=== PATIENT | male | born 1960 | race African-American/Black ===

== ENCOUNTER 2017-12-12 02:11 | Emergency (ER) | payer MEDICAID ==
[~2017-12-12] VITALS: Ht 190.5 cm; Wt 95.3 kg
--- NOTE | 2017-12-12 02:43 | Emergency Room Report ---
History of Present Illness General Chief Complaint: Generalized Weakness Source: Patient, Family Member Present Illness HPI Is a 57-year-old male with no past medical history. He presents with chief complaint of general is weakness and fever and cough. Onset for last week to week and a half but worse the last 2 days. Also with headache. Coughing is productive of phlegm. No nausea no vomiting. Generalized body pain. Subjective fever. Nothing made it better. Exertion made it worse. Denies any other complaint. No chest pain. Allergies: Coded Allergies: No Known Allergies (Unverified , 12/12/17) Patient History Past Medical History: see triage record, old chart reviewed Past Surgical History: none Pertinent Family History: none Social History: Reports: smoking Immunizations: other Reviewed Nursing Documentation: PMH: Agreed; PSxH: Agreed Nursing Documentation-PMH Past Medical History: No Stated History Review of Systems Constitutional: Reports: fever, malaise, weakness Eye: Denies: eye pain, blurred vision ENT: Denies: ear pain, nose congestion, throat swelling Respiratory: Reports: cough, sputum Cardiovascular: Denies: chest pain, palpitations Gastrointestinal: Denies: abdominal pain, diarrhea, nausea, vomiting Musculoskeletal: Denies: back pain, joint pain Skin: Denies: rash Neurological: Denies: headache, numbness Endocrine: Denies: increased thirst, increased urine Hematologic/Lymphatic: Denies: easy bruising All Other Systems: negative except mentioned in HPI Physical Exam Vital Signs Date Time Temp Pulse Resp B/P (MAP) Pulse Ox O2 Delivery O2 Flow Rate FiO2 12/12/17 02:24 98.6 80 16 154/86 95 Room Air 98.6 vitals with high blood pressure Sp02 EP Interpretation: reviewed, normal General Appearance: well appearing, no apparent distress, alert Head: normocephalic, atraumatic Eyes: bilateral eye PERRL, bilateral eye EOMI ENT: hearing grossly normal, normal pharynx Neck: full range of motion, supple, no meningismus Respiratory: chest non-tender, rhonchi Cardiovascular #1: regular rate, rhythm, no murmur Gastrointestinal: normal bowel sounds, non tender, no mass, no organomegaly, no bruit, non-distended Musculoskeletal: back normal, gait/station normal, normal range of motion Psychiatric: mood/affect normal Skin: warm/dry Medical Decision Making Diagnostic Impression: Primary Impression: CAP (community acquired pneumonia) Qualified Codes: J18.1 - Lobar pneumonia, unspecified organism ER Course Patient presents with cough and fever. He has infiltrate on the chest x-ray. Also evidence of emphysema 2. He smokes about a pack a day. Tucker better after breathing treatment and antibiotics given here. He is increased risk for neoplastic process. We'll discharge home. Advised stop smoking. If not better , may need CT scan of the chest. Lab Results Impression labs unremarkable Chest X-Ray Diagnostic Results Chest X-Ray Diagnostic Results : Chest X-Ray Ordered: Yes # of Views/Limited/Complete: 1 View Indication: Shortness of Breath EP Interpretation: Yes Interpretation: no effusion, no pneumothorax, other - right lower lobe interstitial infiltrate Impression: Other - RLL infiltrates Electronically Signed by: Marco Reynoso MD Last Vital Signs Date Time Temp Pulse Resp B/P (MAP) Pulse Ox O2 Delivery O2 Flow Rate FiO2 12/12/17 02:24 98.6 80 16 154/86 95 Room Air 98.6 Status: improved Disposition: HOME, SELF-CARE Condition: Stable Scripts Azithromycin* (ZITHROMAX*) 250 Mg Tablet 250 MG ORAL DAILY, #6 TAB 0 Refills Take two tables once daily for 1 day, then one tablet once daily for 4 days. Prov: Marco Reynoso MD 12/12/17 Albuterol Sulfate* (ALBUTEROL SULFATE MDI*) 8.5 Gm Hfa.aer.ad 2 PUFF INH Q4H PRN for cough/wheezing, #1 EA 0 Refills Prov: Marco Reynoso MD 12/12/17 Additional Instructions: Stop smoking. Follow-up with your DrYuki in 7 days. Return if symptom worsen. If not better, may need CT scan of chest. Marco Reynoso MD Dec 12, 2017 02:43
[2017-12-12] MEDS ORDERED: Albuterol ud Inhalation HHN ONE (02:45)
[2017-12-12] MEDS ORDERED: Ketorolac 30mg Inj IV ONE (02:45)
[2017-12-12 02:50] VITALS: BP 140/87
[2017-12-12 03:02] LABS: BASOPHILS % (AUTO) 1.1 % (0.0-2.0); EOSINOPHILS % (AUTO) 2.9 % (0.0-3.0); HEMATOCRIT 44.1 % (42.0-52.0); HEMOGLOBIN 14.6 G/DL (14.2-18.0); LYMPHOCYTES % (AUTO) 27.7 % (20.0-45.0); MEAN CORPUSCULAR VOLUME 89 FL (80-99); MONOCYTES % (AUTO) 6.6 % (1.0-10.0); NEUTROPHILS % (AUTO) 61.7 % (45.0-75.0); PLATELET COUNT 271 K/UL (150-450); RED BLOOD COUNT 4.96 M/UL (4.70-6.10); RED CELL DISTRIBUTION WIDTH 12.6 % (11.6-14.8); WHITE BLOOD COUNT 4.7 K/UL (4.8-10.8)
[2017-12-12 03:12] LABS: ANION GAP 6 mmol/L (5-15); BLOOD UREA NITROGEN 15 mg/dL (7-18); CALCIUM 8.6 MG/DL (8.5-10.1); CARBON DIOXIDE 27 MMOL/L (21-32); CHLORIDE 107 MMOL/L (98-107); CREATININE 1.2 MG/DL (0.55-1.30); POTASSIUM 3.7 MMOL/L (3.5-5.1); SODIUM 140 MMOL/L (136-145)
[2017-12-12] MEDS ORDERED: cefTRIAXone 1 GM in NS 55 ML IVPB ONE (03:15)
[2017-12-12] MEDS ORDERED: ZITHROMAX250 MG ORAL (03:33)
[2017-12-12] MEDS ORDERED: ALBUTEROL SULF8.5 GM INH (03:33)
[2017-12-12 03:45] VITALS: BP 138/88
[2017-12-12 04:01] VITALS: BP 138/88
--- NOTE | 2017-12-12 10:38 | Diagnostic Imaging Report ---
Indication: Dyspnea Comparison: None A single view chest radiograph was obtained. Findings: Cardiomediastinal appearance is within normal limits for age. The lungs are clear. Pulmonary vascularity is appropriate. The diaphragmatic contour is smooth and costophrenic angles are sharp. No pleural effusions are identified. The bones are unremarkable. Impression: No acute findings
== END 2017-12-12 03:55 | disposition home or self-care (01) ==
LOC: EMR 02:42
DX: J18.9 Pneumonia, unspecified organism (principal); F17.200 Nicotine dependence, unspecified, uncomplicated
CPT/HCPCS: 36415; 71045; 80048; 84484; 85025; 94640; 94664; 96361; 96365; 96375; 99284; J0696; J1885

== ENCOUNTER 2019-08-09 12:22 | Emergency (ER) | payer MEDICAID ==
[~2019-08-09] VITALS: Ht 190.5 cm; Wt 90.7 kg
[2019-08-09 12:22] VITALS: BP 125/88
[~2019-08-09 12:22] MED LIST: ALBUTEROL SULF8.5 GM INH; ZITHROMAX250 MG ORAL
--- NOTE | 2019-08-09 12:22 | NUR ---
ED Nurse Note: PT walked in to ed for pressure like C/P Chest pain and SOB since yesterday. pt reports having a stent placed in about 7 month ago at [facility].
--- NOTE | 2019-08-09 12:59 | NUR ---
ED Nurse Note: blood sample collected and sent to lab
--- NOTE | 2019-08-09 13:03 | NUR ---
ED Nurse Note: pt unable to provide urine sample at this time.
--- NOTE | 2019-08-09 13:08 | NUR ---
ED Nurse Note: x ray neing taken at bedside. Repory given to Deirdre Mcbride RN. Endorsed plan of care.
[2019-08-09 13:13] LABS: HEMATOCRIT 47.6 % (42.0-52.0); HEMOGLOBIN 15.5 G/DL (14.2-18.0); MEAN CORPUSCULAR VOLUME 88 FL (80-99); PLATELET COUNT 264 K/UL (150-450); RED BLOOD COUNT 5.42 M/UL (4.70-6.10); WHITE BLOOD COUNT 5.3 K/UL (4.8-10.8)
[2019-08-09 13:25] LABS: ANION GAP 7 mmol/L (5-15); BLOOD UREA NITROGEN 22 mg/dL (7-18); CALCIUM 8.8 MG/DL (8.5-10.1); CARBON DIOXIDE 28 MMOL/L (21-32); CHLORIDE 108 MMOL/L (98-107); CREATININE 1.9 MG/DL (0.55-1.30); POTASSIUM 4.8 MMOL/L (3.5-5.1); SODIUM 142 MMOL/L (136-145)
[2019-08-09 13:35] LABS: ALANINE AMINOTRANSFERASE 28 U/L (12-78); ALBUMIN/GLOBULIN RATIO 0.8 (1.0-2.7); ALKALINE PHOSPHATASE 67 U/L (46-116); ASPARTATE AMINO TRANSFERASE 26 U/L (15-37); BILIRUBIN,TOTAL 0.6 MG/DL (0.2-1.0)
--- NOTE | 2019-08-09 14:15 | Diagnostic Imaging Report ---
EXAM: XR Chest, 1 View CLINICAL HISTORY: CP TECHNIQUE: Frontal view of the chest. COMPARISON: No relevant prior studies available. FINDINGS: Interval development of cardiomegaly. Mild vascular congestion. Right basilar atelectasis. Cannot exclude infection or other airspace infiltrate. IMPRESSION: Interval development of cardiomegaly. Mild vascular congestion. Right basilar atelectasis. Cannot exclude infection or other airspace infiltrate.
--- NOTE | 2019-08-09 14:19 | NUR ---
ED Nurse Note: Pt still unable to provide urine. ERMD aware. Pt refuses straight cath.
--- NOTE | 2019-08-09 14:29 | Emergency Room Report ---
History of Present Illness General Chief Complaint: Dyspnea/Respdistress Source: Patient (Scott Guallpa MD) Present Illness HPI 58-year-old male presents the ED complaining of chest pain. Started this morning. Left-sided, dull, 5 out of 10, nonradiating. Notes pain with deep breaths. Denies fevers or chills. Denies cough. States that he did use cocaine this morning. No other aggravating relieving factors. Denies any other associated symptoms (Scott Guallpa MD) Allergies: Coded Allergies: No Known Allergies (Unverified , 12/12/17) COVID-19 Screening Contact w/high risk pt: No Recent Travel to affected area: No Experienced COVID-19 symptoms?: Yes COVID-19 symptoms experienced: Shortness of Breath COVID-19 Testing performed AUDIO VISUAL AIDE: No (Scott Guallpa MD) Patient History Past Medical History: HTN Past Surgical History: none Pertinent Family History: none Social History: Reports: drug use; Denies: smoking, alcohol use Immunizations: UTD Reviewed Nursing Documentation: PMH: Agreed; PSxH: Agreed (Scott Guallpa MD) Nursing Documentation-PMH Past Medical History: No History, Except For Hx Cardiac Problems: Yes Hx Hypertension: Yes Hx COPD: Yes (Scott Guallpa MD) Review of Systems All Other Systems: negative except mentioned in HPI (Scott Guallpa MD) Physical Exam Vital Signs Date Time Temp Pulse Resp B/P (MAP) Pulse Ox O2 Delivery O2 Flow Rate FiO2 08/09/19 12:22 97.5 72 18 125/88 98 Room Air Sp02 EP Interpretation: reviewed, normal General Appearance: no apparent distress, alert, GCS 15, non-toxic Head: normocephalic, atraumatic Eyes: bilateral eye normal inspection, bilateral eye PERRL ENT: hearing grossly normal, normal pharynx, no angioedema, normal voice Neck: full range of motion, supple/symm/no masses Respiratory: chest non-tender, lungs clear, normal breath sounds, speaking full sentences Cardiovascular #1: regular rate, rhythm, no edema Cardiovascular #2: 2+ carotid (R), 2+ carotid (L), 2+ radial (R), 2+ radial (L) , 2+ dorsalis pedis (R), 2+ dorsalis pedis (L) Gastrointestinal: normal bowel sounds, non tender, soft, non-distended, no guarding, no rebound Rectal: deferred Genitourinary: normal inspection, no CVA tenderness Musculoskeletal: back normal, normal range of motion, gait/station normal, non- tender Neurologic: alert, motor strength/tone normal, oriented x3, sensory intact, responsive, speech normal Psychiatric: judgement/insight normal, memory normal, mood/affect normal, no suicidal/homicidal ideation Reflexes: 3+ bicep (R), 3+ bicep (L), 3+ tricep (R), 3+ tricep (L), 3+ knee (R) , 3+ knee (L) Lymphatic: no adenopathy (Scott Guallpa MD) Medical Decision Making Diagnostic Impression: Primary Impression: Chest pain Labs Test 08/09/19 12:55 White Blood Count 5.3 K/UL (4.8-10.8) Red Blood Count 5.42 M/UL (4.70-6.10) Hemoglobin 15.5 G/DL (14.2-18.0) Hematocrit 47.6 % (42.0-52.0) Mean Corpuscular Volume 88 FL (80-99) Mean Corpuscular Hemoglobin 28.6 PG (27.0-31.0) Mean Corpuscular Hemoglobin Concent 32.6 G/DL (32.0-36.0) Red Cell Distribution Width 13.0 % (11.6-14.8) Platelet Count 264 K/UL (150-450) Mean Platelet Volume 5.7 FL (6.5-10.1) Neutrophils (%) (Auto) % (45.0-75.0) Lymphocytes (%) (Auto) % (20.0-45.0) Monocytes (%) (Auto) % (1.0-10.0) Eosinophils (%) (Auto) % (0.0-3.0) Basophils (%) (Auto) % (0.0-2.0) Differential Total Cells Counted 100 Neutrophils % (Manual) 57 % (45-75) Lymphocytes % (Manual) 37 % (20-45) Monocytes % (Manual) 6 % (1-10) Eosinophils % (Manual) 0 % (0-3) Basophils % (Manual) 0 % (0-2) Band Neutrophils 0 % (0-8) Platelet Estimate Adequate Platelet Morphology Normal Red Blood Cell Morphology Normal Sodium Level 142 MMOL/L (136-145) Potassium Level 4.8 MMOL/L (3.5-5.1) Chloride Level 108 MMOL/L (98-107) Carbon Dioxide Level 28 MMOL/L (21-32) Anion Gap 7 mmol/L (5-15) Blood Urea Nitrogen 22 mg/dL (7-18) Creatinine 1.9 MG/DL (0.55-1.30) Estimat Glomerular Filtration Rate 44.0 mL/min (>60) Glucose Level 103 MG/DL (74-106) Calcium Level 8.8 MG/DL (8.5-10.1) Total Bilirubin 0.6 MG/DL (0.2-1.0) Aspartate Amino Transf (AST/SGOT) 26 U/L (15-37) Alanine Aminotransferase (ALT/SGPT) 28 U/L (12-78) Alkaline Phosphatase 67 U/L (46-116) Troponin I 0.025 ng/mL (0.000-0.056) Pro-B-Type Natriuretic Peptide 4796 pg/mL (0-125) Total Protein 7.0 G/DL (6.4-8.2) Albumin 3.0 G/DL (3.4-5.0) Globulin 4.0 g/dL Albumin/Globulin Ratio 0.8 (1.0-2.7) (Scott Guallpa MD) ER Course Patient is a fairly complex patient with multiple differential to consideration including but not limited to cardiac cardiopulmonary and vascular emergencies Please refer to the initial note for the history exam and presentation patient' s EKG does not show any acute process initial troponin is negative Patient's repeat troponin was also negative patient has continued to rest comfortably throughout his stay remains chest pain-free BNP is mildly elevated however patient is not short of breath and saturating well and is stable for close outpatient follow-up (Tami Ledesma DO) EKG Diagnostic Results Rate: normal Rhythm: NSR ST Segments: no acute changes ASA given to the pt in ED: Yes (Scott Guallpa MD) Rate: normal Rhythm: NSR ST Segments: no acute changes (Tami Ledesma DO) Rhythm Strip Diag. Results EP Interpretation: yes Rhythm: NSR, no PVC's, no ectopy (Scott Guallpa MD) EP Interpretation: yes Rate: 66 Rhythm: NSR, no PVC's, no ectopy (Tami Ledesma DO) Chest X-Ray Diagnostic Results Chest X-Ray Diagnostic Results : Chest X-Ray Ordered: Yes # of Views/Limited/Complete: 1 View Indication: Chest Pain EP Interpretation: Yes Interpretation: no consolidation, no effusion, no pneumothorax, other - cardiomegaly Impression: Other - cardiomegaly Electronically Signed by: Electronically signed by Scott Guallpa MD (Scott Guallpa MD) Chest X-Ray Diagnostic Results : Chest X-Ray Ordered: Yes # of Views/Limited/Complete: 1 View Indication: Chest Pain EP Interpretation: Yes Interpretation: other - Mild cardiomegaly, mild congestion, no acute bony abnormality Impression: Other - Evidence of cardiomegaly mild congestion Electronically Signed by: Tami Ledesma DO (Tami Ledesma DO) Last Vital Signs Date Time Temp Pulse Resp B/P (MAP) Pulse Ox O2 Delivery O2 Flow Rate FiO2 08/09/19 12:26 97.9 65 18 127/96 (106) 98 Room Air Status: improved (Scott Guallpa MD) Status: improved (Tami Ledesma DO) Disposition: HOME, SELF-CARE Condition: Improved Scripts Unable to Obtain Active Prescriptions or Reported Meds Referrals: NOT CHOSEN IPA/,REFERRING (PCP) Additional Instructions: Patient is provided with the discharge instructions notified to follow up with primary doctor in the next 2-3 days otherwise return to the er with any worsening symptoms. Please note that this report is being documented using erento technology. This can lead to erroneous entry secondary to incorrect interpretation by the dictating instrument. Scott Guallpa MD Aug 09, 2019 14:29 Tami Ledesma DO Aug 09, 2019 15:54
--- NOTE | 2019-08-09 15:49 | NUR ---
ER DISCHARGE NOTE: Homeless log and mini cog completed. resources provided. Food provided.
[2019-08-09 15:50] VITALS: BP 120/94
--- NOTE | 2019-08-09 15:50 | NUR ---
ER DISCHARGE NOTE: Patient is cleared to be discharged per ERMD, pt is aox4, on room air, with stable vital signs. pt was given dc and prescription instructions, pt was able to verbalize understanding, pt id band and iv site removed without complications. pt is able to ambulate with steady gait. pt took all belongings. Pt educated on chest pain and cocaine abuse.
== END 2019-08-09 15:50 | disposition home or self-care (01) ==
LOC: EMR 13:00
DX: R07.9 Chest pain, unspecified (principal); R06.02 Shortness of breath; I10 Essential (primary) hypertension; J44.9 Chronic obstructive pulmonary disease, unspecified; I51.7 Cardiomegaly
CPT/HCPCS: 36415; 71045; 80053; 80307; 83880; 84484; 85007; 85025; 87081; 93005; Z7502; 99284

== ENCOUNTER 2019-08-11 20:31 | Emergency (ER) | payer MEDICAID ==
[~2019-08-11] VITALS: Ht 190.5 cm; Wt 90.7 kg
--- NOTE | 2019-08-11 20:41 | NUR ---
ED Nurse Note: Patient walked into ED after he stepped his right foot on [place] nail x2 weeks ago. Denies pain/ discharges. Pt uanle to recall last tetanus shot date. Pt able to walk with steady gait. Addendum: 08/11/19 at 2101 by [facility] ED Nurse Note: Pt also c/o SOB x couple of days. Pt has hx of COPD.
--- NOTE | 2019-08-11 20:50 | NUR ---
ED Nurse Note: Pt refused treatment care plan. ERMD notified. Explained risk and benefits, pt verbally understood.
--- NOTE | 2019-08-11 20:55 | Emergency Room Report ---
History of Present Illness General Chief Complaint: Lower Extremity Injury Source: Patient Present Illness HPI Patient is a 58-year-old male who presents to the ER requesting a tetanus update. He states he stepped on a nail 2 weeks ago. He states that his last tetanus shot was a long long time ago. Patient denies any fever or chills. Patient also complains of chronic shortness of breath. He states that he has been worked up here as well as [place] and other facilities and does not want his shortness of breath to be addressed at this time. He is declining EKG, chest x-ray or laboratory work. He states that the only thing he would like at this time is a tetanus shot. He denies any discharge or redness. He denies any pain where he stepped on the nail. Allergies: Coded Allergies: No Known Allergies (Unverified , 12/12/17) COVID-19 Screening Contact w/high risk pt: No Recent Travel to affected area: No Experienced COVID-19 symptoms?: No COVID-19 symptoms experienced: Shortness of Breath COVID-19 Testing performed SUBWAY CAR REPAIRER: No Patient History Reviewed Nursing Documentation: PMH: Agreed; PSxH: Agreed Nursing Documentation-PMH Hx Cardiac Problems: Yes Hx Hypertension: Yes Hx COPD: Yes Review of Systems All Other Systems: negative except mentioned in HPI Physical Exam Vital Signs Date Time Temp Pulse Resp B/P (MAP) Pulse Ox O2 Delivery O2 Flow Rate FiO2 08/11/19 20:34 98.1 81 16 132/97 (109) 98 Room Air Sp02 EP Interpretation: reviewed, normal General Appearance: no apparent distress, alert, GCS 15, non-toxic Head: normocephalic, atraumatic Eyes: bilateral eye normal inspection, bilateral eye PERRL ENT: hearing grossly normal, normal pharynx, no angioedema, normal voice Neck: full range of motion, supple/symm/no masses Respiratory: chest non-tender, no respiratory distress, no retraction, no accessory muscle use, speaking full sentences Cardiovascular #1: regular rate, rhythm, no edema Cardiovascular #2: 2+ carotid (R), 2+ carotid (L), 2+ dorsalis pedis (R), 2+ dorsalis pedis (L) Gastrointestinal: normal bowel sounds, non tender, soft, non-distended, no guarding, no rebound Rectal: deferred Genitourinary: no CVA tenderness Musculoskeletal: no calf tenderness, no lower extremity edema, non-tender, other - Bilaterally very dry feet, no sign of where he stepped on the nail on his heel or plantar surface of his foot 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 He states that he is only here for his tetanus update. I informed him that this could be something cardiac or due to pulmonary disease. Patient states that he still does not want to stay and does not want any lab work, X-ray, or ekg. I told him that I was concerned and he states that he accepts the risk including and up to significant morbidity and mortality. I have told him to come back at any time he wants further work-up for his dyspnea. Last Vital Signs Date Time Temp Pulse Resp B/P (MAP) Pulse Ox O2 Delivery O2 Flow Rate FiO2 08/11/19 20:34 98.1 81 16 132/97 (109) 98 Room Air Disposition: HOME, SELF-CARE Condition: Unknown Scripts Unable to Obtain Active Prescriptions or Reported Meds Referrals: [facility] Patient Instructions: Shortness of Breath, [id number], Puncture Wound, Easy- to-Read Additional Instructions: The patient was provided with discharge instructions, notified to follow-up with a primary care doctor and or specialist in the next 24-48 hours, and to return to the ED if they have worsening of their symptoms. Please note that this report is being documented using [employer] technology. This can lead to erroneous entry secondary to incorrect interpretation by the dictating instrument. Rhonda Santos M.D. Aug 11, 2019 20:55
[2019-08-11 21:00] VITALS: BP 132/97
[2019-08-11] MEDS ORDERED: Tetanus/Diptheria/Pertussis IM ONE (21:00)
--- NOTE | 2019-08-11 21:00 | NUR ---
ED Nurse Note: Pt cleared by ERMD for discharge. DC instructions/prescription was given and explained to pt and verbalized understanding of teachings. All medical deviecs such as ID band removed. Pt is AAO x4, ambulatory and left with all personal belongings.
== END 2019-08-11 21:00 | disposition home or self-care (01) ==
LOC: EMR 20:45
DX: R06.00 Dyspnea, unspecified (principal); I10 Essential (primary) hypertension; J44.9 Chronic obstructive pulmonary disease, unspecified; Z23 Encounter for immunization
CPT/HCPCS: 90471; 90715; Z7502; 99281

== ENCOUNTER 2019-08-16 03:00 | Emergency (ER) | payer MEDICAID ==
[~2019-08-16] VITALS: Ht 188 cm; Wt 81.6 kg
--- NOTE | 2019-08-16 03:04 | NUR ---
not in waiting room
--- NOTE | 2019-08-16 03:20 | NUR ---
not in waiting room.
--- NOTE | 2019-08-16 03:28 | Emergency Room Report ---
History of Present Illness General Chief Complaint: To Be Triaged Source: Patient Present Illness HPI This is a 58-year-old male with a history of substance abuse. He presents with chief complaint of abdominal pain. He checked then but when the nurse call him he did not respond. I did not see this patient. Allergies: Coded Allergies: No Known Allergies (Unverified , 12/12/17) COVID-19 Screening Contact w/high risk pt: No Recent Travel to affected area: No Experienced COVID-19 symptoms?: No COVID-19 symptoms experienced: Shortness of Breath Patient History Past Medical History: see triage record, old chart reviewed Past Surgical History: other Pertinent Family History: none Social History: Reports: drug use Immunizations: other Reviewed Nursing Documentation: PMH: Agreed; PSxH: Agreed Nursing Documentation-PMH Hx Cardiac Problems: Yes Hx Hypertension: Yes Hx COPD: Yes Medical Decision Making Diagnostic Impression: Primary Impression: Abdominal pain Qualified Codes: R10.9 - Unspecified abdominal pain Additional Impression: Substance abuse ER Course This patient presents with abdominal pain. He never checked then to the main ER. I did not see this patient. Status: unchanged Disposition: LEFT W/OUT BEING SEEN Condition: Stable Scripts Unable to Obtain Active Prescriptions or Reported Meds Marco Reynoso MD Aug 16, 2019 03:28
--- NOTE | 2019-08-16 03:42 | Emergency Room Report ---
History of Present Illness General Chief Complaint: Abdominal Pain Source: Patient Present Illness HPI This is a 58-year-old male with a history of CAD. He also has history of substance abuse with alcohol, drug cocaine and PCP. He presents with chief complaint abdominal pain. Is a chronic problem but worse in the last few hours. He said he ate some hot sauce and the pain came on. He is chronically short of breath and he said it made it little worse. No fever chills but no nausea no vomiting but no diarrhea. Pain is sharp in nature. 8 out of 10. Nothing made it better. Nothing made it worse. Denies any other complaint. Allergies: Coded Allergies: No Known Allergies (Unverified , 12/12/17) COVID-19 Screening Contact w/high risk pt: No Recent Travel to affected area: No Experienced COVID-19 symptoms?: No COVID-19 symptoms experienced: Shortness of Breath Patient History Past Medical History: see triage record, old chart reviewed, HTN, CAD Past Surgical History: other Pertinent Family History: none Social History: Reports: alcohol use, drug use Immunizations: other Reviewed Nursing Documentation: PMH: Agreed; PSxH: Agreed Nursing Documentation-PMH Hx Cardiac Problems: Yes - stent on R groin Hx Hypertension: Yes Hx COPD: Yes Review of Systems Eye: Denies: eye pain, blurred vision ENT: Denies: ear pain, nose congestion, throat swelling Respiratory: Denies: cough, shortness of breath Cardiovascular: Denies: chest pain, palpitations Gastrointestinal: Reports: abdominal pain; Denies: diarrhea, nausea, vomiting Musculoskeletal: Denies: back pain, joint pain Skin: Denies: rash Neurological: Denies: headache, numbness Endocrine: Denies: increased thirst, increased urine Hematologic/Lymphatic: Denies: easy bruising All Other Systems: negative except mentioned in HPI Physical Exam Vitals unremarkable Sp02 EP Interpretation: reviewed, normal General Appearance: well appearing, no apparent distress, alert Head: normocephalic, atraumatic Eyes: bilateral eye PERRL, bilateral eye EOMI ENT: hearing grossly normal, normal pharynx Neck: full range of motion, supple, no meningismus Respiratory: chest non-tender, lungs clear, normal breath sounds Cardiovascular #1: regular rate, rhythm, no murmur Gastrointestinal: normal bowel sounds, no mass, no organomegaly, no bruit, non- distended, tenderness - Pain to the right flank Musculoskeletal: back normal, normal range of motion, gait/station normal Psychiatric: mood/affect normal Medical Decision Making Diagnostic Impression: Primary Impression: Abdominal pain Qualified Codes: R10.9 - Unspecified abdominal pain Additional Impressions: Substance abuse Ascites Qualified Codes: R18.8 - Other ascites ER Course Patient presents with abdominal pain. Exam is benign. Is soft. He does appear to be any distress. He showed evidence of cardiomyopathy from his alcohol and drug use. He is also has ascites probably from his alcohol abuse. No evidence of an acute abdomen. No evidence of any obstruction. Will discharge home. CT/MRI/US Diagnostic Results CT/MRI/US Diagnostic Results : Imaging Test Ordered: CT abdomen and pelvis Impression Read by radiologist. Moderate amount of ascites. Otherwise negative. Status: improved Disposition: HOME, SELF-CARE Condition: Stable Scripts Unable to Obtain Active Prescriptions or Reported Meds Patient Instructions: Abdominal Pain, Adult Additional Instructions: Stop using drugs and alcohol. Already showed evidence of heart and liver problem. Go to rehab. Follow-up with your doctor in 7 days. Return if symptoms worsen. Marco Reynoso MD Aug 16, 2019 03:42
[2019-08-16 03:45] VITALS: BP 148/108
--- NOTE | 2019-08-16 03:45 | NUR ---
Nurse Note: Pt walked in c/o abd pain since "a few hours". Pt stated he ate dinner that made him stomach ache. Pt stated his abd is bigger than before. Pt states shortness of breath.
--- NOTE | 2019-08-16 04:22 | Diagnostic Imaging Report ---
EXAM: CT Abdomen and Pelvis Without Intravenous Contrast CLINICAL HISTORY: ABD PAIN TECHNIQUE: Axial computed tomography images of the abdomen and pelvis without intravenous contrast. CTDI is 7.70 mGy and DLP is 56.10 mGy-cm. One or more of the following dose reduction techniques were used: automated exposure control, adjustment of the mA and/or kV according to patient size, use of iterative reconstruction technique. COMPARISON: No relevant prior studies available. FINDINGS: Lung bases: Atelectasis at the right lung base. Mediastinum: Mild hiatal hernia. ABDOMEN: Liver: Unremarkable. Gallbladder and bile ducts: No stones. Pancreas: Unremarkable. No ductal dilation. Spleen: Unremarkable. No splenomegaly. Adrenals: Unremarkable. No mass. Kidneys and ureters: Unremarkable. No obstructing stones. No hydronephrosis. Stomach and bowel: Unremarkable. No obstruction. No mucosal thickening. PELVIS: Appendix: Appendix not visualized. Bladder: Unremarkable. No stones. Reproductive: Unremarkable as visualized. ABDOMEN and PELVIS: Intraperitoneal space: Moderate abdominopelvic ascites. No free air. Bones/joints: Degenerative changes of the spine. Soft tissues: Unremarkable. Vasculature: Atherosclerotic changes of the aorta. Lymph nodes: Unremarkable. No enlarged lymph nodes. IMPRESSION: Evaluation limited due to lack of intravenous contrast, lack of oral contrast, and ascites: 1. Moderate abdominopelvic ascites. No definite hepatic mass. No definite morphologic changes of cirrhosis at this time. 2. No small bowel obstruction or acute diverticulitis. 3. Mild hiatal hernia.
[2019-08-16 04:45] VITALS: BP 140/98
--- NOTE | 2019-08-16 04:45 | NUR ---
ED Nurse Note: Pt cleared by health care Provider for discharge. DC instructions/prescription was given and explained to pt and verbalized understanding of teachings. Instructed pt to follow upw with primary care physcian within one week for follow up care. All medical deviecs such as ID band removed. Pt is AAO x4, ambulatory and left with all personal belongings.
== END 2019-08-16 04:45 | disposition home or self-care (01) ==
LOC: EMR 03:12
DX: R10.9 Unspecified abdominal pain (principal); R18.8 Other ascites; F19.10 Other psychoactive substance abuse, uncomplicated; I11.9 Hypertensive heart disease without heart failure; I25.10 Atherosclerotic heart disease of native coronary artery without angina pectoris; J44.9 Chronic obstructive pulmonary disease, unspecified; K44.9 Diaphragmatic hernia without obstruction or gangrene; I70.0 Atherosclerosis of aorta
CPT/HCPCS: 74176; Z7502; 99284

== ENCOUNTER 2019-08-24 01:34 | Emergency (ER) | payer MEDICAID ==
[~2019-08-24] VITALS: Ht 190.5 cm; Wt 90.7 kg
[2019-08-24 02:00] VITALS: BP 140/97
[2019-08-24] MEDS ORDERED: Aspirin Baby 81mg ORAL ONE (02:00)
--- NOTE | 2019-08-24 02:00 | NUR ---
ED Nurse Note: Pt ambulated to ED from home c/o sob and pain in legs r/t swelling. Pt has chronic issue of pain and swelling. Hx of cirrosis and ascites. Pt is non-compliant with medications. VSS PT is A&Ox4. ERMD at bedside
--- NOTE | 2019-08-24 02:03 | Emergency Room Report ---
History of Present Illness General Chief Complaint: Dyspnea/Respdistress Source: Patient Present Illness HPI This is a 58-year-old male with a history of high blood pressure. Also history of substance abuse. He presents with complaint of chest pain, shortness of breath and leg swelling. Onset for last 2 3 days. Not taking his medication. He was here recently for the same thing. Chest x-ray did show cardiomegaly and basilar congestion. CT scan show ascites and liver disease. Patient said this symptom is chronic but seem to be worse in last few days. Worse with exertion. Better with rest. Denies any recent drug use. No nausea no vomiting. No fever or chills. When patient presents, he appeared to be intoxicated. Allergies: Coded Allergies: No Known Allergies (Unverified , 12/12/17) COVID-19 Screening Contact w/high risk pt: No Recent Travel to affected area: No Experienced COVID-19 symptoms?: No COVID-19 symptoms experienced: Shortness of Breath COVID-19 Testing performed METAL TURNER: No Patient History Past Medical History: see triage record, old chart reviewed, HTN Past Surgical History: other Pertinent Family History: none Social History: Reports: smoking, alcohol use, drug use Immunizations: other Reviewed Nursing Documentation: PMH: Agreed; PSxH: Agreed Nursing Documentation-PMH Hx Cardiac Problems: Yes - stent on R groin Hx Hypertension: Yes Hx COPD: Yes Review of Systems Eye: Denies: eye pain, blurred vision ENT: Denies: ear pain, nose congestion, throat swelling Respiratory: Reports: shortness of breath, ABREU; Denies: cough Cardiovascular: Reports: chest pain; Denies: palpitations Gastrointestinal: Reports: abdominal pain; Denies: diarrhea, nausea, vomiting Musculoskeletal: Denies: back pain, joint pain Skin: Denies: rash Neurological: Denies: headache, numbness Endocrine: Denies: increased thirst, increased urine Hematologic/Lymphatic: Denies: easy bruising All Other Systems: negative except mentioned in HPI Physical Exam Vital Signs Date Time Temp Pulse Resp B/P (MAP) Pulse Ox O2 Delivery O2 Flow Rate FiO2 08/24/19 01:44 97.5 99 20 140/97 (111) 96 Vitals normal Sp02 EP Interpretation: reviewed, normal General Appearance: well appearing, no apparent distress, alert, other - Intoxicated Head: normocephalic, atraumatic Eyes: bilateral eye PERRL, bilateral eye EOMI ENT: hearing grossly normal, normal pharynx Neck: full range of motion, supple, no meningismus Respiratory: chest non-tender, rales - Rales at the bases Cardiovascular #1: regular rate, rhythm, no murmur Gastrointestinal: normal bowel sounds, non tender, no mass, no organomegaly, no bruit, non-distended Musculoskeletal: back normal, normal range of motion, gait/station normal, swelling - 2+ pitting edema Psychiatric: mood/affect normal Medical Decision Making Diagnostic Impression: Primary Impression: Acute exacerbation of CHF (congestive heart failure) Qualified Codes: I50.9 - Heart failure, unspecified Additional Impressions: Substance abuse Alcohol abuse ER Course Patient presents with shortness of breath and lower extremity swelling. Is secondary to exacerbation of his CHF. He is noncompliant with his Lasix. He diuresed over a liter. He is eating drinking without any problem. [place] better now. Does not want to stay. Will discharge home. EKG Diagnostic Results Rate: normal Rhythm: NSR ST Segments: no acute changes ASA given to the pt in ED: Yes Rhythm Strip Diag. Results EP Interpretation: yes Rate: 95 Rhythm: NSR, no PVC's, no ectopy Chest X-Ray Diagnostic Results Chest X-Ray Diagnostic Results : Chest X-Ray Ordered: Yes # of Views/Limited/Complete: 1 View Indication: Shortness of Breath EP Interpretation: Yes Interpretation: no consolidation, no effusion, no pneumothorax, other - Cardiomegaly with CHF Impression: Other - CHF Electronically Signed by: Marco Reynoso MD Last Vital Signs Date Time Temp Pulse Resp B/P (MAP) Pulse Ox O2 Delivery O2 Flow Rate FiO2 08/24/19 01:44 97.5 99 20 140/97 (111) 96 Status: improved Disposition: HOME, SELF-CARE Condition: Stable Scripts Furosemide* (LASIX*) 40 Mg Tablet 40 MG ORAL DAILY, #30 TAB Prov: Marco Reynoso MD 08/24/19 Referrals: NOT CHOSEN [facility]/,REFERRING (PCP) Additional Instructions: Stop using drugs and alcohol. Follow-up with your doctor in 7 days. Return if symptoms worsen. Marco Reynoso MD Aug 24, 2019 02:03
[2019-08-24 02:27] LABS: BASOPHILS % (AUTO) 1.4 % (0.0-2.0); EOSINOPHILS % (AUTO) 2.4 % (0.0-3.0); HEMATOCRIT 48.4 % (42.0-52.0); HEMOGLOBIN 14.7 G/DL (14.2-18.0); LYMPHOCYTES % (AUTO) 25.3 % (20.0-45.0); MEAN CORPUSCULAR VOLUME 94 FL (80-99); MONOCYTES % (AUTO) 7.8 % (1.0-10.0); NEUTROPHILS % (AUTO) 63.1 % (45.0-75.0); PLATELET COUNT 189 K/UL (150-450); RED BLOOD COUNT 5.13 M/UL (4.70-6.10); RED CELL DISTRIBUTION WIDTH 13.8 % (11.6-14.8)
[2019-08-24 02:30] LABS: ANION GAP 7 mmol/L (5-15); BLOOD UREA NITROGEN 20 mg/dL (7-18); CALCIUM 8.8 MG/DL (8.5-10.1); CARBON DIOXIDE 28 MMOL/L (21-32); CHLORIDE 108 MMOL/L (98-107); CREATININE 1.8 MG/DL (0.55-1.30); POTASSIUM 4.2 MMOL/L (3.5-5.1); SODIUM 143 MMOL/L (136-145)
--- NOTE | 2019-08-24 02:43 | NUR ---
ED Nurse Note: urine specimen collected and sent to lab
[2019-08-24 02:46] LABS: APPEARANCE,URINE CLEAR; BILIRUBIN, URINE NEGATIVE (NEGATIVE); COLOR,URINE PALE YELLOW; GLUCOSE, URINE (UA) NEGATIVE (NEGATIVE); KETONES,URINE NEGATIVE (NEGATIVE); LEUKOCYTE ESTERASE ,URINE NEGATIVE (NEGATIVE); NITRITE,URINE NEGATIVE (NEGATIVE); PH,URINE 7 (4.5-8.0); PROTEIN,URINE 1+ (NEGATIVE); UROBILINOGEN,URINE NORMAL MG/DL (0.0-1.0)
[2019-08-24] MEDS ORDERED: FUROSEMIDE40 MG ORAL (02:47)
--- NOTE | 2019-08-24 03:00 | NUR ---
ER DISCHARGE NOTE: Patient is cleared to be discharged per ERMD, pt is aox4, on room air, with stable vital signs. pt was given dc and prescription instructions, pt was able to verbalize understanding, pt id band and iv site removed without complications. pt is able to ambulate with steady gait. pt took all belongings.
[2019-08-24 03:01] VITALS: BP 132/76
--- NOTE | 2019-08-24 03:05 | Diagnostic Imaging Report ---
EXAM: XR Chest, 1 View CLINICAL HISTORY: SOB TECHNIQUE: Frontal view of the chest. COMPARISON: 08/09/2019 IMPRESSION: Hazy right lower lobe opacity. Prominent interstitial markings. Correlate with edema versus infectious process. Cardiomegaly. No pleural effusion.
== END 2019-08-24 03:00 | disposition home or self-care (01) ==
LOC: EMR 01:55
DX: I50.9 Heart failure, unspecified (principal); F10.10 Alcohol abuse, uncomplicated; F19.10 Other psychoactive substance abuse, uncomplicated; I10 Essential (primary) hypertension; Z95.828 Presence of other vascular implants and grafts; F17.200 Nicotine dependence, unspecified, uncomplicated; J44.9 Chronic obstructive pulmonary disease, unspecified; Z91.14 Patient's other noncompliance with medication regimen; I51.7 Cardiomegaly
CPT/HCPCS: 36415; 71045; 80048; 80307; 81003; 83880; 84484; 85025; 93005; 96374; G0480; J1940; Z7502; 99284

== ENCOUNTER 2019-08-24 11:59 | Inpatient (IN) | payer MEDICAID ==
[~2019-08-24] VITALS: Ht 190.5 cm; Wt 87.1 kg
[~2019-08-24 11:59] MED LIST changes: +FUROSEMIDE40 MG ORAL
[2019-08-24 12:22] VITALS: BP 156/110
--- NOTE | 2019-08-24 12:22 | NUR ---
ED Nurse Note: pt walked in to ED for C/O chest pain since 8pm ast night. pt reports the pain is sharp and radiates to his left arm. pt states he had a stent placed about 9 months ago. pt was also seen in ER last night for same complaint.
[2019-08-24] MEDS ORDERED: ceFAZolin sod 1 GM in NS 55 ML IVPB ONE (13:00)
--- NOTE | 2019-08-24 13:13 | NUR ---
ED Nurse Note: Radiology Anastacio at the bed side for CXR.
[2019-08-24 13:20] LABS: BASOPHILS % (AUTO) 3.9 % (0.0-2.0); EOSINOPHILS % (AUTO) 4.6 % (0.0-3.0); HEMATOCRIT 49.7 % (42.0-52.0); HEMOGLOBIN 14.9 G/DL (14.2-18.0); LYMPHOCYTES % (AUTO) 18.1 % (20.0-45.0); MEAN CORPUSCULAR VOLUME 96 FL (80-99); NEUTROPHILS % (AUTO) 59.5 % (45.0-75.0); PLATELET COUNT 204 K/UL (150-450); RED CELL DISTRIBUTION WIDTH 13.7 % (11.6-14.8); WHITE BLOOD COUNT 4.3 K/UL (4.8-10.8)
[2019-08-24 13:46] LABS: ANION GAP 10 mmol/L (5-15); BLOOD UREA NITROGEN 19 mg/dL (7-18); CALCIUM 8.4 MG/DL (8.5-10.1); CARBON DIOXIDE 27 MMOL/L (21-32); CHLORIDE 108 MMOL/L (98-107); CREATININE 1.7 MG/DL (0.55-1.30); POTASSIUM 3.9 MMOL/L (3.5-5.1); SODIUM 145 MMOL/L (136-145)
[2019-08-24 13:57] LABS: ALANINE AMINOTRANSFERASE 24 U/L (12-78); ALBUMIN/GLOBULIN RATIO 0.7 (1.0-2.7); ALKALINE PHOSPHATASE 73 U/L (46-116); ASPARTATE AMINO TRANSFERASE 30 U/L (15-37); BILIRUBIN,TOTAL 0.7 MG/DL (0.2-1.0)
--- NOTE | 2019-08-24 14:04 | Diagnostic Imaging Report ---
Procedure: XRAY Chest 1v Reason for study: Reason For Exam: SOB Comparison films: 08/24/2019. FINDINGS: A single one view chest is obtained. Vascularity is normal. There are improving basilar infiltrates. Cardiac and mediastinal silhouette are within normal limits. CP angles are sharp. The bony thorax appear unremarkable. IMPRESSION: Improving basilar infiltrates.
[2019-08-24 14:15] VITALS: BP 147/100
--- NOTE | 2019-08-24 15:17 | NUR ---
ED Nurse Note: Dr Richard sanabria for pt to eat low sodium diet.
--- NOTE | 2019-08-24 15:36 | Emergency Room Report ---
History of Present Illness General Chief Complaint: Chest Pain Source: Medical Record Present Illness HPI Patient is a 58-year-old male who presents after increased chest discomfort. Reports having onset of symptoms over the past few days. Associated bilateral lower extremity swelling. Prior history of coronary artery disease and stent placement. Reports having some redness to his left leg. States he had previously been hospitalized for similar symptoms in the past. Denies any fever. 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 COVID-19 Screening: Negative COVID-19 COVID-19 Testing Source: nnps Patient History Past Medical History: see triage record Reviewed Nursing Documentation: PMH: Agreed; PSxH: Agreed Nursing Documentation-PMH Past Medical History: No History, Except For Hx Cardiac Problems: Yes - stent on R groin Hx Hypertension: Yes Hx COPD: Yes Review of Systems All Other Systems: negative except mentioned in HPI Physical Exam Vital Signs Date Time Temp Pulse Resp B/P (MAP) Pulse Ox O2 Delivery O2 Flow Rate FiO2 08/24/19 12:04 97.5 82 20 155/123 (134) 97 Room Air Sp02 EP Interpretation: reviewed, normal General Appearance: normal inspection, alert, GCS 15, Chronically Ill Head: atraumatic ENT: normal ENT inspection, hearing grossly normal, normal voice Neck: normal inspection, full range of motion, supple, no bony tend Respiratory: normal inspection, lungs clear, normal breath sounds, no respiratory distress, no retraction, no wheezing Cardiovascular #1: regular rate, rhythm, no edema Gastrointestinal: normal inspection, normal bowel sounds, non tender, soft, no guarding, no hernia Genitourinary: no CVA tenderness Musculoskeletal: normal inspection, back normal, normal range of motion Neurologic: alert, motor strength/tone normal, 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 Medical Decision Making Diagnostic Impression: Primary Impression: Chest pain Additional Impressions: Puncture wound Left leg cellulitis CHF (congestive heart failure) ER Course Patient presented for chest pain. Differential diagnosis include was not limited to pneumonia, CHF, acute coronary syndrome, DVT among others. Because of complexity of patient's case laboratory tests and imaging studies were ordered. EKG interpreted by me showed sinus rhythm without acute ST or T wave changes. Chest x-ray read by radiology showed improving basilar infiltrates with normal cardiac size. Patient was given IV antibiotics as well as Lasix. He was noted to have some slight drainage from the left lower extremity which looks like somewhat infected. Dr. Romo was contacted for for inpatient management Labs Test 08/24/19 12:21 White Blood Count 4.3 K/UL (4.8-10.8) Red Blood Count 5.20 M/UL (4.70-6.10) Hemoglobin 14.9 G/DL (14.2-18.0) Hematocrit 49.7 % (42.0-52.0) Mean Corpuscular Volume 96 FL (80-99) Mean Corpuscular Hemoglobin 28.7 PG (27.0-31.0) Mean Corpuscular Hemoglobin Concent 30.0 G/DL (32.0-36.0) Red Cell Distribution Width 13.7 % (11.6-14.8) Platelet Count 204 K/UL (150-450) Mean Platelet Volume 7.7 FL (6.5-10.1) Neutrophils (%) (Auto) 59.5 % (45.0-75.0) Lymphocytes (%) (Auto) 18.1 % (20.0-45.0) Monocytes (%) (Auto) 14.0 % (1.0-10.0) Eosinophils (%) (Auto) 4.6 % (0.0-3.0) Basophils (%) (Auto) 3.9 % (0.0-2.0) D-Dimer 1.08 mg/L FEU (0.00-0.49) Sodium Level 145 MMOL/L (136-145) Potassium Level 3.9 MMOL/L (3.5-5.1) Chloride Level 108 MMOL/L (98-107) Carbon Dioxide Level 27 MMOL/L (21-32) Anion Gap 10 mmol/L (5-15) Blood Urea Nitrogen 19 mg/dL (7-18) Creatinine 1.7 MG/DL (0.55-1.30) Estimat Glomerular Filtration Rate 50.1 mL/min (>60) Glucose Level 109 MG/DL (74-106) Calcium Level 8.4 MG/DL (8.5-10.1) Total Bilirubin 0.7 MG/DL (0.2-1.0) Aspartate Amino Transf (AST/SGOT) 30 U/L (15-37) Alanine Aminotransferase (ALT/SGPT) 24 U/L (12-78) Alkaline Phosphatase 73 U/L (46-116) Troponin I 0.012 ng/mL (0.000-0.056) Pro-B-Type Natriuretic Peptide 5914 pg/mL (0-125) Total Protein 7.1 G/DL (6.4-8.2) Albumin 3.0 G/DL (3.4-5.0) Globulin 4.1 g/dL Albumin/Globulin Ratio 0.7 (1.0-2.7) Serum Alcohol < 3 mg/dL EKG Diagnostic Results Rate: normal Rhythm: NSR Last Vital Signs Date Time Temp Pulse Resp B/P (MAP) Pulse Ox O2 Delivery O2 Flow Rate FiO2 08/24/19 14:15 97.5 78 16 147/100 98 Room Air Status: unchanged Disposition: ADMITTED INPATIENT Condition: Serious Referrals: NOT CHOSEN IPA/,REFERRING (PCP) Balbir Ramos MD Aug 24, 2019 15:36
[2019-08-24 16:10] VITALS: BP 136/90
--- NOTE | 2019-08-24 18:07 | NUR ---
ED Nurse Note: Report given to Thea LEBRON of telemetry unit.
[2019-08-24 18:08] VITALS: BP 145/88
--- NOTE | 2019-08-24 18:12 | NUR ---
ED Nurse Note: Pt transferred to telemetry unit with no distress. all belongings sent with pt.
--- NOTE | 2019-08-24 18:30 | NUR ---
NURSE NOTES: Patient placed on hall monitor. Patient stable, AOx4 with no complaints other than that he is hungry. RR even and unlabored on RA. All belongings with patient. Side rails upx2, call light within reach, bed low and locked.Will continue to monitor.
[2019-08-24] MEDS ORDERED: Miralax 17gm pkt ORAL PRN (19:15)
--- NOTE | 2019-08-24 19:20 | NUR ---
NURSE NOTES: Report given by BERNARDINO Borja. Patient is awake alert and oriented x 4. Able to make needs known. No SOB or acute distress. quality assurance monitor final in place. [place] and juice given to patient per diet. Denies pain or discomfort. patient has +2 edema of ankles and feet. Feet are dy and flaky. No wounds noted at this time. Right upper arm 20 gauge IV site intact with no bleeding or infiltration. Bed at lowest position and locked. Side rails up. Call light and bed side table within reach. Received new orders from Dr. Gavin. Noted and carried out. Will continue plan of care.
--- NOTE | 2019-08-24 19:24 | History and Physical ---
History of Present Illness General Date patient seen: Aug 24, 2019 Time patient seen: 14:31 Reason for Hospitalization: Chest Pain, BLE swelling Present Illness HPI 58y/o male with pmh of CHF, CAD who presents with chest pain and BLE swelling. Pt notes symptoms have been ongoing for the past few days. Chest described as substernal discomfort, moderate intensity. Reports he is taking his lasix. Some shortness of breath, b/l leg swellnig. Left leg with increased redness and noted purulent drainage. Denies f/c, n/v, d/c, abd pain, dysuria. In ED, BNP elevated, trop neg. Pt given lasix 40mg IV and ancef. PMH: as above SH: lives in car w/ , denies T/E/D FMH: denies Allergies: Coded Allergies: No Known Allergies (Unverified , 12/12/17) COVID-19 Screening Contact w/high risk pt: No Recent Travel to affected area: No Experienced COVID-19 symptoms?: No COVID-19 symptoms experienced: Shortness of Breath Medication History Scheduled Furosemide* (Lasix*), 40 MG ORAL DAILY Patient History Healthcare decision maker N Resuscitation status Advanced Directive on File Review of Systems ROS Narrative CONSTITUTIONAL: No weight loss, fever, chills, weakness or fatigue. HEENT: Eyes: No visual loss, blurred vision, double vision or yellow sclerae. Ears, Nose, Throat: No hearing loss, sneezing, congestion, runny nose or sore throat. SKIN: No rash or itching. CARDIOVASCULAR: +chest pain, chest pressure or chest discomfort. No palpitations , +edema. RESPIRATORY: +shortness of breath, no cough or sputum. GASTROINTESTINAL: No anorexia, nausea, vomiting or diarrhea. No abdominal pain or blood. NEUROLOGICAL: No headache, dizziness, syncope, paralysis, ataxia, numbness or tingling in the extremities. No change in bowel or bladder control. MUSCULOSKELETAL: No muscle, back pain, joint pain or stiffness. HEMATOLOGIC: No anemia, bleeding or bruising. LYMPHATICS: No enlarged nodes. No history of splenectomy. PSYCHIATRIC: No history of depression or anxiety. ENDOCRINOLOGIC: No reports of sweating, cold or heat intolerance. No polyuria or polydipsia. ALLERGIES: No history of asthma, hives, eczema or rhinitis. Physical Exam Physical Exam Narrative General: alert, cooperative, no distress, appears stated age Head: normocephalic, without obvious abnormality, atraumatic Eyes: conjunctivae/corneas clear. PERRL, EOM's intact Throat: lips, mucosa, and tongue normal. MMM Neck: supple, symmetrical, trachea midline Lungs:+bibasilar cracles Heart: regular rate and rhythm, S1, S2 normal, no murmur, click, rub or gallop Abdomen: soft, non-tender, non-distended, bowel sounds normal; no masses or organomegaly Extremities: extremities normal, atraumatic, no cyanosis, +BLE edema, LLE w/ some erythema, warmth Pulses: 2+ and symmetric Skin: skin color, texture, turgor normal; no rashes or lesions Neurologic: grossly normal, no focal deficits Last 24 Hour Vital Signs Date Time Temp Pulse Resp B/P (MAP) Pulse Ox O2 Delivery O2 Flow Rate FiO2 08/24/19 18:12 98.3 79 16 147/86 100 Room Air 08/24/19 18:08 97.9 85 20 145/88 99 Room Air 08/24/19 16:10 98.2 87 15 136/90 100 Room Air 08/24/19 14:15 97.5 78 16 147/100 98 Room Air 08/24/19 12:22 78 19 Room Air 08/24/19 12:22 97.5 78 19 156/110 95 Room Air 08/24/19 12:04 97.5 82 20 155/123 (134) 97 Room Air Laboratory Tests Test 08/24/19 12:21 White Blood Count 4.3 K/UL (4.8-10.8) L Red Blood Count 5.20 M/UL (4.70-6.10) Hemoglobin 14.9 G/DL (14.2-18.0) Hematocrit 49.7 % (42.0-52.0) Mean Corpuscular Volume 96 FL (80-99) Mean Corpuscular Hemoglobin 28.7 PG (27.0-31.0) Mean Corpuscular Hemoglobin Concent 30.0 G/DL (32.0-36.0) L Red Cell Distribution Width 13.7 % (11.6-14.8) Platelet Count 204 K/UL (150-450) Mean Platelet Volume 7.7 FL (6.5-10.1) Neutrophils (%) (Auto) 59.5 % (45.0-75.0) Lymphocytes (%) (Auto) 18.1 % (20.0-45.0) L Monocytes (%) (Auto) 14.0 % (1.0-10.0) H Eosinophils (%) (Auto) 4.6 % (0.0-3.0) H Basophils (%) (Auto) 3.9 % (0.0-2.0) H D-Dimer 1.08 mg/L FEU (0.00-0.49) H Sodium Level 145 MMOL/L (136-145) Potassium Level 3.9 MMOL/L (3.5-5.1) Chloride Level 108 MMOL/L (98-107) H Carbon Dioxide Level 27 MMOL/L (21-32) Anion Gap 10 mmol/L (5-15) Blood Urea Nitrogen 19 mg/dL (7-18) H Creatinine 1.7 MG/DL (0.55-1.30) H Estimat Glomerular Filtration Rate 50.1 mL/min (>60) Glucose Level 109 MG/DL (74-106) H Calcium Level 8.4 MG/DL (8.5-10.1) L Total Bilirubin 0.7 MG/DL (0.2-1.0) Aspartate Amino Transf (AST/SGOT) 30 U/L (15-37) Alanine Aminotransferase (ALT/SGPT) 24 U/L (12-78) Alkaline Phosphatase 73 U/L (46-116) Troponin I 0.012 ng/mL (0.000-0.056) Pro-B-Type Natriuretic Peptide 5914 pg/mL (0-125) H Total Protein 7.1 G/DL (6.4-8.2) Albumin 3.0 G/DL (3.4-5.0) L Globulin 4.1 g/dL Albumin/Globulin Ratio 0.7 (1.0-2.7) L Serum Alcohol < 3 mg/dL Height (Feet): 6 Height (Inches): 3.00 Weight (Pounds): 200 Medications Current Medications Medications (Trade) Dose Ordered Sig/Tasia Route PRN Reason Start Time Stop Time Status Last Admin Dose Admin Acetaminophen (Tylenol) 650 mg Q4H PRN ORAL Mild Pain (Pain Scale 1-3) 08/24/19 19:15 09/23/19 19:14 Acetaminophen (Tylenol) 650 mg Q4H PRN ORAL Temp >100.5 08/24/19 19:15 09/23/19 19:14 Bisacodyl (Dulcolax) 10 mg DAILYPRN PRN RECTAL Constipation 08/24/19 19:15 11/22/19 19:14 Dextrose (Dextrose 50%) 25 ml Q30M PRN IV Hypoglycemia 08/24/19 19:15 11/22/19 19:14 Dextrose (Dextrose 50%) 50 ml Q30M PRN IV Hypoglycemia 08/24/19 19:15 11/22/19 19:14 Docusate Sodium (Colace) 100 mg EVERY 12 HOURS ORAL 08/24/19 21:00 09/23/19 20:59 Heparin Sodium (Porcine) (Heparin 5000 units/ml) 5,000 units EVERY 12 HOURS SUBQ 08/24/19 21:00 10/08/19 20:59 Ondansetron HCl (Zofran) 4 mg Q6H PRN IVP Nausea & Vomiting 08/24/19 19:15 09/23/19 19:14 Polyethylene Glycol (Miralax) 17 gm DAILYPRN PRN ORAL Constipation 08/24/19 19:15 09/23/19 19:14 Vancomycin HCl ([facility] pharmacy to dose) 1 ea DAILY PRN MISC Per rx protocol 08/24/19 19:15 09/23/19 19:14 Vancomycin/Sodium Chloride 275 ml @ 137.5 mls/ hr ONCE ONCE IVPB 08/24/19 21:00 08/24/19 22:59 Assessment/Plan Status: stable Assessment/Plan: 58y/o male with pmh of CHF, CAD who presents with chest pain and BLE swelling, admitted for CHF exacerbation and LLE cellulitis. # CHF exacerbation/ADHF - possibly 2/2 noncompliance with diet and/or meds. Unknown EF - Cardiology consulted - Tele - Lasix 20mg IV BID - Strict I/O's - Daily weights - Check TTE # Atypical chest pain # H/o CAD - Cardiology consulted - Trend trop/EKG - Check TTE - ASA 81mg daily - Check lipid panel, TSH, A1C # Elevated D-dimer - Check venous duplex - Consider VQ scan vs CT angio chest (if Cr improves) # LLE purulent cellulitis # BLE edema - 2/2 CHF - Check venous duplex - ID consulted - Empiric vanco - - Surgery consulted # MEGHAN vs MEGHAN on CKD - unclear baseline Cr. Cr 1.7 on admit. Likely cardiorenal syndrome - Renal consulted - Diuresis as above - Strict I/O - Avoid nephrotoxic agents DVT Prophylaxis: HSQ Code Status: Full Hospital Classification Declaration: Based on this initial evaluation, and depending on the patient's clinical course, I anticipate that this patient will require hospitalization for [] days for [] and close respiratory/hemodynamic monitoring. Disposition: Once the patient is stable to leave the hospital, I anticipate the patient will likely be discharged to the following environment: home with HH vs SNF I spent 70 minutes on this patient's case, and 36 minutes were dedicated to counseling and/or care coordination. Discussed with patient/family, nursing staff, cardiology, nephrology, ID, surgery regarding clinical status, treatment course, and disposition planning. Time of note may not reflect time of encounter. Rohit Burgess M.D. Aug 24, 2019 19:24
--- NOTE | 2019-08-24 19:25 | NUR ---
HAND-OFF: Report given to Adina Hinojosa RN. Patient stable. Plan of care endorsed. Endorsed that patient just arrived and needs to be admitted.
[2019-08-24 20:00] VITALS: BP 146/108
[2019-08-24] MEDS ORDERED: Vancomycin 1.5gm/NS Premix IVPB ONE (21:00)
[2019-08-24] MEDS: Docusate 100mg cap ORAL SCH (21:54)
[2019-08-24] MEDS: Heparin 5000 units/ml inj SUBQ SCH (21:54)
--- NOTE | 2019-08-24 22:14 | Consultation ---
History of Present Illness General Date patient seen: Aug 24, 2019 Reason for Hospitalization: Chest Pain Present Illness HPI This is a 58-year-old male who presents after increased chest discomfort. Reports having onset of symptoms over the past few days. Associated bilateral lower extremity swelling. Prior history of coronary artery disease and stent placement. Reports having some redness to his left leg. Surgery called to evaluate and assist with care. Patient seen, patient evaluated, chart reviewed. Patient states he noted some pus draining from the left leg few days ago. States it is improved since. Allergies: Coded Allergies: No Known Allergies (Unverified , 12/12/17) COVID-19 Screening Contact w/high risk pt: No Recent Travel to affected area: No Experienced COVID-19 symptoms?: No COVID-19 symptoms experienced: Shortness of Breath Medication History Scheduled Furosemide* (Lasix*), 40 MG ORAL DAILY Patient History History Provided By: Patient, Medical Record, PMD Healthcare decision maker N Resuscitation status Advanced Directive on File Past Medical/Surgical History Past Medical/Surgical History: (1) Dyspnea (2) CHF (congestive heart failure) (3) Chest pain (4) Puncture wound (5) CHF exacerbation (6) Left leg cellulitis Review of Systems Review of Symptoms General ROS: no weight loss or fever Psychological ROS: no depression or mood changes, no memory loss Ophthalmic ROS: no visual changes or eye irritation ENT ROS: no nasal congestion, hearing loss, dizziness Allergy and Immunology ROS: no allergic symptoms or urticaria Hematological and Lymphatic ROS: no swollen glands, unusual bleeding or bruising Endocrine ROS: no polyuria, polydipsia, weight changes, temperature intolerance Respiratory ROS: +shortness of breath, or wheezing Cardiovascular ROS: no chest pain or dyspnea on exertion Gastrointestinal ROS: denies abdominal pain, bright red blood in stool. Musculoskeletal ROS: no myalgias or arthralgias Neurological ROS: no TIA or stroke symptoms Dermatological ROS: no new or changing skin lesions, rashes or pruritis Physical Exam Physical Exam General appearance: alert, cooperative, no distress, appears stated age Head: Normocephalic, without obvious abnormality, atraumatic Eyes: conjunctivae/corneas clear. PERRL, EOM's intact. Fundi benign Throat: Lips, mucosa, and tongue normal. Teeth and gums normal Neck: supple, symmetrical, trachea midline, no adenopathy, thyroid: not enlarged, symmetric, no tenderness/mass/nodules, no carotid bruit and no JVD Lungs: clear to auscultation bilaterally Heart: regular rate and rhythm, S1, S2 normal, no murmur, click, rub or gallop Abdomen: soft, RUQ-tender. Bowel sounds normal. No masses, no organomegaly Extremities: extremities normal, atraumatic, no cyanosis +++ b/l edema Pulses: 2+ and symmetric Skin: Skin color, texture, turgor normal. No rashes or lesions Neurologic: Grossly normal Last 24 Hour Vital Signs Date Time Temp Pulse Resp B/P (MAP) Pulse Ox O2 Delivery O2 Flow Rate FiO2 08/24/19 18:12 98.3 79 16 147/86 100 Room Air 08/24/19 18:08 97.9 85 20 145/88 99 Room Air 08/24/19 16:10 98.2 87 15 136/90 100 Room Air 08/24/19 14:15 97.5 78 16 147/100 98 Room Air 08/24/19 12:22 78 19 Room Air 08/24/19 12:22 97.5 78 19 156/110 95 Room Air 08/24/19 12:04 97.5 82 20 155/123 (134) 97 Room Air Laboratory Tests Test 08/24/19 12:21 White Blood Count 4.3 K/UL (4.8-10.8) L Red Blood Count 5.20 M/UL (4.70-6.10) Hemoglobin 14.9 G/DL (14.2-18.0) Hematocrit 49.7 % (42.0-52.0) Mean Corpuscular Volume 96 FL (80-99) Mean Corpuscular Hemoglobin 28.7 PG (27.0-31.0) Mean Corpuscular Hemoglobin Concent 30.0 G/DL (32.0-36.0) L Red Cell Distribution Width 13.7 % (11.6-14.8) Platelet Count 204 K/UL (150-450) Mean Platelet Volume 7.7 FL (6.5-10.1) Neutrophils (%) (Auto) 59.5 % (45.0-75.0) Lymphocytes (%) (Auto) 18.1 % (20.0-45.0) L Monocytes (%) (Auto) 14.0 % (1.0-10.0) H Eosinophils (%) (Auto) 4.6 % (0.0-3.0) H Basophils (%) (Auto) 3.9 % (0.0-2.0) H D-Dimer 1.08 mg/L FEU (0.00-0.49) H Sodium Level 145 MMOL/L (136-145) Potassium Level 3.9 MMOL/L (3.5-5.1) Chloride Level 108 MMOL/L (98-107) H Carbon Dioxide Level 27 MMOL/L (21-32) Anion Gap 10 mmol/L (5-15) Blood Urea Nitrogen 19 mg/dL (7-18) H Creatinine 1.7 MG/DL (0.55-1.30) H Estimat Glomerular Filtration Rate 50.1 mL/min (>60) Glucose Level 109 MG/DL (74-106) H Calcium Level 8.4 MG/DL (8.5-10.1) L Total Bilirubin 0.7 MG/DL (0.2-1.0) Aspartate Amino Transf (AST/SGOT) 30 U/L (15-37) Alanine Aminotransferase (ALT/SGPT) 24 U/L (12-78) Alkaline Phosphatase 73 U/L (46-116) Troponin I 0.012 ng/mL (0.000-0.056) Pro-B-Type Natriuretic Peptide 5914 pg/mL (0-125) H Total Protein 7.1 G/DL (6.4-8.2) Albumin 3.0 G/DL (3.4-5.0) L Globulin 4.1 g/dL Albumin/Globulin Ratio 0.7 (1.0-2.7) L Serum Alcohol < 3 mg/dL Height (Feet): 6 Height (Inches): 3.00 Weight (Pounds): 200 Medications Current Medications Medications (Trade) Dose Ordered Sig/Tasia Route PRN Reason Start Time Stop Time Status Last Admin Dose Admin Acetaminophen (Tylenol) 650 mg Q4H PRN ORAL Mild Pain (Pain Scale 1-3) 08/24/19 19:15 09/23/19 19:14 Acetaminophen (Tylenol) 650 mg Q4H PRN ORAL Temp >100.5 08/24/19 19:15 09/23/19 19:14 Bisacodyl (Dulcolax) 10 mg DAILYPRN PRN RECTAL Constipation 08/24/19 19:15 11/22/19 19:14 Dextrose (Dextrose 50%) 25 ml Q30M PRN IV Hypoglycemia 08/24/19 19:15 11/22/19 19:14 Dextrose (Dextrose 50%) 50 ml Q30M PRN IV Hypoglycemia 08/24/19 19:15 11/22/19 19:14 Docusate Sodium (Colace) 100 mg EVERY 12 HOURS ORAL 08/24/19 21:00 09/23/19 20:59 08/24/19 21:54 Heparin Sodium (Porcine) (Heparin 5000 units/ml) 5,000 units EVERY 12 HOURS SUBQ 08/24/19 21:00 10/08/19 20:59 08/24/19 21:54 Ondansetron HCl (Zofran) 4 mg Q6H PRN IVP Nausea & Vomiting 08/24/19 19:15 09/23/19 19:14 Polyethylene Glycol (Miralax) 17 gm DAILYPRN PRN ORAL Constipation 08/24/19 19:15 09/23/19 19:14 Vancomycin HCl (Vanco pharmacy to dose) 1 ea DAILY PRN MISC Per rx protocol 08/24/19 19:15 09/23/19 19:14 Vancomycin/Sodium Chloride 275 ml @ 137.5 mls/ hr ONCE ONCE IVPB 08/24/19 21:00 08/24/19 22:59 08/24/19 21:55 Assessment/Plan Problem List: (1) Left leg cellulitis Assessment & Plan: 61-year-old male with bilateral lower extremity edema and left leg cellulitis. Cellulitis improving. Stated there was pus draining few days ago but now stopped. On examination 08/24/2019 and there was no purulent drainage noted mild cellulitis No acute surgical intervention at this time no abscess identified Old prior ulcerations well-healed no open wounds Keep lower extremities elevated diet as tolerated we will follow with recommendations IV antibiotics per infectious disease ICD Codes: L03.116 - Cellulitis of left lower limb SNOMED: [id number] Uriel Styles Aug 24, 2019 22:14
[2019-08-25] VITALS: BP 133/92
[2019-08-25 04:00] VITALS: BP 123/91
[2019-08-25 07:10] LABS: INR 1.2 (0.9-1.1)
--- NOTE | 2019-08-25 07:15 | NUR ---
NURSE NOTES: pt in bed resting and does not wan to be awaken. keeps calling to talk to him but he is too tire to talk so he will call her later. Pt on property assessment monitor no signs of cardiac or respiratory distress at this moment. Bed locked and lowest position . Call light within reach, side rail up for safety. Will continue to monitor pt.
[2019-08-25 07:28] LABS: BASOPHILS % (AUTO) 5.1 % (0.0-2.0); EOSINOPHILS % (AUTO) 3.1 % (0.0-3.0); HEMATOCRIT 46.6 % (42.0-52.0); HEMOGLOBIN 13.9 G/DL (14.2-18.0); LYMPHOCYTES % (AUTO) 16.2 % (20.0-45.0); MEAN CORPUSCULAR VOLUME 94 FL (80-99); MONOCYTES % (AUTO) 15.7 % (1.0-10.0); NEUTROPHILS % (AUTO) 59.8 % (45.0-75.0); PLATELET COUNT 190 K/UL (150-450); RED BLOOD COUNT 4.96 M/UL (4.70-6.10); RED CELL DISTRIBUTION WIDTH 13.6 % (11.6-14.8); WHITE BLOOD COUNT 4.5 K/UL (4.8-10.8)
[2019-08-25 07:57] LABS: ANION GAP 8 mmol/L (5-15); BLOOD UREA NITROGEN 18 mg/dL (7-18); CALCIUM 8.7 MG/DL (8.5-10.1); CARBON DIOXIDE 29 MMOL/L (21-32); CHLORIDE 109 MMOL/L (98-107); CREATININE 1.6 MG/DL (0.55-1.30); POTASSIUM 3.4 MMOL/L (3.5-5.1); SODIUM 146 MMOL/L (136-145)
[2019-08-25 08:00] VITALS: BP 150/114
[2019-08-25 08:00] LABS: CHOLESTEROL 131 MG/DL (< 200); HDL CHOLESTEROL 38 MG/DL (40-60); TRIGLYCERIDES 49 MG/DL (30-150)
[2019-08-25] MEDS: Heparin 5000 units/ml inj SUBQ SCH ×2 (10:30→21:02)
[2019-08-25] MEDS: Docusate 100mg cap ORAL SCH ×2 (10:30→21:01)
[2019-08-25] MEDS: Aspirin Baby 81mg ORAL SCH (10:30)
--- NOTE | 2019-08-25 10:53 | Diagnostic Imaging Report ---
EXAM: ULTRASOUND Venous Duplex Scan Bennett Leg CLINICAL HISTORY: Leg pain and edema. COMPARISON: None TECHNIQUE: Doppler examination include grayscale images obtained with and without compression, and color and spectral doppler analysis. FINDINGS: Doppler examination shows normal spontaneity, phasicity, compressibility in the bilateral lower extremities. There is no thrombus identified by grayscale. Normal color and spectral flow is identified. There is no evidence of valvular incompetency or insufficiency. Soft tissue edema noted in both calves IMPRESSION: NO EVIDENCE OF DVT. SUBCUTANEOUS SOFT TISSUE EDEMA IN BOTH CALVES.
--- NOTE | 2019-08-25 10:57 | General Progress Note ---
Assessment/Plan Status: stable Assessment/Plan: 58y/o male with pmh of CHF, CAD who presents with chest pain and BLE swelling, admitted for CHF exacerbation and LLE cellulitis. # CHF exacerbation/ADHF - possibly 2/2 noncompliance with diet and/or meds. Unknown EF - Cardiology consulted - Tele - Lasix 20mg IV BID - Strict I/O's - Daily weights - Check TTE # Atypical chest pain # H/o CAD - Cardiology consulted - Trend trop/EKG - Check TTE - ASA 81mg daily - Check lipid panel, TSH (wnl), A1C (6.9) # Elevated D-dimer - Check venous duplex: negative - Consider VQ scan vs CT angio chest (if Cr improves) # LLE purulent cellulitis # BLE edema - 2/2 CHF - Check venous duplex: neg - ID consulted - Empiric vanco - - Surgery consulted # MEGHAN vs MEGHAN on CKD - unclear baseline Cr. Cr 1.7 on admit. Likely cardiorenal syndrome - Renal consulted - Diuresis as above - Strict I/O - Avoid nephrotoxic agents DVT Prophylaxis: HSQ Code Status: Full Hospital Classification Declaration: Based on this initial evaluation, and depending on the patient's clinical course, I anticipate that this patient will require hospitalization for [] days for [] and close respiratory/hemodynamic monitoring. Disposition: Once the patient is stable to leave the hospital, I anticipate the patient will likely be discharged to the following environment: home with HH vs SNF I spent 39 minutes on this patient's case, and 16 minutes were dedicated to counseling and/or care coordination. Time of note may not reflect time of encounter. Subjective Allergies: Coded Allergies: No Known Allergies (Unverified , 12/12/17) Objective Last 24 Hour Vital Signs Date Time Temp Pulse Resp B/P (MAP) Pulse Ox O2 Delivery O2 Flow Rate FiO2 08/25/19 04:00 97.5 78 19 123/91 (102) 98 08/25/19 04:00 79 08/25/19 00:00 77 08/25/19 00:00 97.7 83 17 133/92 (106) 95 08/24/19 20:00 84 08/24/19 20:00 97.4 87 17 146/108 (121) 97 08/24/19 19:31 Room Air 08/24/19 18:12 98.3 79 16 147/86 100 Room Air 08/24/19 18:08 97.9 85 20 145/88 99 Room Air 08/24/19 16:10 98.2 87 15 136/90 100 Room Air 08/24/19 14:15 97.5 78 16 147/100 98 Room Air 08/24/19 12:22 78 19 Room Air 08/24/19 12:22 97.5 78 19 156/110 95 Room Air 08/24/19 12:04 97.5 82 20 155/123 (134) 97 Room Air Intake and Output 08/24/19 08/25/19 19:00 07:00 Intake Total 55 ml Output Total 1200 ml Balance -1145 ml IV Total 55 ml Output Urine Total 1200 ml # Voids 2 Laboratory Tests 08/24/19 12:21: White Blood Count 4.3L, Red Blood Count 5.20, Hemoglobin 14.9, Hematocrit 49.7, Mean Corpuscular Volume 96, Mean Corpuscular Hemoglobin 28.7, Mean Corpuscular Hemoglobin Concent 30.0L, Red Cell Distribution Width 13.7, Platelet Count 204, Mean Platelet Volume 7.7, Neutrophils (%) (Auto) 59.5, Lymphocytes (%) (Auto) 18.1L, Monocytes (%) (Auto) 14.0H, Eosinophils (%) (Auto) 4.6H, Basophils (%) ( Auto) 3.9H, D-Dimer 1.08H, Sodium Level 145, Potassium Level 3.9, Chloride Level 108H, Carbon Dioxide Level 27, Anion Gap 10, Blood Urea Nitrogen 19H, Creatinine 1.7H, Estimat Glomerular Filtration Rate 50.1, Glucose Level 109H, Calcium Level 8.4L, Total Bilirubin 0.7, Aspartate Amino Transf (AST/SGOT) 30, Alanine Aminotransferase (ALT/SGPT) 24, Alkaline Phosphatase 73, Troponin I 0.012, Pro-B-Type Natriuretic Peptide 5914H, Total Protein 7.1, Albumin 3.0L, Globulin 4.1, Albumin/Globulin Ratio 0.7L, Serum Alcohol < 3 08/25/19 06:27: White Blood Count 4.5L, Red Blood Count 4.96, Hemoglobin 13.9L, Hematocrit 46.6 , Mean Corpuscular Volume 94, Mean Corpuscular Hemoglobin 28.0, Mean Corpuscular Hemoglobin Concent 29.8L, Red Cell Distribution Width 13.6, Platelet Count 190, Mean Platelet Volume 8.8, Neutrophils (%) (Auto) 59.8, Lymphocytes (%) (Auto) 16.2L, Monocytes (%) (Auto) 15.7H, Eosinophils (%) (Auto ) 3.1H, Basophils (%) (Auto) 5.1H, Sodium Level 146H, Potassium Level 3.4L, Chloride Level 109H, Carbon Dioxide Level 29, Anion Gap 8, Blood Urea Nitrogen 18, Creatinine 1.6H, Estimat Glomerular Filtration Rate 53.7, Glucose Level 99, Calcium Level 8.7, Troponin I 0.033, Pro-B-Type Natriuretic Peptide 6848H, Erythrocyte Sedimentation Rate 4, Prothrombin Time 13.2H, Prothromb Time International Ratio 1.2H, Activated Partial Thromboplast Time 28, Hemoglobin A1c 6.9H, Magnesium Level 2.0, C-Reactive Protein, Quantitative 1.3H, Triglycerides Level 49, Cholesterol Level 131, LDL Cholesterol 78, HDL Cholesterol 38L, Cholesterol/HDL Ratio 3.4, Amylase Level 58, Lipase 118, Thyroid Stimulating Hormone (TSH) 1.401, Random Vancomycin Level 13.1 Height (Feet): 6 Height (Inches): 3.00 Weight (Pounds): 195 Neida Harris DO Aug 25, 2019 10:57
[2019-08-25] MEDS: Vancomycin 1.5gm/NS Premix IVPB SCH (11:30)
[2019-08-25 12:00] VITALS: BP_SYST 128; BP_SYST 150; BP_DIAS 103; BP_DIAS 71
--- NOTE | 2019-08-25 14:58 | NUR ---
CASE MANAGEMENT:REVIEW 58 YR OLD MALE WALKED INTO ER CC: SOB AND CHEST PAIN PMH: STENTS PLACED 9 MONTHS AGO SI: CHF. LLE CELLULITIS. CHEST PAIN PUNCTURE WOUND 97.6 82 20 155/123 97% ON RA BUN+19 CR+1.7 BNP+5914 IS: IV ANCEF IV LASIX X1 IV VANCOMYCIN X1 CHEST XRAY BLOOD CX : TO TELEMETRY DCP: FROM HOME
--- NOTE | 2019-08-25 15:28 | NUR ---
[facility] DISPLAY BUILDER NOTE Pt is identified as homeless. BENJI attempted to meet w/ pt at 3pm. Pt was sleeping. SW will attempt again. Addendum: 08/25/19 at 1637 by BLAZE LEBLANC SW met w/ pt and assessed pt's needs. Pt's mailing address is [address] [place] [id number]. Pt has been living in his car for a year. Pt Emergency contacts; Katelynn Callie (mother) [phone] and Lizzeth Ramos () [phone] Addendum: 08/25/19 at 1644 by BLAZE LEBLANC Pt receives no income. Pt is , and has no children. PT reports hx of Depression. Pt does not receive outpatient MHS. BENJI provided community resource packet and behavioral health resource. Pt denies substance/ETOH abuse. PT denies SI/HI. Pt plans to return his car upon DC. His car is currently w/ his , Lizzeth Ramos. Pt will call his to p/u pt on DC day. Pt did not share any concern/needs. SW to F/U as needed.
[2019-08-25 16:00] VITALS: BP_SYST 117; BP_SYST 156; BP_DIAS 101; BP_DIAS 59
--- NOTE | 2019-08-25 16:05 | Consultation ---
History of Present Illness General Date patient seen: Aug 25, 2019 Time patient seen: 16:02 Chief Complaint: Chest Pain Present Illness HPI 58y/o male with pmh of CHF, CAD who presents with chest pain and BLE swelling. Pt notes symptoms have been ongoing for the past few days. Chest described as substernal discomfort, moderate intensity. Reports he is taking his lasix. Some shortness of breath, b/l leg swellnig. Left leg with increased redness and noted purulent drainage. Denies f/c, n/v, d/c, abd pain, dysuria. Allergies: Coded Allergies: No Known Allergies (Unverified , 12/12/17) Medication History Scheduled Furosemide* (Lasix*), 40 MG ORAL DAILY Patient History Healthcare decision maker N Resuscitation status Advanced Directive on File Review of Systems Constitutional: Reports: no symptoms Eye: Reports: no symptoms ENT: Reports: no symptoms Respiratory: Reports: no symptoms Cardiovascular: Reports: no symptoms Gastrointestinal: Reports: no symptoms Genitourinary: Reports: no symptoms Musculoskeletal: Reports: no symptoms Skin: Reports: no symptoms Psychiatric: Reports: no symptoms Neurological: Reports: no symptoms Endocrine: Reports: no symptoms Hematologic/Lymphatic: Reports: no symptoms Physical Exam General Appearance: no apparent distress, alert Lines, tubes and drains: peripheral HEENT: normocephalic, atraumatic, anicteric Neck: non-tender, supple, normal inspection Respiratory/Chest: chest wall non-tender, lungs clear, normal breath sounds Cardiovascular/Chest: normal peripheral pulses, normal rate, no gallop/murmur Abdomen: non tender, no organomegaly Extremities: normal range of motion, normal inspection, no calf tenderness Neurologic: tennis net maker II-XII grossly normal, no motor/sensory deficits Last 24 Hour Vital Signs Date Time Temp Pulse Resp B/P (MAP) Pulse Ox O2 Delivery O2 Flow Rate FiO2 08/25/19 04:00 97.5 78 19 123/91 (102) 98 08/25/19 04:00 79 08/25/19 00:00 77 08/25/19 00:00 97.7 83 17 133/92 (106) 95 08/24/19 20:00 84 08/24/19 20:00 97.4 87 17 146/108 (121) 97 08/24/19 19:31 Room Air 08/24/19 18:12 98.3 79 16 147/86 100 Room Air 08/24/19 18:08 97.9 85 20 145/88 99 Room Air 08/24/19 16:10 98.2 87 15 136/90 100 Room Air Intake and Output 08/24/19 08/25/19 19:00 07:00 Intake Total 55 ml Output Total 1200 ml Balance -1145 ml IV Total 55 ml Output Urine Total 1200 ml # Voids 2 Laboratory Tests Test 08/25/19 06:27 White Blood Count 4.5 K/UL (4.8-10.8) L Red Blood Count 4.96 M/UL (4.70-6.10) Hemoglobin 13.9 G/DL (14.2-18.0) L Hematocrit 46.6 % (42.0-52.0) Mean Corpuscular Volume 94 FL (80-99) Mean Corpuscular Hemoglobin 28.0 PG (27.0-31.0) Mean Corpuscular Hemoglobin Concent 29.8 G/DL (32.0-36.0) L Red Cell Distribution Width 13.6 % (11.6-14.8) Platelet Count 190 K/UL (150-450) Mean Platelet Volume 8.8 FL (6.5-10.1) Neutrophils (%) (Auto) 59.8 % (45.0-75.0) Lymphocytes (%) (Auto) 16.2 % (20.0-45.0) L Monocytes (%) (Auto) 15.7 % (1.0-10.0) H Eosinophils (%) (Auto) 3.1 % (0.0-3.0) H Basophils (%) (Auto) 5.1 % (0.0-2.0) H Erythrocyte Sedimentation Rate 4 MM/HR (0-20) Prothrombin Time 13.2 SEC (9.30-11.50) H Prothromb Time International Ratio 1.2 (0.9-1.1) H Activated Partial Thromboplast Time 28 SEC (23-33) Sodium Level 146 MMOL/L (136-145) H Potassium Level 3.4 MMOL/L (3.5-5.1) L Chloride Level 109 MMOL/L (98-107) H Carbon Dioxide Level 29 MMOL/L (21-32) Anion Gap 8 mmol/L (5-15) Blood Urea Nitrogen 18 mg/dL (7-18) Creatinine 1.6 MG/DL (0.55-1.30) H Estimat Glomerular Filtration Rate 53.7 mL/min (>60) Glucose Level 99 MG/DL (74-106) Hemoglobin A1c 6.9 % (4.3-6.0) H Calcium Level 8.7 MG/DL (8.5-10.1) Magnesium Level 2.0 MG/DL (1.8-2.4) Troponin I 0.033 ng/mL (0.000-0.056) C-Reactive Protein, Quantitative 1.3 mg/dL (0.00-0.90) H Pro-B-Type Natriuretic Peptide 6848 pg/mL (0-125) H Triglycerides Level 49 MG/DL (30-150) Cholesterol Level 131 MG/DL (< 200) LDL Cholesterol 78 mg/dL (<100) HDL Cholesterol 38 MG/DL (40-60) L Cholesterol/HDL Ratio 3.4 (3.3-4.4) Amylase Level 58 U/L (25-115) Lipase 118 U/L (73-393) Thyroid Stimulating Hormone (TSH) 1.401 uiU/mL (0.358-3.740) Random Vancomycin Level 13.1 ug/mL Height (Feet): 6 Height (Inches): 3.00 Weight (Pounds): 195 Medications Current Medications Medications (Trade) Dose Ordered Sig/Tasia Route PRN Reason Start Time Stop Time Status Last Admin Dose Admin Acetaminophen (Tylenol) 650 mg Q4H PRN ORAL Mild Pain (Pain Scale 1-3) 08/24/19 19:15 09/23/19 19:14 Acetaminophen (Tylenol) 650 mg Q4H PRN ORAL Temp >100.5 08/24/19 19:15 09/23/19 19:14 Aspirin (ASA) 81 mg DAILY ORAL 08/25/19 09:00 10/09/19 08:59 08/25/19 10:30 Bisacodyl (Dulcolax) 10 mg DAILYPRN PRN RECTAL Constipation 08/24/19 19:15 11/22/19 19:14 Dextrose (Dextrose 50%) 25 ml Q30M PRN IV Hypoglycemia 08/24/19 19:15 11/22/19 19:14 Dextrose (Dextrose 50%) 50 ml Q30M PRN IV Hypoglycemia 08/24/19 19:15 11/22/19 19:14 Docusate Sodium (Colace) 100 mg EVERY 12 HOURS ORAL 08/24/19 21:00 09/23/19 20:59 08/25/19 10:30 Furosemide (Lasix) 20 mg BID IV 08/25/19 09:00 09/24/19 08:59 08/25/19 10:30 Heparin Sodium (Porcine) (Heparin 5000 units/ml) 5,000 units EVERY 12 HOURS SUBQ 08/24/19 21:00 10/08/19 20:59 08/25/19 10:30 Ondansetron HCl (Zofran) 4 mg Q6H PRN IVP Nausea & Vomiting 08/24/19 19:15 09/23/19 19:14 Polyethylene Glycol (Miralax) 17 gm DAILYPRN PRN ORAL Constipation 08/24/19 19:15 09/23/19 19:14 Potassium Chloride (K-Dur) 20 meq ONCE ORAL 08/25/19 14:15 08/25/19 16:30 Vancomycin HCl (Vanco pharmacy to dose) 1 ea DAILY PRN MISC Per rx protocol 08/24/19 19:15 09/23/19 19:14 Vancomycin/Sodium Chloride 275 ml @ 137.5 mls/ hr Q24H IVPB 08/25/19 11:00 08/30/19 10:59 08/25/19 11:30 Assessment/Plan Status: stable Assessment/Plan: Assessment/Plan Status: stable Assessment/Plan: 58y/o male with pmh of CHF, CAD who presents with chest pain and BLE swelling, admitted for CHF exacerbation and LLE cellulitis. -Patient declines ischemia evaluation and is aware or R/B/A -Serial EKG/troponin -Reiterated medication compliance -DASH diet, fluid and salt restriction -Echocardiogram pending -Nitro prn chest pain -Aspirin/statin -Further recommendations to follow Regan Lion MD Aug 25, 2019 16:05
--- NOTE | 2019-08-25 17:59 | Surgery Progress Note ---
Surgery Progress Note Subjective Symptoms: improved, tolerating diet, voiding well, passing flatus Objective Last 24 Hour Vital Signs Date Time Temp Pulse Resp B/P (MAP) Pulse Ox O2 Delivery O2 Flow Rate FiO2 08/25/19 04:00 97.5 78 19 123/91 (102) 98 08/25/19 04:00 79 08/25/19 00:00 77 08/25/19 00:00 97.7 83 17 133/92 (106) 95 08/24/19 20:00 84 08/24/19 20:00 97.4 87 17 146/108 (121) 97 08/24/19 19:31 Room Air 08/24/19 18:12 98.3 79 16 147/86 100 Room Air 08/24/19 18:08 97.9 85 20 145/88 99 Room Air I&O Intake and Output 08/24/19 08/25/19 19:00 07:00 Intake Total 55 ml Output Total 1200 ml Balance -1145 ml IV Total 55 ml Output Urine Total 1200 ml # Voids 2 Dressing: dry Wound: clean Cardiovascular: RSR Respiratory: clear Abdomen: soft, non-tender, present bowel sounds, non-distended Extremities: edema, no tenderness, no cyanosis, pulses, other Laboratory Tests Test 08/25/19 06:27 White Blood Count 4.5 K/UL (4.8-10.8) L Red Blood Count 4.96 M/UL (4.70-6.10) Hemoglobin 13.9 G/DL (14.2-18.0) L Hematocrit 46.6 % (42.0-52.0) Mean Corpuscular Volume 94 FL (80-99) Mean Corpuscular Hemoglobin 28.0 PG (27.0-31.0) Mean Corpuscular Hemoglobin Concent 29.8 G/DL (32.0-36.0) L Red Cell Distribution Width 13.6 % (11.6-14.8) Platelet Count 190 K/UL (150-450) Mean Platelet Volume 8.8 FL (6.5-10.1) Neutrophils (%) (Auto) 59.8 % (45.0-75.0) Lymphocytes (%) (Auto) 16.2 % (20.0-45.0) L Monocytes (%) (Auto) 15.7 % (1.0-10.0) H Eosinophils (%) (Auto) 3.1 % (0.0-3.0) H Basophils (%) (Auto) 5.1 % (0.0-2.0) H Erythrocyte Sedimentation Rate 4 MM/HR (0-20) Prothrombin Time 13.2 SEC (9.30-11.50) H Prothromb Time International Ratio 1.2 (0.9-1.1) H Activated Partial Thromboplast Time 28 SEC (23-33) Sodium Level 146 MMOL/L (136-145) H Potassium Level 3.4 MMOL/L (3.5-5.1) L Chloride Level 109 MMOL/L (98-107) H Carbon Dioxide Level 29 MMOL/L (21-32) Anion Gap 8 mmol/L (5-15) Blood Urea Nitrogen 18 mg/dL (7-18) Creatinine 1.6 MG/DL (0.55-1.30) H Estimat Glomerular Filtration Rate 53.7 mL/min (>60) Glucose Level 99 MG/DL (74-106) Hemoglobin A1c 6.9 % (4.3-6.0) H Calcium Level 8.7 MG/DL (8.5-10.1) Magnesium Level 2.0 MG/DL (1.8-2.4) Troponin I 0.033 ng/mL (0.000-0.056) C-Reactive Protein, Quantitative 1.3 mg/dL (0.00-0.90) H Pro-B-Type Natriuretic Peptide 6848 pg/mL (0-125) H Triglycerides Level 49 MG/DL (30-150) Cholesterol Level 131 MG/DL (< 200) LDL Cholesterol 78 mg/dL (<100) HDL Cholesterol 38 MG/DL (40-60) L Cholesterol/HDL Ratio 3.4 (3.3-4.4) Amylase Level 58 U/L (25-115) Lipase 118 U/L (73-393) Thyroid Stimulating Hormone (TSH) 1.401 uiU/mL (0.358-3.740) Random Vancomycin Level 13.1 ug/mL Plan Problems: (1) Left leg cellulitis Assessment & Plan: 61-year-old male with bilateral lower extremity edema and left leg cellulitis. Cellulitis improving. Stated there was pus draining few days ago but now stopped. On examination 08/24/2019 and there was no purulent drainage noted mild cellulitis No acute surgical intervention at this time no abscess identified Old prior ulcerations well-healed no open wounds Keep lower extremities elevated diet as tolerated we will follow with recommendations IV antibiotics per infectious disease Doppler examination shows normal spontaneity, phasicity, compressibility in the bilateral lower extremities. There is no thrombus identified by grayscale. Normal color and spectral flow is identified. There is no evidence of valvular incompetency or insufficiency. Soft tissue edema noted in both calves IMPRESSION: NO EVIDENCE OF DVT. SUBCUTANEOUS SOFT TISSUE EDEMA IN BOTH CALVES. Uriel Styles Aug 25, 2019 17:59
--- NOTE | 2019-08-25 18:19 | Consultation ---
History of Present Illness General Chief Complaint: Chest Pain Reason for Consultation: MEGHAN Present Illness HPI This is a 58 year old male with the past medical history of CHF, CAD who presents with chest pain and BLE swelling. Pt notes symptoms have been ongoing for the past few days. Chest described as substernal discomfort, moderate intensity. Reports he is taking his lasix. Some shortness of breath, b/l leg swellnig. Left leg with increased redness and noted purulent drainage. Denies f/ c, n/v, d/c, abd pain, dysuria. In ED, BNP elevated, trop neg. Pt given lasix 40mg IV and ancef. Cr noted to be elevated at 1.6 Allergies: Coded Allergies: No Known Allergies (Unverified , 12/12/17) Medication History Scheduled Furosemide* (Lasix*), 40 MG ORAL DAILY Patient History Healthcare decision maker N Resuscitation status Advanced Directive on File Review of Systems Constitutional: Reports: malaise, weakness Eye: Denies: no symptoms, see HPI, eye pain, blurred vision, tearing, double vision, nose pain, nose congestion, acuity changes, discharge, other ENT: Denies: no symptoms, see HPI, ear pain, ear discharge, nose pain, nose congestion, throat pain, throat swelling, mouth pain, hearing loss, nasal discharge, other Respiratory: Reports: orthopnea, shortness of breath Cardiovascular: Denies: no symptoms, see HPI, chest pain, edema, palpitations, syncope, PND, other Gastrointestinal: Denies: no symptoms, see HPI, abdominal pain, constipation, diarrhea, nausea, vomiting, melena, hematemesis, other Genitourinary: Denies: no symptoms, see HPI, discharge, dysuria, frequency, hematuria, pain, retention, incontinence, urgency, vag bleed/dc, other Musculoskeletal: Denies: no symptoms, see HPI, back pain, gout, joint pain, joint swelling, muscle pain, muscle stiffness, other Skin: Denies: no symptoms, see HPI, rash, change in color, change in hair/nails , dryness, lesions, other Psychiatric: Denies: no symptoms, see HPI, prior hx, anxiety, depressed feelings, emotional problems, SI, HI, hallucinations, other Neurological: Denies: no symptoms, see HPI, headache, numbness, paresthesia, seizure, tingling, tremors, focal weakness, syncope, dizziness, other Endocrine: Denies: no symptoms, see HPI, excessive sweating, flushing, intolerance to temperature, increased thirst, increased urine, unexplained weight loss, other Physical Exam General Appearance: no apparent distress, alert Lines, tubes and drains: peripheral HEENT: normocephalic, atraumatic Neck: non-tender, normal alignment Respiratory/Chest: chest wall non-tender, lungs clear Cardiovascular/Chest: normal rate, regular rhythm Extremities: non-tender Neurologic: alert, oriented x 3 Last 24 Hour Vital Signs Date Time Temp Pulse Resp B/P (MAP) Pulse Ox O2 Delivery O2 Flow Rate FiO2 08/25/19 04:00 97.5 78 19 123/91 (102) 98 08/25/19 04:00 79 08/25/19 00:00 77 08/25/19 00:00 97.7 83 17 133/92 (106) 95 08/24/19 20:00 84 08/24/19 20:00 97.4 87 17 146/108 (121) 97 08/24/19 19:31 Room Air 08/24/19 18:12 98.3 79 16 147/86 100 Room Air Intake and Output 08/24/19 08/25/19 19:00 07:00 Intake Total 55 ml Output Total 1200 ml Balance -1145 ml IV Total 55 ml Output Urine Total 1200 ml # Voids 2 Laboratory Tests Test 08/25/19 06:27 White Blood Count 4.5 K/UL (4.8-10.8) L Red Blood Count 4.96 M/UL (4.70-6.10) Hemoglobin 13.9 G/DL (14.2-18.0) L Hematocrit 46.6 % (42.0-52.0) Mean Corpuscular Volume 94 FL (80-99) Mean Corpuscular Hemoglobin 28.0 PG (27.0-31.0) Mean Corpuscular Hemoglobin Concent 29.8 G/DL (32.0-36.0) L Red Cell Distribution Width 13.6 % (11.6-14.8) Platelet Count 190 K/UL (150-450) Mean Platelet Volume 8.8 FL (6.5-10.1) Neutrophils (%) (Auto) 59.8 % (45.0-75.0) Lymphocytes (%) (Auto) 16.2 % (20.0-45.0) L Monocytes (%) (Auto) 15.7 % (1.0-10.0) H Eosinophils (%) (Auto) 3.1 % (0.0-3.0) H Basophils (%) (Auto) 5.1 % (0.0-2.0) H Erythrocyte Sedimentation Rate 4 MM/HR (0-20) Prothrombin Time 13.2 SEC (9.30-11.50) H Prothromb Time International Ratio 1.2 (0.9-1.1) H Activated Partial Thromboplast Time 28 SEC (23-33) Sodium Level 146 MMOL/L (136-145) H Potassium Level 3.4 MMOL/L (3.5-5.1) L Chloride Level 109 MMOL/L (98-107) H Carbon Dioxide Level 29 MMOL/L (21-32) Anion Gap 8 mmol/L (5-15) Blood Urea Nitrogen 18 mg/dL (7-18) Creatinine 1.6 MG/DL (0.55-1.30) H Estimat Glomerular Filtration Rate 53.7 mL/min (>60) Glucose Level 99 MG/DL (74-106) Hemoglobin A1c 6.9 % (4.3-6.0) H Calcium Level 8.7 MG/DL (8.5-10.1) Magnesium Level 2.0 MG/DL (1.8-2.4) Troponin I 0.033 ng/mL (0.000-0.056) C-Reactive Protein, Quantitative 1.3 mg/dL (0.00-0.90) H Pro-B-Type Natriuretic Peptide 6848 pg/mL (0-125) H Triglycerides Level 49 MG/DL (30-150) Cholesterol Level 131 MG/DL (< 200) LDL Cholesterol 78 mg/dL (<100) HDL Cholesterol 38 MG/DL (40-60) L Cholesterol/HDL Ratio 3.4 (3.3-4.4) Amylase Level 58 U/L (25-115) Lipase 118 U/L (73-393) Thyroid Stimulating Hormone (TSH) 1.401 uiU/mL (0.358-3.740) Random Vancomycin Level 13.1 ug/mL Height (Feet): 6 Height (Inches): 3.00 Weight (Pounds): 195 Medications Current Medications Medications (Trade) Dose Ordered Sig/Tasia Route PRN Reason Start Time Stop Time Status Last Admin Dose Admin Acetaminophen (Tylenol) 650 mg Q4H PRN ORAL Mild Pain (Pain Scale 1-3) 08/24/19 19:15 09/23/19 19:14 Acetaminophen (Tylenol) 650 mg Q4H PRN ORAL Temp >100.5 08/24/19 19:15 09/23/19 19:14 Aspirin (ASA) 81 mg DAILY ORAL 08/25/19 09:00 10/09/19 08:59 08/25/19 10:30 Bisacodyl (Dulcolax) 10 mg DAILYPRN PRN RECTAL Constipation 08/24/19 19:15 11/22/19 19:14 Dextrose (Dextrose 50%) 25 ml Q30M PRN IV Hypoglycemia 08/24/19 19:15 11/22/19 19:14 Dextrose (Dextrose 50%) 50 ml Q30M PRN IV Hypoglycemia 08/24/19 19:15 11/22/19 19:14 Docusate Sodium (Colace) 100 mg EVERY 12 HOURS ORAL 08/24/19 21:00 09/23/19 20:59 08/25/19 10:30 Furosemide (Lasix) 20 mg BID IV 08/25/19 09:00 09/24/19 08:59 08/25/19 10:30 Heparin Sodium (Porcine) (Heparin 5000 units/ml) 5,000 units EVERY 12 HOURS SUBQ 08/24/19 21:00 10/08/19 20:59 08/25/19 10:30 Ondansetron HCl (Zofran) 4 mg Q6H PRN IVP Nausea & Vomiting 08/24/19 19:15 09/23/19 19:14 Polyethylene Glycol (Miralax) 17 gm DAILYPRN PRN ORAL Constipation 08/24/19 19:15 09/23/19 19:14 Vancomycin HCl (Vanco pharmacy to dose) 1 ea DAILY PRN MISC Per rx protocol 08/24/19 19:15 09/23/19 19:14 Vancomycin/Sodium Chloride 275 ml @ 137.5 mls/ hr Q24H IVPB 08/25/19 11:00 08/30/19 10:59 08/25/19 11:30 Assessment/Plan Diagnosis Antlers I: #MEGHAN on CRS 1 #acute on chronic CHF exacerbation #HTN #LE cellullitis #DM - lasix 20mg IV BID - 2d echo - check renal US - on vanoc - monitor vanoc level - monitor UOP - daily weights - avoid nephrotoxins - monitor bmp, mag and phos daily Odell Zuniga M.D. Aug 25, 2019 18:19
--- NOTE | 2019-08-25 19:15 | NUR ---
NURSE NOTES: Report received from Mila LEBRON. Patient is awake and alert x 4. Patient is noted to be on 2 liters of oxygen. Endorsed that patient becomes short of breath with activity. Patient denies chest pain and shortness of breath at this time. Patient noted to have edema and cellulitis in lower extremities. Patient noted to have 20 mario IV in right upper arm. Endorsed that patient received potassium today to correct low potassium laboratory value. Endorsed that MD is aware of high sodium level. Patient has no complaints at this time. Urinals at bedside for patient to use, due to frequent voids due to patient being on Lasix. Bed locked, in lowest position, call light in reach. will continue to follow plan of care.
[2019-08-25 20:00] VITALS: BP 143/105
--- NOTE | 2019-08-25 20:27 | Infectious Diseases Prog Note ---
Assessment/Plan Assessment/Plan Full consult dictated: A) 1) left leg cellulitis 2) ? CAP, favor atx or chf 3) pmh noted 4) allergies - nkda P) 1) vancomycin - day # 2 2) monitor clinically 3) transition to oral keflex plus doxycycline x 1 week if continue to improve 4) thank you Subjective Allergies: Coded Allergies: No Known Allergies (Unverified , 12/12/17) Objective Vital Signs Last 24 Hour Vital Signs Date Time Temp Pulse Resp B/P (MAP) Pulse Ox O2 Delivery O2 Flow Rate FiO2 08/25/19 04:00 97.5 78 19 123/91 (102) 98 08/25/19 04:00 79 08/25/19 00:00 77 08/25/19 00:00 97.7 83 17 133/92 (106) 95 Height (Feet): 6 Height (Inches): 3.00 Weight (Pounds): 195 Laboratory Tests Test 08/25/19 06:27 White Blood Count 4.5 K/UL (4.8-10.8) L Red Blood Count 4.96 M/UL (4.70-6.10) Hemoglobin 13.9 G/DL (14.2-18.0) L Hematocrit 46.6 % (42.0-52.0) Mean Corpuscular Volume 94 FL (80-99) Mean Corpuscular Hemoglobin 28.0 PG (27.0-31.0) Mean Corpuscular Hemoglobin Concent 29.8 G/DL (32.0-36.0) L Red Cell Distribution Width 13.6 % (11.6-14.8) Platelet Count 190 K/UL (150-450) Mean Platelet Volume 8.8 FL (6.5-10.1) Neutrophils (%) (Auto) 59.8 % (45.0-75.0) Lymphocytes (%) (Auto) 16.2 % (20.0-45.0) L Monocytes (%) (Auto) 15.7 % (1.0-10.0) H Eosinophils (%) (Auto) 3.1 % (0.0-3.0) H Basophils (%) (Auto) 5.1 % (0.0-2.0) H Erythrocyte Sedimentation Rate 4 MM/HR (0-20) Prothrombin Time 13.2 SEC (9.30-11.50) H Prothromb Time International Ratio 1.2 (0.9-1.1) H Activated Partial Thromboplast Time 28 SEC (23-33) Sodium Level 146 MMOL/L (136-145) H Potassium Level 3.4 MMOL/L (3.5-5.1) L Chloride Level 109 MMOL/L (98-107) H Carbon Dioxide Level 29 MMOL/L (21-32) Anion Gap 8 mmol/L (5-15) Blood Urea Nitrogen 18 mg/dL (7-18) Creatinine 1.6 MG/DL (0.55-1.30) H Estimat Glomerular Filtration Rate 53.7 mL/min (>60) Glucose Level 99 MG/DL (74-106) Hemoglobin A1c 6.9 % (4.3-6.0) H Calcium Level 8.7 MG/DL (8.5-10.1) Magnesium Level 2.0 MG/DL (1.8-2.4) Troponin I 0.033 ng/mL (0.000-0.056) C-Reactive Protein, Quantitative 1.3 mg/dL (0.00-0.90) H Pro-B-Type Natriuretic Peptide 6848 pg/mL (0-125) H Triglycerides Level 49 MG/DL (30-150) Cholesterol Level 131 MG/DL (< 200) LDL Cholesterol 78 mg/dL (<100) HDL Cholesterol 38 MG/DL (40-60) L Cholesterol/HDL Ratio 3.4 (3.3-4.4) Amylase Level 58 U/L (25-115) Lipase 118 U/L (73-393) Thyroid Stimulating Hormone (TSH) 1.401 uiU/mL (0.358-3.740) Random Vancomycin Level 13.1 ug/mL Current Medications Medications (Trade) Dose Ordered Sig/Tasia Route PRN Reason Start Time Stop Time Status Last Admin Dose Admin Acetaminophen (Tylenol) 650 mg Q4H PRN ORAL Mild Pain (Pain Scale 1-3) 08/24/19 19:15 09/23/19 19:14 Acetaminophen (Tylenol) 650 mg Q4H PRN ORAL Temp >100.5 08/24/19 19:15 09/23/19 19:14 Aspirin (ASA) 81 mg DAILY ORAL 08/25/19 09:00 10/09/19 08:59 08/25/19 10:30 Bisacodyl (Dulcolax) 10 mg DAILYPRN PRN RECTAL Constipation 08/24/19 19:15 11/22/19 19:14 Dextrose (Dextrose 50%) 25 ml Q30M PRN IV Hypoglycemia 08/24/19 19:15 11/22/19 19:14 Dextrose (Dextrose 50%) 50 ml Q30M PRN IV Hypoglycemia 08/24/19 19:15 11/22/19 19:14 Docusate Sodium (Colace) 100 mg EVERY 12 HOURS ORAL 08/24/19 21:00 09/23/19 20:59 08/25/19 10:30 Furosemide (Lasix) 20 mg BID IV 08/25/19 09:00 09/24/19 08:59 08/25/19 18:36 Heparin Sodium (Porcine) (Heparin 5000 units/ml) 5,000 units EVERY 12 HOURS SUBQ 08/24/19 21:00 8 20:59 08/25/19 10:30 Ondansetron HCl (Zofran) 4 mg Q6H PRN IVP Nausea & Vomiting 08/24/19 19:15 09/23/19 19:14 Polyethylene Glycol (Miralax) 17 gm DAILYPRN PRN ORAL Constipation 08/24/19 19:15 09/23/19 19:14 Vancomycin HCl (Vanco pharmacy to dose) 1 ea DAILY PRN MISC Per rx protocol 08/24/19 19:15 09/23/19 19:14 Vancomycin/Sodium Chloride 275 ml @ 137.5 mls/ hr Q24H IVPB 08/25/19 11:00 08/30/19 10:59 08/25/19 11:30 Can Felix MD Aug 25, 2019 20:27
--- NOTE | 2019-08-25 20:46 | NUR ---
HAND-OFF: Report given to Gilberto/BERNARDINO, pt in stable condition.
--- NOTE | 2019-08-25 21:30 | Consultation ---
DATE OF CONSULTATION: NOTE: DICTATION CANCELLED Can Felix M.D. DR: DONNIE JOB#: [id number] CC:
--- NOTE | 2019-08-25 22:15 | Consultation ---
DATE OF CONSULTATION: 08/25/2019 INFECTIOUS DISEASE CONSULTATION CONSULTING PHYSICIAN: Can Felix MD. ATTENDING PHYSICIAN: Andra Hollins MD. REFERRING PHYSICIAN: Rohit Burgess MD and Andra Hollins MD. REASON FOR CONSULTATION: Left leg cellulitis. CHIEF COMPLAINT: Patient's chief complaint coming in to the hospital is heart failure, left leg cellulitis. HISTORY OF PRESENT ILLNESS: This is a 58-year-old male who comes in to [facility] with left leg swelling. Patient has left leg cellulitis and also CHF. Infectious Disease consultation is requested. Patient was started on vancomycin. Cellulitis is improved since yesterday. REVIEW OF SYSTEMS: CONSTITUTIONAL: Patient's main issue is left leg pain and shortness of breath. He has no fever or chills. CARDIAC: No particular chest pain. GASTROINTESTINAL: No nausea, vomiting, or diarrhea. GENITOURINARY: No Michelle. No dysuria or frequency. PULMONARY: No shortness of breath, maybe mild. SKIN: No rash. PAST MEDICAL HISTORY: Patient has a past medical history of leg swelling, CAD, CHF. Patient has a history of atypical chest pain, elevated D-dimer, history of chronic kidney disease. No history of cancer. He also has history of diabetes and hypertension. ALLERGIES: No known drug allergies. No antibiotic allergies. SOCIAL HISTORY: Negative for smoking, alcohol, or drug abuse. FAMILY HISTORY: Noncontributory. MEDICATIONS: Upon reviewing the MAR, he is on following medications. Antibiotic silverio, he is on vancomycin, furosemide, aspirin, heparin, docusate, acetaminophen, bisacodyl, Zofran. Vancomycin per pharmacy. Outside medications noted and reconciliated. PHYSICAL EXAMINATION: VITAL SIGNS: Temperature 97.5, pulse rate 79, respiratory rate 19, blood pressure 122/91, saturation 98% on room air. GENERAL: Alert, responsive. No distress. HEAD AND NECK: Oral exam, no thrush. Eye exam, no icterus. Normocephalic. Neck is supple. No JVD. HEART: Regular. No murmur. Possible gallop. ABDOMEN: Soft. Positive bowel sounds. Nontender. LUNGS: Few bilateral rhonchi and crackles. SKIN: No rash. MUSCULOSKELETAL: No effusions. Legs, he has left leg cellulitis . No septic arthritis. PERIPHERAL VASCULAR: No gangrene. GENITOURINARY: No Michelle. LINE SITES: Without phlebitis. NEUROLOGIC: Intact. Nonfocal. LABORATORY DATA: Creatinine 1.6. White count 4.5, hemoglobin 13.9. Sedimentation rate 4. Chest x-ray showed improving infiltrates versus CHF. ASSESSMENT AND PLAN: 1. Patient has left leg cellulitis. Improving on vancomycin. This is day #2 of vancomycin. If the patient continues to improve, transition to oral antibiotics such as Keflex plus doxycycline. I would avoid Bactrim because of elevated creatinine. Continue vancomycin, day #2 for left leg cellulitis. Monitor patient clinically. Again, can transition to oral Keflex and doxy times another week upon discharge. 2. Questionable community-acquired pneumonia. More likely atelectasis or CHF. Chest x-ray improved. 3. CHF. 4. CAD. 5. Elevated creatinine. 6. Chronic kidney disease. 7. Diabetes. 8. Hypertension. 9. Blood sugar and blood pressure treatment per primary care team and consultants. 10. Atypical chest pain. 11. No known drug allergies. 12. Social history is negative. 13. Family history is noncontributory. 14. MAR was noted. 15. Case discussed with RN. Can Felix M.D. DR: DONNIE JOB#: [id number] CC:
[2019-08-26] VITALS: BP 137/90
[2019-08-26 04:00] VITALS: BP 140/88
--- NOTE | 2019-08-26 07:39 | NUR ---
HAND-OFF: Report given to Mila LEBRON. Endorsed that patient does not wish to be woken for phone calls of . Endorsed to update MD on results of ultra sound from last night. Patient currently in stable condition.
[2019-08-26 08:00] VITALS: BP 152/119
--- NOTE | 2019-08-26 08:04 | NUR ---
NURSE NOTES: pt on repeater operator no signs of cardiac distress at this time. Pt on 2L O2. Pt AOx4 and has no complains of pain. Urinals at bedside. Bed in lowest position and locked, side rails up. call light within reach. Will continue to monitor pt.
[2019-08-26 08:11] LABS: BLOOD UREA NITROGEN 18 mg/dL (7-18); CALCIUM 8.5 MG/DL (8.5-10.1); CARBON DIOXIDE 27 MMOL/L (21-32); CHLORIDE 106 MMOL/L (98-107); CREATININE 1.5 MG/DL (0.55-1.30); POTASSIUM 3.4 MMOL/L (3.5-5.1)
[2019-08-26 08:45] LABS: SODIUM 144 MMOL/L (136-145)
--- NOTE | 2019-08-26 09:10 | General Progress Note ---
Assessment/Plan Status: stable Assessment/Plan: 58y/o male with pmh of CHF, CAD who presents with chest pain and BLE swelling, admitted for CHF exacerbation and LLE cellulitis. # CHF exacerbation/ADHF - possibly 2/2 noncompliance with diet and/or meds. Unknown EF # Atypical chest pain # H/o CAD - Cardiology consulted - Trend trop/EKG - ASA 81mg daily - Check lipid panel, TSH (wnl), A1C (6.9) - Tele - Lasix 20mg IV BID - Strict I/O's - Daily weights - Check TTE: EF of 20 to 25%, refuses ischemic work-up at this time per cardiology; will need ischemic work-up as outpatient # Elevated D-dimer - Check venous duplex: negative - Consider VQ scan vs CT angio chest (if Cr improves) # LLE purulent cellulitis # BLE edema - 2/2 CHF - Check venous duplex: neg - ID consulted - Empiric vanco - - Surgery consulted # MEGHAN vs MEGHAN on CKD - unclear baseline Cr. Cr 1.7 on admit. Likely cardiorenal syndrome - Renal consulted - Diuresis as above - Strict I/O - Avoid nephrotoxic agents DVT Prophylaxis: HSQ Code Status: Full Hospital Classification Declaration: Based on this initial evaluation, and depending on the patient's clinical course, I anticipate that this patient will require hospitalization for [] days for [] and close respiratory/hemodynamic monitoring. Disposition: Once the patient is stable to leave the hospital, I anticipate the patient will likely be discharged to the following environment: home with HH vs SNF I spent 39 minutes on this patient's case, and 16 minutes were dedicated to counseling and/or care coordination. I spent a total of more than 36 minutes in discussing case with patient, family members, staff including block and case maker, nursing, and other specialists involved in the case as above.. Time of note may not reflect time of encounter. Subjective Date patient seen: Aug 26, 2019 Time patient seen: 11:07 Allergies: Coded Allergies: No Known Allergies (Unverified , 12/12/17) Subjective Patient continues to complain of shortness of breath however states improved vitals stable, no chest pain nausea or vomiting at bedside discussed with her plan of care EF 20 to 25%, hypertension, Coreg 6.125 twice daily started Hypokalemia Kidney function improving creatinine 1.7-1.5 On vancomycin, plan to transition to p.o. Bilateral lower extremity duplex negative for DVT, bilateral soft tissue swelling On IV Lasix Objective Last 24 Hour Vital Signs Date Time Temp Pulse Resp B/P (MAP) Pulse Ox O2 Delivery O2 Flow Rate FiO2 08/26/19 08:33 Room Air 08/26/19 08:00 97.5 55 18 152/119 (130) 97 08/26/19 04:00 97.4 78 17 140/88 (105) 96 08/26/19 04:00 82 08/26/19 00:00 81 08/26/19 00:00 97.8 80 16 137/90 (106) 96 08/25/19 21:00 Room Air 08/25/19 20:00 84 08/25/19 20:00 97.5 85 18 143/105 (118) 97 08/25/19 16:00 81 08/25/19 16:00 98.9 113 20 156/101 (119) 96 08/25/19 12:00 97.7 112 20 150/103 (119) 96 Intake and Output 08/25/19 08/26/19 19:00 07:00 Intake Total 980 ml 700 ml Output Total 1900 ml 1000 ml Balance -920 ml -300 ml Intake Oral 980 ml 700 ml Output Urine Total 1900 ml 1000 ml # Voids 1 5 Laboratory Tests 08/26/19 06:14: Sodium Level 144, Potassium Level 3.4L, Chloride Level 106, Carbon Dioxide Level 27, Blood Urea Nitrogen 18, Creatinine 1.5H, Estimat Glomerular Filtration Rate 57.8, Glucose Level 117H, Calcium Level 8.5, Magnesium Level 1.9 Height (Feet): 6 Height (Inches): 3.00 Weight (Pounds): 192 Objective GENERAL: No acute distress, appears comfortable, alert HEENT: NCAT, non-icteric eyes, pupils PERRLA Neck: No cervical lymphadenopathy, trachea midline CV: Regular rate and rhythm, no murmurs rubs or gallops RESP: Clear to auscultation bilaterally, no wheezes/rhonchi/crackles ABD: soft, non-distended, no TTP EXT: Normal muscle tone, +5/5 muscle strength NEURO: No obvious deficits, alert and oriented x3 Neida Harris DO Aug 26, 2019 09:10
[2019-08-26] MEDS ORDERED: HydrALAZINE 10mg Tab ORAL PRN (09:15)
[2019-08-26] MEDS: Aspirin Baby 81mg ORAL SCH (09:43)
[2019-08-26] MEDS: Docusate 100mg cap ORAL SCH ×2 (09:43→21:58)
[2019-08-26] MEDS: Heparin 5000 units/ml inj SUBQ SCH ×2 (09:45→22:00)
[2019-08-26] MEDS: Carvedilol 6.25mg Tab ORAL SCH ×2 (09:47→21:59)
--- NOTE | 2019-08-26 10:22 | Diagnostic Imaging Report ---
Procedure: XRAY Chest 1v Reason for study: Reason For Exam: SOB Comparison films: 08/24/2019. FINDINGS: A single one view chest is obtained. Vascularity is normal. Interstitial densities resembling Aubrey B lines noted in the left lung possibly early interstitial edema. Cardiac and mediastinal silhouette are within normal limits. CP angles are sharp. The bony thorax appear unremarkable. IMPRESSION: Linear interstitial densities resembling Aubrey B-lines left lung possibly representing early interstitial edema.
[2019-08-26] MEDS: Vancomycin 1.5gm/NS Premix IVPB SCH (11:00)
--- NOTE | 2019-08-26 11:07 | Diagnostic Imaging Report ---
EXAM: ULTRASOUND US Renal Comp CLINICAL HISTORY: Abdominal pain. COMPARISON: None TECHNIQUE: Ultrasound examination of the kidneys includes grayscale images, and color and spectral doppler analysis. FINDINGS: The right kidney measures 10.8 x 4.5 x 6.3 cm and the left kidney measures 11 x 6.2 x 7.4 cm. Kidneys are echogenic reflecting medical renal disease. No space-occupying process noted There is no hydronephrosis or stone seen bilaterally. Incidentally noted is diffuse wall thickening of the gallbladder and small amount of ascites. Question whether this is related to underlying liver disease. Liver is echogenic. Urinary bladder appears unremarkable. IMPRESSION: ECHOGENIC KIDNEYS REFLECTING MEDICAL RENAL DISEASE. NO HYDRONEPHROSIS. ECHOGENIC LIVER WITH DIFFUSE WALL THICKENING OF THE GALLBLADDER AND SMALL AMOUNT OF ASCITES. FINDINGS LIKELY RELATED TO UNDERLYING LIVER PARENCHYMAL DISEASE.
[2019-08-26 12:00] VITALS: BP 141/103
--- NOTE | 2019-08-26 13:20 | Cardiology Progress Note ---
Assessment/Plan Status: stable Assessment/Plan Assessment/Plan Status: stable Assessment/Plan: 58y/o male with pmh of CHF, CAD who presents with chest pain and BLE swelling, admitted for CHF exacerbation and LLE cellulitis. -Echo with severe LV function -Life vest ordered -Outpatient viability study -DASH diet, fluid and salt restriction -Nitro prn chest pain -Aspirin/statin -Beta blockers for heart failure -Will need mitral clip evaluation as outpatient -Continue lasix -Start aldactone 12.5 mg daily -Further recommendations to follow Subjective Cardiovascular: Reports: no symptoms Respiratory: Reports: no symptoms Gastrointestinal/Abdominal: Reports: no symptoms Genitourinary: Reports: no symptoms Subjective No acute events TTE with severe LV dysfunction MR/TR/PAH PA pressure 101 mmHg No fevers, tolerating Abx, currently asleep on room air Objective Last 24 Hour Vital Signs Date Time Temp Pulse Resp B/P (MAP) Pulse Ox O2 Delivery O2 Flow Rate FiO2 08/26/19 09:47 55 152/119 08/26/19 08:33 Room Air 08/26/19 08:00 97.5 55 18 152/119 (130) 97 08/26/19 07:29 99 08/26/19 04:00 97.4 78 17 140/88 (105) 96 08/26/19 04:00 82 08/26/19 00:00 81 08/26/19 00:00 97.8 80 16 137/90 (106) 96 08/25/19 21:00 Room Air 08/25/19 20:00 84 08/25/19 20:00 97.5 85 18 143/105 (118) 97 08/25/19 16:00 81 08/25/19 16:00 98.9 113 20 156/101 (119) 96 General Appearance: no apparent distress EENT: PERRL/EOMI, normal ENT inspection Neck: non-tender, normal alignment, supple, no JVD Rhythm: NSR Cardiovascular: normal peripheral pulses, normal rate Respiratory/Chest: chest wall non-tender, lungs clear Abdomen: normal bowel sounds, non tender, soft, no organomegaly, no mass Extremities: normal range of motion, non-tender, normal inspection, no calf tenderness Neurologic: research methods instructor II-XII grossly normal, no motor/sensory deficits Intake and Output 08/25/19 08/26/19 19:00 07:00 Intake Total 980 ml 700 ml Output Total 1900 ml 1000 ml Balance -920 ml -300 ml Intake Oral 980 ml 700 ml Output Urine Total 1900 ml 1000 ml # Voids 1 5 Laboratory Tests Test 08/26/19 06:14 Sodium Level 144 MMOL/L (136-145) Potassium Level 3.4 MMOL/L (3.5-5.1) L Chloride Level 106 MMOL/L (98-107) Carbon Dioxide Level 27 MMOL/L (21-32) Blood Urea Nitrogen 18 mg/dL (7-18) Creatinine 1.5 MG/DL (0.55-1.30) H Estimat Glomerular Filtration Rate 57.8 mL/min (>60) Glucose Level 117 MG/DL (74-106) H Calcium Level 8.5 MG/DL (8.5-10.1) Magnesium Level 1.9 MG/DL (1.8-2.4) Microbiology Date/Time Source Procedure Growth Status 08/24/19 13:05 Blood Blood Culture - Preliminary NO GROWTH AFTER 24 HOURS Resulted 08/24/19 12:50 Blood Blood Culture - Preliminary NO GROWTH AFTER 24 HOURS Resulted Regan Lion MD Aug 26, 2019 13:20
--- NOTE | 2019-08-26 13:36 | NUR ---
CASE MANAGEMENT:REVIEW 08/26/19 SI: AC/CHR CHF. CHEST PAIN. CAD LLE PURULENT CELLULITIS ECHO(+) SEVERE GLOBAL LV HYPOKINESIS 97.5 55 18 152/119 97% ON RA K-3.4 CR+1.5 IS: IV VANCOMYCIN Q24 IV LASIX Q12 ASA PO QD ALDACTONE PO QD COREG PO Q12 HEPARIN SQ Q12 : TELEMETRY STATUS DCP: PLAN: DR CALIXTO ORDERED LIFE VEST
--- NOTE | 2019-08-26 13:57 | NUR ---
DISCHARGE PLANNING DR DURGA CRUZ LIFE [facility]ST SPOKE WITH CLARKE GARCIAS AND INFORMED HIM THAT PATIENT HAS PRESUMPTIVE MCAL AND LIVES IN HIS CAR
--- NOTE | 2019-08-26 14:45 | Surgery Progress Note ---
Surgery Progress Note Subjective Symptoms: improved, tolerating diet, voiding well, passing flatus, BM Objective Last 24 Hour Vital Signs Date Time Temp Pulse Resp B/P (MAP) Pulse Ox O2 Delivery O2 Flow Rate FiO2 08/26/19 09:47 55 152/119 08/26/19 08:33 Room Air 08/26/19 08:00 97.5 55 18 152/119 (130) 97 08/26/19 07:29 99 08/26/19 04:00 97.4 78 17 140/88 (105) 96 08/26/19 04:00 82 08/26/19 00:00 81 08/26/19 00:00 97.8 80 16 137/90 (106) 96 08/25/19 21:00 Room Air 08/25/19 20:00 84 08/25/19 20:00 97.5 85 18 143/105 (118) 97 08/25/19 16:00 81 08/25/19 16:00 98.9 113 20 156/101 (119) 96 I&O Intake and Output 08/25/19 08/26/19 19:00 07:00 Intake Total 980 ml 700 ml Output Total 1900 ml 1000 ml Balance -920 ml -300 ml Intake Oral 980 ml 700 ml Output Urine Total 1900 ml 1000 ml # Voids 1 5 Dressing: dry Cardiovascular: RSR Respiratory: clear Abdomen: soft, non-tender, present bowel sounds, non-distended Extremities: edema, no tenderness, no cyanosis Laboratory Tests Test 08/26/19 06:14 Sodium Level 144 MMOL/L (136-145) Potassium Level 3.4 MMOL/L (3.5-5.1) L Chloride Level 106 MMOL/L (98-107) Carbon Dioxide Level 27 MMOL/L (21-32) Blood Urea Nitrogen 18 mg/dL (7-18) Creatinine 1.5 MG/DL (0.55-1.30) H Estimat Glomerular Filtration Rate 57.8 mL/min (>60) Glucose Level 117 MG/DL (74-106) H Calcium Level 8.5 MG/DL (8.5-10.1) Magnesium Level 1.9 MG/DL (1.8-2.4) Plan Problems: (1) Left leg cellulitis Assessment & Plan: 61-year-old male with bilateral lower extremity edema and left leg cellulitis. Cellulitis improving. Stated there was pus draining few days ago but now stopped. On examination 08/24/2019 and there was no purulent drainage noted mild cellulitis No acute surgical intervention at this time no abscess identified Old prior ulcerations well-healed no open wounds Keep lower extremities elevated diet as tolerated we will follow with recommendations IV antibiotics per infectious disease Doppler examination shows normal spontaneity, phasicity, compressibility in the bilateral lower extremities. There is no thrombus identified by grayscale. Normal color and spectral flow is identified. There is no evidence of valvular incompetency or insufficiency. Soft tissue edema noted in both calves IMPRESSION: NO EVIDENCE OF DVT. SUBCUTANEOUS SOFT TISSUE EDEMA IN BOTH CALVES. d/c planning Uriel Styles Aug 26, 2019 14:44
[2019-08-26 16:00] VITALS: BP 141/106
--- NOTE | 2019-08-26 16:00 | NUR ---
NURSE NOTES: Primary nurse made aware that rhythm interpretations show changes (SR with PVCs and SR with 1st degree HB).
--- NOTE | 2019-08-26 18:57 | NUR ---
NURSE NOTES: pt does not like the way Lasix makes him feel.
--- NOTE | 2019-08-26 19:25 | NUR ---
NURSE NOTES: Received report from Mila Saravia RN. Pt in bed, denies pain, in stable condition. Will continue monitoring and plan of care.
[2019-08-26 20:00] VITALS: BP 124/85
--- NOTE | 2019-08-26 20:09 | NUR ---
HAND-OFF: Report given to Mauri/rn, pt in stable condition, endorsed plan of care.
--- NOTE | 2019-08-26 20:12 | Nephrology Progress Note ---
Assessment/Plan Plan #MEGHAN on CRS 1 #hypokalemia-> repleted #acute on chronic CHF exacerbation #HTN #LE cellullitis #DM - lasix 20mg IV BID - replete K - aldactone 25mg daily - coreg 6.25mg BID - 2d echo low EF - check renal US--> echogenic kidneys - on vanco - monitor vanoc level - monitor UOP - daily weights - avoid nephrotoxins - monitor bmp, mag and phos daily Subjective ROS Limited/Unobtainable: No Constitutional: Reports: malaise, weakness HEENT: Denies: no symptoms, eye pain, blurred vision, tearing, double vision, ear pain, ear discharge, nose pain, nose congestion, throat pain, throat swelling, mouth pain, mouth swelling, other Genitourinary: Denies: no symptoms, burning, discharge, frequency, flank pain, hematuria, incontinence, pain, urgency, other Neurologic/Psychiatric: Denies: no symptoms, anxiety, depressed, emotional problems, headache, numbness, paresthesia, pre-existing deficit, seizure, tingling, tremors, weakness, other Subjective Echo shows severe LV function Objective Objective Last 24 Hour Vital Signs Date Time Temp Pulse Resp B/P (MAP) Pulse Ox O2 Delivery O2 Flow Rate FiO2 08/26/19 16:00 96.7 68 20 141/106 (118) 97 08/26/19 16:00 86 08/26/19 15:13 86 08/26/19 12:00 96.6 66 18 141/103 (116) 97 08/26/19 11:33 85 08/26/19 09:47 55 152/119 08/26/19 08:33 Room Air 08/26/19 08:00 97.5 55 18 152/119 (130) 97 08/26/19 07:29 99 08/26/19 04:00 97.4 78 17 140/88 (105) 96 08/26/19 04:00 82 08/26/19 00:00 81 08/26/19 00:00 97.8 80 16 137/90 (106) 96 08/25/19 21:00 Room Air Intake and Output 08/25/19 08/26/19 19:00 07:00 Intake Total 980 ml 700 ml Output Total 1900 ml 1000 ml Balance -920 ml -300 ml Intake Oral 980 ml 700 ml Output Urine Total 1900 ml 1000 ml # Voids 1 5 Laboratory Tests 08/26/19 06:14: Sodium Level 144, Potassium Level 3.4L, Chloride Level 106, Carbon Dioxide Level 27, Blood Urea Nitrogen 18, Creatinine 1.5H, Estimat Glomerular Filtration Rate 57.8, Glucose Level 117H, Calcium Level 8.5, Magnesium Level 1.9 Height (Feet): 6 Height (Inches): 3.00 Weight (Pounds): 192 General Appearance: no apparent distress, alert EENT: PERRL/EOMI Neck: non-tender, normal alignment Cardiovascular: normal peripheral pulses Respiratory/Chest: chest wall non-tender, rhonchi - bilaterally Abdomen: normal bowel sounds, non tender, soft Neurologic: alert, oriented x 3 Odell Zuniga M.D. Aug 26, 2019 20:12
--- NOTE | 2019-08-26 22:30 | NUR ---
NURSE NOTES: Pt O2 sat at 85% on 4LPM via NC. RT placed venturi mask at 10LPM and 45%. Pt now satting at 97%. Will continue to monitor closely.
[2019-08-27] VITALS: BP 117/92
[2019-08-27 04:00] VITALS: BP 123/96
--- NOTE | 2019-08-27 07:15 | NUR ---
HAND-OFF: Report given to Hu Tejeda RN. Pt is in stable condition, plan of care endorsed.
--- NOTE | 2019-08-27 07:16 | NUR ---
NURSE NOTES: Report received from Leisa LEBRON. Patient is awake and alert x 4. Patient is currently on venturi mask of 10 liters. Patient denies shortness of breath at this time. Patient does not appear to be in respiratory distress at this time. Patient is noted to have left leg cellulitis. Patient noted to have right forearm 24 mario saline lock IV access. Endorsed that patient is steady on feet and ambulatory. Patient has no complaints at this time. Bed locked, in lowest position, call light in reach. Will continue to follow plan of care.
[2019-08-27 08:00] VITALS: BP 133/97
--- NOTE | 2019-08-27 09:28 | Nephrology Progress Note ---
Assessment/Plan Plan #MEGHAN on CRS 1 #hypokalemia-> repleted #acute on chronic CHF exacerbation #HTN #LE cellullitis #DM - lasix 20mg IV BID - replete K - aldactone 25mg daily--> monitor renal function - coreg 6.25mg BID - 2d echo low EF - check renal US--> echogenic kidneys - on vanco - monitor vanoc level - monitor UOP - daily weights - avoid nephrotoxins - monitor bmp, mag and phos daily Time spent 45 minutes - greater than 50% on care coordination Subjective ROS Limited/Unobtainable: No Constitutional: Denies: no symptoms, chills, diaphoresis, fever, malaise, weakness, other HEENT: Denies: no symptoms, eye pain, blurred vision, tearing, double vision, ear pain, ear discharge, nose pain, nose congestion, throat pain, throat swelling, mouth pain, mouth swelling, other Genitourinary: Denies: no symptoms, burning, discharge, frequency, flank pain, hematuria, incontinence, pain, urgency, other Neurologic/Psychiatric: Denies: no symptoms, anxiety, depressed, emotional problems, headache, numbness, paresthesia, pre-existing deficit, seizure, tingling, tremors, weakness, other Subjective Echo shows severe LV dysfunction Cr up to 1.7 Objective Objective Last 24 Hour Vital Signs Date Time Temp Pulse Resp B/P (MAP) Pulse Ox O2 Delivery O2 Flow Rate FiO2 08/27/19 08:00 98.3 86 21 133/97 (109) 99 08/27/19 04:00 96.9 81 17 123/96 (105) 98 08/27/19 04:00 81 08/27/19 00:00 89 08/27/19 00:00 96.7 80 17 117/92 (100) 98 08/26/19 21:59 79 124/85 08/26/19 21:00 Venturi Mask 10.0 08/26/19 20:00 82 08/26/19 20:00 97.6 79 18 124/85 (98) 97 08/26/19 16:00 96.7 68 20 141/106 (118) 97 08/26/19 16:00 86 08/26/19 15:13 86 08/26/19 12:00 96.6 66 18 141/103 (116) 97 08/26/19 11:33 85 08/26/19 09:47 55 152/119 Intake and Output 08/26/19 08/27/19 19:00 07:00 Intake Total 140 ml 400 ml Output Total 1200 ml Balance -1060 ml 400 ml Intake Oral 140 ml 400 ml Output Urine Total 1200 ml # Voids 3 3 Height (Feet): 6 Height (Inches): 3.00 Weight (Pounds): 192 General Appearance: no apparent distress, lethargic EENT: PERRL/EOMI, normal ENT inspection Neck: non-tender, normal alignment Cardiovascular: normal peripheral pulses, normal rate, regular rhythm Respiratory/Chest: chest wall non-tender, lungs clear Abdomen: normal bowel sounds, non tender, soft Extremities: normal range of motion, non-tender Neurologic: oriented x 3, responsive Odell Zuniga M.D. Aug 27, 2019 09:28
[2019-08-27] MEDS: Heparin 5000 units/ml inj SUBQ SCH ×2 (10:16→20:05)
[2019-08-27 10:21] LABS: BASOPHILS % (AUTO) 0.8 % (0.0-2.0); EOSINOPHILS % (AUTO) 0.5 % (0.0-3.0); HEMATOCRIT 48.1 % (42.0-52.0); HEMOGLOBIN 14.8 G/DL (14.2-18.0); LYMPHOCYTES % (AUTO) 12.4 % (20.0-45.0); MEAN CORPUSCULAR VOLUME 93 FL (80-99); MONOCYTES % (AUTO) 6.7 % (1.0-10.0); NEUTROPHILS % (AUTO) 79.6 % (45.0-75.0); PLATELET COUNT 199 K/UL (150-450); RED BLOOD COUNT 5.17 M/UL (4.70-6.10); RED CELL DISTRIBUTION WIDTH 13.9 % (11.6-14.8); WHITE BLOOD COUNT 6.3 K/UL (4.8-10.8)
[2019-08-27] MEDS: Aspirin Baby 81mg ORAL SCH (10:22)
[2019-08-27] MEDS: Carvedilol 6.25mg Tab ORAL SCH ×2 (10:22→20:04)
[2019-08-27] MEDS: Docusate 100mg cap ORAL SCH ×2 (10:22→20:04)
[2019-08-27] MEDS: Spironolactone 25mg tab ORAL SCH (10:22)
[2019-08-27 10:23] LABS: ANION GAP 8 mmol/L (5-15); BLOOD UREA NITROGEN 22 mg/dL (7-18); CALCIUM 8.4 MG/DL (8.5-10.1); CARBON DIOXIDE 31 MMOL/L (21-32); CHLORIDE 104 MMOL/L (98-107); CREATININE 1.7 MG/DL (0.55-1.30); POTASSIUM 3.7 MMOL/L (3.5-5.1); SODIUM 142 MMOL/L (136-145)
[2019-08-27] MEDS: Vancomycin 1.5gm/NS Premix IVPB SCH (10:23)
[2019-08-27 10:26] LABS: PHOSPHORUS 4.3 MG/DL (2.5-4.9)
--- NOTE | 2019-08-27 11:15 | Cardiology Progress Note ---
Assessment/Plan Status: stable Assessment/Plan Assessment/Plan Status: stable Assessment/Plan: 58y/o male with pmh of CHF, CAD who presents with chest pain and BLE swelling, admitted for CHF exacerbation and LLE cellulitis. -Echo with severe LV function -Life vest ordered to be fitted in hospital -Outpatient viability study -DASH diet, fluid and salt restriction -Nitro prn chest pain -Aspirin/statin -Continue Beta blockers for heart failure -Will need mitral clip evaluation as outpatient -Continue lasix -Continue aldactone 12.5 mg daily -Hold ACEI/Entresto until renal function improved -Further recommendations to follow Subjective Cardiovascular: Reports: no symptoms Respiratory: Reports: no symptoms Gastrointestinal/Abdominal: Reports: no symptoms Genitourinary: Reports: no symptoms Subjective No acute events TTE with severe LV dysfunction MR/TR/PAH PA pressure 101 mmHg No fevers, tolerating Abx, currently asleep on room air Objective Last 24 Hour Vital Signs Date Time Temp Pulse Resp B/P (MAP) Pulse Ox O2 Delivery O2 Flow Rate FiO2 08/27/19 10:22 86 133/97 08/27/19 08:00 98.3 86 21 133/97 (109) 99 08/27/19 08:00 86 08/27/19 04:00 96.9 81 17 123/96 (105) 98 08/27/19 04:00 81 08/27/19 00:00 89 08/27/19 00:00 96.7 80 17 117/92 (100) 98 08/26/19 21:59 79 124/85 08/26/19 21:00 Venturi Mask 10.0 08/26/19 20:00 82 08/26/19 20:00 97.6 79 18 124/85 (98) 97 08/26/19 16:00 96.7 68 20 141/106 (118) 97 08/26/19 16:00 86 08/26/19 15:13 86 08/26/19 12:00 96.6 66 18 141/103 (116) 97 08/26/19 11:33 85 General Appearance: no apparent distress, alert EENT: PERRL/EOMI, normal ENT inspection, TMs normal, pharynx normal Neck: non-tender, normal alignment, supple, normal inspection Rhythm: SB Cardiovascular: normal peripheral pulses, normal rate Respiratory/Chest: chest wall non-tender, lungs clear, normal breath sounds, no respiratory distress Abdomen: normal bowel sounds, non tender, soft Extremities: normal range of motion, non-tender, normal inspection 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, no motor/sensory deficits Intake and Output 08/26/19 08/27/19 19:00 07:00 Intake Total 140 ml 400 ml Output Total 1200 ml Balance -1060 ml 400 ml Intake Oral 140 ml 400 ml Output Urine Total 1200 ml # Voids 3 3 Laboratory Tests Test 08/27/19 10:00 White Blood Count 6.3 K/UL (4.8-10.8) Red Blood Count 5.17 M/UL (4.70-6.10) Hemoglobin 14.8 G/DL (14.2-18.0) Hematocrit 48.1 % (42.0-52.0) Mean Corpuscular Volume 93 FL (80-99) Mean Corpuscular Hemoglobin 28.7 PG (27.0-31.0) Mean Corpuscular Hemoglobin Concent 30.7 G/DL (32.0-36.0) L Red Cell Distribution Width 13.9 % (11.6-14.8) Platelet Count 199 K/UL (150-450) Mean Platelet Volume 8.5 FL (6.5-10.1) Neutrophils (%) (Auto) 79.6 % (45.0-75.0) H Lymphocytes (%) (Auto) 12.4 % (20.0-45.0) L Monocytes (%) (Auto) 6.7 % (1.0-10.0) Eosinophils (%) (Auto) 0.5 % (0.0-3.0) Basophils (%) (Auto) 0.8 % (0.0-2.0) Sodium Level 142 MMOL/L (136-145) Potassium Level 3.7 MMOL/L (3.5-5.1) Chloride Level 104 MMOL/L (98-107) Carbon Dioxide Level 31 MMOL/L (21-32) Anion Gap 8 mmol/L (5-15) Blood Urea Nitrogen 22 mg/dL (7-18) H Creatinine 1.7 MG/DL (0.55-1.30) H Estimat Glomerular Filtration Rate 50.1 mL/min (>60) Glucose Level 143 MG/DL (74-106) H Calcium Level 8.4 MG/DL (8.5-10.1) L Phosphorus Level 4.3 MG/DL (2.5-4.9) Magnesium Level 1.9 MG/DL (1.8-2.4) Vancomycin Level Trough 10.7 ug/mL (5.0-12.0) Microbiology Date/Time Source Procedure Growth Status 08/24/19 13:05 Blood Blood Culture - Preliminary NO GROWTH AFTER 48 HOURS Resulted 08/24/19 12:50 Blood Blood Culture - Preliminary NO GROWTH AFTER 48 HOURS Resulted Regan Lion MD Aug 27, 2019 11:14
--- NOTE | 2019-08-27 11:58 | NUR ---
CASE MANAGEMENT:REVIEW 08/26/19 @ 2230 DESATURATED TO 85% ....PLACED ON 4L/NC THEN VENTURI MASK 08/27/19 SI: AC/CHR CHF EF 20-25% CHEST PAIN. CAD LLE PURULENT CELLULITIS ECHO(+) SEVERE GLOBAL LV HYPOKINESIS 98.3 86 21 133/97 99% ON VENTURI MASK 10L BUN+22 CR+1.7 IS: IV VANCOMYCIN Q24 IV LASIX Q12 ASA PO QD ALDACTONE PO QD COREG PO Q12 HEPARIN SQ Q12 : TELEMETRY STATUS DCP: PATIENT LIVES IN HIS CAR PLAN: DR CALIXTO ORDERED LIFE VEST
[2019-08-27 12:00] VITALS: BP 135/90
--- NOTE | 2019-08-27 12:08 | NUR ---
LIFE [facility] LIFE [facility] APPROVAL STILL PENDING [facility] IS REQUESTING DISCHARGE DESTINATION
--- NOTE | 2019-08-27 14:00 | NUR ---
NURSE NOTES: Assessed patients respiratory status with Doctor Harris in the room. Per Doctor Harris's orders, patient was removed from venturi mask. Patient did not feel short of breath. Patient had oxygen saturation of 96 % on room. Will leave patient on room air. Use nasal canula PRN if patient becomes short of breath per Doctor Harris.
--- NOTE | 2019-08-27 14:30 | Surgery Progress Note ---
Surgery Progress Note Subjective Symptoms: improved, tolerating diet, passing flatus, pain decreased Objective Last 24 Hour Vital Signs Date Time Temp Pulse Resp B/P (MAP) Pulse Ox O2 Delivery O2 Flow Rate FiO2 08/27/19 13:59 Room Air 08/27/19 12:00 98.1 78 20 135/90 (105) 99 08/27/19 10:22 86 133/97 08/27/19 09:00 Venturi Mask 10.0 08/27/19 08:00 98.3 86 21 133/97 (109) 99 08/27/19 08:00 86 08/27/19 04:00 96.9 81 17 123/96 (105) 98 08/27/19 04:00 81 08/27/19 00:00 89 08/27/19 00:00 96.7 80 17 117/92 (100) 98 08/26/19 21:59 79 124/85 08/26/19 21:00 Venturi Mask 10.0 08/26/19 20:00 82 08/26/19 20:00 97.6 79 18 124/85 (98) 97 08/26/19 16:00 96.7 68 20 141/106 (118) 97 08/26/19 16:00 86 08/26/19 15:13 86 I&O Intake and Output 08/26/19 08/27/19 19:00 07:00 Intake Total 140 ml 400 ml Output Total 1200 ml Balance -1060 ml 400 ml Intake Oral 140 ml 400 ml Output Urine Total 1200 ml # Voids 3 3 Cardiovascular: RSR Respiratory: clear Abdomen: soft, non-tender, present bowel sounds, non-distended Extremities: no edema, no tenderness, no cyanosis Laboratory Tests Test 08/27/19 10:00 White Blood Count 6.3 K/UL (4.8-10.8) Red Blood Count 5.17 M/UL (4.70-6.10) Hemoglobin 14.8 G/DL (14.2-18.0) Hematocrit 48.1 % (42.0-52.0) Mean Corpuscular Volume 93 FL (80-99) Mean Corpuscular Hemoglobin 28.7 PG (27.0-31.0) Mean Corpuscular Hemoglobin Concent 30.7 G/DL (32.0-36.0) L Red Cell Distribution Width 13.9 % (11.6-14.8) Platelet Count 199 K/UL (150-450) Mean Platelet Volume 8.5 FL (6.5-10.1) Neutrophils (%) (Auto) 79.6 % (45.0-75.0) H Lymphocytes (%) (Auto) 12.4 % (20.0-45.0) L Monocytes (%) (Auto) 6.7 % (1.0-10.0) Eosinophils (%) (Auto) 0.5 % (0.0-3.0) Basophils (%) (Auto) 0.8 % (0.0-2.0) Sodium Level 142 MMOL/L (136-145) Potassium Level 3.7 MMOL/L (3.5-5.1) Chloride Level 104 MMOL/L (98-107) Carbon Dioxide Level 31 MMOL/L (21-32) Anion Gap 8 mmol/L (5-15) Blood Urea Nitrogen 22 mg/dL (7-18) H Creatinine 1.7 MG/DL (0.55-1.30) H Estimat Glomerular Filtration Rate 50.1 mL/min (>60) Glucose Level 143 MG/DL (74-106) H Calcium Level 8.4 MG/DL (8.5-10.1) L Phosphorus Level 4.3 MG/DL (2.5-4.9) Magnesium Level 1.9 MG/DL (1.8-2.4) Vancomycin Level Trough 10.7 ug/mL (5.0-12.0) Plan Problems: (1) Left leg cellulitis Assessment & Plan: 61-year-old male with bilateral lower extremity edema and left leg cellulitis. Cellulitis improving. Stated there was pus draining few days ago but now stopped. On examination 08/24/2019 and there was no purulent drainage noted mild cellulitis No acute surgical intervention at this time no abscess identified Old prior ulcerations well-healed no open wounds Keep lower extremities elevated diet as tolerated we will follow with recommendations IV antibiotics per infectious disease Doppler examination shows normal spontaneity, phasicity, compressibility in the bilateral lower extremities. There is no thrombus identified by grayscale. Normal color and spectral flow is identified. There is no evidence of valvular incompetency or insufficiency. Soft tissue edema noted in both calves IMPRESSION: NO EVIDENCE OF DVT. SUBCUTANEOUS SOFT TISSUE EDEMA IN BOTH CALVES. d/c planning Uriel Styles Aug 27, 2019 14:30
--- NOTE | 2019-08-27 14:55 | General Progress Note ---
Assessment/Plan Status: stable Assessment/Plan: 58y/o male with pmh of CHF, CAD who presents with chest pain and BLE swelling, admitted for CHF exacerbation and LLE cellulitis. # CHF exacerbation/ADHF - possibly 2/2 noncompliance with diet and/or meds. Unknown EF # Atypical chest pain # H/o CAD - Cardiology consulted: Awaiting LifeVest fitting in hospital, likely discharge tomorrow - Trend trop/EKG - ASA 81mg daily - Check lipid panel, TSH (wnl), A1C (6.9) - Tele - Lasix 20mg IV BID, transition to p.o. we will defer to cardiology recs - Strict I/O's - Daily weights - Check TTE: EF of 20 to 25%, refuses ischemic work-up at this time per cardiology; will need ischemic work-up as outpatient # Elevated D-dimer - Check venous duplex: negative - Consider VQ scan vs CT angio chest (if Cr improves) # LLE purulent cellulitis # BLE edema - 2/2 CHF - Check venous duplex: neg - ID consulted - Empiric vanco - - Surgery consulted # MEGHAN vs MEGHAN on CKD - unclear baseline Cr. Cr 1.7 on admit. Likely cardiorenal syndrome. Looks more like chronic kidney disease - Renal consulted - Diuresis as above - Strict I/O - Avoid nephrotoxic agents Continue medications recommended by nephrology DVT Prophylaxis: HSQ Code Status: Full Hospital Classification Declaration: Based on this initial evaluation, and depending on the patient's clinical course, I anticipate that this patient will require hospitalization for [] days for [] and close respiratory/hemodynamic monitoring. Disposition: Once the patient is stable to leave the hospital, I anticipate the patient will likely be discharged to the following environment: home with HH vs SNF I spent 39 minutes on this patient's case, and 16 minutes were dedicated to counseling and/or care coordination. Time of note may not reflect time of encounter. Subjective Date patient seen: Aug 27, 2019 Time patient seen: 14:05 Allergies: Coded Allergies: No Known Allergies (Unverified , 12/12/17) Subjective Patient doing well, shortness of breath is improved Patient was on Venturi mask however appears to be able to breathe on room air, discussed with RN. No documentation the patient has been hypoxic Objective Last 24 Hour Vital Signs Date Time Temp Pulse Resp B/P (MAP) Pulse Ox O2 Delivery O2 Flow Rate FiO2 08/27/19 13:59 Room Air 08/27/19 12:00 76 08/27/19 12:00 98.1 78 20 135/90 (105) 99 08/27/19 10:22 86 133/97 08/27/19 09:00 Venturi Mask 10.0 08/27/19 08:00 98.3 86 21 133/97 (109) 99 08/27/19 08:00 86 08/27/19 04:00 96.9 81 17 123/96 (105) 98 08/27/19 04:00 81 08/27/19 00:00 89 08/27/19 00:00 96.7 80 17 117/92 (100) 98 08/26/19 21:59 79 124/85 08/26/19 21:00 Venturi Mask 10.0 08/26/19 20:00 82 08/26/19 20:00 97.6 79 18 124/85 (98) 97 08/26/19 16:00 96.7 68 20 141/106 (118) 97 08/26/19 16:00 86 08/26/19 15:13 86 Intake and Output 08/26/19 08/27/19 19:00 07:00 Intake Total 140 ml 400 ml Output Total 1200 ml Balance -1060 ml 400 ml Intake Oral 140 ml 400 ml Output Urine Total 1200 ml # Voids 3 3 Laboratory Tests 08/27/19 10:00: White Blood Count 6.3, Red Blood Count 5.17, Hemoglobin 14.8, Hematocrit 48.1, Mean Corpuscular Volume 93, Mean Corpuscular Hemoglobin 28.7, Mean Corpuscular Hemoglobin Concent 30.7L, Red Cell Distribution Width 13.9, Platelet Count 199, Mean Platelet Volume 8.5, Neutrophils (%) (Auto) 79.6H, Lymphocytes (%) (Auto) 12.4L, Monocytes (%) (Auto) 6.7, Eosinophils (%) (Auto) 0.5, Basophils (%) (Auto ) 0.8, Sodium Level 142, Potassium Level 3.7, Chloride Level 104, Carbon Dioxide Level 31, Anion Gap 8, Blood Urea Nitrogen 22H, Creatinine 1.7H, Estimat Glomerular Filtration Rate 50.1, Glucose Level 143H, Calcium Level 8.4L , Phosphorus Level 4.3, Magnesium Level 1.9, Vancomycin Level Trough 10.7 Height (Feet): 6 Height (Inches): 3.00 Weight (Pounds): 192 Objective GENERAL: No acute distress, appears comfortable, alert HEENT: NCAT, non-icteric eyes, pupils PERRLA Neck: No cervical lymphadenopathy, trachea midline CV: Regular rate and rhythm, no murmurs rubs or gallops RESP: Clear to auscultation bilaterally, no wheezes/rhonchi/crackles ABD: soft, non-distended, no TTP EXT: Normal muscle tone, +5/5 muscle strength NEURO: No obvious deficits, alert and oriented x3 Neida Harris DO Aug 27, 2019 14:55
[2019-08-27 16:00] VITALS: BP 117/78
--- NOTE | 2019-08-27 19:28 | NUR ---
HAND-OFF: Report given to Audrey LEBRON, patient is currently in stable condition.
--- NOTE | 2019-08-27 19:33 | NUR ---
NURSE NOTES: Received patient in bed, awake, alert, oriented x4, able to make his needs known, IV site is clean dry and intact, bilateral legs swollen, call light is within reach, bed is lowered, locked, alarm is on, will continue to monitor for safety and comfort.
[2019-08-27 20:00] VITALS: BP 128/94
[2019-08-27] MEDS: Albuterol/Ipratropium 3ml neb HHN PRN (21:02)
[2019-08-27] MEDS ORDERED: Zolpidem 5mg tab ORAL SCH (21:30)
--- NOTE | 2019-08-27 22:36 | Infectious Diseases Prog Note ---
Assessment/Plan Assessment/Plan ASSESSMENT AND PLAN: 1. left leg cellulitis - vancomycin - clinically improved - can discharge on doxycycline plus keflex x 5 days - monitor labs 2. Questionable community-acquired pneumonia. More likely atelectasis or CHF. Chest x-ray improved. 3. CHF. 4. CAD. 5. Elevated creatinine. 6. Chronic kidney disease. 7. Diabetes. 8. Hypertension. 9. Blood sugar and blood pressure treatment per primary care team and consultants. 10. Atypical chest pain. 11. No known drug allergies. 12. Social history is negative. 13. Family history is noncontributory. 14. MAR was noted. 15. Case discussed with RN. Subjective Constitutional: Denies: fever HEENT: Denies: congestion Respiratory: Denies: shortness of breath Cardiovascular: Denies: chest pain Gastrointestinal/Abdominal: Denies: nausea, vomiting, diarrhea Genitourinary: Denies: dysuria Neurologic: Denies: headache Psychiatric: Denies: depression Skin: Denies: rash Hematologic: Denies: bleeding Musculoskeletal: Denies: pain Allergies: Coded Allergies: No Known Allergies (Unverified , 12/12/17) Objective Vital Signs Last 24 Hour Vital Signs Date Time Temp Pulse Resp B/P (MAP) Pulse Ox O2 Delivery O2 Flow Rate FiO2 08/27/19 21:04 Venturi Mask 10.0 08/27/19 21:03 79 18 99 Room Air 21 77 18 97 08/27/19 20:04 78 128/74 08/27/19 20:00 97.5 80 20 128/94 (105) 98 08/27/19 16:00 98.6 70 19 117/78 (91) 97 08/27/19 13:59 Room Air 08/27/19 12:00 76 08/27/19 12:00 98.1 78 20 135/90 (105) 99 08/27/19 10:22 86 133/97 08/27/19 09:00 Venturi Mask 10.0 08/27/19 08:00 98.3 86 21 133/97 (109) 99 08/27/19 08:00 86 08/27/19 04:00 96.9 81 17 123/96 (105) 98 08/27/19 04:00 81 08/27/19 00:00 89 08/27/19 00:00 96.7 80 17 117/92 (100) 98 Height (Feet): 6 Height (Inches): 3.00 Weight (Pounds): 192 General Appearance: no acute distress HEENT: normocephalic, atraumatic, anicteric, mucous membranes moist Respiratory/Chest: lungs clear, normal breath sounds, no respiratory distress, no accessory muscle use Cardiovascular: normal rate, regular rhythm, no gallop/murmur, no JVD Abdomen: normal bowel sounds, soft, non tender, no organomegaly, non distended Genitourinary: other - no vizcaino Extremities: no cyanosis, other - left leg with decreased cellulitis Skin: no rash Neurologic/Psychiatric: network designer 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 grossly normal, alert, oriented x 3, responsive Lymphatic: no neck adenopathy Musculoskeletal: no effusion Laboratory Tests Test 08/27/19 10:00 White Blood Count 6.3 K/UL (4.8-10.8) Red Blood Count 5.17 M/UL (4.70-6.10) Hemoglobin 14.8 G/DL (14.2-18.0) Hematocrit 48.1 % (42.0-52.0) Mean Corpuscular Volume 93 FL (80-99) Mean Corpuscular Hemoglobin 28.7 PG (27.0-31.0) Mean Corpuscular Hemoglobin Concent 30.7 G/DL (32.0-36.0) L Red Cell Distribution Width 13.9 % (11.6-14.8) Platelet Count 199 K/UL (150-450) Mean Platelet Volume 8.5 FL (6.5-10.1) Neutrophils (%) (Auto) 79.6 % (45.0-75.0) H Lymphocytes (%) (Auto) 12.4 % (20.0-45.0) L Monocytes (%) (Auto) 6.7 % (1.0-10.0) Eosinophils (%) (Auto) 0.5 % (0.0-3.0) Basophils (%) (Auto) 0.8 % (0.0-2.0) Sodium Level 142 MMOL/L (136-145) Potassium Level 3.7 MMOL/L (3.5-5.1) Chloride Level 104 MMOL/L (98-107) Carbon Dioxide Level 31 MMOL/L (21-32) Anion Gap 8 mmol/L (5-15) Blood Urea Nitrogen 22 mg/dL (7-18) H Creatinine 1.7 MG/DL (0.55-1.30) H Estimat Glomerular Filtration Rate 50.1 mL/min (>60) Glucose Level 143 MG/DL (74-106) H Calcium Level 8.4 MG/DL (8.5-10.1) L Phosphorus Level 4.3 MG/DL (2.5-4.9) Magnesium Level 1.9 MG/DL (1.8-2.4) Vancomycin Level Trough 10.7 ug/mL (5.0-12.0) Current Medications Medications (Trade) Dose Ordered Sig/Tasia Route PRN Reason Start Time Stop Time Status Last Admin Dose Admin Acetaminophen (Tylenol) 650 mg Q4H PRN ORAL Mild Pain (Pain Scale 1-3) 08/24/19 19:15 09/23/19 19:14 Acetaminophen (Tylenol) 650 mg Q4H PRN ORAL Temp >100.5 08/24/19 19:15 09/23/19 19:14 Albuterol/ Ipratropium (Albuterol/ Ipratropium) 3 ml Q6H PRN HHN Shortness of Breath 08/27/19 20:45 09/01/19 20:44 08/27/19 21:02 Aspirin (ASA) 81 mg DAILY ORAL 08/25/19 09:00 10/09/19 08:59 08/27/19 10:22 Bisacodyl (Dulcolax) 10 mg DAILYPRN PRN RECTAL Constipation 08/24/19 19:15 11/22/19 19:14 Carvedilol (Coreg) 6.25 mg EVERY 12 HOURS ORAL 08/26/19 09:15 09/25/19 09:14 08/27/19 20:04 Dextrose (Dextrose 50%) 25 ml Q30M PRN IV Hypoglycemia 08/24/19 19:15 11/22/19 19:14 Dextrose (Dextrose 50%) 50 ml Q30M PRN IV Hypoglycemia 08/24/19 19:15 11/22/19 19:14 Docusate Sodium (Colace) 100 mg EVERY 12 HOURS ORAL 08/24/19 21:00 09/23/19 20:59 08/27/19 20:04 Furosemide (Lasix) 20 mg BID IV 08/25/19 09:00 09/24/19 08:59 08/27/19 18:16 Heparin Sodium (Porcine) (Heparin 5000 units/ml) 5,000 units EVERY 12 HOURS SUBQ 08/24/19 21:00 8 20:59 08/27/19 20:05 Hydralazine HCl (Apresoline) 10 mg Q6H PRN ORAL sbp > 160, dbp > 95 08/26/19 09:15 11/24/19 09:14 Ondansetron HCl (Zofran) 4 mg Q6H PRN IVP Nausea & Vomiting 08/24/19 19:15 09/23/19 19:14 Polyethylene Glycol (Miralax) 17 gm DAILYPRN PRN ORAL Constipation 08/24/19 19:15 09/23/19 19:14 Spironolactone (Aldactone) 25 mg DAILY ORAL 08/27/19 09:00 09/26/19 08:59 08/27/19 10:22 Vancomycin HCl (Vanco pharmacy to dose) 1 ea DAILY PRN MISC Per rx protocol 08/24/19 19:15 09/23/19 19:14 Vancomycin/Sodium Chloride 275 ml @ 137.5 mls/ hr Q24H IVPB 08/25/19 11:00 08/30/19 10:59 08/27/19 10:23 Can Felix MD Aug 27, 2019 22:36
[2019-08-28] VITALS: BP 120/79
[2019-08-28 04:00] VITALS: BP 128/89
[2019-08-28 06:58] LABS: ANION GAP 8 mmol/L (5-15); BLOOD UREA NITROGEN 25 mg/dL (7-18); CALCIUM 8.1 MG/DL (8.5-10.1); CARBON DIOXIDE 29 MMOL/L (21-32); CHLORIDE 105 MMOL/L (98-107); CREATININE 1.7 MG/DL (0.55-1.30); POTASSIUM 3.3 MMOL/L (3.5-5.1); SODIUM 142 MMOL/L (136-145)
[2019-08-28 08:00] VITALS: BP 136/82
--- NOTE | 2019-08-28 08:00 | NUR ---
NURSE NOTES: Pt awake/alert in bed, breathing easily on room air, denies SOB and denies pain at this time. Vital signs stable with SR @ 92 on monitor. IV access RAC flushed with 10 ml NS and locked. Bed left in low position, side rails up x 2 and call light left near pt's hand.
[2019-08-28] MEDS ORDERED: ASPIRIN81 MG ORAL (08:49)
[2019-08-28] MEDS ORDERED: FUROSEMIDE40 MG ORAL (08:49)
[2019-08-28] MEDS ORDERED: COREG6.25 MG ORAL (08:49)
[2019-08-28] MEDS ORDERED: DOXYCYCLINE MO100 MG ORAL (08:49)
[2019-08-28] MEDS ORDERED: LIPITOR40 MG ORAL (08:49)
[2019-08-28] MEDS ORDERED: SPIRONOLACTONE25 MG ORAL (08:49)
[2019-08-28] MEDS ORDERED: CEPHALEXIN250 M1 ORAL (08:49)
--- NOTE | 2019-08-28 08:50 | Discharge Instructions ---
Discharge Instructions Discharge Instructions Follow up with: your primary care doctor within 1-2 weeks Call MD/Return to Hospital if: shortness of breath or chest pain Diet: 2 GM sodium (low sodium) Resume Normal Activity?: Yes Activity: resume normal activities For Surgical Patients May shower: Yes For Congestive Heart Failure Reminder Report to your physician any weight gain of 5 pounds or more in one week. Neida Harris DO Aug 28, 2019 08:50
[2019-08-28] MEDS: Spironolactone 25mg tab ORAL SCH (09:04)
[2019-08-28] MEDS: Aspirin Baby 81mg ORAL SCH (09:11)
[2019-08-28] MEDS: Carvedilol 6.25mg Tab ORAL SCH (09:11)
[2019-08-28] MEDS: Docusate 100mg cap ORAL SCH (09:11)
[2019-08-28] MEDS: Heparin 5000 units/ml inj SUBQ SCH (09:12)
--- NOTE | 2019-08-28 09:23 | Nephrology Progress Note ---
Assessment/Plan Plan #MEGHAN on CRS 1 #hypokalemia-> repleted #acute on chronic CHF exacerbation #HTN #LE cellullitis #DM - oral lasix - replete K - aldactone 25mg daily--> monitor renal function - coreg 6.25mg BID - 2d echo low EF - check renal US--> echogenic kidneys - on vanco - monitor vanoc level - monitor UOP - daily weights - avoid nephrotoxins - monitor bmp, mag and phos daily Time spent 45 minutes - greater than 50% on care coordination Subjective ROS Limited/Unobtainable: No Constitutional: Reports: malaise, weakness HEENT: Denies: no symptoms, eye pain, blurred vision, tearing, double vision, ear pain, ear discharge, nose pain, nose congestion, throat pain, throat swelling, mouth pain, mouth swelling, other Genitourinary: Denies: no symptoms, burning, discharge, frequency, flank pain, hematuria, incontinence, pain, urgency, other Neurologic/Psychiatric: Denies: no symptoms, anxiety, depressed, emotional problems, headache, numbness, paresthesia, pre-existing deficit, seizure, tingling, tremors, weakness, other Subjective Echo shows severe LV dysfunction Cr up to 1.7- stable switched to oral lasix Objective Objective Last 24 Hour Vital Signs Date Time Temp Pulse Resp B/P (MAP) Pulse Ox O2 Delivery O2 Flow Rate FiO2 08/28/19 09:11 69 128/89 08/28/19 04:00 97.5 77 19 128/89 (102) 99 08/28/19 04:00 69 08/28/19 00:00 97.7 80 18 120/79 (93) 98 08/28/19 00:00 73 08/27/19 21:04 Venturi Mask 10.0 08/27/19 21:03 79 18 99 Room Air 21 77 18 97 08/27/19 20:04 78 128/74 08/27/19 20:00 97.5 80 20 128/94 (105) 98 08/27/19 20:00 76 08/27/19 16:00 98.6 70 19 117/78 (91) 97 08/27/19 13:59 Room Air 08/27/19 12:00 76 08/27/19 12:00 98.1 78 20 135/90 (105) 99 08/27/19 10:22 86 133/97 Intake and Output 08/27/19 08/28/19 19:00 07:00 Intake Total 1475.0 ml Output Total 100 ml Balance 1475.0 ml -100 ml Intake Oral 1200 ml IV Total 275.0 ml Output Urine Total 100 ml Laboratory Tests 08/27/19 10:00: White Blood Count 6.3, Red Blood Count 5.17, Hemoglobin 14.8, Hematocrit 48.1, Mean Corpuscular Volume 93, Mean Corpuscular Hemoglobin 28.7, Mean Corpuscular Hemoglobin Concent 30.7L, Red Cell Distribution Width 13.9, Platelet Count 199, Mean Platelet Volume 8.5, Neutrophils (%) (Auto) 79.6H, Lymphocytes (%) (Auto) 12.4L, Monocytes (%) (Auto) 6.7, Eosinophils (%) (Auto) 0.5, Basophils (%) (Auto ) 0.8, Sodium Level 142, Potassium Level 3.7, Chloride Level 104, Carbon Dioxide Level 31, Anion Gap 8, Blood Urea Nitrogen 22H, Creatinine 1.7H, Estimat Glomerular Filtration Rate 50.1, Glucose Level 143H, Calcium Level 8.4L , Phosphorus Level 4.3, Magnesium Level 1.9, Vancomycin Level Trough 10.7 08/28/19 05:10: Sodium Level 142, Potassium Level 3.3L, Chloride Level 105, Carbon Dioxide Level 29, Anion Gap 8, Blood Urea Nitrogen 25H, Creatinine 1.7H, Estimat Glomerular Filtration Rate 50.1, Glucose Level 94, Calcium Level 8.1L, Phosphorus Level 4.0, Magnesium Level 1.9 Height (Feet): 6 Height (Inches): 3.00 Weight (Pounds): 192 Odell Zuniga M.D. Aug 28, 2019 09:23
--- NOTE | 2019-08-28 10:13 | NUR ---
CASE MANAGEMENT:REVIEW 08/28/19 SI: AC/CHR CHF EF 20-25% CHEST PAIN. CAD LLE PURULENT CELLULITIS ECHO(+) SEVERE GLOBAL LV HYPOKINESIS 97.5 77 19 128/89 K-3.3 BUN+25 CR+1.7 IS: IV VANCOMYCIN Q24 LASIX PO QD ASA PO QD ALDACTONE PO QD COREG PO Q12 HEPARIN SQ Q12 : TELEMETRY STATUS DCP: PATIENT LIVES IN HIS CAR PLAN: DISCHARGE AFTER LIFE VEST HAS BEEN DELIVERED
--- NOTE | 2019-08-28 10:19 | NUR ---
DISCHARGE PLAN FOR DISCHARGE DISPOSITION PLEASE CONTACT UTILIZATION MANAGEMENT NURSE SPOKE WITH CLAU REMY T: [phone] LIFE VEST WILL BE DELIVERED TODAY AFTER 4PM...REQUESTED EARLIER DELIVERY...WAITING FOR RESPONSE
--- NOTE | 2019-08-28 10:32 | NUR ---
RD ASSESSMENT & RECOMMENDATIONS SEE CARE ACTIVITY FOR COMPLETE ASSESSMENT DAILY ESTIMATED NEEDS: Needs based on CHF, 91kg 25-30 kcals/kg [id number] total kcals 1-1.3 g protein/kg 91-118 g total protein CHF, fluids per MD NUTRITION DIAGNOSIS: Altered nutrition related lab values R/T CHF, pre-diabetes? as evidenced by elev BNP (6848), on diuretics, A1C of 6.9. CURRENT DIET:LOW NA PO DIET RECOMMENDATIONS: LOW NA + CCHO HIGH ADDITIONAL RECOMMENDATIONS: * Daily standing wt monitoring: CHF, on diuretics * Monitor lytes closely w/ diuretics, replete as needed (low k) * Monitor BGs, need for hypoglycemics: A1C 6.9 -> will benefit from carb controlled diet
--- NOTE | 2019-08-28 10:34 | Discharge Summary ---
Discharge Summary Hospital Course Date of Admission Aug 24, 2019 at 14:25 Date of Discharge 08/28/2019 Admitting Diagnosis chf exacerbation, left leg cellulitis Reason for Hospitalization: CHF exacerbation, cellulitis HPI Vlad Lacey is a 58 year old male who was admitted on Aug 24, 2019 at 14:25 for Congestive Heart Failure,Left Leg Cellulitis Consultations Cardiology, infectious disease, nephrology, surgery Hospital Course 58y/o male with pmh of CHF, CAD who presents with chest pain and BLE swelling, admitted for CHF exacerbation and LLE cellulitis. Received IV Lasix with improvement in shortness of breath and lower extremity edema. Bilateral duplex ultrasound was negative for DVT. Patient had reported purulent drainage from lower extremity cellulitis, which was not present on admission. However patient was placed on broad-spectrum antibiotics. Blood cultures negative. Patient remained afebrile with normal white count throughout hospital course. And on discharge patient was given Keflex and doxycycline for 5 days per infectious disease recommendations. Troponins negative, EKG within normal limits. TTE showed EF of 20 to 25%. Ischemic work-up deferred as outpatient, and patient will be fitted with a LifeVest prior to discharge. Patient was instructed at length regarding heart failure and taking his new cardiac medication. Patient states he is homeless and will follow-up at [facility] facility to continue taking his medications. Hospital medications were filled at [facility] pharmacy and given to patient prior to discharge. GENERAL: No acute distress, appears comfortable, alert HEENT: NCAT, non-icteric eyes, pupils PERRLA Neck: No cervical lymphadenopathy, trachea midline CV: Regular rate and rhythm, no murmurs rubs or gallops RESP: Clear to auscultation bilaterally, no wheezes/rhonchi/crackles ABD: soft, non-distended, no TTP EXT: Normal muscle tone, +5/5 muscle strength NEURO: No obvious deficits, alert and oriented x3 # CHF exacerbation/ADHF - possibly 2/2 noncompliance with diet and/or meds. Unknown EF # Atypical chest pain # H/o CAD - Cardiology consulted: Awaiting LifeVest fitting in hospital, likely discharge tomorrow - Trend trop/EKG - ASA 81mg daily - Check lipid panel, TSH (wnl), A1C (6.9) - Tele - Lasix 20mg IV BID, transition to p.o. we will defer to cardiology recs - Strict I/O's - Daily weights - Check TTE: EF of 20 to 25%, refuses ischemic work-up at this time per cardiology; will need ischemic work-up as outpatient # Elevated D-dimer - Check venous duplex: negative - Consider VQ scan vs CT angio chest (if Cr improves) # LLE purulent cellulitis # BLE edema - 2/2 CHF - Check venous duplex: neg - ID consulted - Empiric vanco - - Surgery consulted # MEGHAN vs MEGHAN on CKD - unclear baseline Cr. Cr 1.7 on admit. Likely cardiorenal syndrome. Looks more like chronic kidney disease - Renal consulted - Diuresis as above - Strict I/O - Avoid nephrotoxic agents Continue medications recommended by nephrology DVT Prophylaxis: HSQ Code Status: Full Hospital Classification Declaration: Based on this initial evaluation, and depending on the patient's clinical course, I anticipate that this patient will require hospitalization for [] days for [] and close respiratory/hemodynamic monitoring. Disposition: Once the patient is stable to leave the hospital, I anticipate the patient will likely be discharged to the following environment: home with HH vs SNF I spent 39 minutes on this patient's case, and 16 minutes were dedicated to counseling and/or care coordination. Time of note may not reflect time of encounter. Discharge Medications New Medications: Atorvastatin Calcium* (Lipitor*) 40 Mg Tablet 40 MG ORAL BEDTIME, #30 TAB 0 Refills Cephalexin* (Keflex*) 250 Mg Capsule 250 MG ORAL FOUR TIMES A DAY for 5 Days, #20 CAP 0 Refills Doxycycline Monohydrate* (Doxycycline Monohydrate*) 100 Mg Capsule 100 MG ORAL Q12H for 5 Days, #10 CAP 0 Refills Aspirin* (Aspirin*) 81 Mg Tab.chew 81 MG ORAL DAILY, #30 TAB 0 Refills Carvedilol (Coreg) 6.25 Mg Tablet 6.25 MG ORAL EVERY 12 HOURS, #60 TAB Spironolactone* (Aldactone*) 25 Mg Tablet 25 MG ORAL DAILY, #30 TAB Continued Medications: Furosemide* (Lasix*) 40 Mg Tablet 40 MG ORAL DAILY, #30 TAB (This prescription has been renewed) Discharge Condition Upon Discharge: stable Discharge Vital Signs Last Vital Signs Date Time Temp Pulse Resp B/P (MAP) Pulse Ox O2 Delivery O2 Flow Rate FiO2 08/28/19 09:11 69 128/89 08/28/19 08:00 96.7 19 98 08/27/19 21:04 Venturi Mask 10.0 08/27/19 21:03 21 Discharge Disposition Patient was discharged to Discharge Diagnoses: (1) CHF (congestive heart failure) (2) Chest pain (3) Puncture wound (4) Dyspnea (5) CHF exacerbation (6) Left leg cellulitis Discharge Instructions Discharge Instructions Follow up with: your primary care doctor within 1-2 weeks Call MD/Return to Hospital if: shortness of breath or chest pain Activity: resume normal activities For Surgical Patients May shower: Yes Neida Harris DO Aug 28, 2019 10:34
[2019-08-28] MEDS: Vancomycin 1.5gm/NS Premix IVPB SCH (11:00)
[2019-08-28 11:47] VITALS: BP 130/81
--- NOTE | 2019-08-28 12:44 | Cardiology Progress Note ---
Assessment/Plan Status: stable Assessment/Plan Assessment/Plan Status: stable Assessment/Plan: 58y/o male with pmh of CHF, CAD who presents with chest pain and BLE swelling, admitted for CHF exacerbation and LLE cellulitis. -Echo with severe LV function -Life vest ordered to be fitted in hospital -Outpatient viability study -DASH diet, fluid and salt restriction -Nitro prn chest pain -Aspirin/statin -Continue Beta blockers for heart failure -Will need mitral clip evaluation as outpatient -Continue lasix -Continue aldactone 12.5 mg daily -Hold ACEI/Entresto until renal function improved -ok to d/c after lifevest fitted Subjective Cardiovascular: Reports: no symptoms Respiratory: Reports: no symptoms Gastrointestinal/Abdominal: Reports: no symptoms Genitourinary: Reports: no symptoms Subjective No acute events TTE with severe LV dysfunction MR/TR/PAH PA pressure 101 mmHg No fevers, tolerating Abx, currently asleep on room air Objective Last 24 Hour Vital Signs Date Time Temp Pulse Resp B/P (MAP) Pulse Ox O2 Delivery O2 Flow Rate FiO2 08/28/19 11:47 98.8 82 20 130/81 (97) 96 08/28/19 09:11 69 128/89 08/28/19 09:00 Room Air 08/28/19 08:00 70 08/28/19 08:00 96.7 76 19 136/82 (100) 98 08/28/19 04:00 97.5 77 19 128/89 (102) 99 08/28/19 04:00 69 08/28/19 00:00 97.7 80 18 120/79 (93) 98 08/28/19 00:00 73 08/27/19 21:04 Venturi Mask 10.0 08/27/19 21:03 79 18 99 Room Air 21 77 18 97 08/27/19 20:04 78 128/74 08/27/19 20:00 97.5 80 20 128/94 (105) 98 08/27/19 20:00 76 08/27/19 16:00 98.6 70 19 117/78 (91) 97 08/27/19 13:59 Room Air General Appearance: no apparent distress, alert EENT: PERRL/EOMI, normal ENT inspection, TMs normal, pharynx normal Neck: non-tender, normal alignment, supple Rhythm: NSR Cardiovascular: normal peripheral pulses, normal rate, regular rhythm Respiratory/Chest: chest wall non-tender, lungs clear, normal breath sounds Abdomen: normal bowel sounds, non tender, soft, no organomegaly Extremities: normal range of motion, non-tender, normal inspection, no calf tenderness, no swelling Neurologic: escrow clerk II-XII grossly normal, no motor/sensory deficits Intake and Output 08/27/19 08/28/19 19:00 07:00 Intake Total 1475.0 ml Output Total 100 ml Balance 1475.0 ml -100 ml Intake Oral 1200 ml IV Total 275.0 ml Output Urine Total 100 ml Laboratory Tests Test 08/28/19 05:10 Sodium Level 142 MMOL/L (136-145) Potassium Level 3.3 MMOL/L (3.5-5.1) L Chloride Level 105 MMOL/L (98-107) Carbon Dioxide Level 29 MMOL/L (21-32) Anion Gap 8 mmol/L (5-15) Blood Urea Nitrogen 25 mg/dL (7-18) H Creatinine 1.7 MG/DL (0.55-1.30) H Estimat Glomerular Filtration Rate 50.1 mL/min (>60) Glucose Level 94 MG/DL (74-106) Calcium Level 8.1 MG/DL (8.5-10.1) L Phosphorus Level 4.0 MG/DL (2.5-4.9) Magnesium Level 1.9 MG/DL (1.8-2.4) Regan Lion MD Aug 28, 2019 12:44
--- NOTE | 2019-08-28 12:56 | NUR ---
LABORER PIE BAKERY NOTE SW spoke w/ pt that he wants to apply SSI. SW explained that the hospital does not have SSI application and directed pt to go to SS office, get the application and submit requested documents from SS office. PT verbalized understanding.
[2019-08-28] MEDS: Albuterol/Ipratropium 3ml neb HHN PRN (14:07)
--- NOTE | 2019-08-28 17:00 | NUR ---
NURSE NOTES: Discharge instructions reviewed with patient, especially medication schedule. Curriculet tech fitted and taught use of the vest. IV access and monitor removed. Pt signed that he has all belongings and signed discharge packet. Pt sts all questions answered. Pt given card with 2E phone number to call if questions later. Pt left breathing easily on room air, met with at the hospital entrance.
--- NOTE | 2019-08-28 19:55 | Surgery Progress Note ---
Surgery Progress Note Subjective Symptoms: improved, pain absent, tolerating diet, voiding well, passing flatus , BM Objective Last 24 Hour Vital Signs Date Time Temp Pulse Resp B/P (MAP) Pulse Ox O2 Delivery O2 Flow Rate FiO2 08/28/19 14:07 72 18 99 Room Air 21 70 18 96 08/28/19 12:00 71 08/28/19 11:47 98.8 82 20 130/81 (97) 96 08/28/19 09:11 69 128/89 08/28/19 09:00 Room Air 08/28/19 08:00 70 08/28/19 08:00 96.7 76 19 136/82 (100) 98 08/28/19 04:00 97.5 77 19 128/89 (102) 99 08/28/19 04:00 69 08/28/19 00:00 97.7 80 18 120/79 (93) 98 08/28/19 00:00 73 08/27/19 21:04 Venturi Mask 10.0 08/27/19 21:03 79 18 99 Room Air 21 77 18 97 08/27/19 20:04 78 128/74 08/27/19 20:00 97.5 80 20 128/94 (105) 98 08/27/19 20:00 76 I&O Intake and Output 08/27/19 08/28/19 19:00 07:00 Intake Total 1475.0 ml Output Total 100 ml Balance 1475.0 ml -100 ml Intake Oral 1200 ml IV Total 275.0 ml Output Urine Total 100 ml Dressing: dry Wound: clean Cardiovascular: RSR Respiratory: clear Abdomen: soft, non-tender, present bowel sounds Extremities: no edema, no tenderness, no cyanosis Laboratory Tests Test 08/28/19 05:10 Sodium Level 142 MMOL/L (136-145) Potassium Level 3.3 MMOL/L (3.5-5.1) L Chloride Level 105 MMOL/L (98-107) Carbon Dioxide Level 29 MMOL/L (21-32) Anion Gap 8 mmol/L (5-15) Blood Urea Nitrogen 25 mg/dL (7-18) H Creatinine 1.7 MG/DL (0.55-1.30) H Estimat Glomerular Filtration Rate 50.1 mL/min (>60) Glucose Level 94 MG/DL (74-106) Calcium Level 8.1 MG/DL (8.5-10.1) L Phosphorus Level 4.0 MG/DL (2.5-4.9) Magnesium Level 1.9 MG/DL (1.8-2.4) Plan Problems: (1) Left leg cellulitis Assessment & Plan: 61-year-old male with bilateral lower extremity edema and left leg cellulitis. Cellulitis improving. Stated there was pus draining few days ago but now stopped. On examination 08/24/2019 and there was no purulent drainage noted mild cellulitis No acute surgical intervention at this time no abscess identified Old prior ulcerations well-healed no open wounds Keep lower extremities elevated diet as tolerated we will follow with recommendations IV antibiotics per infectious disease Doppler examination shows normal spontaneity, phasicity, compressibility in the bilateral lower extremities. There is no thrombus identified by grayscale. Normal color and spectral flow is identified. There is no evidence of valvular incompetency or insufficiency. Soft tissue edema noted in both calves IMPRESSION: NO EVIDENCE OF DVT. SUBCUTANEOUS SOFT TISSUE EDEMA IN BOTH CALVES. d/c planning improved okay to d.c today time of note does not reflect when patient was seen Uriel Styles Aug 28, 2019 19:55
[2019-08-28] MEDS ORDERED: Atorvastatin 20mg tab ORAL SCH (21:00)
--- NOTE | 2019-08-29 12:07 | CDS Physician Query ---
Clarification is required for compliance, coding accuracy, and to reflect severity of illness for this patient. Dear Dr. Felix Date: 08/29/19 A posssible diagnois of Community Acquired Pneumonia was made in the medical record on 08/27/19. Upon review, it is difficult to determine whether this diagnosis has been ruled in, ruled out,or is still being worked up. Please indicate below the status of the aforementioned diagnosis. [] Treated and resolve [] Presumed and treated [] Currently under treatment [] Still being worked-up [] Ruled out Present on Admission: [] Yes [] No [] Clinically Undetermined Physician signature Date Please also document in your Progress Notes and/or Discharge Summary and indicate if the condition was present on admission. MTDD
--- NOTE | 2019-09-01 15:36 | Coder Physician Query ---
Clarification is required for compliance, coding accuracy, and to reflect severity of illness for this patient Dear Dr. ARGUETA Date: 09/01/19 Document Management Specialist/CDS Name: DOMINICK Moore Admitting Diagnosis chf exacerbation, left leg cellulitis Reason for Hospitalization: CHF exacerbation, cellulitis Troponins negative, EKG within normal limits. TTE showed EF of 20 to 25% Received IV Lasix with improvement in shortness of breath and lower extremity edema. # CHF exacerbation/ADHF - possibly 2/2 noncompliance with diet and/or meds. # Elevated D-dimer BNP: 08/23- 14, 08/24 - 6847 Please Clarify the CHF : Acuity: [] Acute [] Chronic [] Acute on Chronic Type: [] Systolic [] Diastolic [] Systolic & Diastolic (Combined) [] Other: [ ] Unable to determine Physician signature Date Please also document in your Progress Notes and/or Discharge Summary and indicate if the condition was present on admission. JOO
== END 2019-08-28 17:15 | disposition home health service (06) | DRG 194 ==
LOC: EMR 13:15 → 2E 14:25 → EDBEDREQ 17:30 → 2E 08-26 14:24
DX: I13.0 Hypertensive heart and chronic kidney disease with heart failure and stage 1 through stage 4 chronic kidney disease, or unspecified chronic kidney disease (principal); I50.21 Acute systolic (congestive) heart failure; N17.9 Acute kidney failure, unspecified; N18.9 Chronic kidney disease, unspecified; L03.116 Cellulitis of left lower limb; J98.11 Atelectasis; I25.10 Atherosclerotic heart disease of native coronary artery without angina pectoris; Z91.19 Patient's noncompliance with other medical treatment and regimen; R07.89 Other chest pain; E11.9 Type 2 diabetes mellitus without complications; E87.6 Hypokalemia; Z59.0 Homelessness
CPT/HCPCS: 36415; 71045; 76770; 80048; 80053; 80061; 80202; 82150; 82962; 83036; 83690; 83735; 83880; 84100; 84443; 84484; 85025; 85379; 85610; 85651; 85730; 86140; 87040; 93005; 93306; 93970; 94640; 96365; 96375; 99285; G0480; J7620; J8499

== ENCOUNTER 2019-09-29 21:50 | Inpatient (IN) | payer MEDICAID ==
[~2019-09-29] VITALS: Ht 188 cm; Wt 86.2 kg
[~2019-09-29 21:50] MED LIST changes: +ASPIRIN81 MG ORAL; +CEPHALEXIN250 M1 ORAL; +COREG6.25 MG ORAL; +DOXYCYCLINE MO100 MG ORAL; +LIPITOR40 MG ORAL; +SPIRONOLACTONE25 MG ORAL
--- NOTE | 2019-09-29 22:13 | NUR ---
ED Nurse Note: pt presents to ED c/o CP onset 45 min ago that he describes felt like a "shock" that radiates to the L arm. pt reports that he was watching tv when he felt the px, he took 1 nitro at home, has not helped the px. pt also states that he has had a cough that started when the CP started and has been feeling SOB, he has a h/o CHF that he started taking meds for 3 weeks ago. pt is satting at 98% on RA and able to speak in full sentences.
[2019-09-29] MEDS ORDERED: Morphine Sulfate 4mg/ml Inj (IV USE ONLY) IVP ONE (22:15)
[2019-09-29] MEDS ORDERED: Aspirin Baby 81mg ORAL ONE (22:15)
[2019-09-29] MEDS ORDERED: Nitroglycerin Subl 0.4mg tab SL PRN (22:15)
[2019-09-29 22:16] VITALS: BP 139/86
--- NOTE | 2019-09-29 22:19 | Emergency Room Report ---
History of Present Illness General Chief Complaint: Chest Pain Present Illness HPI Disclaimer: Please note that this report is being documented using Spl[employer] technology. This can lead to erroneous entry secondary to incorrect interpretation by the dictating instrument. HPI: 59-year-old male history of hypertension, CHF with an EF of 20% presents from his car with shortness of breath and chest pain. He states his shortness of breath has worsened over the past few days and today developed chest pain for the past 45 minutes left-sided 10 out of 10 nonradiating. He took a nitroglycerin prior to arrival. Patient was admitted last month for the same. At that time he was in CHF exacerbation. Followed by cardiology, was provided a LifeVest which she has been wearing. He states he has not been shocked by his LifeVest. Patient currently lives in his vehicle. PMH: Hypertension, CHF PSH: Reviewed Social Hx: Currently lives in his car, denies illicit drug use. 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 COVID-19 Screening: Negative COVID-19 COVID-19 Testing Source: 3 WKS AGO AT [facility] Patient History Reviewed Nursing Documentation: PMH: Agreed; PSxH: Agreed Nursing Documentation-PMH Hx Cardiac Problems: Yes - stent on R groin, CHF Hx Hypertension: Yes Hx COPD: Yes Review of Systems All Other Systems: negative except mentioned in HPI Physical Exam Vital Signs Date Time Temp Pulse Resp B/P (MAP) Pulse Ox O2 Delivery O2 Flow Rate FiO2 09/29/19 22:07 98.2 95 20 139/86 (103) 98 Room Air Sp02 EP Interpretation: reviewed, normal General Appearance: well appearing, no apparent distress Head: normocephalic, atraumatic Eyes: bilateral eye PERRL, bilateral eye EOMI ENT: hearing grossly normal, moist mucus membranes Neck: full range of motion, supple Respiratory: lungs clear, normal breath sounds, no rhonchi, no respiratory distress, no retraction, no wheezing Cardiovascular #1: normal peripheral pulses, regular rate, rhythm, no murmur Gastrointestinal: non tender, soft, non-distended, no guarding Musculoskeletal: other - Bilateral lower extremity edema noted, pitting 2+, up to the knees, chronic skin changes noted Neurologic: alert, oriented x3, no focal defects Skin: normal color, warm/dry Medical Decision Making ER Course MDM: Differential includes but not limited to angina, CHF, Acacian noncompliance , pneumonia to name a few Clinical course-IV, cardiac monitoring pulse oximetry, chest x-ray EKG ordered. Aspirin, morphine given. Nitroglycerin ordered PRN. Patient's vital signs were stable in the ER. He has an extensive cardiac history including an ejection fraction of 20%, as he presented with chest pain and shortness of breath will place on the telemetry floor for further observation. As patient has poor follow-up currently living in his vehicle I feel like he would benefit from least observation.troponin was negative x1. EKG did not have any ischemic changes. Chest x-ray showed no acute infiltrate. Low suspicion for COVID-19 at this time. Labs - Laboratory Tests Test 09/29/19 22:05 09/29/19 23:05 White Blood Count 3.8 K/UL (4.8-10.8) L Red Blood Count 5.14 M/UL (4.70-6.10) Hemoglobin 14.6 G/DL (14.2-18.0) Hematocrit 46.7 % (42.0-52.0) Mean Corpuscular Volume 91 FL (80-99) Mean Corpuscular Hemoglobin 28.3 PG (27.0-31.0) Mean Corpuscular Hemoglobin Concent 31.1 G/DL (32.0-36.0) L Red Cell Distribution Width 14.6 % (11.6-14.8) Platelet Count 227 K/UL (150-450) Mean Platelet Volume 7.2 FL (6.5-10.1) Neutrophils (%) (Auto) 59.0 % (45.0-75.0) Lymphocytes (%) (Auto) 26.1 % (20.0-45.0) Monocytes (%) (Auto) 9.7 % (1.0-10.0) Eosinophils (%) (Auto) 3.5 % (0.0-3.0) H Basophils (%) (Auto) 1.7 % (0.0-2.0) Prothrombin Time 14.2 SEC (9.30-11.50) H Prothrombin Time INR 1.3 (0.9-1.1) H Activated Partial Thromboplast Time 30 SEC (23-33) Sodium Level 139 MMOL/L (136-145) Potassium Level 4.0 MMOL/L (3.5-5.1) Chloride Level 105 MMOL/L (98-107) Carbon Dioxide Level 28 MMOL/L (21-32) Anion Gap 6 mmol/L (5-15) Blood Urea Nitrogen 20 mg/dL (7-18) H Creatinine 1.8 MG/DL (0.55-1.30) H Estimated Glomerular Filtration Rate 46.8 mL/min (>60) Glucose Level 112 MG/DL (74-106) H Calcium Level 9.0 MG/DL (8.5-10.1) Total Bilirubin 1.0 MG/DL (0.2-1.0) Aspartate Amino Transferase (AST) 21 U/L (15-37) Alanine Aminotransferase (ALT) 21 U/L (12-78) Alkaline Phosphatase 83 U/L (46-116) Troponin I 0.008 ng/mL (0.000-0.056) Pro-B-Type Natriuretic Peptide 4703 pg/mL (0-125) H Total Protein 7.6 G/DL (6.4-8.2) Albumin 3.3 G/DL (3.4-5.0) L Globulin 4.3 g/dL Albumin/Globulin Ratio 0.8 (1.0-2.7) L Urine Opiates Screen Negative (NEGATIVE) Urine Barbiturates Screen Negative (NEGATIVE) Phencyclidine (PCP) Screen Positive (NEGATIVE) H Urine Amphetamines Screen Negative (NEGATIVE) Urine Benzodiazepines Screen Negative (NEGATIVE) Urine Cocaine Screen Positive (NEGATIVE) H Urine Marijuana (THC) Screen Negative (NEGATIVE) Plan for admission to the telemetry floor EKG Diagnostic Results Rate: normal Rhythm: NSR Other Impression Left axis deviation, Q waves anteriorly, abnormal l EKG Rhythm Strip Diag. Results EP Interpretation: yes Rate: 86 Rhythm: NSR, no PVC's, no ectopy Chest X-Ray Diagnostic Results Chest X-Ray Diagnostic Results : Chest X-Ray Ordered: Yes # of Views/Limited/Complete: 1 View Indication: Chest Pain EP Interpretation: Yes Interpretation: other - Cardiomegaly, pulmonary vascular congestion, no obvious infiltrate Electronically Signed by: Hermes Hall MD Last Vital Signs Date Time Temp Pulse Resp B/P (MAP) Pulse Ox O2 Delivery O2 Flow Rate FiO2 09/29/19 22:07 98.2 95 20 139/86 (103) 98 Room Air Status: improved Disposition: ADMITTED INPATIENT Condition: Serious Referrals: NOT CHOSEN IPA/,REFERRING (PCP) Hermes Hall M.D. Sep 29, 2019 22:19
[2019-09-29 22:32] LABS: BASOPHILS % (AUTO) 1.7 % (0.0-2.0); EOSINOPHILS % (AUTO) 3.5 % (0.0-3.0); HEMATOCRIT 46.7 % (42.0-52.0); HEMOGLOBIN 14.6 G/DL (14.2-18.0); LYMPHOCYTES % (AUTO) 26.1 % (20.0-45.0); MEAN CORPUSCULAR VOLUME 91 FL (80-99); MONOCYTES % (AUTO) 9.7 % (1.0-10.0); PLATELET COUNT 227 K/UL (150-450); RED BLOOD COUNT 5.14 M/UL (4.70-6.10); RED CELL DISTRIBUTION WIDTH 14.6 % (11.6-14.8); WHITE BLOOD COUNT 3.8 K/UL (4.8-10.8)
--- NOTE | 2019-09-29 22:32 | NUR ---
ED Nurse Note: pt's Lizzeth [phone]
--- NOTE | 2019-09-29 22:37 | NUR ---
ED Nurse Note: xray at pt bedside
[2019-09-29 22:46] LABS: ANION GAP 6 mmol/L (5-15); BLOOD UREA NITROGEN 20 mg/dL (7-18); CARBON DIOXIDE 28 MMOL/L (21-32); CHLORIDE 105 MMOL/L (98-107); CREATININE 1.8 MG/DL (0.55-1.30); SODIUM 139 MMOL/L (136-145)
[2019-09-29 22:47] LABS: INR 1.3 (0.9-1.1)
--- NOTE | 2019-09-29 22:51 | NUR ---
ED Nurse Note: pt asked for food, ERMD approved for cardiac diet. pt provided with sandwich and juice, tolerated well. vital signs remain stable on clipper automatic. no acute distress is noted at this time. will continue to monitor pt and prepare for admission
[2019-09-29 22:59] LABS: ALANINE AMINOTRANSFERASE 21 U/L (12-78); ALBUMIN 3.3 G/DL (3.4-5.0); ALBUMIN/GLOBULIN RATIO 0.8 (1.0-2.7); ALKALINE PHOSPHATASE 83 U/L (46-116); ASPARTATE AMINO TRANSFERASE 21 U/L (15-37)
[2019-09-29] MEDS ORDERED: NITRO0.4 SL (23:08)
--- NOTE | 2019-09-29 23:32 | NUR ---
ED Nurse Note: report given to BERNARDINO Garza
--- NOTE | 2019-09-29 23:35 | NUR ---
TRANSFER TO FLOOR: Patient transferred to as ordered, per ERMD. Report given to BERNARDINO Victor . Belongings sent with pt. pt's was notified
--- NOTE | 2019-09-29 23:50 | NUR ---
NURSE NOTES: Received report from NANCIE Rabago RN. Patient was transferred to Telemetry unit from ER via rflatonia without incident. No signs of acute distress noted; denies pain at this time. AOx4; able to make needs known. Ambulates independently with steady gait. Checked IV site; patent and flushed. No erythema, bleeding, or infiltration noted. Patient put on Tele box; sinus rhythm on the monitor (80s). Belongings list checked with transferring RN and patient. Skin assessment performed; skin is intact. No open wounds noted except for dryness and flaking on patient's bilateral lower legs. Urinal easily accessible. Bed at lowest position, brakes on, siderails up x2. Call light within reach. Will continue to monitor.
--- NOTE | 2019-09-29 23:50 | NUR ---
NURSE NOTES: Received admission orders from Dr. Elias including continuing patient's home medications. Noted and carried out.
[2019-09-30] VITALS: BP 128/108
[2019-09-30] MEDS ORDERED: Nitroglycerin Subl 0.4mg tab SL PRN (01:00)
[2019-09-30] MEDS ORDERED: COMBIVENT RESPIM4 GM IH (01:21)
[2019-09-30] MEDS ORDERED: Albuterol/Ipratropium 3ml neb HHN PRN (01:45)
--- NOTE | 2019-09-30 03:26 | NUR ---
NURSE NOTES: Patient is asleep lying right lateral recumbent; resting comfortably. No signs of acute distress or pain noted at this time.
[2019-09-30 04:00] VITALS: BP 135/101
--- NOTE | 2019-09-30 07:34 | NUR ---
HAND-OFF: Report given to BERNARDINO Gonzalez. Patient is awake lying semi-garnett's; resting comfortably. In stable condition.
--- NOTE | 2019-09-30 07:41 | NUR ---
NURSE NOTES: Received patient awake. No SOB or acute distress. IV line intact. HOB elevated. Bed locked in lowest position. Call light within reach. Will continue plan of care.
[2019-09-30 08:00] VITALS: BP 135/103
[2019-09-30] MEDS: Aspirin Baby 81mg ORAL SCH (08:24)
[2019-09-30] MEDS: Furosemide 40mg tab ORAL SCH ×2 (08:24→08:29)
[2019-09-30 08:58] LABS: BASOPHILS % (AUTO) 1.7 % (0.0-2.0); EOSINOPHILS % (AUTO) 6.3 % (0.0-3.0); HEMATOCRIT 45.9 % (42.0-52.0); HEMOGLOBIN 14.2 G/DL (14.2-18.0); LYMPHOCYTES % (AUTO) 32.5 % (20.0-45.0); MEAN CORPUSCULAR VOLUME 91 FL (80-99); MONOCYTES % (AUTO) 9.3 % (1.0-10.0); NEUTROPHILS % (AUTO) 50.3 % (45.0-75.0); PLATELET COUNT 212 K/UL (150-450); RED BLOOD COUNT 5.06 M/UL (4.70-6.10); RED CELL DISTRIBUTION WIDTH 13.5 % (11.6-14.8); WHITE BLOOD COUNT 3.6 K/UL (4.8-10.8)
[2019-09-30 09:29] LABS: ALANINE AMINOTRANSFERASE 21 U/L (12-78); ALBUMIN 2.9 G/DL (3.4-5.0); ALBUMIN/GLOBULIN RATIO 0.8 (1.0-2.7); ALKALINE PHOSPHATASE 69 U/L (46-116); ANION GAP 7 mmol/L (5-15); ASPARTATE AMINO TRANSFERASE 19 U/L (15-37); BLOOD UREA NITROGEN 17 mg/dL (7-18); CALCIUM 8.4 MG/DL (8.5-10.1); CARBON DIOXIDE 29 MMOL/L (21-32); CHLORIDE 105 MMOL/L (98-107); CREATININE 1.6 MG/DL (0.55-1.30); POTASSIUM 3.6 MMOL/L (3.5-5.1); SODIUM 141 MMOL/L (136-145)
[2019-09-30 12:00] VITALS: BP 116/83
--- NOTE | 2019-09-30 13:35 | NUR ---
HUMAN RESOURCES RECORDS CLERK NOTE SW attempted to meet w/ pt. Pt was sleeping. SW will attempt later.
--- NOTE | 2019-09-30 13:47 | NUR ---
NURSE NOTES: Patient requesting for breathing treatment, Dr Félix Rasmussen notified, with orders for rapid covid swab.
[2019-09-30 15:38] VITALS: BP 131/98
--- NOTE | 2019-09-30 15:45 | Consultation ---
DATE OF CONSULTATION: 09/30/2019 PULMONARY CONSULTATION CONSULTING PHYSICIAN: Espinoza Chapin MD. HISTORY OF PRESENT ILLNESS: This is a 59-year-old male with history of hypertension and a cardiomyopathy. He came to the hospital with chest pain. Patient has had previous admissions to this hospital in September as well as 6 separate ER evaluations in the month of August 2019. He has been seen in the past by Infectious Disease specialist for cellulitis as well as by Nephrology for MEGHAN and Dr. Lion for Cardiology. Patient previous had declined ischemia evaluation. Currently, patient states he is comfortable. PAST MEDICAL HISTORY: Notable for probable underlying ischemic cardiomyopathy. HOME MEDICATIONS: Include Lasix and aspirin. ALLERGIES: None reported. CODE STATUS: Full. REVIEW OF SYSTEMS: Denies any headaches, hematemesis, melena, hematochezia, night sweats, or weight loss. PHYSICAL EXAMINATION: GENERAL: Reveals a 59-year-old male. HEENT: Unremarkable. LUNGS: Clear breath sounds bilaterally. ABDOMEN: Soft. EXTREMITIES: There is no edema. NEUROLOGIC: Nonfocal. VITAL SIGNS: Blood pressure 130/90, heart rate is 74, respirations 20, he is afebrile, O2 saturation 98% on room air. LABORATORY DATA: Lab testing shows normal CBC and BMP. Troponin 0.008 and then followed by 0.006. Creatinine is 1.6. Toxicology is positive for cocaine and phencyclidine. IMPRESSION: 1. Substance abuse. 2. Borderline troponin. 3. History of ischemic cardiomyopathy. DISCUSSION: Patient will need to be monitored given his current cocaine usage. Anticipate Cardiology consultation and further discussion regarding ischemia assessment. We will follow as needed. Espinoza Chapin M.D. DR: DHRUV JOB#: [id number] CC:
--- NOTE | 2019-09-30 15:52 | Consultation ---
Consult Note Consult Note I am asked to evaluate the patient at the request of Dr. Bowles for elevated serum creatinine Patient has a previous admission here at [facility]. He [place] [facility] [place] of [place] pain HPI: 59-year-old male history of hypertension, CHF with an EF of 20% presents from his car with shortness of breath and chest pain. He states his shortness of breath has worsened over the past few days and today developed chest pain for the past 45 minutes left-sided 10 out of 10 nonradiating. He took a nitroglycerin prior to arrival. Patient was admitted last month for the same. At that time he was in CHF exacerbation. Followed by cardiology, was provided a LifeVest which she has been wearing. He states he has not been shocked by his LifeVest. Patient currently lives in his vehicle. PMH: Hypertension, CHF PSH: Reviewed Social Hx: Currently lives in his car, denies illicit drug use. 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 COVID-19 Screening: Negative COVID-19 COVID-19 Testing Source: 3 WKS AGO AT [facility] Hx Cardiac Problems: Yes - stent on R groin, CHF Hx Hypertension: Yes Hx COPD: Yes Vital Signs Date Time Temp Pulse Resp B/P (MAP) Pulse Ox O2 Delivery O2 Flow Rate FiO2 09/29/19 22:07 98.2 95 20 139/86 (103) 98 Room Air Sp02 EP Interpretation: reviewed, normal General Appearance: well appearing, no apparent distress Head: normocephalic, atraumatic Eyes: bilateral eye PERRL, not icteric ENT: hearing grossly normal, moist mucus membranes Neck: full range of motion, supple Respiratory: No wheeze, decreased breath sounds over the bases Cardiovascular #1: normal peripheral pulses, regular rate, rhythm, no murmur Gastrointestinal: non tender, soft, non-distended, no guarding Musculoskeletal: other - Bilateral lower extremity edema noted, pitting 2+, up to the knees, chronic skin changes noted Neurologic: alert, oriented x3, no focal defects Skin: normal color, warm/dry Assessment/Plan Acute renal failure Underlying chronic renal failure Acute on chronic CHF, low ejection fraction cardiomyopathy Hypertension Diabetes mellitus Polysubstance abuse Lives in his car Plan: Optimize cardiac status Keep the blood pressure blood sugar in check Monitor renal parameters Avoid nephrotoxic's Per orders Recent kidney ultrasound iMPRESSION: ECHOGENIC KIDNEYS REFLECTING MEDICAL RENAL DISEASE. NO HYDRONEPHROSIS. ECHOGENIC LIVER WITH DIFFUSE WALL THICKENING OF THE GALLBLADDER AND SMALL AMOUNT OF ASCITES. FINDINGS LIKELY RELATED TO UNDERLYING LIVER PARENCHYMAL DISEASE. I spent an additional 36 minutes on review of medical records including prior hospital records,consult notes, progress notes, procedures ,imaging labs, hemodynamics, and other clinical documentation. Over 35 min Luis Enrique Guzman MD Sep 30, 2019 15:52
--- NOTE | 2019-09-30 16:14 | NUR ---
NAIL MACHINE OPERATOR NOTE SW attempted to meet w/ pt again. Pt was sleeping. SW was unable to wake him up. SW will attempt tomorrow.
--- NOTE | 2019-09-30 16:17 | Diagnostic Imaging Report ---
Indication: Reason For Exam: SOB Technique: One view of the chest Comparison: none Findings: Streaky interstitial opacities in the periphery of the left lung are somewhat similar to the prior exam but less striking. The remainder the lungs pleural spaces are clear. The heart size is upper limits normal Impression: Streaky peripheral left lung interstitial opacities, could represent early infiltrates or edema. Correlate with clinical findings
--- NOTE | 2019-09-30 16:30 | NUR ---
CASE MANAGEMENT:REVIEW 59 YR OLD MALE WALKED IN TO ER CC; CHEST PAIN RADIATING TO LT ARM SI: CHEST PAIN 98.2 95 20 139/86 98% ON RA BUN+20 CR+1.8 BNP+4703 TROPONIN(-) URINE(+) PCP AND COCAINE IS: ASA PO IV MORPHINE CHEST XRAY COVID SWAB : TO TELEMETRY
--- NOTE | 2019-09-30 17:12 | NUR ---
HAND-OFF: Report given to Cassy LEBRON.
[2019-09-30] MEDS: HydrALAZINE 10mg Tab ORAL SCH (17:46)
[2019-09-30] MEDS: Docusate 100mg cap ORAL SCH (17:46)
--- NOTE | 2019-09-30 18:36 | Cardiac Electrophysiology PN ---
Subjective Subjective [id number] Objective Last 24 Hour Vital Signs Date Time Temp Pulse Resp B/P (MAP) Pulse Ox O2 Delivery O2 Flow Rate FiO2 09/30/19 17:46 131/98 09/30/19 15:38 97.7 78 18 131/98 (109) 97 09/30/19 15:16 86 09/30/19 12:00 97.5 77 22 116/83 (94) 97 09/30/19 12:00 74 09/30/19 09:00 Room Air 09/30/19 08:00 97.7 79 20 135/103 (114) 98 09/30/19 08:00 77 09/30/19 04:00 72 09/30/19 04:00 96.7 70 17 135/101 (112) 95 09/30/19 00:53 Room Air 09/30/19 00:00 96.6 88 18 128/108 (115) 97 09/29/19 23:48 81 09/29/19 23:35 85 19 135/87 99 Room Air 09/29/19 22:56 98.2 09/29/19 22:21 139/86 09/29/19 22:16 95 20 Room Air 09/29/19 22:16 98.2 90 20 139/86 98 Room Air 09/29/19 22:07 98.2 95 20 139/86 (103) 98 Room Air Intake and Output 09/29/19 09/30/19 19:00 07:00 Intake Total 420 ml Balance 420 ml Intake Oral 420 ml # Voids 2 Laboratory Tests Test 09/29/19 22:05 09/29/19 23:05 09/30/19 08:50 White Blood Count 3.8 K/UL (4.8-10.8) L 3.6 K/UL (4.8-10.8) L Red Blood Count 5.14 M/UL (4.70-6.10) 5.06 M/UL (4.70-6.10) Hemoglobin 14.6 G/DL (14.2-18.0) 14.2 G/DL (14.2-18.0) Hematocrit 46.7 % (42.0-52.0) 45.9 % (42.0-52.0) Mean Corpuscular Volume 91 FL (80-99) 91 FL (80-99) Mean Corpuscular Hemoglobin 28.3 PG (27.0-31.0) 28.0 PG (27.0-31.0) Mean Corpuscular Hemoglobin Concent 31.1 G/DL (32.0-36.0) L 30.9 G/DL (32.0-36.0) L Red Cell Distribution Width 14.6 % (11.6-14.8) 13.5 % (11.6-14.8) Platelet Count 227 K/UL (150-450) 212 K/UL (150-450) Mean Platelet Volume 7.2 FL (6.5-10.1) 7.1 FL (6.5-10.1) Neutrophils (%) (Auto) 59.0 % (45.0-75.0) 50.3 % (45.0-75.0) Lymphocytes (%) (Auto) 26.1 % (20.0-45.0) 32.5 % (20.0-45.0) Monocytes (%) (Auto) 9.7 % (1.0-10.0) 9.3 % (1.0-10.0) Eosinophils (%) (Auto) 3.5 % (0.0-3.0) H 6.3 % (0.0-3.0) H Basophils (%) (Auto) 1.7 % (0.0-2.0) 1.7 % (0.0-2.0) Prothrombin Time 14.2 SEC (9.30-11.50) H Prothromb Time International Ratio 1.3 (0.9-1.1) H Activated Partial Thromboplast Time 30 SEC (23-33) Sodium Level 139 MMOL/L (136-145) 141 MMOL/L (136-145) Potassium Level 4.0 MMOL/L (3.5-5.1) 3.6 MMOL/L (3.5-5.1) Chloride Level 105 MMOL/L (98-107) 105 MMOL/L (98-107) Carbon Dioxide Level 28 MMOL/L (21-32) 29 MMOL/L (21-32) Anion Gap 6 mmol/L (5-15) 7 mmol/L (5-15) Blood Urea Nitrogen 20 mg/dL (7-18) H 17 mg/dL (7-18) Creatinine 1.8 MG/DL (0.55-1.30) H 1.6 MG/DL (0.55-1.30) H Estimat Glomerular Filtration Rate 46.8 mL/min (>60) 53.6 mL/min (>60) Glucose Level 112 MG/DL (74-106) H 165 MG/DL (74-106) H Calcium Level 9.0 MG/DL (8.5-10.1) 8.4 MG/DL (8.5-10.1) L Total Bilirubin 1.0 MG/DL (0.2-1.0) 1.0 MG/DL (0.2-1.0) Aspartate Amino Transf (AST/SGOT) 21 U/L (15-37) 19 U/L (15-37) Alanine Aminotransferase (ALT/SGPT) 21 U/L (12-78) 21 U/L (12-78) Alkaline Phosphatase 83 U/L (46-116) 69 U/L (46-116) Troponin I 0.008 ng/mL (0.000-0.056) 0.006 ng/mL (0.000-0.056) Pro-B-Type Natriuretic Peptide 4703 pg/mL (0-125) H Total Protein 7.6 G/DL (6.4-8.2) 6.4 G/DL (6.4-8.2) Albumin 3.3 G/DL (3.4-5.0) L 2.9 G/DL (3.4-5.0) L Globulin 4.3 g/dL 3.5 g/dL Albumin/Globulin Ratio 0.8 (1.0-2.7) L 0.8 (1.0-2.7) L Urine Opiates Screen Negative (NEGATIVE) Urine Barbiturates Screen Negative (NEGATIVE) Phencyclidine (PCP) Screen Positive (NEGATIVE) H Urine Amphetamines Screen Negative (NEGATIVE) Urine Benzodiazepines Screen Negative (NEGATIVE) Urine Cocaine Screen Positive (NEGATIVE) H Urine Marijuana (THC) Screen Negative (NEGATIVE) Microbiology Date/Time Source Procedure Growth Status 09/30/19 13:55 Nasopharynx SARS-CoV-2 RdRp Gene Assay - Final Complete Puma Jane MD Sep 30, 2019 18:36
--- NOTE | 2019-09-30 18:56 | NUR ---
NURSE NOTES: WBC trending downward from 3.8 yesterday to 3.6 today, notified Dr. Tono Rasmussen and is aware.
--- NOTE | 2019-09-30 19:16 | NUR ---
HAND-OFF: Report given to Kayla LEBRON. Pt alert and oriented x4, complains of shortness of breath and requested to have breathing treatments, no other pain 0/10 stated, vital signs stable. Dr. Jane requesting past medical history regarding stent placement from [facility] [place] to be faxed. Endorsed plan of care to PM RN. Bed locked and in lowest position, call light within reach.
--- NOTE | 2019-09-30 19:24 | NUR ---
NURSE NOTES: Report received from to Cassy RN and Savannah RN. Pt alert and oriented x4 resting comfortably in bed, complains of shortness of breath, no other pain stated 0/10. Patient is stable. Patient IV patent, no erythema or bleeding noted. Patient ambulates independently. Bed locked and in lowest position, call light and belongings within reach, patient educated to call nurse before trying to get up. Will continue to monitor.
[2019-09-30 20:00] VITALS: BP 142/108
[2019-09-30] MEDS: Tamsulosin 0.4mg cap ORAL SCH (21:09)
--- NOTE | 2019-09-30 21:17 | NUR ---
NURSE NOTES: Patient strongly refused Lasix IV medication at this time. Risks and benefits explained but still refusing.
--- NOTE | 2019-09-30 22:00 | Consultation ---
DATE OF CONSULTATION: 09/30/2019 CARDIOLOGY CONSULTATION CONSULTING PHYSICIAN: Puma Jane M.D. REFERRING PHYSICIAN: Tami Elias M.D. REASON FOR CONSULTATION: Exacerbation of congestive heart failure in a patient who has a LifeVest. HISTORY OF PRESENT ILLNESS: The patient is a 59-year-old gentleman, who was recently admitted to the hospital a month ago and underwent a LifeVest placement by another monument installer. The patient has history of EF of 20% and has noted increasing shortness of breath. The patient then took a nitroglycerin and came to the emergency room. The patient currently lives in his vehicle. Cardiology consultation was obtained for management. The patient states that his last cocaine use was about a month ago. REVIEW OF SYSTEMS: Review of systems was negative other than what is mentioned in the history of present illness. PAST MEDICAL HISTORY: As mentioned above. FAMILY HISTORY: Noncontributory. SOCIAL HISTORY: Has recent cocaine use and is homeless. PHYSICAL EXAMINATION: VITAL SIGNS: Show blood pressure 131/98, pulse 70, respirations 18, temperature 97.7. HEAD AND NECK: Showed no JVD. LUNGS: Clear. CARDIOVASCULAR: Shows regular S1 and S2 with no gallop or murmur. ABDOMEN: Soft. EXTREMITIES: No pitting edema. LABORATORY AND DIAGNOSTIC DATA: Labs show white count of 3.3, hemoglobin of 14, hematocrit of 46, and platelet count is 212,000. Sodium 141, potassium 3.6, BUN of 17, creatinine 1.6, and glucose of 164. Troponin negative x2. His urine toxicology screen is positive for PCP as well as cocaine, was the same on August 24, 2019. ASSESSMENT AND PLAN: 1. Exacerbation of congestive heart failure in this patient with polysubstance abuse with cocaine and PCP. The patient is already ruled out for myocardial infarction. The patient's echocardiogram showed EF of only 20%. The patient is on hydralazine 10 mg q.6 hours and Lasix 40 mg daily. Avoid beta-wilfredo and cocaine use. I will add nitroglycerin to his medical regimen. 2. Status post LifeVest. Unfortunately, he is not a candidate for defibrillator implantation as he has active cocaine and polysubstance abuse. 3. Polysubstance abuse with cocaine and PCP. 4. Renal failure with creatinine of 1.6. Further evaluation by Dr. Guzman. Thank you very much for allowing me to participate in the care of this patient. Please do not hesitate to contact me if you have any questions regarding my evaluation. Puma Jane M.D. DR: KERRIE JOB#: [id number] CC:
[2019-09-30 22:46] LABS: APPEARANCE,URINE CLEAR; BILIRUBIN, URINE NEGATIVE (NEGATIVE); GLUCOSE, URINE (UA) NEGATIVE (NEGATIVE); KETONES,URINE NEGATIVE (NEGATIVE); LEUKOCYTE ESTERASE ,URINE NEGATIVE (NEGATIVE); NITRITE,URINE NEGATIVE (NEGATIVE); PH,URINE 5 (4.5-8.0); PROTEIN,URINE 2+ (NEGATIVE); UROBILINOGEN,URINE 8 MG/DL (0.0-1.0)
[2019-09-30 22:47] LABS: COLOR,URINE YELLOW
--- NOTE | 2019-09-30 23:30 | History and Physical Report ---
DATE OF ADMISSION: 09/29/2019 HISTORY OF PRESENT ILLNESS: The patient comes in because of abdominal pain and chest pain. Chest pain is going on for 1 day, radiating to the right arm. EF is about 20%. The patient also has abdominal pain x1 day. The patient is admitted for chest pain, rule out acute coronary artery syndrome. Also, has history of CHF and CAD and also admitted for acute renal failure. The patient denies nausea, vomiting, or diarrhea. Denies shortness of breath. Denies cough. Denies fever or chills. PAST MEDICAL HISTORY: Significant for CHF, hyperlipidemia, hypertension, and CAD. PAST SURGICAL HISTORY: A stent in the right leg. SOCIAL HISTORY: He has history of smoking. He is homeless. Denies alcohol abuse. No history of drug abuse. ALLERGIES: No known allergies. The patient does not take anything routinely. FAMILY HISTORY: Noncontributory. REVIEW OF SYSTEMS: HEENT: Denies headaches with a nurse. RESPIRATORY: Does have shortness of breath x1 day. Denies chills. Denies cough. CARDIOVASCULAR: Reports chest pain x1 day and radiates to the right arm. Denies orthopnea. GASTROINTESTINAL: Denies nausea, vomiting, or diarrhea. EXTREMITIES: Denies pain in lower extremities. CENTRAL NERVOUS SYSTEM: Denies change in speech pattern. Feels weak. PHYSICAL EXAMINATION: VITAL SIGNS: Temperature is 97.7, pulse is 78, blood pressure 131/98. HEENT: PERRLA. NECK: Supple. No lymphadenopathy. CHEST: Clear to auscultation. CARDIOVASCULAR: Regular rate and rhythm. ABDOMEN: Soft, positive bowel sounds. GASTROINTESTINAL: Soft, nontender. No organomegaly. EXTREMITIES: No edema. Moves all four extremities. Sensory is intact. Reflexes in both sides. LABORATORY DATA: WBC of 3.8, hemoglobin 14.6, platelets of 227. Sodium 139, potassium of 4, BUN of 20, creatinine 1.8. Troponin is 0.008. EKG, no significant findings. ASSESSMENT AND PLAN: Abdominal pain, chest pain, rule out acute coronary syndrome, CHD, CAD, shortness of breath, acute renal failure. I have consulted for Vlad Lacey, Dr. Rajesh Rasmussen, Dr. Guzman, Dr. Jane, and Dr. Espinoza Chapin to help with the management of CHF and CAD as well as rule out pneumonia as well and rule out any abdominal infectious etiology and antibiotics per Dr. Rajesh Rasmussen. Tami Elias M.D. DR: Saritha JOB#: [id number] CC:
[2019-10-01] VITALS: BP 148/119
[2019-10-01] MEDS: HydrALAZINE 10mg Tab ORAL SCH ×2 (00:18→05:46)
--- NOTE | 2019-10-01 03:54 | NUR ---
NURSE NOTES: Patient sleeping comfortably in bed. No signs of acute distress or pain noted at this time.
[2019-10-01 04:00] VITALS: BP 146/102
--- NOTE | 2019-10-01 06:32 | NUR ---
NURSE NOTES: Received order from Dr. Posadas to put him down as consult. Noted and carried out.
--- NOTE | 2019-10-01 07:21 | NUR ---
HAND-OFF: Report given to Sonia LEBRON. Patient was in bed sleeping comfortably in stable condition.
[2019-10-01 07:33] LABS: ALANINE AMINOTRANSFERASE 18 U/L (12-78); ALBUMIN/GLOBULIN RATIO 0.8 (1.0-2.7); ALKALINE PHOSPHATASE 81 U/L (46-116); ANION GAP 4 mmol/L (5-15); ASPARTATE AMINO TRANSFERASE 23 U/L (15-37); BILIRUBIN,TOTAL 1.1 MG/DL (0.2-1.0); BLOOD UREA NITROGEN 19 mg/dL (7-18); CALCIUM 8.5 MG/DL (8.5-10.1); CARBON DIOXIDE 31 MMOL/L (21-32); CHLORIDE 104 MMOL/L (98-107); CHOLESTEROL 107 MG/DL (< 200); CREATINE KINASE 71 U/L (26-308); CREATININE 1.4 MG/DL (0.55-1.30); GAMMA GLUTAMYL TRANSPEPTIDASE 155 U/L (5-85); HDL CHOLESTEROL 30 MG/DL (40-60); PHOSPHORUS 3.5 MG/DL (2.5-4.9); POTASSIUM 3.9 MMOL/L (3.5-5.1); SODIUM 139 MMOL/L (136-145); TRIGLYCERIDES 32 MG/DL (30-150)
[2019-10-01 07:35] LABS: BILIRUBIN,DIRECT 0.4 MG/DL (0.0-0.3)
[2019-10-01 08:00] VITALS: BP 144/95
--- NOTE | 2019-10-01 08:00 | NUR ---
NURSE NOTES: Received report from BERNARDINO Holden. Pt A/O x4. No s/s of acute respiratory and cardiac distress. On room air. SL on left AC, patent and intact. Bed in low position, side rails up x2 and call light within reach. Will continue to monitor.
[2019-10-01] MEDS: Aspirin Baby 81mg ORAL SCH (08:59)
[2019-10-01] MEDS: Carvedilol 6.25mg Tab ORAL SCH ×2 (08:59→21:23)
[2019-10-01] MEDS: Docusate 100mg cap ORAL SCH ×3 (08:59→18:08)
--- NOTE | 2019-10-01 09:44 | NUR ---
NURSE NOTES: Called [facility] medical records and spoke with Cheryl [phone]. She states that all request for medical records is via e-mail. Sent signed medical release of information paper to medical records and gave the paper to Bridger. He states he will process.
--- NOTE | 2019-10-01 10:03 | Pulmonology Progress Note ---
Subjective Interval Events: None new Constitutional: Reports: no symptoms HEENT: Repors: no symptoms Respiratory: Reports: no symptoms Cardiovascular: Reports: no symptoms Allergies: Coded Allergies: No Known Allergies (Unverified , 12/12/17) Objective Last 24 Hour Vital Signs Date Time Temp Pulse Resp B/P (MAP) Pulse Ox O2 Delivery O2 Flow Rate FiO2 10/01/19 08:59 89 144/95 10/01/19 08:59 144/95 10/01/19 08:00 91 10/01/19 08:00 97.5 89 20 144/95 (111) 98 10/01/19 05:46 146/102 10/01/19 04:00 85 10/01/19 04:00 97.2 85 19 146/102 (117) 99 10/01/19 00:18 148/119 10/01/19 00:00 96.4 87 22 148/119 (129) 97 10/01/19 00:00 87 09/30/19 20:27 Nasal Cannula 2.0 09/30/19 20:00 97.5 83 19 142/108 (119) 98 09/30/19 20:00 79 09/30/19 19:12 85 18 96 Room Air 21 82 18 95 09/30/19 19:11 82 18 95 Room Air 21 09/30/19 17:46 131/98 09/30/19 15:38 97.7 78 18 131/98 (109) 97 09/30/19 15:16 86 09/30/19 12:00 97.5 77 22 116/83 (94) 97 09/30/19 12:00 74 Intake and Output 09/30/19 10/01/19 19:00 07:00 Intake Total 600 ml 240 ml Balance 600 ml 240 ml Intake Oral 600 ml 240 ml # Voids 3 2 # Bowel Movements 1 General Appearance: no acute distress HEENT: normocephalic Respiratory: chest wall non-tender, lungs clear Cardiovascular: normal peripheral pulses, normal rate Abdomen: normal bowel sounds Microbiology Date/Time Source Procedure Growth Status 09/30/19 13:55 Nasopharynx SARS-CoV-2 RdRp Gene Assay - Final Complete Laboratory Tests 09/30/19 22:37: Urine Color Yellow, Urine Appearance Clear, Urine pH 5, Urine Specific [place] 1.025, Urine Protein 2+H, Urine Glucose (UA) Negative, Urine Ketones Negative, Urine Blood Negative, Urine Nitrite Negative, Urine Bilirubin Negative, Urine Urobilinogen 8H, Urine Leukocyte Esterase Negative, Urine RBC 0-2H, Urine WBC 0- 2, Urine Squamous Epithelial Cells None, Urine Bacteria Few 10/01/19 05:50: Sodium Level 139, Potassium Level 3.9, Chloride Level 104, Carbon Dioxide Level 31, Anion Gap 4L, Blood Urea Nitrogen 19H, Creatinine 1.4H, Estimat Glomerular Filtration Rate > 60, Glucose Level 101, Hemoglobin A1c 6.5H, Uric Acid 5.9, Calcium Level 8.5, Phosphorus Level 3.5, Magnesium Level 1.8, Total Bilirubin 1.1H, Direct Bilirubin 0.4H, Gamma Glutamyl Transpeptidase 155H, Aspartate Amino Transf (AST/SGOT) 23, Alanine Aminotransferase (ALT/SGPT) 18, Alkaline Phosphatase 81, Total Creatine Kinase 71, C-Reactive Protein, Quantitative 0.9, Pro-B-Type Natriuretic Peptide 2709H, Total Protein 6.9, Albumin 3.0L, Globulin 3.9, Albumin/Globulin Ratio 0.8L, Triglycerides Level 32, Cholesterol Level 107 , LDL Cholesterol 68, HDL Cholesterol 30L, Cholesterol/HDL Ratio 3.6, Thyroid Stimulating Hormone (TSH) 1.531 Current Medications Medications (Trade) Dose Ordered Sig/Tasia Route PRN Reason Start Time Stop Time Status Last Admin Dose Admin Acetaminophen (Tylenol) 650 mg Q6H PRN ORAL Mild Pain (1-3)/Fever > 100.5 09/30/19 01:00 10/30/19 00:59 09/30/19 08:24 Albuterol/ Ipratropium (Albuterol/ Ipratropium) 3 ml Q6H PRN HHN Shortness of Breath 09/30/19 01:45 10/05/19 01:44 09/30/19 19:09 Aspirin (ASA) 81 mg DAILY ORAL 09/30/19 09:00 11/14/19 08:59 10/01/19 08:59 Carvedilol (Coreg) 6.25 mg EVERY 12 HOURS ORAL 10/01/19 09:00 10/31/19 08:59 10/01/19 08:59 Clonidine HCl (Catapres Tab) 0.1 mg Q4H PRN ORAL BP over 160 systolic 09/30/19 16:15 12/29/19 16:14 Docusate Sodium (Colace) 100 mg THREE TIMES A DAY ORAL 09/30/19 18:00 10/30/19 17:59 10/01/19 08:59 Furosemide (Lasix) 40 mg EVERY 12 HOURS IV 09/30/19 21:00 10/30/19 20:59 Hydralazine HCl (Apresoline) 10 mg Q6HR ORAL 09/30/19 18:00 12/29/19 17:59 10/01/19 05:46 Isosorbide Dinitrate (Isordil) 10 mg BID ORAL 10/01/19 09:00 10/31/19 08:59 10/01/19 08:59 Nitroglycerin (Ntg) 0.4 mg Q5MIN X 3 DOSES PRN SL CHEST PAIN 09/30/19 01:00 10/30/19 00:59 Pantoprazole (Protonix) 40 mg EVERY 12 HOURS ORAL 09/30/19 21:00 10/30/19 20:59 10/01/19 08:58 Tamsulosin HCl (Flomax) 0.4 mg BEDTIME ORAL 09/30/19 21:00 10/30/19 20:59 09/30/19 21:09 Assessment/Plan Assessment/Plan IMPRESSION: 1. Substance abuse. 2. Borderline troponin. 3. History of ischemic cardiomyopathy. DISCUSSION: Patient will need to be monitored given his current cocaine usage. I will follow as needed. Currently respiratory status is stable Apolonia Thomas Omar Syed MD Oct 01, 2019 10:03
--- NOTE | 2019-10-01 10:28 | Cardiac Electrophysiology PN ---
Assessment/Plan Assessment/Plan 1. Exacerbation of congestive heart failure in this patient with polysubstance abuse with cocaine and PCP. The patient is already ruled out for myocardial infarction. The patient's echocardiogram showed EF of only 20%. The patient is on hydralazine 10 mg q.6 hours and Lasix 40 mg iv bid. Avoid beta-wilfredo and cocaine use. I will add nitroglycerin to his medical regimen. 2. Status post LifeVest. Not wearing it. Says is in his car. Unfortunately, he is not a candidate for defibrillator implantation as he has active cocaine and polysubstance abuse. 3. Polysubstance abuse with cocaine and PCP. 4. Renal failure with creatinine of 1.6. Imprioved to 1.4. FU by Dr. Megan Guzman Subjective Subjective Awaiting [facility] records. Felling better Objective Last 24 Hour Vital Signs Date Time Temp Pulse Resp B/P (MAP) Pulse Ox O2 Delivery O2 Flow Rate FiO2 10/01/19 08:59 89 144/95 10/01/19 08:59 144/95 10/01/19 08:00 91 10/01/19 08:00 97.5 89 20 144/95 (111) 98 10/01/19 05:46 146/102 10/01/19 04:00 85 10/01/19 04:00 97.2 85 19 146/102 (117) 99 10/01/19 00:18 148/119 10/01/19 00:00 96.4 87 22 148/119 (129) 97 10/01/19 00:00 87 09/30/19 20:27 Nasal Cannula 2.0 09/30/19 20:00 97.5 83 19 142/108 (119) 98 09/30/19 20:00 79 09/30/19 19:12 85 18 96 Room Air 21 82 18 95 09/30/19 19:11 82 18 95 Room Air 21 09/30/19 17:46 131/98 09/30/19 15:38 97.7 78 18 131/98 (109) 97 09/30/19 15:16 86 09/30/19 12:00 97.5 77 22 116/83 (94) 97 09/30/19 12:00 74 Intake and Output 09/30/19 10/01/19 19:00 07:00 Intake Total 600 ml 240 ml Balance 600 ml 240 ml Intake Oral 600 ml 240 ml # Voids 3 2 # Bowel Movements 1 Laboratory Tests Test 09/30/19 22:37 10/01/19 05:50 Urine Color Yellow Urine Appearance Clear Urine pH 5 (4.5-8.0) Urine Specific [place] 1.025 (1.005-1.035) Urine Protein 2+ (NEGATIVE) H Urine Glucose (UA) Negative (NEGATIVE) Urine Ketones Negative (NEGATIVE) Urine Blood Negative (NEGATIVE) Urine Nitrite Negative (NEGATIVE) Urine Bilirubin Negative (NEGATIVE) Urine Urobilinogen 8 MG/DL (0.0-1.0) H Urine Leukocyte Esterase Negative (NEGATIVE) Urine RBC 0-2 /HPF (0 - 0) H Urine WBC 0-2 /HPF (0 - 0) Urine Squamous Epithelial Cells None /LPF (NONE/OCC) Urine Bacteria Few /HPF (NONE) Sodium Level 139 MMOL/L (136-145) Potassium Level 3.9 MMOL/L (3.5-5.1) Chloride Level 104 MMOL/L (98-107) Carbon Dioxide Level 31 MMOL/L (21-32) Anion Gap 4 mmol/L (5-15) L Blood Urea Nitrogen 19 mg/dL (7-18) H Creatinine 1.4 MG/DL (0.55-1.30) H Estimat Glomerular Filtration Rate > 60 mL/min (>60) Glucose Level 101 MG/DL (74-106) Hemoglobin A1c 6.5 % (4.3-6.0) H Uric Acid 5.9 MG/DL (2.6-7.2) Calcium Level 8.5 MG/DL (8.5-10.1) Phosphorus Level 3.5 MG/DL (2.5-4.9) Magnesium Level 1.8 MG/DL (1.8-2.4) Total Bilirubin 1.1 MG/DL (0.2-1.0) H Direct Bilirubin 0.4 MG/DL (0.0-0.3) H Gamma Glutamyl Transpeptidase 155 U/L (5-85) H Aspartate Amino Transf (AST/SGOT) 23 U/L (15-37) Alanine Aminotransferase (ALT/SGPT) 18 U/L (12-78) Alkaline Phosphatase 81 U/L (46-116) Total Creatine Kinase 71 U/L (26-308) C-Reactive Protein, Quantitative 0.9 mg/dL (0.00-0.90) Pro-B-Type Natriuretic Peptide 2709 pg/mL (0-125) H Total Protein 6.9 G/DL (6.4-8.2) Albumin 3.0 G/DL (3.4-5.0) L Globulin 3.9 g/dL Albumin/Globulin Ratio 0.8 (1.0-2.7) L Triglycerides Level 32 MG/DL (30-150) Cholesterol Level 107 MG/DL (< 200) LDL Cholesterol 68 mg/dL (<100) HDL Cholesterol 30 MG/DL (40-60) L Cholesterol/HDL Ratio 3.6 (3.3-4.4) Thyroid Stimulating Hormone (TSH) 1.531 uiU/mL (0.358-3.740) Microbiology Date/Time Source Procedure Growth Status 09/30/19 13:55 Nasopharynx SARS-CoV-2 RdRp Gene Assay - Final Complete Objective HEAD AND NECK: Mild JVD. LUNGS: Clear. CARDIOVASCULAR: Regular S1 and S2 with no gallop or murmur. ABDOMEN: Soft. EXTREMITIES: No pitting edema. Puma Jane MD Oct 01, 2019 10:28
--- NOTE | 2019-10-01 10:38 | Nephrology Progress Note ---
Assessment/Plan Problem List: (1) MEGHAN (acute kidney injury) (2) Cardiomyopathy (3) Renal failure (ARF), acute on chronic (4) CHF exacerbation (5) DMII (diabetes mellitus, type 2) (6) Substance abuse or dependence Assessment Acute renal failure Underlying chronic renal failure Acute on chronic CHF, low ejection fraction cardiomyopathy Hypertension Diabetes mellitus Polysubstance abuse Lives in his car Plan Plan: Renal parameters are improved, will start BALTA inhibitors. Continue to diurese. Optimize cardiac status Keep the blood pressure blood sugar in check Monitor renal parameters Avoid nephrotoxic's Per orders Subjective ROS Limited/Unobtainable: No Constitutional: Reports: malaise, weakness Objective Objective Last 24 Hour Vital Signs Date Time Temp Pulse Resp B/P (MAP) Pulse Ox O2 Delivery O2 Flow Rate FiO2 10/01/19 08:59 89 144/95 10/01/19 08:59 144/95 10/01/19 08:00 91 10/01/19 08:00 97.5 89 20 144/95 (111) 98 10/01/19 05:46 146/102 10/01/19 04:00 85 10/01/19 04:00 97.2 85 19 146/102 (117) 99 10/01/19 00:18 148/119 10/01/19 00:00 96.4 87 22 148/119 (129) 97 10/01/19 00:00 87 09/30/19 20:27 Nasal Cannula 2.0 09/30/19 20:00 97.5 83 19 142/108 (119) 98 09/30/19 20:00 79 09/30/19 19:12 85 18 96 Room Air 21 82 18 95 09/30/19 19:11 82 18 95 Room Air 21 09/30/19 17:46 131/98 09/30/19 15:38 97.7 78 18 131/98 (109) 97 09/30/19 15:16 86 09/30/19 12:00 97.5 77 22 116/83 (94) 97 09/30/19 12:00 74 Intake and Output 09/30/19 10/01/19 19:00 07:00 Intake Total 600 ml 240 ml Balance 600 ml 240 ml Intake Oral 600 ml 240 ml # Voids 3 2 # Bowel Movements 1 Current Medications Medications (Trade) Dose Ordered Sig/Tasia Route PRN Reason Start Time Stop Time Status Last Admin Dose Admin Acetaminophen (Tylenol) 650 mg Q6H PRN ORAL Mild Pain (1-3)/Fever > 100.5 09/30/19 01:00 10/30/19 00:59 09/30/19 08:24 Albuterol/ Ipratropium (Albuterol/ Ipratropium) 3 ml Q6H PRN HHN Shortness of Breath 09/30/19 01:45 10/05/19 01:44 09/30/19 19:09 Aspirin (ASA) 81 mg DAILY ORAL 09/30/19 09:00 11/14/19 08:59 10/01/19 08:59 Carvedilol (Coreg) 6.25 mg EVERY 12 HOURS ORAL 10/01/19 09:00 10/31/19 08:59 10/01/19 08:59 Clonidine HCl (Catapres Tab) 0.1 mg Q4H PRN ORAL BP over 160 systolic 09/30/19 16:15 12/29/19 16:14 Docusate Sodium (Colace) 100 mg THREE TIMES A DAY ORAL 09/30/19 18:00 10/30/19 17:59 10/01/19 08:59 Furosemide (Lasix) 40 mg EVERY 12 HOURS IV 09/30/19 21:00 10/30/19 20:59 Isosorbide Dinitrate (Isordil) 10 mg BID ORAL 10/01/19 09:00 10/31/19 08:59 10/01/19 08:59 Lisinopril (ZestriL) 2.5 mg BID ORAL 10/01/19 10:45 10/31/19 10:44 UNV Nitroglycerin (Ntg) 0.4 mg Q5MIN X 3 DOSES PRN SL CHEST PAIN 09/30/19 01:00 10/30/19 00:59 Pantoprazole (Protonix) 40 mg EVERY 12 HOURS ORAL 09/30/19 21:00 10/30/19 20:59 10/01/19 08:58 Tamsulosin HCl (Flomax) 0.4 mg BEDTIME ORAL 09/30/19 21:00 10/30/19 20:59 09/30/19 21:09 Laboratory Tests 09/30/19 22:37: Urine Color Yellow, Urine Appearance Clear, Urine pH 5, Urine Specific [place] 1.025, Urine Protein 2+H, Urine Glucose (UA) Negative, Urine Ketones Negative, Urine Blood Negative, Urine Nitrite Negative, Urine Bilirubin Negative, Urine Urobilinogen 8H, Urine Leukocyte Esterase Negative, Urine RBC 0-2H, Urine WBC 0- 2, Urine Squamous Epithelial Cells None, Urine Bacteria Few 10/01/19 05:50: Sodium Level 139, Potassium Level 3.9, Chloride Level 104, Carbon Dioxide Level 31, Anion Gap 4L, Blood Urea Nitrogen 19H, Creatinine 1.4H, Estimat Glomerular Filtration Rate > 60, Glucose Level 101, Hemoglobin A1c 6.5H, Uric Acid 5.9, Calcium Level 8.5, Phosphorus Level 3.5, Magnesium Level 1.8, Total Bilirubin 1.1H, Direct Bilirubin 0.4H, Gamma Glutamyl Transpeptidase 155H, Aspartate Amino Transf (AST/SGOT) 23, Alanine Aminotransferase (ALT/SGPT) 18, Alkaline Phosphatase 81, Total Creatine Kinase 71, C-Reactive Protein, Quantitative 0.9, Pro-B-Type Natriuretic Peptide 2709H, Total Protein 6.9, Albumin 3.0L, Globulin 3.9, Albumin/Globulin Ratio 0.8L, Triglycerides Level 32, Cholesterol Level 107 , LDL Cholesterol 68, HDL Cholesterol 30L, Cholesterol/HDL Ratio 3.6, Thyroid Stimulating Hormone (TSH) 1.531 Height (Feet): 6 Height (Inches): 2.00 Weight (Pounds): 190 General Appearance: no apparent distress, lethargic Cardiovascular: tachycardia Respiratory/Chest: decreased breath sounds Abdomen: distended Luis Enrique Guzman MD Oct 01, 2019 10:38
--- NOTE | 2019-10-01 11:03 | NUR ---
SENIOR CAREGIVER NOTE SW attempted to meet w/ pt at 10:20am. Pt was sleeping. Unable to wake him up. SW will attempt again.
[2019-10-01] MEDS: Lisinopril 2.5mg tab ORAL SCH ×2 (11:24→18:08)
[2019-10-01 11:53] VITALS: BP 124/84
--- NOTE | 2019-10-01 11:56 | NUR ---
CASE MANAGEMENT: NOTE CASE REVIEWED WITH COAL YARD SUPERVISOR MESSAGE LEFT FOR DR PARKS REGARDING POC AND POSSIBLE DC. AWAITING RESPONSE CALL PLACED TO NURSING TO CONFIRM PTs POC- DIURESIS AND KLEYNBERG CONSULT SSW ONBOARD W/ POSSIBLE PLAN TO DC TO PREVIOUS LOCATION CM WILL CONTINUE TO MONITOR FOR DC PLANNING NEEDS Addendum: 10/01/19 at 1355 by Maya Holder RESPONSE RECEIVED. CONSULT ENTERED IN ERROR. NO ORDER FOR DC RECEIVED.
--- NOTE | 2019-10-01 12:00 | NUR ---
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 Pt is identified as homeless. Pt presents as A&O4x. Pt is ambulatory w/o DEMs and independent w/ ADLs. Pt was last admitted to [facility] [facility] on 08/24/19-08/28/19. Pt has been living in his car. His car is currently w/ his . Pt is and has no children. PT has hx of Depression. PT currently does not receive outpatient mental health service. PT receives GR and food stamp. PT shares he recently applied SSI. RUDS positive for Cocaine and PCP. Pt currently denies such substance abuse. SW explained that his urine tested came as positive for such drugs. Pt declined to discuss further. SW offered placement assistance including independent living facilities and project room[facility]. SW explained project room[facility] rules if accepted: no visitors/no substance abuse, etc. Pt reports he plans to return his car. SW provided the community resource packet and the emergency [place] [facility] list. SW also directed pt to call 211 for possible hotel/motel voucher. Pt verbalized understanding. Pt to be discharged to his preferred location upon DC. Emergency contacts: Lizzeth () [phone] and Katelynn Ledesma (mother) [phone].
--- NOTE | 2019-10-01 12:04 | Diagnostic Imaging Report ---
Indication:Leg pain and swelling Technique: Grayscale and duplex Doppler imaging of the veins in both lower extremities performed in real time utilizing compression and augmentation. Comparison: Lower extremity venous Doppler study dated 08/24/2019 Findings: Duplex Doppler interrogation of the veins in both lower extremity is performed from the common femoral vein to the popliteal vein. Normal venous compressibility demonstrated throughout. No thrombus identified. Waveform analysis shows good respiratory phasicity and augmentation. Interval improvement in previously described subcutaneous edema. IMPRESSION: No evidence of deep venous thrombosis involving the lower extremities.
--- NOTE | 2019-10-01 12:21 | Consultation ---
History of Present Illness General Chief Complaint: Chest Pain Present Illness Allergies: Coded Allergies: No Known Allergies (Unverified , 12/12/17) Medication History Scheduled Aspirin* (Aspirin*), 81 MG ORAL DAILY Atorvastatin Calcium* (Lipitor*), 40 MG ORAL BEDTIME Carvedilol (Coreg), 6.25 MG ORAL EVERY 12 HOURS Cephalexin* (Keflex*), 250 MG ORAL FOUR TIMES A DAY Doxycycline Monohydrate* (Doxycycline Monohydrate*), 100 MG ORAL Q12H Furosemide* (Lasix*), 40 MG ORAL DAILY Spironolactone* (Aldactone*), 25 MG ORAL DAILY Scheduled PRN Ipratropium/Albuterol Sulfate (Combivent Respimat Inhal [place]), 4 GM IH PRN PRN for Shortness of Breath, (Reported) Nitroglycerin 0.4MG table* (Nitroglycerin*), 0.4 MG SL .Q5MIN X 3 DOSES PRN for CHEST PAIN, (Reported) Patient History Healthcare decision maker Resuscitation status Advanced Directive on File Physical Exam Last 24 Hour Vital Signs Date Time Temp Pulse Resp B/P (MAP) Pulse Ox O2 Delivery O2 Flow Rate FiO2 10/01/19 11:53 97.9 87 20 124/84 (97) 100 10/01/19 11:24 124/84 10/01/19 09:00 Nasal Cannula 2.0 10/01/19 08:59 89 144/95 10/01/19 08:59 144/95 10/01/19 08:00 91 10/01/19 08:00 97.5 89 20 144/95 (111) 98 10/01/19 05:46 146/102 10/01/19 04:00 85 10/01/19 04:00 97.2 85 19 146/102 (117) 99 10/01/19 00:18 148/119 10/01/19 00:00 96.4 87 22 148/119 (129) 97 10/01/19 00:00 87 09/30/19 20:27 Nasal Cannula 2.0 09/30/19 20:00 97.5 83 19 142/108 (119) 98 09/30/19 20:00 79 09/30/19 19:12 85 18 96 Room Air 21 82 18 95 09/30/19 19:11 82 18 95 Room Air 21 09/30/19 17:46 131/98 09/30/19 15:38 97.7 78 18 131/98 (109) 97 09/30/19 15:16 86 Intake and Output 09/30/19 10/01/19 19:00 07:00 Intake Total 600 ml 240 ml Balance 600 ml 240 ml Intake Oral 600 ml 240 ml # Voids 3 2 # Bowel Movements 1 Laboratory Tests Test 09/30/19 22:37 10/01/19 05:50 Urine Color Yellow Urine Appearance Clear Urine pH 5 (4.5-8.0) Urine Specific [place] 1.025 (1.005-1.035) Urine Protein 2+ (NEGATIVE) H Urine Glucose (UA) Negative (NEGATIVE) Urine Ketones Negative (NEGATIVE) Urine Blood Negative (NEGATIVE) Urine Nitrite Negative (NEGATIVE) Urine Bilirubin Negative (NEGATIVE) Urine Urobilinogen 8 MG/DL (0.0-1.0) H Urine Leukocyte Esterase Negative (NEGATIVE) Urine RBC 0-2 /HPF (0 - 0) H Urine WBC 0-2 /HPF (0 - 0) Urine Squamous Epithelial Cells None /LPF (NONE/OCC) Urine Bacteria Few /HPF (NONE) Sodium Level 139 MMOL/L (136-145) Potassium Level 3.9 MMOL/L (3.5-5.1) Chloride Level 104 MMOL/L (98-107) Carbon Dioxide Level 31 MMOL/L (21-32) Anion Gap 4 mmol/L (5-15) L Blood Urea Nitrogen 19 mg/dL (7-18) H Creatinine 1.4 MG/DL (0.55-1.30) H Estimat Glomerular Filtration Rate > 60 mL/min (>60) Glucose Level 101 MG/DL (74-106) Hemoglobin A1c 6.5 % (4.3-6.0) H Uric Acid 5.9 MG/DL (2.6-7.2) Calcium Level 8.5 MG/DL (8.5-10.1) Phosphorus Level 3.5 MG/DL (2.5-4.9) Magnesium Level 1.8 MG/DL (1.8-2.4) Total Bilirubin 1.1 MG/DL (0.2-1.0) H Direct Bilirubin 0.4 MG/DL (0.0-0.3) H Gamma Glutamyl Transpeptidase 155 U/L (5-85) H Aspartate Amino Transf (AST/SGOT) 23 U/L (15-37) Alanine Aminotransferase (ALT/SGPT) 18 U/L (12-78) Alkaline Phosphatase 81 U/L (46-116) Total Creatine Kinase 71 U/L (26-308) C-Reactive Protein, Quantitative 0.9 mg/dL (0.00-0.90) Pro-B-Type Natriuretic Peptide 2709 pg/mL (0-125) H Total Protein 6.9 G/DL (6.4-8.2) Albumin 3.0 G/DL (3.4-5.0) L Globulin 3.9 g/dL Albumin/Globulin Ratio 0.8 (1.0-2.7) L Triglycerides Level 32 MG/DL (30-150) Cholesterol Level 107 MG/DL (< 200) LDL Cholesterol 68 mg/dL (<100) HDL Cholesterol 30 MG/DL (40-60) L Cholesterol/HDL Ratio 3.6 (3.3-4.4) Thyroid Stimulating Hormone (TSH) 1.531 uiU/mL (0.358-3.740) Microbiology Date/Time Source Procedure Growth Status 09/30/19 13:55 Nasopharynx SARS-CoV-2 RdRp Gene Assay - Final Complete Height (Feet): 6 Height (Inches): 2.00 Weight (Pounds): 190 Medications Current Medications Medications (Trade) Dose Ordered Sig/Tasia Route PRN Reason Start Time Stop Time Status Last Admin Dose Admin Acetaminophen (Tylenol) 650 mg Q6H PRN ORAL Mild Pain (1-3)/Fever > 100.5 09/30/19 01:00 10/30/19 00:59 09/30/19 08:24 Albuterol/ Ipratropium (Albuterol/ Ipratropium) 3 ml Q6H PRN HHN Shortness of Breath 09/30/19 01:45 10/05/19 01:44 09/30/19 19:09 Aspirin (ASA) 81 mg DAILY ORAL 09/30/19 09:00 11/14/19 08:59 10/01/19 08:59 Carvedilol (Coreg) 6.25 mg EVERY 12 HOURS ORAL 10/01/19 09:00 10/31/19 08:59 10/01/19 08:59 Clonidine HCl (Catapres Tab) 0.1 mg Q4H PRN ORAL BP over 160 systolic 09/30/19 16:15 12/29/19 16:14 Docusate Sodium (Colace) 100 mg THREE TIMES A DAY ORAL 09/30/19 18:00 10/30/19 17:59 10/01/19 08:59 Furosemide (Lasix) 40 mg EVERY 12 HOURS IV 09/30/19 21:00 10/30/19 20:59 Isosorbide Dinitrate (Isordil) 10 mg BID ORAL 10/01/19 09:00 10/31/19 08:59 10/01/19 08:59 Lisinopril (ZestriL) 2.5 mg BID ORAL 10/01/19 10:45 10/31/19 10:44 10/01/19 11:24 Nitroglycerin (Ntg) 0.4 mg Q5MIN X 3 DOSES PRN SL CHEST PAIN 09/30/19 01:00 10/30/19 00:59 Pantoprazole (Protonix) 40 mg EVERY 12 HOURS ORAL 09/30/19 21:00 10/30/19 20:59 10/01/19 08:58 Tamsulosin HCl (Flomax) 0.4 mg BEDTIME ORAL 09/30/19 21:00 10/30/19 20:59 09/30/19 21:09 Assessment/Plan Assessment/Plan: Hematology Consultation REMartha MD: Tami Bowles RFC: Leukopenia worsening DOS 10/01/19 HPI: 59-year-old male history of hypertension, CHF with an EF of 20% presents from his car with shortness of breath and chest pain. He states his shortness of breath has worsened over the past few days and today developed chest pain for the past 45 minutes left-sided 10 out of 10 nonradiating. He took a nitroglycerin prior to arrival. Patient was admitted last month for the same. At that time he was in CHF exacerbation. Followed by cardiology, was provided a LifeVest which she has been wearing. He states he has not been shocked by his LifeVest. Patient currently lives in his vehicle. Labs are noted, no bleeding, currently with low wbc. PMH: Hypertension, CHF PSH: Reviewed Social Hx: Currently lives in his car, denies illicit drug use. 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 COVID-19 Screening: Negative COVID-19 COVID-19 Testing Source: 3 WKS AGO AT [facility] Patient History Reviewed Nursing Documentation: PMH: Agreed; PSxH: Agreed Nursing Documentation-PMH Hx Cardiac Problems: Yes - stent on R groin, CHF Hx Hypertension: Yes Hx COPD: Yes ROS Constitutional: No fever, no chills, no night sweats, no fatigue Skin: No rashes, lumps, itchiness, dryness HEENT: No STEEN, ear ache, visual changes, double vision, nosebleeds Breasts: No lumps, pain, discharge Pulmonary: ++ shortness of breath Cardiovascular: No chest pain, tightness, palpitations, syncope, PND GI: No nausea, vomiting, diarrhea, melena, hematochezia, change in appetite, : No dysuria, frequency, urgency, urinary incontinence, foamy urine Musculoskeletal: No joint swelling or muscle pain, trauma, back pain Neurologic: No dizziness, fainting, seizures, changes in smell or taste Psychiatric: No nervousness, stress, or depression, anxiety, hallucinations Endocrine: No weight change, heat or cold intolerance, tremor, insomnia Physical Exam: Vitals: reviewed General: NAD HEENT: nc, at Neck: supple Chest: clear breath sounds bilaterally Cardiovascular: RRR, no s3, s4 Abdomen: soft, nontender, nd Extremities: no cce, normal range of motion, 1-2++ edema lower ext, chronic skin changes Neuro: alert and oriented Labs: noted Imaging: reviewed Assessment and Recs # Leukopenia -- multiple etiologies could be related to underlying liver disease , medication-induced, infection versus viral syndrome, hx of prior drug use --> peripheral smear has been ordered and does not show significant abnormalities --> Medications have been reviewed --> Continue to monitor for improvement, trend cbc --> Hep panel and HIV have been ordered --> US abd ordered to r/o cirrhosis and hepatosplenomegaly --> reverse isolation if ANC is <2000 --> Give neupogen if ANC <1000 # Acute renal failure with chronic renal failure --> trend cr per renal recs --> diuresis as needed # Acute on chronic CHF, low ejection fraction cardiomyopathy --> per cards # Hypertension --> hdralazine and lasix prn # Diabetes mellitus # Polysubstance abuse # Lives in his car The timing of this note does not necessarily reflect the time of the patient was seen. Greatly appreciate consultation. Van Posadas MD Oct 01, 2019 12:21
--- NOTE | 2019-10-01 13:58 | NUR ---
CASE MANAGEMENT: REVIEW 10/01/2019 SI:SUBSTANCE ABUSE. VS: T 97.5 HR 89 RR 20 B/P 144/95 SATS 94% ON RA LABS: BUN 19 CR 1.4 TBILI 1.1 DBILI 0.4 GGT 155 BNP 2709 IS:LASIX IV Q12H COREG PO Q12H FLOMAX PO QHS ISORDIL PO BID LISINOPRIL PO BID TELE DCP: "HOME" PLAN OF CARE: CONTINUE DIURESIS
--- NOTE | 2019-10-01 14:15 | Consultation ---
DATE OF CONSULTATION: 10/01/2019 INFECTIOUS DISEASE CONSULTATION CONSULTING PHYSICIAN: Rajesh Rasmussen MD. PRIMARY ATTENDING PHYSICIAN: Tami Elias MD. REASON FOR CONSULT: Shortness of breath. HISTORY OF PRESENT ILLNESS: This is a 59-year-old male admitted on 28 of September because of shortness of breath and chest pain. He has history of CHF with ejection fraction of 20% and is on LifeVest. He has a history of recent admission to [facility] between and 27 of August. In that admission, he was diagnosed with cellulitis and also had chest pain. PAST MEDICAL HISTORY: Positive for congestive heart failure, hypertension, substance abuse, chronic kidney disease. ALLERGIES: No known drug allergies. MEDICATIONS: Getting carvedilol, Isordil, Protonix, Flomax Lasix, clonidine, aspirin, albuterol and ipratropium inhaler, and Tylenol. SOCIAL HISTORY: , homeless. Lives in car. Uses cocaine and PCP. PHYSICAL EXAMINATION: VITAL SIGNS: Temperature 97.5, pulse 89, blood pressure 144/95. GENERAL APPEARANCE: No acute distress. HEAD AND NECK: [place] conjunctivae. HEART: Normal rate. LUNGS: Clear. ABDOMEN: Soft. EXTREMITIES: Mild edema of legs, has chronic skin changes in bilateral legs. NEUROLOGIC: He is currently sleeping. LABORATORY AND DIAGNOSTIC DATA: COVID-19 test was negative. WBC 3.6, hemoglobin 14.2, hematocrit 45.9, and platelets 212,000. Sodium 139, potassium 3.9, chloride 104, bicarb 31, BUN 19, creatinine 1.4. Creatinine at the time of admission was 1.8. BNP is elevated 2709. AST and ALT are normal. Chest x-ray showed left lung interstitial opacities could represent an infiltrate or edema. IMPRESSION: Dyspnea and shortness of breath. COVID-19 was ruled out. The patient has systolic CHF with ejection fraction of 20% on LifeVest. He has acute on chronic renal failure, cocaine abuse, and phencyclidine abuse. He has hypertension. He is homeless. RECOMMENDATION: Observe off antibiotic. At the end of my exam, I thank Dr. Elias for involving me in the care of this patient. Rajesh Rasmussen M.D. DR: COURT JOB#: [id number] CC:
[2019-10-01 16:00] VITALS: BP 134/86
--- NOTE | 2019-10-01 19:13 | NUR ---
HAND-OFF: Report given to BERNARDINO Haddad and BERNARDINO Contreras.
--- NOTE | 2019-10-01 19:23 | NUR ---
NURSE NOTES: Report received from BERNARDINO Scott. Patient A/Ox4 and able to make needs known. No complaints of pain 0/10. Left A/C IV noted and intact. Patient observed completing 100% of meals. Bed in lowest and locked position. Bed alarm on and call light within reach. Will continue to monitor.
[2019-10-01 20:00] VITALS: BP 138/102
[2019-10-01] MEDS: Tamsulosin 0.4mg cap ORAL SCH (21:00)
--- NOTE | 2019-10-01 21:09 | NUR ---
NURSE NOTES: Left message for MD in regards to patient request for sleeping pill. Awaiting further orders.
--- NOTE | 2019-10-01 21:30 | NUR ---
NURSE NOTES: Per MD, sleeping pill contraindicated to dx. Patient refuses other medications and states he does not want to take them despite encouragement. Pt. in stable condition. Will continue monitoring.
--- NOTE | 2019-10-01 21:57 | General Progress Note ---
Assessment/Plan Problem List: (1) Cardiomyopathy ICD Codes: I42.9 - Cardiomyopathy, unspecified SNOMED: 67586970 (2) Leukopenia ICD Codes: D72.819 - Decreased white blood cell count, unspecified SNOMED: 18626484, 770755450 (3) Chest pain ICD Codes: R07.9 - Chest pain, unspecified SNOMED: 15736802 (4) CHF exacerbation ICD Codes: I50.9 - Heart failure, unspecified SNOMED: 762431261, 23083707972235 (5) MEGHAN (acute kidney injury) ICD Codes: N17.9 - Acute kidney failure, unspecified SNOMED: 5824991, 56025381 (6) Renal failure (ARF), acute on chronic ICD Codes: N17.9 - Acute kidney failure, unspecified; N18.9 - Chronic kidney disease, unspecified SNOMED: 180500936 (7) DMII (diabetes mellitus, type 2) ICD Codes: E11.9 - Type 2 diabetes mellitus without complications SNOMED: 90560395 (8) Substance abuse or dependence SNOMED: 88939065 Status: progressing Assessment/Plan: no cp reviewed chart and labs r/o acs reviewed chart and labs afebrile Subjective ROS Limited/Unobtainable: Yes Allergies: Coded Allergies: No Known Allergies (Unverified , 12/12/17) Objective Last 24 Hour Vital Signs Date Time Temp Pulse Resp B/P (MAP) Pulse Ox O2 Delivery O2 Flow Rate FiO2 10/01/19 21:23 96 138/102 10/01/19 18:57 86 20 95 Room Air 2.0 28 10/01/19 18:08 134/86 10/01/19 18:08 134/86 10/01/19 16:00 85 10/01/19 16:00 96.8 74 18 134/86 (102) 98 10/01/19 12:00 79 10/01/19 11:53 97.9 87 20 124/84 (97) 100 10/01/19 11:24 124/84 10/01/19 09:00 Nasal Cannula 2.0 10/01/19 08:59 89 144/95 10/01/19 08:59 144/95 10/01/19 08:47 85 20 94 Room Air 2.0 28 10/01/19 08:00 91 10/01/19 08:00 97.5 89 20 144/95 (111) 98 10/01/19 05:46 146/102 10/01/19 04:00 85 10/01/19 04:00 97.2 85 19 146/102 (117) 99 10/01/19 00:18 148/119 10/01/19 00:00 96.4 87 22 148/119 (129) 97 10/01/19 00:00 87 Intake and Output 09/30/19 10/01/19 19:00 07:00 Intake Total 600 ml 240 ml Balance 600 ml 240 ml Intake Oral 600 ml 240 ml # Voids 3 2 # Bowel Movements 1 Laboratory Tests 09/30/19 22:37: Urine Color Yellow, Urine Appearance Clear, Urine pH 5, Urine Specific [place] 1.025, Urine Protein 2+H, Urine Glucose (UA) Negative, Urine Ketones Negative, Urine Blood Negative, Urine Nitrite Negative, Urine Bilirubin Negative, Urine Urobilinogen 8H, Urine Leukocyte Esterase Negative, Urine RBC 0-2H, Urine WBC 0- 2, Urine Squamous Epithelial Cells None, Urine Bacteria Few 10/01/19 05:50: Sodium Level 139, Potassium Level 3.9, Chloride Level 104, Carbon Dioxide Level 31, Anion Gap 4L, Blood Urea Nitrogen 19H, Creatinine 1.4H, Estimat Glomerular Filtration Rate > 60, Glucose Level 101, Hemoglobin A1c 6.5H, Uric Acid 5.9, Calcium Level 8.5, Phosphorus Level 3.5, Magnesium Level 1.8, Total Bilirubin 1.1H, Direct Bilirubin 0.4H, Gamma Glutamyl Transpeptidase 155H, Aspartate Amino Transf (AST/SGOT) 23, Alanine Aminotransferase (ALT/SGPT) 18, Alkaline Phosphatase 81, Total Creatine Kinase 71, C-Reactive Protein, Quantitative 0.9, Pro-B-Type Natriuretic Peptide 2709H, Total Protein 6.9, Albumin 3.0L, Globulin 3.9, Albumin/Globulin Ratio 0.8L, Triglycerides Level 32, Cholesterol Level 107 , LDL Cholesterol 68, HDL Cholesterol 30L, Cholesterol/HDL Ratio 3.6, Thyroid Stimulating Hormone (TSH) 1.531 Height (Feet): 6 Height (Inches): 2.00 Weight (Pounds): 190 Respiratory/Chest: lungs clear Abdomen: non tender Tami Elias MD Oct 01, 2019 21:57
--- NOTE | 2019-10-02 00:30 | NUR ---
NURSE NOTES: Patient refusing midnight vitals. In stable condition with no signs of respiratory or cardiac distress. Will continue to monitor.
[2019-10-02 06:35] LABS: BASOPHILS % (AUTO) 3.9 % (0.0-2.0); EOSINOPHILS % (AUTO) 4.9 % (0.0-3.0); HEMATOCRIT 43.9 % (42.0-52.0); HEMOGLOBIN 13.6 G/DL (14.2-18.0); LYMPHOCYTES % (AUTO) 18.5 % (20.0-45.0); MEAN CORPUSCULAR VOLUME 90 FL (80-99); MONOCYTES % (AUTO) 14.2 % (1.0-10.0); NEUTROPHILS % (AUTO) 58.6 % (45.0-75.0); PLATELET COUNT 232 K/UL (150-450); RED BLOOD COUNT 4.89 M/UL (4.70-6.10); RED CELL DISTRIBUTION WIDTH 13.7 % (11.6-14.8); WHITE BLOOD COUNT 4.8 K/UL (4.8-10.8)
[2019-10-02 07:28] LABS: ANION GAP 7 mmol/L (5-15); BLOOD UREA NITROGEN 18 mg/dL (7-18); CALCIUM 8.4 MG/DL (8.5-10.1); CARBON DIOXIDE 26 MMOL/L (21-32); CHLORIDE 108 MMOL/L (98-107); CREATININE 1.5 MG/DL (0.55-1.30); SODIUM 141 MMOL/L (136-145)
--- NOTE | 2019-10-02 07:28 | NUR ---
HAND-OFF: Report given to BERNARDINO Rao. Pt stable.
--- NOTE | 2019-10-02 07:30 | NUR ---
NURSE NOTES: Received pt from BERNARDINO Haddad/Tianna. pt is awake and orient, pt has NC 2LMP, pt has intact iv access LAC 22G SL. Pt is on continues heart monitoring. Pt is eating breakfast by observation. no complain of pain at this moment. all needs attended, bed is locked and is in the lowest position, call light within easy reach. will continue to monitor.
[2019-10-02 07:33] LABS: ALANINE AMINOTRANSFERASE 24 U/L (12-78); ALBUMIN 2.8 G/DL (3.4-5.0); ALBUMIN/GLOBULIN RATIO 0.8 (1.0-2.7); ALKALINE PHOSPHATASE 71 U/L (46-116); ASPARTATE AMINO TRANSFERASE 26 U/L (15-37); PHOSPHORUS 3.2 MG/DL (2.5-4.9)
[2019-10-02 07:53] VITALS: BP 139/81
--- NOTE | 2019-10-02 08:16 | Pulmonology Progress Note ---
Subjective ROS Limited/Unobtainable: Yes Interval Events: None new Constitutional: Reports: no symptoms HEENT: Repors: no symptoms Respiratory: Reports: no symptoms Cardiovascular: Reports: no symptoms Allergies: Coded Allergies: No Known Allergies (Unverified , 12/12/17) Objective Last 24 Hour Vital Signs Date Time Temp Pulse Resp B/P (MAP) Pulse Ox O2 Delivery O2 Flow Rate FiO2 10/02/19 07:53 96.8 88 22 139/81 (100) 97 10/02/19 06:48 96 18 97 Room Air 21 10/02/19 04:00 85 10/02/19 04:00 83 10/01/19 23:33 82 10/01/19 21:23 96 138/102 10/01/19 21:00 Nasal Cannula 2.0 10/01/19 20:00 86 10/01/19 20:00 97.9 93 23 138/102 (114) 96 10/01/19 18:57 86 20 95 Room Air 2.0 28 10/01/19 18:08 134/86 10/01/19 18:08 134/86 10/01/19 16:00 85 10/01/19 16:00 96.8 74 18 134/86 (102) 98 10/01/19 12:00 79 10/01/19 11:53 97.9 87 20 124/84 (97) 100 10/01/19 11:24 124/84 10/01/19 09:00 Nasal Cannula 2.0 10/01/19 08:59 89 144/95 10/01/19 08:59 144/95 10/01/19 08:47 85 20 94 Room Air 2.0 28 Intake and Output 10/01/19 10/02/19 19:00 07:00 Intake Total 500 ml 100 ml Balance 500 ml 100 ml Intake Oral 500 ml 100 ml # Voids 1 General Appearance: no acute distress HEENT: normocephalic Respiratory: chest wall non-tender, lungs clear Cardiovascular: normal peripheral pulses, normal rate Abdomen: normal bowel sounds Microbiology Date/Time Source Procedure Growth Status 09/30/19 13:55 Nasopharynx SARS-CoV-2 RdRp Gene Assay - Final Complete Laboratory Tests 10/02/19 05:40: White Blood Count 4.8, Red Blood Count 4.89, Hemoglobin 13.6L, Hematocrit 43.9, Mean Corpuscular Volume 90, Mean Corpuscular Hemoglobin 27.9, Mean Corpuscular Hemoglobin Concent 31.1L, Red Cell Distribution Width 13.7, Platelet Count 232, Mean Platelet Volume 6.9, Neutrophils (%) (Auto) 58.6, Lymphocytes (%) (Auto) 18.5L, Monocytes (%) (Auto) 14.2H, Eosinophils (%) (Auto) 4.9H, Basophils (%) ( Auto) 3.9H, Sodium Level 141, Potassium Level 4.0, Chloride Level 108H, Carbon Dioxide Level 26, Anion Gap 7, Blood Urea Nitrogen 18, Creatinine 1.5H, Estimat Glomerular Filtration Rate 57.7, Glucose Level 100, Uric Acid 5.4, Calcium Level 8.4L, Phosphorus Level 3.2, Magnesium Level 1.9, Total Bilirubin 1.0, Aspartate Amino Transf (AST/SGOT) 26, Alanine Aminotransferase (ALT/SGPT) 24, Alkaline Phosphatase 71, C-Reactive Protein, Quantitative < 0.4, Pro-B-Type Natriuretic Peptide 2373H, Total Protein 6.3L, Albumin 2.8L, Globulin 3.5, Albumin/Globulin Ratio 0.8L Current Medications Medications (Trade) Dose Ordered Sig/Tasia Route PRN Reason Start Time Stop Time Status Last Admin Dose Admin Acetaminophen (Tylenol) 650 mg Q6H PRN ORAL Mild Pain (1-3)/Fever > 100.5 09/30/19 01:00 10/30/19 00:59 09/30/19 08:24 Albuterol/ Ipratropium (Albuterol/ Ipratropium) 3 ml Q6H PRN HHN Shortness of Breath 09/30/19 01:45 10/05/19 01:44 09/30/19 19:09 Aspirin (ASA) 81 mg DAILY ORAL 09/30/19 09:00 11/14/19 08:59 10/01/19 08:59 Carvedilol (Coreg) 6.25 mg EVERY 12 HOURS ORAL 10/01/19 09:00 10/31/19 08:59 10/01/19 21:23 Clonidine HCl (Catapres Tab) 0.1 mg Q4H PRN ORAL BP over 160 systolic 09/30/19 16:15 12/29/19 16:14 Docusate Sodium (Colace) 100 mg THREE TIMES A DAY ORAL 09/30/19 18:00 10/30/19 17:59 10/01/19 18:08 Furosemide (Lasix) 40 mg EVERY 12 HOURS IV 09/30/19 21:00 10/30/19 20:59 Isosorbide Dinitrate (Isordil) 10 mg BID ORAL 10/01/19 09:00 10/31/19 08:59 10/01/19 18:08 Lisinopril (ZestriL) 5 mg BID ORAL 10/02/19 09:00 10/31/19 10:44 Nitroglycerin (Ntg) 0.4 mg Q5MIN X 3 DOSES PRN SL CHEST PAIN 09/30/19 01:00 10/30/19 00:59 Pantoprazole (Protonix) 40 mg EVERY 12 HOURS ORAL 09/30/19 21:00 10/30/19 20:59 10/01/19 08:58 Tamsulosin HCl (Flomax) 0.4 mg BEDTIME ORAL 09/30/19 21:00 10/30/19 20:59 09/30/19 21:09 Assessment/Plan Assessment/Plan IMPRESSION: 1. Substance abuse. 2. Borderline troponin. 3. History of ischemic cardiomyopathy. DISCUSSION: Patient will need to be monitored given his current cocaine usage. I will follow as needed. Currently respiratory status is stable Apolonia Thomas Omar Syed MD Oct 02, 2019 08:16
[2019-10-02] MEDS: Docusate 100mg cap ORAL SCH ×3 (09:07→17:22)
[2019-10-02] MEDS: Carvedilol 6.25mg Tab ORAL SCH (09:07)
[2019-10-02] MEDS: Aspirin Baby 81mg ORAL SCH (09:07)
[2019-10-02] MEDS: Lisinopril 2.5mg tab ORAL SCH ×2 (09:08→17:21)
--- NOTE | 2019-10-02 09:12 | Cardiac Electrophysiology PN ---
Assessment/Plan Assessment/Plan 1. Exacerbation of congestive heart failure in this patient with polysubstance abuse with cocaine and PCP. Ruled out for myocardial infarction. Echocardiogram showed EF of only 20% . On Lisinopril 5 mg bid and Lasix 40 mg iv bid. Avoid beta-wilfredo for cocaine use. DC Isordil. DC Coreg 2. Status post LifeVest. Not wearing it. Says is in his car. Unfortunately, he is not a candidate for defibrillator implantation as he has active cocaine and polysubstance abuse. 3. Polysubstance abuse with cocaine and PCP. 4. Renal failure with creatinine of 1.6. Imprioved to 1.4. FU by Dr. Guzman DW Dr Guzman Subjective Subjective Diuresing better. No CP. Had NSVT Objective Last 24 Hour Vital Signs Date Time Temp Pulse Resp B/P (MAP) Pulse Ox O2 Delivery O2 Flow Rate FiO2 10/02/19 07:53 96.8 88 22 139/81 (100) 97 10/02/19 06:48 96 18 97 Room Air 21 10/02/19 04:00 85 10/02/19 04:00 83 10/01/19 23:33 82 10/01/19 21:23 96 138/102 10/01/19 21:00 Nasal Cannula 2.0 10/01/19 20:00 86 10/01/19 20:00 97.9 93 23 138/102 (114) 96 10/01/19 18:57 86 20 95 Room Air 2.0 28 10/01/19 18:08 134/86 10/01/19 18:08 134/86 10/01/19 16:00 85 10/01/19 16:00 96.8 74 18 134/86 (102) 98 10/01/19 12:00 79 10/01/19 11:53 97.9 87 20 124/84 (97) 100 10/01/19 11:24 124/84 Intake and Output 10/01/19 10/02/19 19:00 07:00 Intake Total 500 ml 100 ml Balance 500 ml 100 ml Intake Oral 500 ml 100 ml # Voids 1 Laboratory Tests Test 10/02/19 05:40 White Blood Count 4.8 K/UL (4.8-10.8) Red Blood Count 4.89 M/UL (4.70-6.10) Hemoglobin 13.6 G/DL (14.2-18.0) L Hematocrit 43.9 % (42.0-52.0) Mean Corpuscular Volume 90 FL (80-99) Mean Corpuscular Hemoglobin 27.9 PG (27.0-31.0) Mean Corpuscular Hemoglobin Concent 31.1 G/DL (32.0-36.0) L Red Cell Distribution Width 13.7 % (11.6-14.8) Platelet Count 232 K/UL (150-450) Mean Platelet Volume 6.9 FL (6.5-10.1) Neutrophils (%) (Auto) 58.6 % (45.0-75.0) Lymphocytes (%) (Auto) 18.5 % (20.0-45.0) L Monocytes (%) (Auto) 14.2 % (1.0-10.0) H Eosinophils (%) (Auto) 4.9 % (0.0-3.0) H Basophils (%) (Auto) 3.9 % (0.0-2.0) H Sodium Level 141 MMOL/L (136-145) Potassium Level 4.0 MMOL/L (3.5-5.1) Chloride Level 108 MMOL/L (98-107) H Carbon Dioxide Level 26 MMOL/L (21-32) Anion Gap 7 mmol/L (5-15) Blood Urea Nitrogen 18 mg/dL (7-18) Creatinine 1.5 MG/DL (0.55-1.30) H Estimat Glomerular Filtration Rate 57.7 mL/min (>60) Glucose Level 100 MG/DL (74-106) Uric Acid 5.4 MG/DL (2.6-7.2) Calcium Level 8.4 MG/DL (8.5-10.1) L Phosphorus Level 3.2 MG/DL (2.5-4.9) Magnesium Level 1.9 MG/DL (1.8-2.4) Total Bilirubin 1.0 MG/DL (0.2-1.0) Aspartate Amino Transf (AST/SGOT) 26 U/L (15-37) Alanine Aminotransferase (ALT/SGPT) 24 U/L (12-78) Alkaline Phosphatase 71 U/L (46-116) C-Reactive Protein, Quantitative < 0.4 mg/dL (0.00-0.90) Pro-B-Type Natriuretic Peptide 2373 pg/mL (0-125) H Total Protein 6.3 G/DL (6.4-8.2) L Albumin 2.8 G/DL (3.4-5.0) L Globulin 3.5 g/dL Albumin/Globulin Ratio 0.8 (1.0-2.7) L Microbiology Date/Time Source Procedure Growth Status 09/30/19 13:55 Nasopharynx SARS-CoV-2 RdRp Gene Assay - Final Complete Objective HEAD AND NECK: Mild JVD. LUNGS: Clear. CARDIOVASCULAR: Regular S1 and S2 with no gallop or murmur. ABDOMEN: Soft. EXTREMITIES: No pitting edema. Puma Jane MD Oct 02, 2019 09:12
--- NOTE | 2019-10-02 09:15 | Hematology/Onc Progress Note ---
Assessment/Plan Assessment/Plan # Leukopenia -- multiple etiologies could be related to underlying liver disease , medication-induced, infection versus viral syndrome, hx of prior drug use --> peripheral smear has been ordered and does not show significant abnormalities --> Medications have been reviewed --> Continue to monitor for improvement, trend cbc --> Hep panel and HIV order prn --> US abd ordered to r/o cirrhosis and hepatosplenomegaly --> reverse isolation if ANC is <2000 --> Give neupogen if ANC <1000 # Acute renal failure with chronic renal failure --> trend cr per renal recs --> diuresis as needed # Acute on chronic CHF, low ejection fraction cardiomyopathy --> per cards # Hypertension --> hdralazine and lasix prn # Diabetes mellitus # Polysubstance abuse # Lives in his car The timing of this note does not necessarily reflect the time of the patient was seen. Greatly appreciate consultation. Subjective Constitutional: Denies: no symptoms, chills, fever, malaise, weakness, other HEENT: Denies: no symptoms, eye pain, blurred vision, tearing, double vision, ear pain, ear discharge, nose pain, nose congestion, throat pain, throat swelling, mouth pain, mouth swelling, other Cardiovascular: Denies: no symptoms, chest pain, edema, irregular heart rate, lightheadedness, palpitations, syncope, other Respiratory: Denies: no symptoms, cough, shortness of breath, SOB with excertion, SOB at rest, sputum, wheezing, other Genitourinary: Denies: no symptoms, burning, discharge, frequency, flank pain, hematuria, incontinence, pain, urgency, other Neurologic/Psychiatric: Denies: no symptoms, anxiety, depressed, emotional problems, headache, numbness, paresthesia, pre-existing deficit, seizure, tingling, tremors, weakness, other Endocrine: Denies: no symptoms, excessive sweating, flushing, intolerance to cold, intolerance to heat, increased hunger, increased thirst, increased urine, unexplained weight gain, unexplained weight loss, other Allergies: Coded Allergies: No Known Allergies (Unverified , 12/12/17) Subjective 10/01 without cp, feeling better, no night sweats, wbc 4.8 Objective Objective Current Medications Medications (Trade) Dose Ordered Sig/Tasia Route PRN Reason Start Time Stop Time Status Last Admin Dose Admin Acetaminophen (Tylenol) 650 mg Q6H PRN ORAL Mild Pain (1-3)/Fever > 100.5 09/30/19 01:00 10/30/19 00:59 09/30/19 08:24 Albuterol/ Ipratropium (Albuterol/ Ipratropium) 3 ml Q6H PRN HHN Shortness of Breath 09/30/19 01:45 10/05/19 01:44 09/30/19 19:09 Aspirin (ASA) 81 mg DAILY ORAL 09/30/19 09:00 11/14/19 08:59 10/02/19 09:07 Carvedilol (Coreg) 6.25 mg EVERY 12 HOURS ORAL 10/01/19 09:00 10/31/19 08:59 10/02/19 09:07 Clonidine HCl (Catapres Tab) 0.1 mg Q4H PRN ORAL BP over 160 systolic 09/30/19 16:15 12/29/19 16:14 Docusate Sodium (Colace) 100 mg THREE TIMES A DAY ORAL 09/30/19 18:00 10/30/19 17:59 10/02/19 09:07 Furosemide (Lasix) 40 mg EVERY 12 HOURS IV 09/30/19 21:00 10/30/19 20:59 10/02/19 09:07 Isosorbide Dinitrate (Isordil) 10 mg BID ORAL 10/01/19 09:00 10/31/19 08:59 10/02/19 09:07 Lisinopril (ZestriL) 5 mg BID ORAL 10/02/19 09:00 10/31/19 10:44 10/02/19 09:08 Nitroglycerin (Ntg) 0.4 mg Q5MIN X 3 DOSES PRN SL CHEST PAIN 09/30/19 01:00 10/30/19 00:59 Pantoprazole (Protonix) 40 mg EVERY 12 HOURS ORAL 09/30/19 21:00 10/30/19 20:59 10/02/19 09:07 Tamsulosin HCl (Flomax) 0.4 mg BEDTIME ORAL 09/30/19 21:00 10/30/19 20:59 09/30/19 21:09 Last 24 Hour Vital Signs Date Time Temp Pulse Resp B/P (MAP) Pulse Ox O2 Delivery O2 Flow Rate FiO2 10/02/19 09:08 139/81 10/02/19 09:07 88 139/81 10/02/19 09:07 139/81 10/02/19 07:53 96.8 88 22 139/81 (100) 97 10/02/19 06:48 96 18 97 Room Air 21 10/02/19 04:00 85 10/02/19 04:00 83 10/01/19 23:33 82 10/01/19 21:23 96 138/102 10/01/19 21:00 Nasal Cannula 2.0 10/01/19 20:00 86 10/01/19 20:00 97.9 93 23 138/102 (114) 96 10/01/19 18:57 86 20 95 Room Air 2.0 10/01/19 18:08 134/86 10/01/19 18:08 134/86 10/01/19 16:00 85 10/01/19 16:00 96.8 74 18 134/86 (102) 98 10/01/19 12:00 79 10/01/19 11:53 97.9 87 20 124/84 (97) 100 10/01/19 11:24 124/84 10/01/19 09:00 Nasal Cannula 2.0 10/01/19 08:59 89 144/95 10/01/19 08:59 144/95 10/01/19 08:47 85 20 94 Room Air 2.0 28 10/01/19 08:00 91 10/01/19 08:00 97.5 89 20 144/95 (111) 98 10/01/19 05:46 146/102 10/01/19 04:00 85 10/01/19 04:00 97.2 85 19 146/102 (117) 99 10/01/19 00:18 148/119 10/01/19 00:00 96.4 87 22 148/119 (129) 97 10/01/19 00:00 87 09/30/19 20:27 Nasal Cannula 2.0 09/30/19 20:00 97.5 83 19 142/108 (119) 98 09/30/19 20:00 79 09/30/19 19:12 85 18 96 Room Air 21 82 18 95 09/30/19 19:11 82 18 95 Room Air 21 09/30/19 17:46 131/98 09/30/19 15:38 97.7 78 18 131/98 (109) 97 09/30/19 15:16 86 09/30/19 12:00 97.5 77 22 116/83 (94) 97 09/30/19 12:00 74 Intake and Output 10/01/19 10/02/19 19:00 07:00 Intake Total 500 ml 100 ml Balance 500 ml 100 ml Intake Oral 500 ml 100 ml # Voids 1 Labs Test 09/29/19 22:05 09/29/19 23:05 09/30/19 08:50 09/30/19 22:37 White Blood Count 3.8 K/UL (4.8-10.8) 3.6 K/UL (4.8-10.8) Red Blood Count 5.14 M/UL (4.70-6.10) 5.06 M/UL (4.70-6.10) Hemoglobin 14.6 G/DL (14.2-18.0) 14.2 G/DL (14.2-18.0) Hematocrit 46.7 % (42.0-52.0) 45.9 % (42.0-52.0) Mean Corpuscular Volume 91 FL (80-99) 91 FL (80-99) Mean Corpuscular Hemoglobin 28.3 PG (27.0-31.0) 28.0 PG (27.0-31.0) Mean Corpuscular Hemoglobin Concent 31.1 G/DL (32.0-36.0) 30.9 G/DL (32.0-36.0) Red Cell Distribution Width 14.6 % (11.6-14.8) 13.5 % (11.6-14.8) Platelet Count 227 K/UL (150-450) 212 K/UL (150-450) Mean Platelet Volume 7.2 FL (6.5-10.1) 7.1 FL (6.5-10.1) Neutrophils (%) (Auto) 59.0 % (45.0-75.0) 50.3 % (45.0-75.0) Lymphocytes (%) (Auto) 26.1 % (20.0-45.0) 32.5 % (20.0-45.0) Monocytes (%) (Auto) 9.7 % (1.0-10.0) 9.3 % (1.0-10.0) Eosinophils (%) (Auto) 3.5 % (0.0-3.0) 6.3 % (0.0-3.0) Basophils (%) (Auto) 1.7 % (0.0-2.0) 1.7 % (0.0-2.0) Prothrombin Time 14.2 SEC (9.30-11.50) Prothromb Time International Ratio 1.3 (0.9-1.1) Activated Partial Thromboplast Time 30 SEC (23-33) Sodium Level 139 MMOL/L (136-145) 141 MMOL/L (136-145) Potassium Level 4.0 MMOL/L (3.5-5.1) 3.6 MMOL/L (3.5-5.1) Chloride Level 105 MMOL/L (98-107) 105 MMOL/L (98-107) Carbon Dioxide Level 28 MMOL/L (21-32) 29 MMOL/L (21-32) Anion Gap 6 mmol/L (5-15) 7 mmol/L (5-15) Blood Urea Nitrogen 20 mg/dL (7-18) 17 mg/dL (7-18) Creatinine 1.8 MG/DL (0.55-1.30) 1.6 MG/DL (0.55-1.30) Estimat Glomerular Filtration Rate 46.8 mL/min (>60) 53.6 mL/min (>60) Glucose Level 112 MG/DL (74-106) 165 MG/DL (74-106) Calcium Level 9.0 MG/DL (8.5-10.1) 8.4 MG/DL (8.5-10.1) Total Bilirubin 1.0 MG/DL (0.2-1.0) 1.0 MG/DL (0.2-1.0) Aspartate Amino Transf (AST/SGOT) 21 U/L (15-37) 19 U/L (15-37) Alanine Aminotransferase (ALT/SGPT) 21 U/L (12-78) 21 U/L (12-78) Alkaline Phosphatase 83 U/L (46-116) 69 U/L (46-116) Troponin I 0.008 ng/mL (0.000-0.056) 0.006 ng/mL (0.000-0.056) Pro-B-Type Natriuretic Peptide 4703 pg/mL (0-125) Total Protein 7.6 G/DL (6.4-8.2) 6.4 G/DL (6.4-8.2) Albumin 3.3 G/DL (3.4-5.0) 2.9 G/DL (3.4-5.0) Globulin 4.3 g/dL 3.5 g/dL Albumin/Globulin Ratio 0.8 (1.0-2.7) 0.8 (1.0-2.7) Urine Opiates Screen Negative (NEGATIVE) Urine Barbiturates Screen Negative (NEGATIVE) Phencyclidine (PCP) Screen Positive (NEGATIVE) Urine Amphetamines Screen Negative (NEGATIVE) Urine Benzodiazepines Screen Negative (NEGATIVE) Urine Cocaine Screen Positive (NEGATIVE) Urine Marijuana (THC) Screen Negative (NEGATIVE) Urine Color Yellow Urine Appearance Clear Urine pH 5 (4.5-8.0) Urine Specific [place] 1.025 (1.005-1.035) Urine Protein 2+ (NEGATIVE) Urine Glucose (UA) Negative (NEGATIVE) Urine Ketones Negative (NEGATIVE) Urine Blood Negative (NEGATIVE) Urine Nitrite Negative (NEGATIVE) Urine Bilirubin Negative (NEGATIVE) Urine Urobilinogen 8 MG/DL (0.0-1.0) Urine Leukocyte Esterase Negative (NEGATIVE) Urine RBC 0-2 /HPF (0 - 0) Urine WBC 0-2 /HPF (0 - 0) Urine Squamous Epithelial Cells None /LPF (NONE/OCC) Urine Bacteria Few /HPF (NONE) Test 10/01/19 05:50 10/02/19 05:40 Sodium Level 139 MMOL/L (136-145) 141 MMOL/L (136-145) Potassium Level 3.9 MMOL/L (3.5-5.1) 4.0 MMOL/L (3.5-5.1) Chloride Level 104 MMOL/L (98-107) 108 MMOL/L (98-107) Carbon Dioxide Level 31 MMOL/L (21-32) 26 MMOL/L (21-32) Anion Gap 4 mmol/L (5-15) 7 mmol/L (5-15) Blood Urea Nitrogen 19 mg/dL (7-18) 18 mg/dL (7-18) Creatinine 1.4 MG/DL (0.55-1.30) 1.5 MG/DL (0.55-1.30) Estimat Glomerular Filtration Rate > 60 mL/min (>60) 57.7 mL/min (>60) Glucose Level 101 MG/DL (74-106) 100 MG/DL (74-106) Hemoglobin A1c 6.5 % (4.3-6.0) Uric Acid 5.9 MG/DL (2.6-7.2) 5.4 MG/DL (2.6-7.2) Calcium Level 8.5 MG/DL (8.5-10.1) 8.4 MG/DL (8.5-10.1) Phosphorus Level 3.5 MG/DL (2.5-4.9) 3.2 MG/DL (2.5-4.9) Magnesium Level 1.8 MG/DL (1.8-2.4) 1.9 MG/DL (1.8-2.4) Total Bilirubin 1.1 MG/DL (0.2-1.0) 1.0 MG/DL (0.2-1.0) Direct Bilirubin 0.4 MG/DL (0.0-0.3) Gamma Glutamyl Transpeptidase 155 U/L (5-85) Aspartate Amino Transf (AST/SGOT) 23 U/L (15-37) 26 U/L (15-37) Alanine Aminotransferase (ALT/SGPT) 18 U/L (12-78) 24 U/L (12-78) Alkaline Phosphatase 81 U/L (46-116) 71 U/L (46-116) Total Creatine Kinase 71 U/L (26-308) C-Reactive Protein, Quantitative 0.9 mg/dL (0.00-0.90) < 0.4 mg/dL (0.00-0.90) Pro-B-Type Natriuretic Peptide 2709 pg/mL (0-125) 2373 pg/mL (0-125) Total Protein 6.9 G/DL (6.4-8.2) 6.3 G/DL (6.4-8.2) Albumin 3.0 G/DL (3.4-5.0) 2.8 G/DL (3.4-5.0) Globulin 3.9 g/dL 3.5 g/dL Albumin/Globulin Ratio 0.8 (1.0-2.7) 0.8 (1.0-2.7) Triglycerides Level 32 MG/DL (30-150) Cholesterol Level 107 MG/DL (< 200) LDL Cholesterol 68 mg/dL (<100) HDL Cholesterol 30 MG/DL (40-60) Cholesterol/HDL Ratio 3.6 (3.3-4.4) Thyroid Stimulating Hormone (TSH) 1.531 uiU/mL (0.358-3.740) White Blood Count 4.8 K/UL (4.8-10.8) Red Blood Count 4.89 M/UL (4.70-6.10) Hemoglobin 13.6 G/DL (14.2-18.0) Hematocrit 43.9 % (42.0-52.0) Mean Corpuscular Volume 90 FL (80-99) Mean Corpuscular Hemoglobin 27.9 PG (27.0-31.0) Mean Corpuscular Hemoglobin Concent 31.1 G/DL (32.0-36.0) Red Cell Distribution Width 13.7 % (11.6-14.8) Platelet Count 232 K/UL (150-450) Mean Platelet Volume 6.9 FL (6.5-10.1) Neutrophils (%) (Auto) 58.6 % (45.0-75.0) Lymphocytes (%) (Auto) 18.5 % (20.0-45.0) Monocytes (%) (Auto) 14.2 % (1.0-10.0) Eosinophils (%) (Auto) 4.9 % (0.0-3.0) Basophils (%) (Auto) 3.9 % (0.0-2.0) Height (Feet): 6 Height (Inches): 2.00 Weight (Pounds): 190 Objective Physical Exam: Vitals: reviewed General: NAD HEENT: nc, at Neck: supple Chest: clear breath sounds bilaterally Cardiovascular: RRR, no s3, s4 Abdomen: soft, nontender, nd Extremities: no cce, normal range of motion, 1-2++ edema lower ext, chronic skin changes Neuro: alert and oriented Van Posadas MD Oct 02, 2019 09:15
--- NOTE | 2019-10-02 09:24 | Nephrology Progress Note ---
Assessment/Plan Problem List: (1) MEGHAN (acute kidney injury) (2) Cardiomyopathy (3) Renal failure (ARF), acute on chronic (4) CHF exacerbation (5) DMII (diabetes mellitus, type 2) (6) Substance abuse or dependence Assessment Acute renal failure Underlying chronic renal failure Acute on chronic CHF, low ejection fraction cardiomyopathy Hypertension Diabetes mellitus Polysubstance abuse Lives in his car Plan October 01: We will discontinue Coreg due to cocaine abuse. Increase BALTA inhibitors , lisinopril to 5 mg twice a day. Increase Lasix to 60 mg IV twice a day. Continue to monitor renal parameters and monitor CHF symptoms Renal parameters are improved, will start BALTA inhibitors. Continue to diurese. Optimize cardiac status Keep the blood pressure blood sugar in check Monitor renal parameters Avoid nephrotoxic's Per orders Subjective ROS Limited/Unobtainable: No Constitutional: Reports: malaise, weakness, other - Continues to complain of shortness of breath Objective Objective Last 24 Hour Vital Signs Date Time Temp Pulse Resp B/P (MAP) Pulse Ox O2 Delivery O2 Flow Rate FiO2 10/02/19 09:08 139/81 10/02/19 09:07 88 139/81 10/02/19 09:07 139/81 10/02/19 07:53 96.8 88 22 139/81 (100) 97 10/02/19 06:48 96 18 97 Room Air 21 10/02/19 04:00 85 10/02/19 04:00 83 10/01/19 23:33 82 10/01/19 21:23 96 138/102 10/01/19 21:00 Nasal Cannula 2.0 10/01/19 20:00 86 10/01/19 20:00 97.9 93 23 138/102 (114) 96 10/01/19 18:57 86 20 95 Room Air 2.0 28 10/01/19 18:08 134/86 10/01/19 18:08 134/86 10/01/19 16:00 85 10/01/19 16:00 96.8 74 18 134/86 (102) 98 10/01/19 12:00 79 10/01/19 11:53 97.9 87 20 124/84 (97) 100 10/01/19 11:24 124/84 Intake and Output 10/01/19 10/02/19 19:00 07:00 Intake Total 500 ml 100 ml Balance 500 ml 100 ml Intake Oral 500 ml 100 ml # Voids 1 Current Medications Medications (Trade) Dose Ordered Sig/Tasia Route PRN Reason Start Time Stop Time Status Last Admin Dose Admin Acetaminophen (Tylenol) 650 mg Q6H PRN ORAL Mild Pain (1-3)/Fever > 100.5 09/30/19 01:00 10/30/19 00:59 09/30/19 08:24 Albuterol/ Ipratropium (Albuterol/ Ipratropium) 3 ml Q6H PRN HHN Shortness of Breath 09/30/19 01:45 10/05/19 01:44 09/30/19 19:09 Aspirin (ASA) 81 mg DAILY ORAL 09/30/19 09:00 11/14/19 08:59 10/02/19 09:07 Carvedilol (Coreg) 6.25 mg EVERY 12 HOURS ORAL 10/01/19 09:00 10/31/19 08:59 10/02/19 09:07 Clonidine HCl (Catapres Tab) 0.1 mg Q4H PRN ORAL BP over 160 systolic 09/30/19 16:15 12/29/19 16:14 Docusate Sodium (Colace) 100 mg THREE TIMES A DAY ORAL 09/30/19 18:00 10/30/19 17:59 10/02/19 09:07 Furosemide (Lasix) 40 mg EVERY 12 HOURS IV 09/30/19 21:00 10/30/19 20:59 10/02/19 09:07 Isosorbide Dinitrate (Isordil) 10 mg BID ORAL 10/01/19 09:00 10/31/19 08:59 10/02/19 09:07 Lisinopril (ZestriL) 5 mg BID ORAL 10/02/19 09:00 10/31/19 10:44 10/02/19 09:08 Nitroglycerin (Ntg) 0.4 mg Q5MIN X 3 DOSES PRN SL CHEST PAIN 09/30/19 01:00 10/30/19 00:59 Pantoprazole (Protonix) 40 mg EVERY 12 HOURS ORAL 09/30/19 21:00 10/30/19 20:59 10/02/19 09:07 Tamsulosin HCl (Flomax) 0.4 mg BEDTIME ORAL 09/30/19 21:00 10/30/19 20:59 09/30/19 21:09 Laboratory Tests 10/02/19 05:40: White Blood Count 4.8, Red Blood Count 4.89, Hemoglobin 13.6L, Hematocrit 43.9, Mean Corpuscular Volume 90, Mean Corpuscular Hemoglobin 27.9, Mean Corpuscular Hemoglobin Concent 31.1L, Red Cell Distribution Width 13.7, Platelet Count 232, Mean Platelet Volume 6.9, Neutrophils (%) (Auto) 58.6, Lymphocytes (%) (Auto) 18.5L, Monocytes (%) (Auto) 14.2H, Eosinophils (%) (Auto) 4.9H, Basophils (%) ( Auto) 3.9H, Sodium Level 141, Potassium Level 4.0, Chloride Level 108H, Carbon Dioxide Level 26, Anion Gap 7, Blood Urea Nitrogen 18, Creatinine 1.5H, Estimat Glomerular Filtration Rate 57.7, Glucose Level 100, Uric Acid 5.4, Calcium Level 8.4L, Phosphorus Level 3.2, Magnesium Level 1.9, Total Bilirubin 1.0, Aspartate Amino Transf (AST/SGOT) 26, Alanine Aminotransferase (ALT/SGPT) 24, Alkaline Phosphatase 71, C-Reactive Protein, Quantitative < 0.4, Pro-B-Type Natriuretic Peptide 2373H, Total Protein 6.3L, Albumin 2.8L, Globulin 3.5, Albumin/Globulin Ratio 0.8L Height (Feet): 6 Height (Inches): 2.00 Weight (Pounds): 190 General Appearance: mild distress Cardiovascular: tachycardia Respiratory/Chest: decreased breath sounds Abdomen: distended Luis Enrique Guzman MD Oct 02, 2019 09:24
--- NOTE | 2019-10-02 10:02 | NUR ---
CASE MANAGEMENT:REVIEW 10/02/19 SI: AC/CHR RENAL FAILURE CHF EXACERBATION. CARDIOMYOPATHY. (+) COCAINE AND PCP 96.8 88 22 139/81 97% ON RA CR+1.5 IS: IV LASIX 60MG Q12HRS LISINOPRIL 5 MG PO BID ISORDIL PO BID PROTONIX PO Q12 FLOMAX PO QHS COLACE PO TID ASA PO QD : TELEMETRY STATUS DCP:
--- NOTE | 2019-10-02 10:50 | Infectious Diseases Prog Note ---
Assessment/Plan Assessment/Plan IMPRESSION: Dyspnea and shortness of breath. COVID-19 was negative Systolic CHF with ejection fraction of 20% on LifeVest. Acute on chronic renal failure, cocaine abuse, phencyclidine abuse. Hypertension. Homeless. RECOMMENDATION: Observe off antibiotic. Subjective ROS Limited/Unobtainable: No Constitutional: Reports: no symptoms Respiratory: Reports: no symptoms Cardiovascular: Reports: no symptoms Gastrointestinal/Abdominal: Reports: no symptoms Genitourinary: Reports: no symptoms Allergies: Coded Allergies: No Known Allergies (Unverified , 12/12/17) Objective Last 24 Hour Vital Signs Date Time Temp Pulse Resp B/P (MAP) Pulse Ox O2 Delivery O2 Flow Rate FiO2 10/02/19 09:08 139/81 10/02/19 09:07 88 139/81 10/02/19 09:07 139/81 10/02/19 09:00 Nasal Cannula 2.0 10/02/19 07:53 96.8 88 22 139/81 (100) 97 10/02/19 07:42 79 10/02/19 06:48 96 18 97 Room Air 21 10/02/19 04:00 85 10/02/19 04:00 83 10/01/19 23:33 82 10/01/19 21:23 96 138/102 10/01/19 21:00 Nasal Cannula 2.0 10/01/19 20:00 86 10/01/19 20:00 97.9 93 23 138/102 (114) 96 10/01/19 18:57 86 20 95 Room Air 2.0 28 10/01/19 18:08 134/86 10/01/19 18:08 134/86 10/01/19 16:00 85 10/01/19 16:00 96.8 74 18 134/86 (102) 98 10/01/19 12:00 79 10/01/19 11:53 97.9 87 20 124/84 (97) 100 10/01/19 11:24 124/84 Height (Feet): 6 Height (Inches): 2.00 Weight (Pounds): 190 General Appearance: no acute distress HEENT: mucous membranes moist Respiratory/Chest: lungs clear Cardiovascular: normal rate Abdomen: soft, non tender Extremities: no edema Neurologic/Psychiatric: alert, oriented x 3, responsive Microbiology Date/Time Source Procedure Growth Status 09/30/19 13:55 Nasopharynx SARS-CoV-2 RdRp Gene Assay - Final Complete Laboratory Tests Test 10/02/19 05:40 White Blood Count 4.8 K/UL (4.8-10.8) Red Blood Count 4.89 M/UL (4.70-6.10) Hemoglobin 13.6 G/DL (14.2-18.0) L Hematocrit 43.9 % (42.0-52.0) Mean Corpuscular Volume 90 FL (80-99) Mean Corpuscular Hemoglobin 27.9 PG (27.0-31.0) Mean Corpuscular Hemoglobin Concent 31.1 G/DL (32.0-36.0) L Red Cell Distribution Width 13.7 % (11.6-14.8) Platelet Count 232 K/UL (150-450) Mean Platelet Volume 6.9 FL (6.5-10.1) Neutrophils (%) (Auto) 58.6 % (45.0-75.0) Lymphocytes (%) (Auto) 18.5 % (20.0-45.0) L Monocytes (%) (Auto) 14.2 % (1.0-10.0) H Eosinophils (%) (Auto) 4.9 % (0.0-3.0) H Basophils (%) (Auto) 3.9 % (0.0-2.0) H Sodium Level 141 MMOL/L (136-145) Potassium Level 4.0 MMOL/L (3.5-5.1) Chloride Level 108 MMOL/L (98-107) H Carbon Dioxide Level 26 MMOL/L (21-32) Anion Gap 7 mmol/L (5-15) Blood Urea Nitrogen 18 mg/dL (7-18) Creatinine 1.5 MG/DL (0.55-1.30) H Estimat Glomerular Filtration Rate 57.7 mL/min (>60) Glucose Level 100 MG/DL (74-106) Uric Acid 5.4 MG/DL (2.6-7.2) Calcium Level 8.4 MG/DL (8.5-10.1) L Phosphorus Level 3.2 MG/DL (2.5-4.9) Magnesium Level 1.9 MG/DL (1.8-2.4) Total Bilirubin 1.0 MG/DL (0.2-1.0) Aspartate Amino Transf (AST/SGOT) 26 U/L (15-37) Alanine Aminotransferase (ALT/SGPT) 24 U/L (12-78) Alkaline Phosphatase 71 U/L (46-116) C-Reactive Protein, Quantitative < 0.4 mg/dL (0.00-0.90) Pro-B-Type Natriuretic Peptide 2373 pg/mL (0-125) H Total Protein 6.3 G/DL (6.4-8.2) L Albumin 2.8 G/DL (3.4-5.0) L Globulin 3.5 g/dL Albumin/Globulin Ratio 0.8 (1.0-2.7) L Current Medications Medications (Trade) Dose Ordered Sig/Tasia Route PRN Reason Start Time Stop Time Status Last Admin Dose Admin Acetaminophen (Tylenol) 650 mg Q6H PRN ORAL Mild Pain (1-3)/Fever > 100.5 09/30/19 01:00 10/30/19 00:59 09/30/19 08:24 Albuterol/ Ipratropium (Albuterol/ Ipratropium) 3 ml Q6H PRN HHN Shortness of Breath 09/30/19 01:45 10/05/19 01:44 09/30/19 19:09 Aspirin (ASA) 81 mg DAILY ORAL 09/30/19 09:00 11/14/19 08:59 10/02/19 09:07 Clonidine HCl (Catapres Tab) 0.1 mg Q4H PRN ORAL BP over 160 systolic 09/30/19 16:15 12/29/19 16:14 Docusate Sodium (Colace) 100 mg THREE TIMES A DAY ORAL 09/30/19 18:00 10/30/19 17:59 10/02/19 09:07 Furosemide (Lasix) 60 mg EVERY 12 HOURS IV 10/02/19 21:00 10/30/19 20:59 Isosorbide Dinitrate (Isordil) 10 mg BID ORAL 10/01/19 09:00 10/31/19 08:59 10/02/19 09:07 Lisinopril (ZestriL) 5 mg BID ORAL 10/02/19 09:00 10/31/19 10:44 10/02/19 09:08 Nitroglycerin (Ntg) 0.4 mg Q5MIN X 3 DOSES PRN SL CHEST PAIN 09/30/19 01:00 10/30/19 00:59 Pantoprazole (Protonix) 40 mg EVERY 12 HOURS ORAL 09/30/19 21:00 10/30/19 20:59 10/02/19 09:07 Tamsulosin HCl (Flomax) 0.4 mg BEDTIME ORAL 09/30/19 21:00 10/30/19 20:59 09/30/19 21:09 Rajesh Rasmussen MD Oct 02, 2019 10:49
[2019-10-02 11:52] VITALS: BP 124/86
[2019-10-02 16:00] VITALS: BP 131/93
--- NOTE | 2019-10-02 19:18 | NUR ---
NURSE NOTES: Patient received from Jalen RN. Patient in stable condition. Sleeping and comfortable in bed at the moment. Patient refusing SCDs but is ambulatory. Alert and oriented x4. On Nasal Cannula @ 2L/min saturating well. IV site patent and intact @ Left AC 22G saline locked. Call light and bedside table within reach. Bed in lowest position and locked. Will continue plan of care.
--- NOTE | 2019-10-02 19:29 | NUR ---
HAND-OFF: Report given to BERNARDINO Ford. Pt is awake and stable, no stress noted. Endorsed plan of care.
[2019-10-02 20:00] VITALS: BP 117/74
[2019-10-02] MEDS: Tamsulosin 0.4mg cap ORAL SCH (20:17)
--- NOTE | 2019-10-02 21:57 | General Progress Note ---
Assessment/Plan Problem List: (1) Cardiomyopathy ICD Codes: I42.9 - Cardiomyopathy, unspecified SNOMED: 47869967 (2) Leukopenia ICD Codes: D72.819 - Decreased white blood cell count, unspecified SNOMED: 04621579, 400435435 (3) Chest pain ICD Codes: R07.9 - Chest pain, unspecified SNOMED: 80730342 (4) CHF exacerbation ICD Codes: I50.9 - Heart failure, unspecified SNOMED: 588846929, [id number] (5) MEGHAN (acute kidney injury) ICD Codes: N17.9 - Acute kidney failure, unspecified SNOMED: 9436063, 82566316 (6) Renal failure (ARF), acute on chronic ICD Codes: N17.9 - Acute kidney failure, unspecified; N18.9 - Chronic kidney disease, unspecified SNOMED: 321633226 (7) DMII (diabetes mellitus, type 2) ICD Codes: E11.9 - Type 2 diabetes mellitus without complications SNOMED: 23398202 (8) Substance abuse or dependence SNOMED: 11949806 Status: progressing Assessment/Plan: no cp weak no sob reviewed chart and labs and meds Subjective ROS Limited/Unobtainable: Yes Allergies: Coded Allergies: No Known Allergies (Unverified , 12/12/17) Objective Last 24 Hour Vital Signs Date Time Temp Pulse Resp B/P (MAP) Pulse Ox O2 Delivery O2 Flow Rate FiO2 10/02/19 19:02 92 18 96 Room Air 21 10/02/19 17:22 131/93 10/02/19 17:21 131/93 10/02/19 16:01 71 10/02/19 16:00 96.8 76 20 131/93 (106) 97 10/02/19 11:52 97.5 70 18 124/86 (99) 96 10/02/19 11:33 71 10/02/19 09:08 139/81 10/02/19 09:07 88 139/81 10/02/19 09:07 139/81 10/02/19 09:00 Nasal Cannula 2.0 10/02/19 07:53 96.8 88 22 139/81 (100) 97 10/02/19 07:42 79 10/02/19 06:48 96 18 97 Room Air 21 10/02/19 04:00 85 10/02/19 04:00 83 10/01/19 23:33 82 Intake and Output 10/01/19 10/02/19 19:00 07:00 Intake Total 500 ml 100 ml Balance 500 ml 100 ml Intake Oral 500 ml 100 ml # Voids 1 Laboratory Tests 10/02/19 05:40: White Blood Count 4.8, Red Blood Count 4.89, Hemoglobin 13.6L, Hematocrit 43.9, Mean Corpuscular Volume 90, Mean Corpuscular Hemoglobin 27.9, Mean Corpuscular Hemoglobin Concent 31.1L, Red Cell Distribution Width 13.7, Platelet Count 232, Mean Platelet Volume 6.9, Neutrophils (%) (Auto) 58.6, Lymphocytes (%) (Auto) 18.5L, Monocytes (%) (Auto) 14.2H, Eosinophils (%) (Auto) 4.9H, Basophils (%) ( Auto) 3.9H, Sodium Level 141, Potassium Level 4.0, Chloride Level 108H, Carbon Dioxide Level 26, Anion Gap 7, Blood Urea Nitrogen 18, Creatinine 1.5H, Estimat Glomerular Filtration Rate 57.7, Glucose Level 100, Uric Acid 5.4, Calcium Level 8.4L, Phosphorus Level 3.2, Magnesium Level 1.9, Total Bilirubin 1.0, Aspartate Amino Transf (AST/SGOT) 26, Alanine Aminotransferase (ALT/SGPT) 24, Alkaline Phosphatase 71, C-Reactive Protein, Quantitative < 0.4, Pro-B-Type Natriuretic Peptide 2373H, Total Protein 6.3L, Albumin 2.8L, Globulin 3.5, Albumin/Globulin Ratio 0.8L Height (Feet): 6 Height (Inches): 2.00 Weight (Pounds): 190 Tami Elias MD Oct 02, 2019 21:57
[2019-10-03] VITALS: BP 122/78
[2019-10-03 04:00] VITALS: BP 120/68
[2019-10-03 07:08] LABS: BASOPHILS % (AUTO) 1.9 % (0.0-2.0); EOSINOPHILS % (AUTO) 4.5 % (0.0-3.0); HEMATOCRIT 45.2 % (42.0-52.0); HEMOGLOBIN 13.9 G/DL (14.2-18.0); LYMPHOCYTES % (AUTO) 25.8 % (20.0-45.0); MEAN CORPUSCULAR VOLUME 89 FL (80-99); MONOCYTES % (AUTO) 9.3 % (1.0-10.0); NEUTROPHILS % (AUTO) 58.5 % (45.0-75.0); PLATELET COUNT 238 K/UL (150-450); RED BLOOD COUNT 5.06 M/UL (4.70-6.10); WHITE BLOOD COUNT 4.9 K/UL (4.8-10.8)
--- NOTE | 2019-10-03 07:36 | NUR ---
HAND-OFF: Report given to Huong LEBRON. Patient in stable condition. Endorsed plan of care
--- NOTE | 2019-10-03 07:40 | NUR ---
77 Addendum: 10/03/19 at 0743 by Gertrude Stanley RN Please Disregard
--- NOTE | 2019-10-03 07:40 | NUR ---
NURSE NOTES: Received pt from BERNARDINO Li. pt is awake in bed resting. pt has NC 2LPM,. Pt is on continues heart monitoring. Pt has finished breakfast tray at bedside and is requesting additional food. no complaints of chest pain at this time. bed is locked and in lowest position, call light within easy reach.
[2019-10-03 07:57] LABS: ANION GAP 8 mmol/L (5-15); BLOOD UREA NITROGEN 27 mg/dL (7-18); CALCIUM 9.2 MG/DL (8.5-10.1); CARBON DIOXIDE 29 MMOL/L (21-32); CHLORIDE 104 MMOL/L (98-107); CREATININE 1.5 MG/DL (0.55-1.30); POTASSIUM 3.8 MMOL/L (3.5-5.1); SODIUM 141 MMOL/L (136-145)
[2019-10-03 08:00] VITALS: BP 126/78
[2019-10-03] MEDS: Lisinopril 2.5mg tab ORAL SCH (08:55)
[2019-10-03] MEDS: Docusate 100mg cap ORAL SCH ×2 (08:56→12:44)
[2019-10-03] MEDS: Aspirin Baby 81mg ORAL SCH (08:56)
--- NOTE | 2019-10-03 10:03 | NUR ---
CASE MANAGEMENT:REVIEW 10/03/2019 SI: AC/CHR RENAL FAILURE CHF EXACERBATION. CARDIOMYOPATHY. (+) COCAINE AND PCP T 97.5 HR 74 RR 20 B/P 126/78 SATS 98% ON 2L/NC LABS: BUN 27 CR 1.5 IS: IV LASIX 60MG Q12HRS LISINOPRIL 5 MG PO BID ISORDIL PO BID PROTONIX PO Q12 FLOMAX PO QHS COLACE PO TID ASA PO QD : TELEMETRY STATUS DCP: "HOME"
--- NOTE | 2019-10-03 11:27 | Pulmonology Progress Note ---
Subjective ROS Limited/Unobtainable: Yes Interval Events: None new Constitutional: Reports: no symptoms HEENT: Repors: no symptoms Respiratory: Reports: no symptoms Cardiovascular: Reports: no symptoms Gastrointestinal/Abdominal: Reports: no symptoms Allergies: Coded Allergies: No Known Allergies (Unverified , 12/12/17) Objective Last 24 Hour Vital Signs Date Time Temp Pulse Resp B/P (MAP) Pulse Ox O2 Delivery O2 Flow Rate FiO2 10/03/19 09:00 Nasal Cannula 2.0 10/03/19 08:56 126/78 10/03/19 08:55 126/78 10/03/19 08:00 78 10/03/19 08:00 97.5 74 20 126/78 (94) 98 10/03/19 04:00 70 10/03/19 04:00 97.7 87 19 120/68 (85) 98 10/03/19 00:00 73 10/03/19 00:00 97.4 78 19 122/78 (93) 99 10/02/19 21:00 Nasal Cannula 2.0 10/02/19 20:00 97.9 88 19 117/74 (88) 100 10/02/19 20:00 75 10/02/19 19:02 92 18 96 Room Air 21 10/02/19 17:22 131/93 10/02/19 17:21 131/93 10/02/19 16:01 71 10/02/19 16:00 96.8 76 20 131/93 (106) 97 10/02/19 11:52 97.5 70 18 124/86 (99) 96 10/02/19 11:33 71 Intake and Output 10/02/19 10/03/19 19:00 07:00 Intake Total 140 ml 140 ml Output Total 1200 ml 1200 ml Balance -1060 ml -1060 ml Intake Oral 140 ml 140 ml Output Urine Total 1200 ml 1200 ml # Voids 3 3 # Bowel Movements 1 General Appearance: no acute distress HEENT: normocephalic Respiratory: chest wall non-tender, lungs clear Cardiovascular: normal peripheral pulses, normal rate Abdomen: normal bowel sounds Microbiology Date/Time Source Procedure Growth Status 09/30/19 13:55 Nasopharynx SARS-CoV-2 RdRp Gene Assay - Final Complete Laboratory Tests 10/03/19 06:35: White Blood Count 4.9, Red Blood Count 5.06, Hemoglobin 13.9L, Hematocrit 45.2, Mean Corpuscular Volume 89, Mean Corpuscular Hemoglobin 27.5, Mean Corpuscular Hemoglobin Concent 30.8L, Red Cell Distribution Width 14.0, Platelet Count 238, Mean Platelet Volume 7.3, Neutrophils (%) (Auto) 58.5, Lymphocytes (%) (Auto) 25.8, Monocytes (%) (Auto) 9.3, Eosinophils (%) (Auto) 4.5H, Basophils (%) (Auto ) 1.9, Sodium Level 141, Potassium Level 3.8, Chloride Level 104, Carbon Dioxide Level 29, Anion Gap 8, Blood Urea Nitrogen 27H, Creatinine 1.5H, Estimat Glomerular Filtration Rate 57.7, Glucose Level 102, Calcium Level 9.2 Current Medications Medications (Trade) Dose Ordered Sig/Tasia Route PRN Reason Start Time Stop Time Status Last Admin Dose Admin Acetaminophen (Tylenol) 650 mg Q6H PRN ORAL Mild Pain (1-3)/Fever > 100.5 09/30/19 01:00 10/30/19 00:59 09/30/19 08:24 Albuterol/ Ipratropium (Albuterol/ Ipratropium) 3 ml Q6H PRN HHN Shortness of Breath 09/30/19 01:45 10/05/19 01:44 09/30/19 19:09 Aspirin (ASA) 81 mg DAILY ORAL 09/30/19 09:00 11/14/19 08:59 10/03/19 08:56 Clonidine HCl (Catapres Tab) 0.1 mg Q4H PRN ORAL BP over 160 systolic 09/30/19 16:15 12/29/19 16:14 Docusate Sodium (Colace) 100 mg THREE TIMES A DAY ORAL 09/30/19 18:00 10/30/19 17:59 10/03/19 08:56 Furosemide (Lasix) 60 mg EVERY 12 HOURS IV 10/02/19 21:00 10/30/19 20:59 10/03/19 08:56 Isosorbide Dinitrate (Isordil) 10 mg BID ORAL 10/01/19 09:00 10/31/19 08:59 10/03/19 08:56 Lisinopril (ZestriL) 5 mg BID ORAL 10/02/19 09:00 10/31/19 10:44 10/03/19 08:55 Nitroglycerin (Ntg) 0.4 mg Q5MIN X 3 DOSES PRN SL CHEST PAIN 09/30/19 01:00 10/30/19 00:59 Pantoprazole (Protonix) 40 mg EVERY 12 HOURS ORAL 09/30/19 21:00 10/30/19 20:59 10/03/19 08:56 Tamsulosin HCl (Flomax) 0.4 mg BEDTIME ORAL 09/30/19 21:00 10/30/19 20:59 10/02/19 20:17 Assessment/Plan Assessment/Plan IMPRESSION: 1. Substance abuse. 2. Borderline troponin. 3. History of ischemic cardiomyopathy. DISCUSSION: DC planning I will follow as needed. Currently respiratory status is stable Apolonia Tohmas Omar Syed MD Oct 03, 2019 11:27
--- NOTE | 2019-10-03 11:30 | NUR ---
NURSE NOTES: Per Dr. Elias (phone call at 10am), DC upon clearance from Dr. Guzman and Dr. Jane. Dr. Jane contacted at 10:15 am (still waiting for response). Dr. Guzman notified at 11:30, says he will get back to me in 30 minutes after reviewing labs.
[2019-10-03 11:41] VITALS: BP 114/76
--- NOTE | 2019-10-03 11:55 | Nephrology Progress Note ---
Assessment/Plan Problem List: (1) MEGHAN (acute kidney injury) (2) Cardiomyopathy (3) Renal failure (ARF), acute on chronic (4) CHF exacerbation (5) DMII (diabetes mellitus, type 2) (6) Substance abuse or dependence Assessment Acute renal failure Underlying chronic renal failure Acute on chronic CHF, low ejection fraction cardiomyopathy Hypertension Diabetes mellitus Polysubstance abuse Lives in his car Plan October 02: We will change IV Lasix to p.o. Lasix. 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 October 01: We will discontinue Coreg due to cocaine abuse. Increase BALTA inhibitors , lisinopril to 5 mg twice a day. Increase Lasix to 60 mg IV twice a day. Continue to monitor renal parameters and monitor CHF symptoms Renal parameters are improved, will start BALTA inhibitors. Continue to diurese. Optimize cardiac status Keep the blood pressure blood sugar in check Monitor renal parameters Avoid nephrotoxic's Per orders Subjective ROS Limited/Unobtainable: No Constitutional: Reports: malaise, other - No more shortness of breath Objective Objective Last 24 Hour Vital Signs Date Time Temp Pulse Resp B/P (MAP) Pulse Ox O2 Delivery O2 Flow Rate FiO2 10/03/19 11:41 97.9 88 20 114/76 (89) 97 10/03/19 09:00 Nasal Cannula 2.0 10/03/19 08:56 126/78 10/03/19 08:55 126/78 10/03/19 08:00 78 10/03/19 08:00 97.5 74 20 126/78 (94) 98 10/03/19 04:00 70 10/03/19 04:00 97.7 87 19 120/68 (85) 98 10/03/19 00:00 73 10/03/19 00:00 97.4 78 19 122/78 (93) 99 10/02/19 21:00 Nasal Cannula 2.0 10/02/19 20:00 97.9 88 19 117/74 (88) 100 10/02/19 20:00 75 10/02/19 19:02 92 18 96 Room Air 21 10/02/19 17:22 131/93 10/02/19 17:21 131/93 10/02/19 16:01 71 10/02/19 16:00 96.8 76 20 131/93 (106) 97 Intake and Output 10/02/19 10/03/19 19:00 07:00 Intake Total 140 ml 140 ml Output Total 1200 ml 1200 ml Balance -1060 ml -1060 ml Intake Oral 140 ml 140 ml Output Urine Total 1200 ml 1200 ml # Voids 3 3 # Bowel Movements 1 Current Medications Medications (Trade) Dose Ordered Sig/Tasia Route PRN Reason Start Time Stop Time Status Last Admin Dose Admin Acetaminophen (Tylenol) 650 mg Q6H PRN ORAL Mild Pain (1-3)/Fever > 100.5 09/30/19 01:00 10/30/19 00:59 09/30/19 08:24 Albuterol/ Ipratropium (Albuterol/ Ipratropium) 3 ml Q6H PRN HHN Shortness of Breath 09/30/19 01:45 10/05/19 01:44 09/30/19 19:09 Aspirin (ASA) 81 mg DAILY ORAL 09/30/19 09:00 11/14/19 08:59 10/03/19 08:56 Clonidine HCl (Catapres Tab) 0.1 mg Q4H PRN ORAL BP over 160 systolic 09/30/19 16:15 12/29/19 16:14 Docusate Sodium (Colace) 100 mg THREE TIMES A DAY ORAL 09/30/19 18:00 10/30/19 17:59 10/03/19 08:56 Furosemide (Lasix) 60 mg EVERY 12 HOURS IV 10/02/19 21:00 10/30/19 20:59 10/03/19 08:56 Isosorbide Dinitrate (Isordil) 10 mg BID ORAL 10/01/19 09:00 10/31/19 08:59 10/03/19 08:56 Lisinopril (ZestriL) 5 mg BID ORAL 10/02/19 09:00 10/31/19 10:44 10/03/19 08:55 Nitroglycerin (Ntg) 0.4 mg Q5MIN X 3 DOSES PRN SL CHEST PAIN 09/30/19 01:00 10/30/19 00:59 Pantoprazole (Protonix) 40 mg EVERY 12 HOURS ORAL 09/30/19 21:00 10/30/19 20:59 10/03/19 08:56 Tamsulosin HCl (Flomax) 0.4 mg BEDTIME ORAL 09/30/19 21:00 10/30/19 20:59 10/02/19 20:17 Laboratory Tests 10/03/19 06:35: White Blood Count 4.9, Red Blood Count 5.06, Hemoglobin 13.9L, Hematocrit 45.2, Mean Corpuscular Volume 89, Mean Corpuscular Hemoglobin 27.5, Mean Corpuscular Hemoglobin Concent 30.8L, Red Cell Distribution Width 14.0, Platelet Count 238, Mean Platelet Volume 7.3, Neutrophils (%) (Auto) 58.5, Lymphocytes (%) (Auto) 25.8, Monocytes (%) (Auto) 9.3, Eosinophils (%) (Auto) 4.5H, Basophils (%) (Auto ) 1.9, Sodium Level 141, Potassium Level 3.8, Chloride Level 104, Carbon Dioxide Level 29, Anion Gap 8, Blood Urea Nitrogen 27H, Creatinine 1.5H, Estimat Glomerular Filtration Rate 57.7, Glucose Level 102, Calcium Level 9.2 Height (Feet): 6 Height (Inches): 2.00 Weight (Pounds): 190 General Appearance: no apparent distress Cardiovascular: other - Variable between 75-85 Respiratory/Chest: decreased breath sounds Abdomen: soft Luis Enrique Guzman MD Oct 03, 2019 11:55
--- NOTE | 2019-10-03 14:12 | Cardiac Electrophysiology PN ---
Assessment/Plan Assessment/Plan 1. Exacerbation of congestive heart failure in this patient with polysubstance abuse with cocaine and PCP. Ruled out for myocardial infarction. Echocardiogram showed EF of only 20% . On Lisinopril 10 mg bid and Lasix 40 mg po bid. Avoid beta-wilfredo for cocaine use. DC Isordil. 2. Status post LifeVest. Not wearing it. Says is in his car. Unfortunately, he is not a candidate for defibrillator implantation as he has active cocaine and polysubstance abuse. 3. Polysubstance abuse with cocaine and PCP. 4. Renal failure with creatinine of 1.6. Imprioved to 1.5. FU by Dr. Megan Guzman OK to DC Subjective Subjective No CP or SOB. DC planning Objective Last 24 Hour Vital Signs Date Time Temp Pulse Resp B/P (MAP) Pulse Ox O2 Delivery O2 Flow Rate FiO2 10/03/19 12:00 84 10/03/19 11:41 97.9 88 20 114/76 (89) 97 10/03/19 09:00 Nasal Cannula 2.0 10/03/19 08:56 126/78 10/03/19 08:55 126/78 10/03/19 08:00 78 10/03/19 08:00 97.5 74 20 126/78 (94) 98 10/03/19 04:00 70 10/03/19 04:00 97.7 87 19 120/68 (85) 98 10/03/19 00:00 73 10/03/19 00:00 97.4 78 19 122/78 (93) 99 10/02/19 21:00 Nasal Cannula 2.0 10/02/19 20:00 97.9 88 19 117/74 (88) 100 10/02/19 20:00 75 10/02/19 19:02 92 18 96 Room Air 21 10/02/19 17:22 131/93 10/02/19 17:21 131/93 10/02/19 16:01 71 10/02/19 16:00 96.8 76 20 131/93 (106) 97 Intake and Output 10/02/19 10/03/19 19:00 07:00 Intake Total 140 ml 140 ml Output Total 1200 ml 1200 ml Balance -1060 ml -1060 ml Intake Oral 140 ml 140 ml Output Urine Total 1200 ml 1200 ml # Voids 3 3 # Bowel Movements 1 Laboratory Tests Test 10/03/19 06:35 White Blood Count 4.9 K/UL (4.8-10.8) Red Blood Count 5.06 M/UL (4.70-6.10) Hemoglobin 13.9 G/DL (14.2-18.0) L Hematocrit 45.2 % (42.0-52.0) Mean Corpuscular Volume 89 FL (80-99) Mean Corpuscular Hemoglobin 27.5 PG (27.0-31.0) Mean Corpuscular Hemoglobin Concent 30.8 G/DL (32.0-36.0) L Red Cell Distribution Width 14.0 % (11.6-14.8) Platelet Count 238 K/UL (150-450) Mean Platelet Volume 7.3 FL (6.5-10.1) Neutrophils (%) (Auto) 58.5 % (45.0-75.0) Lymphocytes (%) (Auto) 25.8 % (20.0-45.0) Monocytes (%) (Auto) 9.3 % (1.0-10.0) Eosinophils (%) (Auto) 4.5 % (0.0-3.0) H Basophils (%) (Auto) 1.9 % (0.0-2.0) Sodium Level 141 MMOL/L (136-145) Potassium Level 3.8 MMOL/L (3.5-5.1) Chloride Level 104 MMOL/L (98-107) Carbon Dioxide Level 29 MMOL/L (21-32) Anion Gap 8 mmol/L (5-15) Blood Urea Nitrogen 27 mg/dL (7-18) H Creatinine 1.5 MG/DL (0.55-1.30) H Estimat Glomerular Filtration Rate 57.7 mL/min (>60) Glucose Level 102 MG/DL (74-106) Calcium Level 9.2 MG/DL (8.5-10.1) Objective HEAD AND NECK: Mild JVD. LUNGS: Clear. CARDIOVASCULAR: Regular S1 and S2 with no gallop or murmur. ABDOMEN: Soft. EXTREMITIES: No pitting edema. Puma Jane MD Oct 03, 2019 14:12
--- NOTE | 2019-10-03 15:10 | NUR ---
NURSE NOTES: Pt discharged with belongings, home medication, and packet. IV removed and tele monitor taken off. Pt received by with personal vehicle. Patient homeless, refused resources. Confirms understanding that he needs to follow up with PCP and director imaging. Educated on symptoms of CHF and when to seek medical attention.
[2019-10-03] MEDS ORDERED: Furosemide 40mg tab ORAL SCH (21:00)
--- NOTE | 2019-10-06 21:17 | Discharge Summary ---
Discharge Summary Discharge Summary _ DATE OF ADMISSION: 09/29/2019 DATE OF DISCHARGE: 10/03/2019 DISCHARGED BY: Dr. Tami Sol CONSULTANTS: Dr. Puma Posadas BRIEF HOSPITAL COURSE: The patient is a 59-year-old male, with history of hypertension, CHF with ejection fraction of 20%, presented to ED for evaluation of shortness of breath and chest pain. Patient stated shortness of breath worsened over the past few days and he then developed chest pain that started 45 minutes prior to arrival to ED. Pain was located on the left side of the chest and 10 out of 10 in pain scale, nonradiating. He took nitroglycerin prior to arrival. He was admitted previously for same reason. He was followed by cotton inspector and was provided a LifeVest which she has been wearing. He stated he has not had any shocks from the LifeVest. Patient is currently living in his vehicle. Upon evaluation at ED, vital signs were stable. Blood work did not show any leukocytosis. Hemoglobin hematocrit were stable. Electrolytes were normal. Creatinine was elevated to 1.8. Troponin was 0.008. proBNP 4703. Urine toxicology screen was positive for cocaine and PCP. He was given aspirin and morphine. EKG did not have any ischemic changes. Chest x-ray with no acute infiltrates. Patient was then admitted for evaluation of chest pain. He was admitted to monitored floor. Patient would benefit from cardiac evaluation due to cocaine use. Patient has EF of only 20%. Patient was continued on hydralazine 10 mg every 6 hours and Lasix 40 mg daily. He was given nitroglycerin. Patient unfortunately is not a candidate for defibrillator implantation as he has active cocaine and polysubstance abuse. Patient was continued on LifeVest. Kidney function was monitored. Renal parameters eventually improved. He was eventually started on BALTA inhibitor. He was given Lasix. He was noted to have leukopenia which could be related to underlying liver disease, medication, infection versus viral syndrome and prior drug use. He was noted to have edema of legs and chronic skin changes. He was observed off antibiotics. Venous duplex did not show any evidence of acute DVT. Cardiac enzymes were negative. Kidney function improved. immigration services officer was consulted. Patient was eventually cleared for discharge. FINAL DIAGNOSES: Acute on chronic CHF with low ejection fraction cardiomyopathy Hypertension Diabetes mellitus Status post LifeVest Polysubstance abuse with cocaine and PCP Acute renal failure with underlying chronic renal failure COVID-19 negative Homelessness Leukopenia DISPOSITION: The treating physician has assessed that the patient is medically stable for discharge to an outstretched disposition. DISCHARGE MEDICATIONS: Refer to Discharge Medication List. DISCHARGE INSTRUCTIONS: Follow-up in a week. I have been assigned to complete a discharge summary on this account, I was not involved with the patient's management.--KILO Sanz Jacqueline Robles NP Oct 06, 2019 21:17
== END 2019-10-03 15:10 | disposition home or self-care (01) | DRG 194 ==
LOC: EMR 22:15 → 2E 22:23 → EDBEDREQ 22:36 → 2E 23:38
DX: I13.0 Hypertensive heart and chronic kidney disease with heart failure and stage 1 through stage 4 chronic kidney disease, or unspecified chronic kidney disease (principal); I50.23 Acute on chronic systolic (congestive) heart failure; N17.9 Acute kidney failure, unspecified; N18.9 Chronic kidney disease, unspecified; F14.10 Cocaine abuse, uncomplicated; F16.10 Hallucinogen abuse, uncomplicated; Z59.0 Homelessness; E11.9 Type 2 diabetes mellitus without complications; I25.10 Atherosclerotic heart disease of native coronary artery without angina pectoris; Z87.891 Personal history of nicotine dependence; I25.5 Ischemic cardiomyopathy; F19.10 Other psychoactive substance abuse, uncomplicated; E11.22 Type 2 diabetes mellitus with diabetic chronic kidney disease
CPT/HCPCS: 36415; 71045; 80048; 80053; 80061; 80307; 81001; 82248; 82550; 82977; 83036; 83735; 83880; 84100; 84443; 84484; 84550; 85025; 85610; 85730; 86140; 93005; 93970; 94640; 94664; 96374; 99285; J7620; U0002

== ENCOUNTER 2019-10-19 22:56 | Emergency (ER) | payer MEDICAID ==
[~2019-10-19] VITALS: Ht 190.5 cm; Wt 90.7 kg
[~2019-10-19 22:56] MED LIST changes: +COMBIVENT RESPIM4 GM IH; +NITRO0.4 SL
--- NOTE | 2019-10-19 23:05 | NUR ---
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 patient reports history of chest pain. requests lasix refill. changed into gown; attached to monitor. ao4. nad. vss. all safety measures met.
[2019-10-20] VITALS: BP 145/106
--- NOTE | 2019-10-20 | NUR ---
ED Nurse Note: iv access established. blood collected; sent down to lab. unable to collect urine; patient states he will provide when able.
[2019-10-20 00:25] LABS: BASOPHILS % (AUTO) 1.9 % (0.0-2.0); EOSINOPHILS % (AUTO) 3.8 % (0.0-3.0); HEMATOCRIT 44.6 % (42.0-52.0); HEMOGLOBIN 14.3 G/DL (14.2-18.0); LYMPHOCYTES % (AUTO) 32.7 % (20.0-45.0); MEAN CORPUSCULAR VOLUME 88 FL (80-99); MONOCYTES % (AUTO) 9.6 % (1.0-10.0); NEUTROPHILS % (AUTO) 52.1 % (45.0-75.0); PLATELET COUNT 244 K/UL (150-450); RED BLOOD COUNT 5.07 M/UL (4.70-6.10); RED CELL DISTRIBUTION WIDTH 14.2 % (11.6-14.8); WHITE BLOOD COUNT 4.2 K/UL (4.8-10.8)
--- NOTE | 2019-10-20 00:31 | Emergency Room Report ---
History of Present Illness General Chief Complaint: Chest Pain Source: Patient Present Illness HPI 59-year-old male presents for evaluation. States that he is having abdominal pain chest pain leg swelling for the last few days. Pain is dull, 5 out of 10, nonradiating. Denies shortness of breath. Denies fevers or chills. Denies cough. History of pretension, COPD. States that he lost his medications. Admits to drug use. No other aggravating relieving factors. Denies any other associated symptoms Allergies: Coded Allergies: No Known Allergies (Unverified , 12/12/17) COVID-19 Screening Contact w/high risk pt: No Recent Travel to affected area: No Experienced COVID-19 symptoms?: No COVID-19 symptoms experienced: Shortness of Breath COVID-19 Testing performed REHAB RN: Yes - 09/28/19 COVID-19 Screening: Negative COVID-19 COVID-19 Testing Source: [facility] [place] Patient History Past Medical History: HTN, COPD Past Surgical History: none Pertinent Family History: none Social History: Reports: drug use; Denies: smoking, alcohol use Immunizations: UTD Reviewed Nursing Documentation: PMH: Agreed; PSxH: Agreed Nursing Documentation-PMH Hx Cardiac Problems: Yes Hx Hypertension: Yes Hx COPD: Yes Hx Cancer: No Hx Gastrointestinal Problems: No Hx Neurological Problems: No Review of Systems All Other Systems: negative except mentioned in HPI Physical Exam Vital Signs Date Time Temp Pulse Resp B/P (MAP) Pulse Ox O2 Delivery O2 Flow Rate FiO2 10/19/19 23:03 98.4 84 19 145/106 (119) 96 Room Air Sp02 EP Interpretation: reviewed, normal General Appearance: no apparent distress, alert, GCS 15, non-toxic Head: normocephalic, atraumatic Eyes: bilateral eye normal inspection, bilateral eye PERRL ENT: hearing grossly normal, normal pharynx, no angioedema, normal voice Neck: full range of motion, supple/symm/no masses Respiratory: chest non-tender, lungs clear, normal breath sounds, speaking full sentences Cardiovascular #1: regular rate, rhythm, no edema Cardiovascular #2: 2+ carotid (R), 2+ carotid (L), 2+ radial (R), 2+ radial (L) , 2+ dorsalis pedis (R), 2+ dorsalis pedis (L) Gastrointestinal: normal bowel sounds, non tender, soft, non-distended, no guarding, no rebound Rectal: deferred Genitourinary: normal inspection, no CVA tenderness Musculoskeletal: back normal, normal range of motion, gait/station normal, non- tender Neurologic: alert, motor strength/tone normal, oriented x3, sensory intact, responsive, speech normal Psychiatric: judgement/insight normal, memory normal, mood/affect normal, no suicidal/homicidal ideation Reflexes: 3+ bicep (R), 3+ bicep (L), 3+ tricep (R), 3+ tricep (L), 3+ knee (R) , 3+ knee (L) Skin: other - 1+ pitting edema b/l LEs Lymphatic: no adenopathy Medical Decision Making Diagnostic Impression: Primary Impression: CHF (congestive heart failure) Qualified Codes: I50.9 - Heart failure, unspecified ER Course Hospital Course 59-year-old M presents ED complaining of chest pain, SOB Differential diagnoses include: Rib fracture, SD/unstable angina, contusion, muscle strain Clinical course Patient placed on stretcher. After initial history and physical I ordered labs , EKG, chest x-ray. labs reviewed- all electrolytes normal, troponins negative, no leukocytosis, hemoglobin/hematocrit stable EKG - NSR, no acute ischemic changes interpreted by me Chest x-ray-no cardiomegaly, no rib fracture, no pneumothorax, no acute process I discussed findings with patient. Given IV Lasix in ED. No overt signs of CHF or fluid overload. Vitals within normal limits. Patient has been seen here multiple times recently and subsequently admitted. I do not believe patient requires admission at this time. agrees who is at bedside. Patient lost his medications and will write refills of his medications. Safe for discharge for close outpatient follow-up. I will provide PMD referrals I. I feel this is a highly complex case requiring extensive working including EKG/Rhythm strip, Xray/CT/US, Blood/urine lab work, repeat exams while in ED, and administration of strong opiates/narcotics for pain control, admission to hospital or close patient follow up. Diagnosis - CHF Stable and discharged to home. Instructed to followup with PMD. Return to ED if symptoms recur or worsen Laboratory Tests Test 10/19/19 23:59 White Blood Count 4.2 K/UL (4.8-10.8) L Red Blood Count 5.07 M/UL (4.70-6.10) Hemoglobin 14.3 G/DL (14.2-18.0) Hematocrit 44.6 % (42.0-52.0) Mean Corpuscular Volume 88 FL (80-99) Mean Corpuscular Hemoglobin 28.3 PG (27.0-31.0) Mean Corpuscular Hemoglobin Concent 32.1 G/DL (32.0-36.0) Red Cell Distribution Width 14.2 % (11.6-14.8) Platelet Count 244 K/UL (150-450) Mean Platelet Volume 7.1 FL (6.5-10.1) Neutrophils (%) (Auto) 52.1 % (45.0-75.0) Lymphocytes (%) (Auto) 32.7 % (20.0-45.0) Monocytes (%) (Auto) 9.6 % (1.0-10.0) Eosinophils (%) (Auto) 3.8 % (0.0-3.0) H Basophils (%) (Auto) 1.9 % (0.0-2.0) Sodium Level 143 MMOL/L (136-145) Potassium Level 3.9 MMOL/L (3.5-5.1) Chloride Level 107 MMOL/L (98-107) Carbon Dioxide Level 25 MMOL/L (21-32) Anion Gap 11 mmol/L (5-15) Blood Urea Nitrogen 18 mg/dL (7-18) Creatinine 1.5 MG/DL (0.55-1.30) H Estimat Glomerular Filtration Rate 57.7 mL/min (>60) Glucose Level 103 MG/DL (74-106) Calcium Level 8.8 MG/DL (8.5-10.1) Total Bilirubin 0.6 MG/DL (0.2-1.0) Aspartate Amino Transf (AST/SGOT) 22 U/L (15-37) Alanine Aminotransferase (ALT/SGPT) 23 U/L (12-78) Alkaline Phosphatase 75 U/L (46-116) Troponin I 0.009 ng/mL (0.000-0.056) Pro-B-Type Natriuretic Peptide 4317 pg/mL (0-125) H Total Protein 7.7 G/DL (6.4-8.2) Albumin 3.3 G/DL (3.4-5.0) L Globulin 4.4 g/dL Albumin/Globulin Ratio 0.8 (1.0-2.7) L EKG Diagnostic Results Rate: normal Rhythm: NSR ST Segments: no acute changes ASA given to the pt in ED: No Rhythm Strip Diag. Results EP Interpretation: yes Rhythm: NSR, no PVC's, no ectopy Chest X-Ray Diagnostic Results Chest X-Ray Diagnostic Results : Chest X-Ray Ordered: Yes # of Views/Limited/Complete: 1 View Indication: Chest Pain EP Interpretation: Yes Interpretation: no consolidation, no effusion, no pneumothorax, no acute cardiopulmonary disease Impression: No acute disease Electronically Signed by: Electronically signed by Scott Guallpa MD Last Vital Signs Date Time Temp Pulse Resp B/P (MAP) Pulse Ox O2 Delivery O2 Flow Rate FiO2 10/20/19 00:00 84 19 Room Air 10/20/19 00:00 98.4 145/106 96 Status: improved Disposition: HOME, SELF-CARE Condition: Stable Scripts Ipratropium/Albuterol Sulfate (Combivent Respimat Inhal [place]) 4 Gm Mist.inhal 4 GM IH PRN PRN for Shortness of Breath, #4 GM Prov: Scott Guallpa MD 10/20/19 Nitroglycerin 0.4MG table* (Nitroglycerin*) 0.4 Mg Tab.subl 0.4 MG SL .Q5MIN X 3 DOSES PRN for CHEST PAIN, #10 TAB Prov: Scott Guallpa MD 10/20/19 Atorvastatin Calcium* (LIPITOR*) 40 Mg Tablet 40 MG ORAL BEDTIME, #30 TAB 0 Refills Prov: Scott Guallpa MD 10/20/19 Carvedilol (Coreg) 6.25 Mg Tablet 6.25 MG ORAL EVERY 12 HOURS, #60 TAB Prov: Scott Guallpa MD 10/20/19 Spironolactone* (ALDACTONE*) 25 Mg Tablet 25 MG ORAL DAILY, #30 TAB Prov: Scott Guallpa MD 10/20/19 Aspirin* (ASPIRIN*) 81 Mg Tab.chew 81 MG ORAL DAILY, #30 TAB 0 Refills Prov: Scott Guallpa MD 10/20/19 Furosemide* (LASIX*) 40 Mg Tablet 40 MG ORAL DAILY, #30 TAB Prov: Scott Guallpa MD 10/20/19 Referrals: NOT CHOSEN IPA/,REFERRING (PCP) Scott Guallpa MD Oct 20, 2019 00:31
[2019-10-20 00:47] LABS: ANION GAP 11 mmol/L (5-15); BLOOD UREA NITROGEN 18 mg/dL (7-18); CALCIUM 8.8 MG/DL (8.5-10.1); CARBON DIOXIDE 25 MMOL/L (21-32); CHLORIDE 107 MMOL/L (98-107); CREATININE 1.5 MG/DL (0.55-1.30); POTASSIUM 3.9 MMOL/L (3.5-5.1); SODIUM 143 MMOL/L (136-145)
[2019-10-20 01:19] LABS: ALANINE AMINOTRANSFERASE 23 U/L (12-78); ALBUMIN 3.3 G/DL (3.4-5.0); ALBUMIN/GLOBULIN RATIO 0.8 (1.0-2.7); ALKALINE PHOSPHATASE 75 U/L (46-116); ASPARTATE AMINO TRANSFERASE 22 U/L (15-37); BILIRUBIN,TOTAL 0.6 MG/DL (0.2-1.0)
[2019-10-20 01:30] VITALS: BP 140/84
[2019-10-20] MEDS ORDERED: SPIRONOLACTONE25 MG ORAL (01:32)
[2019-10-20] MEDS ORDERED: FUROSEMIDE40 MG ORAL (01:32)
[2019-10-20] MEDS ORDERED: LIPITOR40 MG ORAL (01:32)
[2019-10-20] MEDS ORDERED: ASPIRIN81 MG ORAL (01:32)
[2019-10-20] MEDS ORDERED: COREG6.25 MG ORAL (01:32)
[2019-10-20] MEDS ORDERED: NITRO0.4 SL (01:32)
[2019-10-20] MEDS ORDERED: COMBIVENT RESPIM4 GM IH (01:32)
[2019-10-20 02:00] VITALS: BP 140/84
[2019-10-20] MEDS ORDERED: Dicyclomine HCl 10mg/5ml oral soln ORAL ONE (02:00)
[2019-10-20] MEDS ORDERED: Lidocaine 2% Visc 15ml soln ORAL ONE (02:00)
[2019-10-20] MEDS ORDERED: Mylanta II UD 30ml ORAL ONE (02:00)
--- NOTE | 2019-10-20 17:02 | Diagnostic Imaging Report ---
Indication: Chest pain Technique: One view of the chest Comparison: 09/29/2019 Findings: Lungs and pleural spaces are clear. Heart size is normal. No significant change Impression: No acute process
== END 2019-10-20 02:00 | disposition home or self-care (01) ==
LOC: EMR 23:23
DX: I11.0 Hypertensive heart disease with heart failure (principal); I50.9 Heart failure, unspecified; J44.9 Chronic obstructive pulmonary disease, unspecified
CPT/HCPCS: 36415; 71045; 80053; 83880; 84484; 85025; 93005; 96374; J1940; Z7502; 99284

== ENCOUNTER 2020-01-04 20:59 | Inpatient (IN) | payer MEDICAID ==
[~2020-01-04] VITALS: Ht 190.5 cm; Wt 90.7 kg
[2020-01-04 21:05] VITALS: BP 145/110
[2020-01-04] MEDS ORDERED: PLAVIX75 MG ORAL (21:06)
--- NOTE | 2020-01-04 21:12 | Emergency Room Report ---
History of Present Illness General Chief Complaint: Chest Pain Source: Patient Present Illness HPI 59-year-old homeless male with history of CAD with a stent in place, here with 3 days of chest pain. Patient says that he has been having worsening chest pain that is substernal and crushing in nature. Does not radiate. Has not taken any medications for the pain. No fevers, chills, palpitation, back pain, abdominal pain, nausea, vomiting, diarrhea, dysuria. Patient says that the chest pain is 3 of 10 intensity at this moment. Allergies: Coded Allergies: No Known Allergies (Unverified , 12/12/17) COVID-19 Screening Contact w/high risk pt: No Recent Travel to affected area: No Experienced COVID-19 symptoms?: No COVID-19 symptoms experienced: Shortness of Breath COVID-19 Testing performed [employer]: No Nursing Documentation-PMH Hx Cardiac Problems: Yes - stent placement x June 2019 Hx Hypertension: Yes Hx COPD: Yes Hx Cancer: No Hx Gastrointestinal Problems: No Hx Neurological Problems: No Review of Systems All Other Systems: negative except mentioned in HPI Physical Exam Vital Signs Date Time Temp Pulse Resp B/P (MAP) Pulse Ox O2 Delivery O2 Flow Rate FiO2 01/04/20 21:00 98.8 96 20 138/86 (103) 98 Room Air Sp02 EP Interpretation: reviewed, normal General Appearance: no apparent distress, alert, non-toxic Head: normocephalic, atraumatic Eyes: bilateral eye normal inspection, bilateral eye PERRL ENT: hearing grossly normal, normal pharynx, no angioedema, normal voice Neck: full range of motion, supple/symm/no masses Respiratory: chest non-tender, lungs clear, normal breath sounds, speaking full sentences Cardiovascular #1: regular rate, rhythm, no edema Cardiovascular #2: 2+ carotid (R), 2+ carotid (L), 2+ radial (R), 2+ radial (L), 2+ dorsalis pedis (R), 2+ dorsalis pedis (L) Gastrointestinal: normal bowel sounds, non tender, soft, non-distended, no guarding, no rebound Rectal: deferred Genitourinary: normal inspection, no CVA tenderness Musculoskeletal: back normal, normal range of motion, gait/station normal, non- tender Neurologic: alert, motor strength/tone normal, oriented x3, sensory intact, responsive, speech normal Psychiatric: judgement/insight normal, memory normal, mood/affect normal, no suicidal/homicidal ideation Lymphatic: no adenopathy Medical Decision Making Diagnostic Impression: Primary Impression: CHF (congestive heart failure) Additional Impression: Chest pain ER Course Laboratory Tests Test 01/04/20 21:10 White Blood Count 5.1 K/UL (4.8-10.8) Red Blood Count 4.80 M/UL (4.70-6.10) Hemoglobin 14.0 G/DL (14.2-18.0) L Hematocrit 45.2 % (42.0-52.0) Mean Corpuscular Volume 94 FL (80-99) Mean Corpuscular Hemoglobin 29.2 PG (27.0-31.0) Mean Corpuscular Hemoglobin Concent 31.0 G/DL (32.0-36.0) L Red Cell Distribution Width 16.9 % (11.6-14.8) H Platelet Count 223 K/UL (150-450) Mean Platelet Volume 6.9 FL (6.5-10.1) Neutrophils (%) (Auto) 61.7 % (45.0-75.0) Lymphocytes (%) (Auto) 22.8 % (20.0-45.0) Monocytes (%) (Auto) 10.5 % (1.0-10.0) H Eosinophils (%) (Auto) 2.3 % (0.0-3.0) Basophils (%) (Auto) 2.7 % (0.0-2.0) H Sodium Level 142 MMOL/L (136-145) Potassium Level 4.3 MMOL/L (3.5-5.1) Chloride Level 108 MMOL/L (98-107) H Carbon Dioxide Level 28 MMOL/L (21-32) Anion Gap 6 mmol/L (5-15) Blood Urea Nitrogen 19 mg/dL (7-18) H Creatinine 1.6 MG/DL (0.55-1.30) H Estimated Glomerular Filtration Rate 53.6 mL/min (>60) Glucose Level 95 MG/DL (74-106) Calcium Level 8.6 MG/DL (8.5-10.1) Total Bilirubin 1.0 MG/DL (0.2-1.0) Aspartate Amino Transferase (AST) 50 U/L (15-37) H Alanine Aminotransferase (ALT) 49 U/L (12-78) Alkaline Phosphatase 74 U/L (46-116) Troponin I 0.028 ng/mL (0.000-0.056) Pro-B-Type Natriuretic Peptide 5338 pg/mL (0-125) H Total Protein 7.4 G/DL (6.4-8.2) Albumin 3.3 G/DL (3.4-5.0) L Globulin 4.1 g/dL Albumin/Globulin Ratio 0.8 (1.0-2.7) L Serum Alcohol 3 mg/dL Chest x-ray: No infiltrate/effusion. Mediastinum within normal limits. No acute bony abnormalities. No free air under the diaphragm. Pulmonary vascular congestion, cardiomegaly. No effusions 59-year-old male with history of CAD status post stent placement here with chest pain. She received aspirin en route to the emergency department by paramedics. Also received 2 sublingual nitroglycerin with resolution of his pain. Patient said that he had exertional chest pain and shortness of breath that has worsened over the past several days. He was hemodynamically stable and neurovascular intact in the emergency department. CBC, CMP unremarkable. EKG and troponin normal. Chest x-ray showed signs of pulmonary vascular congestion and cardiomegaly. Patient was given 40 mg of Lasix IV in the emergency department. Signed out to Dr Briseno. To be admitted to telemetry. Last Vital Signs Date Time Temp Pulse Resp B/P (MAP) Pulse Ox O2 Delivery O2 Flow Rate FiO2 01/04/20 21:00 98.8 96 20 138/86 (103) 98 Room Air Toi Mims M.D. Jan 04, 2020 21:12
[2020-01-04 21:32] LABS: BASOPHILS % (AUTO) 2.7 % (0.0-2.0); EOSINOPHILS % (AUTO) 2.3 % (0.0-3.0); HEMATOCRIT 45.2 % (42.0-52.0); LYMPHOCYTES % (AUTO) 22.8 % (20.0-45.0); MEAN CORPUSCULAR VOLUME 94 FL (80-99); MONOCYTES % (AUTO) 10.5 % (1.0-10.0); NEUTROPHILS % (AUTO) 61.7 % (45.0-75.0); PLATELET COUNT 223 K/UL (150-450); RED CELL DISTRIBUTION WIDTH 16.9 % (11.6-14.8); WHITE BLOOD COUNT 5.1 K/UL (4.8-10.8)
[2020-01-04 21:43] LABS: CALCIUM 8.6 MG/DL (8.5-10.1); CREATININE 1.6 MG/DL (0.55-1.30); POTASSIUM 4.3 MMOL/L (3.5-5.1)
[2020-01-04 21:47] LABS: ALBUMIN 3.3 G/DL (3.4-5.0); ALBUMIN/GLOBULIN RATIO 0.8 (1.0-2.7)
[2020-01-05 01:30] VITALS: BP 146/105
[2020-01-05 03:30] VITALS: BP 138/97
[2020-01-05] MEDS ORDERED: Morphine Sulfate 2mg/ml Inj(IV/IM USE ONLY) IVP PRN (04:45)
[2020-01-05 05:51] VITALS: BP 134/88
[2020-01-05] MEDS ORDERED: Nitroglycerin Subl 0.4mg tab SL PRN (10:30)
[2020-01-05] MEDS ORDERED: Albuterol/Ipratropium 3ml neb HHN PRN (10:45)
--- NOTE | 2020-01-05 11:03 | Cardiac Electrophysiology PN ---
Subjective Subjective [id number] Objective Last 24 Hour Vital Signs Date Time Temp Pulse Resp B/P (MAP) Pulse Ox O2 Delivery O2 Flow Rate FiO2 01/05/20 10:04 Room Air 01/05/20 09:45 97.8 68 16 143/70 99 Room Air 01/05/20 05:51 98.8 88 18 134/88 100 Room Air 01/05/20 03:30 98.8 85 18 138/97 100 Room Air 01/05/20 01:30 98.8 84 15 146/105 100 Room Air 01/04/20 21:05 98.8 87 20 145/110 98 Room Air 01/04/20 21:05 87 20 Room Air 01/04/20 21:00 98.8 96 20 138/86 (103) 98 Room Air Laboratory Tests Test 01/04/20 21:10 01/04/20 23:10 White Blood Count 5.1 K/UL (4.8-10.8) Red Blood Count 4.80 M/UL (4.70-6.10) Hemoglobin 14.0 G/DL (14.2-18.0) L Hematocrit 45.2 % (42.0-52.0) Mean Corpuscular Volume 94 FL (80-99) Mean Corpuscular Hemoglobin 29.2 PG (27.0-31.0) Mean Corpuscular Hemoglobin Concent 31.0 G/DL (32.0-36.0) L Red Cell Distribution Width 16.9 % (11.6-14.8) H Platelet Count 223 K/UL (150-450) Mean Platelet Volume 6.9 FL (6.5-10.1) Neutrophils (%) (Auto) 61.7 % (45.0-75.0) Lymphocytes (%) (Auto) 22.8 % (20.0-45.0) Monocytes (%) (Auto) 10.5 % (1.0-10.0) H Eosinophils (%) (Auto) 2.3 % (0.0-3.0) Basophils (%) (Auto) 2.7 % (0.0-2.0) H Sodium Level 142 MMOL/L (136-145) Potassium Level 4.3 MMOL/L (3.5-5.1) Chloride Level 108 MMOL/L (98-107) H Carbon Dioxide Level 28 MMOL/L (21-32) Anion Gap 6 mmol/L (5-15) Blood Urea Nitrogen 19 mg/dL (7-18) H Creatinine 1.6 MG/DL (0.55-1.30) H Estimat Glomerular Filtration Rate 53.6 mL/min (>60) Glucose Level 95 MG/DL (74-106) Calcium Level 8.6 MG/DL (8.5-10.1) Total Bilirubin 1.0 MG/DL (0.2-1.0) Aspartate Amino Transf (AST/SGOT) 50 U/L (15-37) H Alanine Aminotransferase (ALT/SGPT) 49 U/L (12-78) Alkaline Phosphatase 74 U/L (46-116) Troponin I 0.028 ng/mL (0.000-0.056) Pro-B-Type Natriuretic Peptide 5338 pg/mL (0-125) H Total Protein 7.4 G/DL (6.4-8.2) Albumin 3.3 G/DL (3.4-5.0) L Globulin 4.1 g/dL Albumin/Globulin Ratio 0.8 (1.0-2.7) L Serum Alcohol 3 mg/dL Urine Opiates Screen Negative (NEGATIVE) Urine Barbiturates Screen Negative (NEGATIVE) Phencyclidine (PCP) Screen Negative (NEGATIVE) Urine Amphetamines Screen Negative (NEGATIVE) Urine Benzodiazepines Screen Negative (NEGATIVE) Urine Cocaine Screen Positive (NEGATIVE) H Urine Marijuana (THC) Screen Negative (NEGATIVE) Puma Jane MD Jan 05, 2020 11:03
[2020-01-05 12:00] VITALS: BP 130/78
--- NOTE | 2020-01-05 12:45 | Consultation ---
DATE OF CONSULTATION: 01/05/2020 PULMONARY CONSULTATION HISTORY OF PRESENT ILLNESS: This is a 59-year-old male admitted to the hospital with chest pain. He admits to being a chronic marijuana user. He is homeless. He reports a history of CAD with cardiac stents. He reports chest pain at this time. He reported the pain is better. Overnight, he has had one negative troponin. Based on previous consultations, I note he was seen here in August and September of this year. He was seen by Dr. Jane on previous admission and noted to have a history of CHF with the LifeVest in place. He was noted to have ejection fraction of 20%. The patient has a history of marijuana use and cocaine use. At this time, he states he is feeling better. PAST MEDICAL HISTORY: , substance abuse. MEDICATIONS: Current medications the patient denies; however, in the past, he has been on aspirin and Lasix. ALLERGIES: None. REVIEW OF SYSTEMS: Denies any headaches, hematemesis, melena, hematochezia. PHYSICAL EXAMINATION: GENERAL: Reveals a 59-year-old male. HEENT: Unremarkable. LUNGS: Clear breath sounds bilaterally. ABDOMEN: Soft. EXTREMITIES: There is no edema. LABORATORY DATA: Laboratory testing shows creatinine 1.6, otherwise normal CBC and BMP. Toxicology is positive for cocaine. IMAGING STUDIES: X-ray chest was obtained in October, which showed evidence of cardiomegaly. IMPRESSION: 1. Substance abuse. 2. Chest pain. 3. Rule out ACS. 4. History of cardiomyopathy. 5. CAD with stent per history. DISCUSSION: Admit to the hospital. 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 We will order oxygen and pulmonary hygiene. He needs diuresis. Cardiology has been consulted. We will follow carefully. Espinoza Chapin M.D. DR: Mariela JOB#: [id number] CC:
--- NOTE | 2020-01-05 13:15 | Consultation ---
DATE OF CONSULTATION: 01/05/2020 CARDIOLOGY CONSULTATION CONSULTING PHYSICIAN: Puma Jane MD. REFERRING PHYSICIAN: Jake Blevins MD. REASON FOR CONSULTATION: Management of chest pain in a patient with cardiomyopathy and cocaine use. HISTORY OF PRESENT ILLNESS: The patient is a 59-year-old homeless gentleman, who I am familiar with from previous admission three months ago. The patient has history of severe cardiomyopathy as well as history of polysubstance abuse including cocaine, who presented to the emergency room with three days of chest pain. The patient's pain did not right radiate, and his troponin was only minimally elevated. The patient also has had stent in his legs. The patient received Lasix and Cardiology consultation was obtained for further evaluation. REVIEW OF SYSTEMS: Negative other than what was mentioned in history of present illness. PAST MEDICAL HISTORY: As mentioned above. FAMILY HISTORY: Noncontributory. SOCIAL HISTORY: He has history of cocaine use in the past and in September 2019 and currently is cocaine positive. PHYSICAL EXAMINATION: VITAL SIGNS: Blood pressure is 143/70, pulse 60, respirations 18. He is afebrile. HEAD AND NECK: Showed no JVD. LUNGS: Clear. CARDIOVASCULAR: Shows regular S1 and S2 with no gallop. ABDOMEN: Soft. EXTREMITIES: No pitting edema. LABORATORY DATA: Show sodium 142, potassium 4.3, BUN of 19, creatinine 1.6, glucose of 95. Troponin is negative. White count of 5.1, hemoglobin of 14, hematocrit of 45. ASSESSMENT AND PLAN: 1. Exacerbation of congestive heart failure in this patient with history of severe cardiomyopathy. His echocardiogram in August of 2019 showed ejection fraction of 20% to 25%. We will repeat the echocardiogram, start the patient on Lasix and avoid beta-wilfredo in view of active cocaine use, and avoid BALTA inhibitor in view of renal failure. Add hydralazine and nitrate to his medical regimen and change Lasix to 40 mg IV b.i.d. 2. Peripheral vascular disease, status post peripheral stent placement in his right leg on aspirin, Plavix, and Lipitor. 3. Polysubstance abuse with cocaine. 4. History of LifeVest placement. Unfortunately, due to active cocaine use not a candidate for defibrillator implantation. Thank you very much for allowing me to participate in the care of this patient. Please do not hesitate to contact me for any questions regarding my evaluation. Puma Jane M.D. DR: RUTH JOB#: [id number] CC:
--- NOTE | 2020-01-05 15:29 | Diagnostic Imaging Report ---
Indication: Chest pain Technique: One view of the chest Comparison: 10/19/2019 Findings: There are peripheral infiltrates in the mid lungs bilaterally. The heart is borderline enlarged. The pleural spaces are clear. Impression: Borderline cardiomegaly Bilateral peripheral opacities. This may represent multifocal pneumonia, versus peripheral edema. Correlate with clinical findings
[2020-01-05 16:00] VITALS: BP 144/102
[2020-01-05] MEDS: HydrALAZINE 10mg Tab ORAL SCH (18:00)
[2020-01-05 20:00] VITALS: BP 126/92
[2020-01-05] MEDS: Atorvastatin 20mg tab ORAL SCH (20:37)
[2020-01-05] MEDS ORDERED: Carvedilol 6.25mg Tab ORAL SCH (21:00)
--- NOTE | 2020-01-05 21:30 | History and Physical Report ---
DATE OF ADMISSION: 01/04/2020 HISTORY OF PRESENT ILLNESS: This is a 59-year-old male, who came with dyspnea, cardiomegaly, CHF exacerbation, and palpitation. The patient also has diabetes type 2, substance abuse, and leukopenia. MEDICATIONS: Albuterol, aspirin, Lipitor, Plavix, Lasix, hydralazine, isosorbide. PHYSICAL EXAMINATION: GENERAL: This is an elderly male, currently sitting in bed. No chest pain. VITAL SIGNS: Blood pressure 143/70, pulse 68, respirations 16, temp is 97.8. HEENT: NAD. CHEST: Bilaterally a few crackles. CARDIOVASCULAR: Regular rhythm. No gallop. No murmur. ABDOMEN: Soft. Positive bowel sounds. Nontender. EXTREMITIES: No CCE. NEUROLOGIC: The patient has no focal deficits. GENITOURINARY: Deferred. LABORATORY AND DIAGNOSTIC DATA: White count 5.1, hemoglobin 14. Chemistry panel, BUN 19, creatinine 1.6. Troponin . BNP 5328. Toxicology report positive for cocaine. The patient has no imaging. ASSESSMENT: 1. CHF, decompensated. 2. ACS, rule out acute [place]. 3. Drug abuse. 4. Diabetes. 5. Hypertension. We will currently continue aspirin, spironolactone, Plavix. Continue Lasix, isosorbide, Lipitor, albuterol, and nitroglycerin. Discussed with Dr. Jane as well as Dr. Chapin. Cj Blevins M.D. DR: KIM JOB#: [id number] CC:
[2020-01-06] VITALS: BP 119/78
[2020-01-06 04:00] VITALS: BP 127/89
--- NOTE | 2020-01-06 04:14 | Cardiology Report ---
APPROVED REPORT EXAM: Two-dimensional and M-mode echocardiogram with Doppler and color Doppler. INDICATION Congestive Heart Failure M-Mode DIMENSIONS IVSd1.3 (0.7-1.1cm)Left Atrium (MM)4.5 (1.6-4.0cm) LVDd5.9 (3.5-5.6cm)Aortic Root3.5 (2.0-3.7cm) PWd1.4 (0.7-1.1cm)Aortic Cusp Exc.2.2 (1.5-2.0cm) IVSs1.1 cmEPSS2.1 (>1.0cm) LVDs4.6 (2.5-4.0cm) PWs1.8 cm <Conclusion> Normal left ventricular chamber size. Moderate to severe global right and left ventricular hypokinesis. Left ventricular ejection fraction estimated to be 25-30 %. Increased E point-interventricular septal separation c/w left ventricular dysfunction. No evidence of left ventricular hypertrophy. No evidence of pericardial effusion. Moderate left atrial and severe right atrial enlargement . Right ventricular chamber enlargement and hypokinesis . Focal aortic valve sclerosis with adequate cusp excursion. Thickened mitral valve leaflets with normal excursion. Mitral annulus and aortic root calcification. Pulmonic valve not well visualized. Normal tricuspid valve structure. IVC dilated at 3.9 cm without physiologic collapse suggestive of RA pressure at least 20 mmHg. A color flow and spectral Doppler study was performed and revealed: Mild aortic regurgitation. Moderate mitral regurgitation. Left ventricular diastolic dysfunction undetermined due to arrhythmia. Severe tricuspid regurgitation. Tricuspid systolic velocities suggests peak right ventricular systolic pressure of 68 mmHg, consistent with severe pulmonary hypertension. Mild pulmonic regurgitation present.
--- NOTE | 2020-01-06 04:16 | Cardiology Report ---
APPROVED REPORT EKG Measurement Heart [id number] <Conclusion> Sinus rhythm with 1st degree AV block Possible Left atrial enlargement Left axis deviation Abnormal ECG
[2020-01-06 08:00] VITALS: BP 132/87
--- NOTE | 2020-01-06 08:03 | Pulmonology Progress Note ---
Subjective Interval Events: None new reported Constitutional: Reports: no symptoms HEENT: Repors: no symptoms Respiratory: Reports: pleuritic pain Cardiovascular: Reports: no symptoms Gastrointestinal/Abdominal: Reports: no symptoms Allergies: Coded Allergies: No Known Allergies (Unverified , 12/12/17) Objective Last 24 Hour Vital Signs Date Time Temp Pulse Resp B/P (MAP) Pulse Ox O2 Delivery O2 Flow Rate FiO2 01/06/20 04:00 97.7 68 19 127/89 (102) 100 01/06/20 04:00 Room Air 01/06/20 03:33 64 01/06/20 00:00 Room Air 01/06/20 00:00 97.7 67 20 119/78 (92) 97 01/06/20 00:00 97.7 67 20 119/78 (92) 97 01/06/20 00:00 79 01/05/20 20:15 83 01/05/20 20:00 98.2 92 19 126/92 (103) 98 01/05/20 20:00 98.2 92 19 126/92 (103) 98 01/05/20 20:00 Room Air 01/05/20 18:00 144/102 01/05/20 18:00 144/102 01/05/20 16:00 Room Air 01/05/20 16:00 97.5 92 18 144/102 (116) 100 01/05/20 15:48 81 01/05/20 12:00 Room Air 01/05/20 12:00 92 01/05/20 12:00 97.7 99 18 130/78 (95) 99 01/05/20 10:04 Room Air 01/05/20 09:45 97.8 68 16 143/70 99 Room Air Intake and Output 01/05/20 01/06/20 19:00 07:00 Intake Total 480 ml 500 ml Balance 480 ml 500 ml Intake Oral 480 ml 500 ml # Voids 2 2 # Bowel Movements 1 General Appearance: no acute distress HEENT: normocephalic Respiratory: chest wall non-tender Cardiovascular: normal peripheral pulses Abdomen: normal bowel sounds Laboratory Tests 01/06/20 04:45: Troponin I 0.025, Pro-B-Type Natriuretic Peptide 3319H Current Medications Medications (Trade) Dose Ordered Sig/Tasia Route PRN Reason Start Time Stop Time Status Last Admin Dose Admin Acetaminophen (Tylenol) 650 mg Q4H PRN ORAL Mild Pain (Pain Scale 1-3) 01/05/20 18:00 02/04/20 17:59 01/05/20 18:43 Acetaminophen (Tylenol) 650 mg Q4H PRN ORAL Temp >100.5 01/05/20 18:00 02/04/20 17:59 Albuterol/ Ipratropium (Albuterol/ Ipratropium) 3 ml Q6H PRN HHN Shortness of Breath 01/05/20 10:45 01/10/20 10:44 Aspirin (ASA) 81 mg DAILY ORAL 01/06/20 09:00 02/20/20 08:59 Atorvastatin Calcium (Lipitor) 40 mg BEDTIME ORAL 01/05/20 21:00 04/04/20 20:59 01/05/20 20:37 Clopidogrel Bisulfate (Plavix) 75 mg DAILY ORAL 01/06/20 09:00 02/05/20 08:59 Furosemide (Lasix) 40 mg Q12H IV 01/06/20 06:00 02/05/20 05:59 01/06/20 05:57 Hydralazine HCl (Apresoline) 10 mg BID ORAL 01/05/20 18:00 04/04/20 17:59 01/05/20 18:00 Ibuprofen (Motrin) 800 mg Q6H PRN ORAL For Pain 01/05/20 20:00 02/04/20 19:59 01/05/20 20:33 Isosorbide Dinitrate (Isordil) 10 mg BID ORAL 01/05/20 18:00 02/04/20 17:59 01/05/20 18:00 Nitroglycerin (Ntg) 0.4 mg Q5MIN X 3 DOSES PRN SL CHEST PAIN 01/05/20 10:30 02/04/20 10:29 Spironolactone (Aldactone) 25 mg DAILY ORAL 01/06/20 09:00 02/05/20 08:59 Assessment/Plan Assessment/Plan IMPRESSION: 1. Substance abuse. 2. Chest pain. 3. Rule out ACS. 4. History of cardiomyopathy. 5. CAD with stent per history. 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 Currently saturating well on RA Trend troponins Seen by cardiology Not a candidate for AICD due to ongoing substance abuse Apolonia Thomas Omar Syed MD Jan 06, 2020 08:03
[2020-01-06] MEDS: Aspirin Baby 81mg ORAL SCH (08:56)
[2020-01-06] MEDS: HydrALAZINE 10mg Tab ORAL SCH ×2 (08:57→17:33)
[2020-01-06] MEDS: Spironolactone 25mg tab ORAL SCH (08:57)
[2020-01-06] MEDS ORDERED: Furosemide 40mg tab ORAL SCH (09:00)
--- NOTE | 2020-01-06 09:04 | General Progress Note ---
Subjective Allergies: Coded Allergies: No Known Allergies (Unverified , 12/12/17) Subjective doing ok Objective Last 24 Hour Vital Signs Date Time Temp Pulse Resp B/P (MAP) Pulse Ox O2 Delivery O2 Flow Rate FiO2 01/06/20 08:57 132/87 01/06/20 08:57 132/87 01/06/20 08:00 Room Air 01/06/20 08:00 97.0 79 16 132/87 (102) 100 01/06/20 04:00 97.7 68 19 127/89 (102) 100 01/06/20 04:00 Room Air 01/06/20 03:33 64 01/06/20 00:00 Room Air 01/06/20 00:00 97.7 67 20 119/78 (92) 97 01/06/20 00:00 97.7 67 20 119/78 (92) 97 01/06/20 00:00 79 01/05/20 20:15 83 01/05/20 20:00 98.2 92 19 126/92 (103) 98 01/05/20 20:00 98.2 92 19 126/92 (103) 98 01/05/20 20:00 Room Air 01/05/20 18:00 144/102 01/05/20 18:00 144/102 01/05/20 16:00 Room Air 01/05/20 16:00 97.5 92 18 144/102 (116) 100 01/05/20 15:48 81 01/05/20 12:00 Room Air 01/05/20 12:00 92 01/05/20 12:00 97.7 99 18 130/78 (95) 99 01/05/20 10:04 Room Air 01/05/20 09:45 97.8 68 16 143/70 99 Room Air Intake and Output 01/05/20 01/06/20 19:00 07:00 Intake Total 480 ml 500 ml Balance 480 ml 500 ml Intake Oral 480 ml 500 ml # Voids 2 2 # Bowel Movements 1 Laboratory Tests 01/06/20 04:45: Troponin I 0.025, Pro-B-Type Natriuretic Peptide 3319H Height (Feet): 6 Height (Inches): 3.00 Weight (Pounds): 200 General Appearance: alert EENT: normal ENT inspection Neck: supple Cardiovascular: regular rhythm Respiratory/Chest: rhonchi - bilaterally Abdomen: soft, no organomegaly Edema: mild edema Skin: warm/dry Assessment/Plan Assessment/Plan: 1 chf 2 cardiomyopathy ef 25 3 cocciane abused cont curret tc recommended quit drugs cardio on the case Jake Blevins MD Jan 06, 2020 09:04
[2020-01-06 12:00] VITALS: BP 133/80
--- NOTE | 2020-01-06 15:43 | Cardiac Electrophysiology PN ---
Assessment/Plan Assessment/Plan 1. Exacerbation of congestive heart failure in this patient with history of severe cardiomyopathy. His echocardiogram in August of 2019 showed ejection fraction of 20% to 25%. We will repeat the echocardiogram, start the patient on Lasix and avoid beta-wilfredo in view of active cocaine use, and avoid BALTA inhibitor in view of renal failure. On hydralazine and nitrate and Lasix 40 mg IV b.i.d. 2. Peripheral vascular disease, status post peripheral stent placement in his right leg on aspirin, Plavix, and Lipitor. 3. Polysubstance abuse with cocaine. 4. History of LifeVest placement. Unfortunately, due to active cocaine use not a candidate for defibrillator implantation. Subjective Subjective Is having popcorn with at bedside. On iv Lasix Objective Last 24 Hour Vital Signs Date Time Temp Pulse Resp B/P (MAP) Pulse Ox O2 Delivery O2 Flow Rate FiO2 01/06/20 12:00 97.2 81 19 133/80 (97) 97 01/06/20 12:00 73 01/06/20 12:00 Room Air 01/06/20 08:57 132/87 01/06/20 08:57 132/87 01/06/20 08:00 Room Air 01/06/20 08:00 97.0 79 16 132/87 (102) 100 01/06/20 08:00 80 01/06/20 04:00 97.7 68 19 127/89 (102) 100 01/06/20 04:00 Room Air 01/06/20 03:33 64 01/06/20 00:00 Room Air 01/06/20 00:00 97.7 67 20 119/78 (92) 97 01/06/20 00:00 97.7 67 20 119/78 (92) 97 01/06/20 00:00 79 01/05/20 20:15 83 01/05/20 20:00 98.2 92 19 126/92 (103) 98 01/05/20 20:00 98.2 92 19 126/92 (103) 98 01/05/20 20:00 Room Air 01/05/20 18:00 144/102 01/05/20 18:00 144/102 01/05/20 16:00 Room Air 01/05/20 16:00 97.5 92 18 144/102 (116) 100 01/05/20 15:48 81 Intake and Output 01/05/20 01/06/20 19:00 07:00 Intake Total 480 ml 500 ml Balance 480 ml 500 ml Intake Oral 480 ml 500 ml # Voids 2 2 # Bowel Movements 1 Laboratory Tests Test 01/06/20 04:45 Troponin I 0.025 ng/mL (0.000-0.056) Pro-B-Type Natriuretic Peptide 3319 pg/mL (0-125) H Objective HEAD AND NECK: no JVD. LUNGS: Clear. CARDIOVASCULAR: regular S1 and S2 with no gallop. ABDOMEN: Soft. EXTREMITIES: No pitting edema. Puma Jane MD Jan 06, 2020 15:43
[2020-01-06 16:00] VITALS: BP 149/80
[2020-01-06 20:00] VITALS: BP 129/80
[2020-01-06] MEDS: Atorvastatin 20mg tab ORAL SCH (20:31)
[2020-01-07] VITALS: BP 147/89
[2020-01-07 04:00] VITALS: BP 150/88
[2020-01-07 08:00] VITALS: BP 132/67
[2020-01-07] MEDS: Spironolactone 25mg tab ORAL SCH (08:46)
[2020-01-07] MEDS: Aspirin Baby 81mg ORAL SCH (08:46)
[2020-01-07] MEDS: HydrALAZINE 10mg Tab ORAL SCH ×2 (08:47→17:08)
--- NOTE | 2020-01-07 10:59 | Pulmonology Progress Note ---
Subjective Interval Events: None new reported Constitutional: Reports: no symptoms HEENT: Repors: no symptoms Respiratory: Reports: pleuritic pain Cardiovascular: Reports: no symptoms Gastrointestinal/Abdominal: Reports: no symptoms Allergies: Coded Allergies: No Known Allergies (Unverified , 12/12/17) Objective Last 24 Hour Vital Signs Date Time Temp Pulse Resp B/P (MAP) Pulse Ox O2 Delivery O2 Flow Rate FiO2 01/07/20 08:47 152/88 01/07/20 08:47 152/88 01/07/20 08:00 83 01/07/20 08:00 97.9 80 22 132/67 (88) 96 01/07/20 07:47 Room Air 01/07/20 04:00 97.1 87 20 150/88 (108) 96 01/07/20 04:00 88 01/07/20 00:00 Room Air 01/07/20 00:00 97.9 79 17 147/89 (108) 96 01/06/20 23:28 80 01/06/20 20:00 96.3 80 19 129/80 (96) 98 01/06/20 20:00 Room Air 01/06/20 19:05 91 01/06/20 17:33 149/80 01/06/20 17:33 149/80 01/06/20 16:00 97.5 88 16 149/80 (103) 100 01/06/20 16:00 85 01/06/20 16:00 Room Air 01/06/20 12:00 97.2 81 19 133/80 (97) 97 01/06/20 12:00 73 01/06/20 12:00 Room Air Intake and Output 01/06/20 01/07/20 19:00 07:00 Intake Total 750 ml 240 ml Balance 750 ml 240 ml Intake Oral 750 ml 240 ml # Voids 3 3 General Appearance: no acute distress HEENT: normocephalic Respiratory: chest wall non-tender Cardiovascular: normal peripheral pulses Abdomen: normal bowel sounds Current Medications Medications (Trade) Dose Ordered Sig/Tasia Route PRN Reason Start Time Stop Time Status Last Admin Dose Admin Acetaminophen (Tylenol) 650 mg Q4H PRN ORAL Mild Pain (Pain Scale 1-3) 01/05/20 18:00 02/04/20 17:59 01/05/20 18:43 Acetaminophen (Tylenol) 650 mg Q4H PRN ORAL Temp >100.5 01/05/20 18:00 02/04/20 17:59 Albuterol/ Ipratropium (Albuterol/ Ipratropium) 3 ml Q6H PRN HHN Shortness of Breath 01/05/20 10:45 01/10/20 10:44 Aspirin (ASA) 81 mg DAILY ORAL 01/06/20 09:00 02/20/20 08:59 01/07/20 08:46 Atorvastatin Calcium (Lipitor) 40 mg BEDTIME ORAL 01/05/20 21:00 04/04/20 20:59 01/06/20 20:31 Clopidogrel Bisulfate (Plavix) 75 mg DAILY ORAL 01/06/20 09:00 02/05/20 08:59 01/07/20 08:46 Furosemide (Lasix) 40 mg Q12H IV 01/06/20 06:00 02/05/20 05:59 01/06/20 05:57 Hydralazine HCl (Apresoline) 10 mg BID ORAL 01/05/20 18:00 04/04/20 17:59 01/07/20 08:47 Ibuprofen (Motrin) 800 mg Q6H PRN ORAL For Pain 01/05/20 20:00 02/04/20 19:59 01/05/20 20:33 Isosorbide Dinitrate (Isordil) 10 mg BID ORAL 01/05/20 18:00 02/04/20 17:59 01/07/20 08:47 Nitroglycerin (Ntg) 0.4 mg Q5MIN X 3 DOSES PRN SL CHEST PAIN 01/05/20 10:30 02/04/20 10:29 Spironolactone (Aldactone) 25 mg DAILY ORAL 01/06/20 09:00 02/05/20 08:59 01/07/20 08:46 Assessment/Plan Assessment/Plan IMPRESSION: 1. Substance abuse. 2. Chest pain. 3. Rule out ACS. 4. History of cardiomyopathy. 5. CAD with stent per history. 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 Currently saturating well on RA Trend troponins Seen by cardiology Not a candidate for AICD due to ongoing substance abuse Apolonia Thomas Omar Syed MD Jan 07, 2020 10:58
[2020-01-07 12:00] VITALS: BP 136/96
--- NOTE | 2020-01-07 12:09 | General Progress Note ---
Subjective Allergies: Coded Allergies: No Known Allergies (Unverified , 12/12/17) Subjective doing ok Objective Last 24 Hour Vital Signs Date Time Temp Pulse Resp B/P (MAP) Pulse Ox O2 Delivery O2 Flow Rate FiO2 01/07/20 08:47 152/88 01/07/20 08:47 152/88 01/07/20 08:00 83 01/07/20 08:00 97.9 80 22 132/67 (88) 96 01/07/20 07:47 Room Air 01/07/20 04:00 97.1 87 20 150/88 (108) 96 01/07/20 04:00 88 01/07/20 00:00 Room Air 01/07/20 00:00 97.9 79 17 147/89 (108) 96 01/06/20 23:28 80 01/06/20 20:00 96.3 80 19 129/80 (96) 98 01/06/20 20:00 Room Air 01/06/20 19:05 91 01/06/20 17:33 149/80 01/06/20 17:33 149/80 01/06/20 16:00 97.5 88 16 149/80 (103) 100 01/06/20 16:00 85 01/06/20 16:00 Room Air Intake and Output 01/06/20 01/07/20 19:00 07:00 Intake Total 750 ml 240 ml Balance 750 ml 240 ml Intake Oral 750 ml 240 ml # Voids 3 3 Height (Feet): 6 Height (Inches): 3.00 Weight (Pounds): 200 General Appearance: alert EENT: PERRL/EOMI Neck: supple Cardiovascular: regular rhythm Respiratory/Chest: lungs clear Abdomen: non tender, soft Assessment/Plan Assessment/Plan: 1 chf 2 cardiomyopathy ef 25 3 cocciane abused cont curret tc recommended quit drugs cardio on the case dc home per cardiac Jake Martin MD Jan 07, 2020 12:09
[2020-01-07 16:00] VITALS: BP 127/82
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
[2020-01-07 20:00] VITALS: BP 142/96
[2020-01-07] MEDS: Atorvastatin 20mg tab ORAL SCH (21:01)
[2020-01-08] VITALS: BP 114/78
[2020-01-08 04:00] VITALS: BP 131/95
[2020-01-08 08:00] VITALS: BP 135/80
[2020-01-08] MEDS: HydrALAZINE 10mg Tab ORAL SCH (09:00)
[2020-01-08] MEDS: Aspirin Baby 81mg ORAL SCH (09:00)
[2020-01-08] MEDS: Spironolactone 25mg tab ORAL SCH (09:00)
--- NOTE | 2020-01-11 08:48 | Discharge Summary ---
Discharge Summary Discharge Summary _ DATE OF ADMISSION: 01/04/2020 DATE OF DISCHARGE: 01/08/2020 DISCHARGED BY: Dr. Cj Blevins CONSULTANTS: Dr. Juanjose Jane BRIEF HOSPITAL COURSE: Patient is a 59-year-old male, who came to the hospital with dyspnea, cardiomegaly, CHF exacerbation and palpitation. The patient also has diabetes type 2, substance abuse and leukopenia. He has a history of CAD with stent placement. He complained of 3 days chest pain. Upon evaluation at ED, vital signs were stable. Blood work did not show any leukocytosis. Hemoglobin hematocrit were stable. Troponin was 0.028. proBNP was elevated to 5238. Chest x-ray did not show any infiltrate or effusion. Pulmonary vascular congestion and cardiomegaly. She received aspirin in route to emergency department. She also received 2 sublingual nitroglycerin. Upon arrival to ED, he had resolution of pain. He stated that pain was exertional and was accompanied with shortness of breath that has worsened for the past several days. EKG and troponin were normal. He was given IV Lasix. He was then admitted to telemetry. He underwent cardiac and pulmonary evaluation. Echocardiogram in August 2019 showed ejection fraction of 20 to 25%. Patient is unable to receive beta- wilfredo in view of active cocaine use. Unable to give BALTA inhibitor due to renal failure. He was given hydralazine and nitrates. He was continued on Lasix IV twice daily. He has peripheral vascular disease status post peripheral stent placement on the right leg. Patient is on aspirin, Plavix and Lipitor. Patient has history of LifeVest placement. Due to active cocaine use, patient is not a candidate for defibrillator implantation. Patient has severe cardiomyopathy. He was counseled on cessation of cocaine use. Troponin were negative. BNP down trended. Patient was eventually cleared for discharge home. FINAL DIAGNOSES: Acute exacerbation of CHF with low ejection fraction Severe cardiomyopathy Peripheral vascular disease, status post peripheral stent placement on the right leg Polysubstance abuse with cocaine History of LifeVest placement. DISPOSITION: Patient was discharged home. DISCHARGE MEDICATIONS: Refer to Discharge Medication List. DISCHARGE INSTRUCTIONS: Follow-up in a week. I have been assigned to complete a discharge summary on this account, I was not involved with the patient's management.--KILO Sanz Jacqueline Robles NP Jan 11, 2020 08:48
--- NOTE | 2020-01-11 22:04 | Coder Physician Query ---
Clarification is required for compliance, coding accuracy, and to reflect severity of illness for this patient Dear Dr. PUENTES Date:01/11/20 Delivery Professional/CDS Name: DOMINICK GONZALEZ "Heart Failure / CHF" QUERY Final DX: Acute exacerbation of CHF with low ejection fraction Severe cardiomyopathy EKG and troponin were normal. He was given IV Lasix. He was then admitted to telemetry. proBNP was elevated to 5238. Patient has severe cardiomyopathy. He was counseled on cessation of cocaine use. Troponin were negative. BNP down trended. He underwent cardiac and pulmonary evaluation. Echocardiogram in August 2019 showed ejection fraction of 20 to 25%. Please Clarify CONGESTIVE HEART FAILURE: Type: [] Systolic [] Diastolic [] Systolic & Diastolic (Combined) [] Other: Physician signature Date Please also document in your Progress Notes and/or Discharge Summary and indicate if the condition was present on admission. JOO
== END 2020-01-08 09:46 | disposition home or self-care (01) | DRG 194 ==
LOC: EDBD 20:59 → EMR 21:45 → 2W 22:45 → EDBEDREQ 01-05 08:54 → 2W 01-07 00:37 → 2E 01-07 04:20
DX: I13.0 Hypertensive heart and chronic kidney disease with heart failure and stage 1 through stage 4 chronic kidney disease, or unspecified chronic kidney disease (principal); N18.9 Chronic kidney disease, unspecified; I50.9 Heart failure, unspecified; F14.10 Cocaine abuse, uncomplicated; I42.9 Cardiomyopathy, unspecified; I25.10 Atherosclerotic heart disease of native coronary artery without angina pectoris; I24.9 Acute ischemic heart disease, unspecified; I73.9 Peripheral vascular disease, unspecified; Z79.02 Long term (current) use of antithrombotics/antiplatelets; Z79.82 Long term (current) use of aspirin; E11.9 Type 2 diabetes mellitus without complications; Z95.5 Presence of coronary angioplasty implant and graft; F19.10 Other psychoactive substance abuse, uncomplicated; Z59.0 Homelessness
CPT/HCPCS: 36415; 71045; 80053; 80307; 83880; 84484; 85025; 93005; 93306; 96374; 99285; G0480

== ENCOUNTER 2020-02-20 21:35 | Emergency (ER) | payer MEDICAID ==
[~2020-02-20] VITALS: Ht 190.5 cm; Wt 95.3 kg
[~2020-02-20 21:35] MED LIST changes: +PLAVIX75 MG ORAL
[2020-02-20] MEDS ORDERED: FUROSEMIDE40 MG ORAL (22:14)
--- NOTE | 2020-02-20 22:36 | Emergency Room Report ---
History of Present Illness General Chief Complaint: Laceration Present Illness HPI 59-year-old male with a history of CHF on Lasix but noncompliant with his medication here with multiple complaints including right hand laceration, umbilical hernia, lower extremity swelling. He inadvertently slammed his hand in a door earlier today. He has been able to move the joints normally and denies any focal numbness or weakness. He was able to stop the bleeding with pressure alone. Also complaining of umbilical hernia for several weeks. Has not had any vomiting or constipation. Also complaining of lower extremity swelling. Is supposed to take Lasix 40 mg daily but has not been compliant with his medication because he ran out several weeks ago. Says he is had bilateral lower extremity swelling since then. Denies chest pain or shortness of breath. Allergies: Coded Allergies: No Known Allergies (Unverified , 12/12/17) COVID-19 Screening Contact w/high risk pt: No Recent Travel to affected area: No Experienced COVID-19 symptoms?: No COVID-19 symptoms experienced: Shortness of Breath COVID-19 Testing performed SPOOL WORKER: No Nursing Documentation-PMH Hx Cardiac Problems: Yes - stent placement x June 2019 Hx Hypertension: Yes Hx COPD: Yes Hx Cancer: No Hx Gastrointestinal Problems: No Hx Neurological Problems: No Review of Systems All Other Systems: negative except mentioned in HPI Physical Exam Vital Signs Date Time Temp Pulse Resp B/P (MAP) Pulse Ox O2 Delivery O2 Flow Rate FiO2 02/20/20 21:42 98.1 88 18 94 Room Air Sp02 EP Interpretation: reviewed, normal General Appearance: no apparent distress, alert, non-toxic Head: normocephalic, atraumatic Eyes: bilateral eye normal inspection, bilateral eye PERRL ENT: hearing grossly normal, normal pharynx, no angioedema, normal voice Neck: full range of motion, supple/symm/no masses Respiratory: chest non-tender, lungs clear, normal breath sounds, speaking full sentences Cardiovascular #1: regular rate, rhythm Cardiovascular #2: 2+ carotid (R), 2+ carotid (L), 2+ radial (R), 2+ radial (L), 2+ dorsalis pedis (R), 2+ dorsalis pedis (L) Gastrointestinal: normal bowel sounds, non tender, soft, non-distended, no guarding, no rebound, other - midine reducible umbilical hernia Rectal: deferred Genitourinary: normal inspection, no CVA tenderness Musculoskeletal: back normal, normal range of motion, gait/station normal, non- tender, other - 1+ bilateral pitting LE edema. Superficial abrasion overlying the extensor surface of the right fifth MCP Neurologic: alert, motor strength/tone normal, oriented x3, sensory intact, responsive, speech normal Psychiatric: judgement/insight normal, memory normal, mood/affect normal, no suicidal/homicidal ideation Lymphatic: no adenopathy Procedures Laceration/Wound Repair Laceration/Wound Repair : Consent: Verbal Wound Location: other - R hand Wound Explored: clean Betadine Prep?: Yes Wound Repaired With: Dermabond Sterile Dressing Applied?: Yes Splint Applied?: No Sling Applied?: No Patient Tolerated: Well Complications: None Medical Decision Making Diagnostic Impression: Primary Impression: Umbilical hernia Additional Impressions: Leg swelling Hand laceration ER Course 59-year-old male here with multiple complaints including right hand laceration, lower extremity edema, midline umbilical hernia. The hernia was easily reducible. Patient did not have any changes that were concerning for hernia strangulation or incarceration. No overlying skin changes. Said that he did not have any constipation or vomiting. Was having normal bowel movements and tolerating p.o. Tolerated p.o. in the emergency department. Right hand laceration was repaired as described above. Patient was post be taking Lasix but has not taken Lasix in several weeks because he ran out of his medication. He was given a dose of Lasix in the emergency department and a prescription for 30-day supply. He had no signs of severe congestive heart failure requiring imaging as the patient denied any chest pain or shortness of breath. No fevers or chills. Patient told to return to emergency department worsening symptoms. Expressed understanding and was discharged. Last Vital Signs Date Time Temp Pulse Resp B/P (MAP) Pulse Ox O2 Delivery O2 Flow Rate FiO2 02/20/20 21:49 98.1 18 94 Room Air 02/20/20 21:42 88 Disposition: HOME, SELF-CARE Condition: Stable Scripts Furosemide* (LASIX*) 40 Mg Tablet 40 MG ORAL DAILY, #30 TAB Prov: Toi Mims M.D. 02/20/20 Referrals: Uriel Styles Patient Instructions: Hernia, Adult Toi Mims M.D. Feb 20, 2020 22:36
== END 2020-02-20 22:27 | disposition home or self-care (01) ==
LOC: EMR 22:00
DX: S61.411A Laceration without foreign body of right hand, initial encounter (principal); K42.9 Umbilical hernia without obstruction or gangrene; M79.89 Other specified soft tissue disorders; W23.0XXA Caught, crushed, jammed, or pinched between moving objects, initial encounter; Y93.9 Activity, unspecified; Y92.9 Unspecified place or not applicable
CPT/HCPCS: 12001; Z7502; 99282

== ENCOUNTER 2020-03-06 14:16 | Emergency (ER) | payer MEDICAID ==
[~2020-03-06] VITALS: Ht 190.5 cm; Wt 95.3 kg
[2020-03-06 14:32] VITALS: BP 164/96
--- NOTE | 2020-03-06 14:32 | NUR ---
ED Nurse Note: Pt walked in to ED from home c/o SOB and bodyaches this AM. Noted with bilateral leg swelling, per pt he ran out of his Lasix x3 days ago. Has hx of COPD. AAOx4, verbally responsive. Not in any distress, on room air. Placed on cardiac catheterization technician. ERPA at bedside.
[2020-03-06] MEDS ORDERED: Nitroglycerin 2% oint pkt TOPIC ONE (15:00)
--- NOTE | 2020-03-06 15:13 | Emergency Room Report ---
History of Present Illness General Chief Complaint: Dyspnea/Respdistress Source: Patient Present Illness HPI 49-year-old no past medical history of COPD, diabetes, congestive heart failure presents today with shortness of breath and worsening leg swelling beginning today. Patient states that he ran out of his Lasix 3 days ago. Location bilateral lower extremities, severity mild, quality swelling, timing onset today. Patient denies any fevers chills nausea or vomiting or any other associated signs or symptoms. Denies any chest pain currently. No other modifying factors. 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 PULMONARY: + SOB, no cough, no wheezing CARDIAC: No chest pain, No palpitations, + leg swelling GI: No abdominal pain, no vomiting, no diarrhea , no melena or BRBPR : No flank pain, no dysuria, no hematuria, no frequency. MUSCULOSKELETAL: No back pain, no neck pain, no leg pain SKIN: No rash, no itching, no bruising NEUROLOGICAL: No headache, no dizziness, no paresthesia , no focal weakness. 14 point Review of Systems is otherwise negative except per HPI Physical Exam Vital Signs Date Time Temp Pulse Resp B/P (MAP) Pulse Ox O2 Delivery O2 Flow Rate FiO2 03/06/20 14:25 98.2 97 24 164/96 (118) 99 Room Air Other Organ Systems Physical Exam: GENERAL: Awake, alert, nontoxic, in no acute distress EYES: EOMI, conjunctiva without pallor HEAD/EARS/NOSE/THROAT: NCAT, oral mucosa moist, external nose and ear normal in appearance, oropharynx clear, no swelling or exudates. NECK: supple, nontender, no spasm, no JVD, no cervical adenopathy RESPIRATORY: no stridor, effort normal, no retractions, no accessory muscle use, BS clear bilaterally, no wheezes, no rhonchi, no rales, no rub. CARDIOVASCULAR: RRR, normal S1 S2, no murmur, with peripheral edema in bilateral legs ABDOMINAL /GI: soft, nondistended, nontender, BS normal, no masses, no guarding, no Mcburneys point tenderness, no rebound, no Murpheys sign : No CVA tenderness MUSCULOSKELETAL: All extremities are non-tender, no swelling, FROM, normal strength, normal sensation, cap refill <2 seconds in all extremities EXTREMITIES: +2+ pitting edema in bilateral lower legs, pulses: 2+ brisk and normal in all distal extremities SKIN: No rash, skin is warm and dry. No cyanosis, no pallor NEUROLOGICAL: awake, alert and appropriate, oriented x3, speech normal, motor and sensation grossly intact PSYCHIATRIC: Normal mood, normal affect Medical Decision Making PA Attestation Dr. Briseno Is my supervising Physician whom patient management has been discussed with. Diagnostic Impression: Primary Impression: Leg swelling Additional Impressions: Medication refill Shortness of breath ER Course Pt. presents to the ED c/o bilateral leg swelling, shortness of breath, and of his umbilical hernia. Patient ran out of his Lasix 3 days ago. Ddx considered but are not limited to CHF, failure to adhere to medications, cellulitis, DVT, PE, pneumonia. Vital signs: are WNL, pt. is afebrile H&PE are most consistent with CHF exacerbation due to failure to adhere to Lasix medications. Labs reveal no elevated white blood cell count, no signs of severe anemia. CMP reveals no acute electrolyte abnormalities. Mild bump in creatinine at 1.6 however it appears to be consistent with patient's prior labs, therefore stable and do not suspect acute kidney injury at this time. Do not suspect cellulitis or severe infection at this time. Patient's legs are bilaterally swollen and he has been off his Lasix for 3 days, he has a history consistent with CHF and chest x-ray reveals mild fluid overload, I suspect that patient's leg swelling is due to being off of Lasix for 3 days. He was given 40 mg IV dose of Lasix today while here in ER. He was also given 1 dose of nitroglycerin cream. Do not suspect ACS at this time, patient is not reporting any chest pain, only shortness of breath I suspect that is due to patient's failure to adhere to his Lasix medication and him experiencing mild fluid overload. Troponin negative, EKG revealed no acute findings. BNP is elevated however patient has a known history of CHF and patient's BNP has been elevated in the past. Patient will be discharged home with a refill of his Lasix prescription and was advised to follow-up with his primary care doctor for further prescription. He was also discharged home with albuterol because he reports wheezing however there is no wheezing noted on exam and pt was not hypoxic, and therefore no breathing treatment was done here in ER. Strict ER return precautions given. Laboratory Tests Test 03/06/20 15:25 White Blood Count 5.0 K/UL (4.8-10.8) Red Blood Count 4.60 M/UL (4.70-6.10) L Hemoglobin 13.2 G/DL (14.2-18.0) L Hematocrit 42.2 % (42.0-52.0) Mean Corpuscular Volume 92 FL (80-99) Mean Corpuscular Hemoglobin 28.8 PG (27.0-31.0) Mean Corpuscular Hemoglobin Concent 31.3 G/DL (32.0-36.0) L Red Cell Distribution Width 15.3 % (11.6-14.8) H Platelet Count 288 K/UL (150-450) Mean Platelet Volume 6.4 FL (6.5-10.1) L Neutrophils (%) (Auto) 76.9 % (45.0-75.0) H Lymphocytes (%) (Auto) 11.8 % (20.0-45.0) L Monocytes (%) (Auto) 8.9 % (1.0-10.0) Eosinophils (%) (Auto) 0.4 % (0.0-3.0) Basophils (%) (Auto) 1.9 % (0.0-2.0) Sodium Level 141 MMOL/L (136-145) Potassium Level 4.2 MMOL/L (3.5-5.1) Chloride Level 107 MMOL/L (98-107) Carbon Dioxide Level 27 MMOL/L (21-32) Anion Gap 7 mmol/L (5-15) Blood Urea Nitrogen 24 mg/dL (7-18) H Creatinine 1.6 MG/DL (0.55-1.30) H Estimated Glomerular Filtration Rate 53.6 mL/min (>60) Glucose Level 123 MG/DL (74-106) H Calcium Level 9.0 MG/DL (8.5-10.1) Total Bilirubin 0.9 MG/DL (0.2-1.0) Aspartate Amino Transferase (AST) 53 U/L (15-37) H Alanine Aminotransferase (ALT) 37 U/L (12-78) Alkaline Phosphatase 89 U/L (46-116) Troponin I 0.031 ng/mL (0.000-0.056) Pro-B-Type Natriuretic Peptide 3727 pg/mL (0-125) H Total Protein 7.5 G/DL (6.4-8.2) Albumin 3.0 G/DL (3.4-5.0) L Globulin 4.5 g/dL Albumin/Globulin Ratio 0.7 (1.0-2.7) L EKG Diagnostic Results Troponin ordered: Yes EKG Time: 15:26 Rate: normal Rhythm: other - sinus rhythm with 1st degree AV block ST Segments: no acute changes Other Impression QTc: 447 Chest X-Ray Diagnostic Results Chest X-Ray Diagnostic Results : Chest X-Ray Ordered: Yes # of Views/Limited/Complete: 1 View Indication: Shortness of Breath PA Xray: Interpretation reviewed, by supervising MD, and agrees with li grant. Impression: Other PA Scribe Text Impression: Lower lung opacities may represent atelectasis versus infectious/inflammatory process. Overall, opacities are decreased compared to prior exam. Last Vital Signs Date Time Temp Pulse Resp B/P (MAP) Pulse Ox O2 Delivery O2 Flow Rate FiO2 03/06/20 14:25 98.2 97 24 164/96 (118) 99 Room Air Status: improved Disposition: HOME, SELF-CARE Condition: Stable Scripts Albuterol Sulfate* (Albuterol Sulfate Hfa*) 8.5 Gm Hfa.aer.ad 2 PUFF INH Q4H, #1 INH Prov: Mone Mathis PA-C 03/06/20 Furosemide* (LASIX*) 40 Mg Tablet 40 MG ORAL DAILY for Diuretic for 14 Days, #14 TAB Prov: Mone Mathis PA-C 03/06/20 Referrals: GIO DE LA FUENTE (PCP) [facility] + [facility] Patient Instructions: Shortness of Breath Additional Instructions: Take medications as directed. You will need to see her primary care physician for further prescription of your Lasix. Take albuterol as needed. Follow up with a Primary Care Provider in 1-2 days, even if your symptoms have resolved. Return sooner to ED if new symptoms occur, or current symptoms become worse. - Please note that this Emergency Department Report was dictated using GetSnippyassistant fitness manager technology software, occasionally this can lead to erroneous entry secondary to interpretation by the dictation equipment. Mone Mathis PA-C Mar 06, 2020 15:12
--- NOTE | 2020-03-06 15:51 | Diagnostic Imaging Report ---
EXAM: XR Chest, 1 View CLINICAL HISTORY: SOB TECHNIQUE: Frontal view of the chest. COMPARISON: Chest radiograph on 01/04/2020 FINDINGS: Hardware: None. Lungs/pleura: Lower lung opacities. No pleural effusion or pneumothorax. Heart/mediastinum: Stable mild enlargement of the cardiac silhouette. Soft tissues: Unremarkable. Bones: No acute fracture. Upper abdomen: Normal. IMPRESSION: Lower lung opacities may represent atelectasis versus infectious/inflammatory process. Overall, opacities are decreased compared to prior exam.
[2020-03-06 16:15] VITALS: BP 148/96
[2020-03-06 16:22] LABS: BASOPHILS % (AUTO) 1.9 % (0.0-2.0); EOSINOPHILS % (AUTO) 0.4 % (0.0-3.0); HEMATOCRIT 42.2 % (42.0-52.0); HEMOGLOBIN 13.2 G/DL (14.2-18.0); LYMPHOCYTES % (AUTO) 11.8 % (20.0-45.0); MEAN CORPUSCULAR VOLUME 92 FL (80-99); MONOCYTES % (AUTO) 8.9 % (1.0-10.0); NEUTROPHILS % (AUTO) 76.9 % (45.0-75.0); PLATELET COUNT 288 K/UL (150-450); RED CELL DISTRIBUTION WIDTH 15.3 % (11.6-14.8)
[2020-03-06 16:29] LABS: CREATININE 1.6 MG/DL (0.55-1.30); POTASSIUM 4.2 MMOL/L (3.5-5.1)
[2020-03-06 16:34] LABS: ALBUMIN/GLOBULIN RATIO 0.7 (1.0-2.7); BILIRUBIN,TOTAL 0.9 MG/DL (0.2-1.0)
[2020-03-06] MEDS ORDERED: FUROSEMIDE40 MG ORAL (17:30)
[2020-03-06] MEDS ORDERED: ALBUTEROL SULF8.5 G1 INH (17:31)
[2020-03-06 17:57] VITALS: BP 135/74
--- NOTE | 2020-03-06 17:57 | NUR ---
ED Nurse Note: Pt cleared by ERMD for discharge. DC instructions/prescription was given and explained to pt and verbalized understanding of teachings. All medical deviecs such as ID band and IV line removed. Pt is AAO x4, ambulatory and left with all personal belongings.
--- NOTE | 2020-03-09 19:31 | Cardiology Report ---
APPROVED REPORT EKG Measurement Heart [id number] <Conclusion> Sinus rhythm with 1st degree AV block Left axis deviation Abnormal ECG
== END 2020-03-06 17:52 | disposition home or self-care (01) ==
LOC: EMR 14:47
DX: M79.89 Other specified soft tissue disorders (principal); Z76.0 Encounter for issue of repeat prescription; R06.02 Shortness of breath; J44.9 Chronic obstructive pulmonary disease, unspecified; I11.0 Hypertensive heart disease with heart failure; I50.9 Heart failure, unspecified; E11.9 Type 2 diabetes mellitus without complications; Z79.899 Other long term (current) drug therapy; Z91.14 Patient's other noncompliance with medication regimen
CPT/HCPCS: 36415; 71045; 80053; 83880; 84484; 85025; 93005; 96374; J1940; Z7502; 99284

== ENCOUNTER 2020-04-09 18:06 | Emergency (ER) | payer MEDICAID ==
[~2020-04-09] VITALS: Ht 193 cm; Wt 90.7 kg
[~2020-04-09 18:06] MED LIST changes: +ALBUTEROL SULF8.5 G1 INH
--- NOTE | 2020-04-09 19:04 | Emergency Room Report ---
History of Present Illness General Chief Complaint: Flu Like Symptoms Source: Patient Present Illness HPI 59-year-old male who is medically complicated with history of stent placement last June, CHF, high cholesterol, hypertension, drug use, and COPD who is a current smoker, presents to the emergency department complaining of nausea, vomiting, diarrhea, body aches and cough x 4 days. He also reports fevers and chills. HE denies taking any medications today for his symptoms. Patient reports he has had known contacts with patients that tested positive with COVID-19 who . Pt. denies CP or palpitations. He denies dizziness. He denies blood in the vomit or stool. He denies black tarry stools. Patient is also requesting refills of his regularly prescribed medications. He also r eports history of hernia and states that he takes [place] for that. He denies abdominal tenderness at this time he denies headache, neck pain/stiffness or visual changes. He denies productive cough or hemoptysis. He denies dysuria, hematuria or urinary frequency. He denies pain at this time. Allergies: Coded Allergies: No Known Allergies (Unverified , 12/12/17) COVID-19 Screening Contact w/high risk pt: No Recent Travel to affected area: No Experienced COVID-19 symptoms?: Yes COVID-19 symptoms experienced: Shortness of Breath COVID-19 Testing performed CLASSIFICATION CONTROL CLERK: No Patient History Past Medical History: see triage record, old chart reviewed Past Surgical History: none Pertinent Family History: none Reviewed Nursing Documentation: PMH: Agreed; PSxH: Agreed Nursing Documentation-PMH Hx Cardiac Problems: Yes - stent placement x June 2019 Hx Hypertension: Yes Hx COPD: Yes Hx Cancer: No Hx Gastrointestinal Problems: No Hx Neurological Problems: No Review of Systems All Other Systems: negative except mentioned in HPI Physical Exam Vital Signs Date Time Temp Pulse Resp B/P (MAP) Pulse Ox O2 Delivery O2 Flow Rate FiO2 04/09/20 18:36 97.9 84 18 135/97 (110) 100 Room Air Sp02 EP Interpretation: reviewed, normal General Appearance: no apparent distress, alert, GCS 15, non-toxic Head: normocephalic, atraumatic Eyes: bilateral eye normal inspection, bilateral eye PERRL ENT: hearing grossly normal, normal voice Neck: full range of motion Respiratory: chest non-tender, lungs clear, no respiratory distress, no accessory muscle use, speaking full sentences Cardiovascular #1: regular rate, rhythm, no edema, edema - 1+ non pitting bilateral edema Gastrointestinal: normal bowel sounds, non tender, soft, non-distended, no guarding Musculoskeletal: normal range of motion, gait/station normal, non-tender Neurologic: alert, motor strength/tone normal, oriented x3, sensory intact, responsive, speech normal Psychiatric: judgement/insight normal Skin: no rash, warm/dry - very dry skin of the bilateral LE's and hands. Medical Decision Making PA Attestation Dr. Ramos is my supervising Physician whom patient management has been discussed with. Diagnostic Impression: Primary Impression: Atypical pneumonia Additional Impression: Suspected COVID-19 virus infection ER Course 59-year-old male who is medically complicated with history of stent placement last June, CHF, high cholesterol, hypertension, drug use, and COPD who is a current smoker, presents to the emergency department complaining of nausea, vomiting, diarrhea, body aches and cough x 4 days. He also reports fevers and chills. HE denies taking any medications today for his symptoms. Patient reports he has had known contacts with patients that tested positive with COVID-19 who . Pt. denies CP or palpitations. He denies dizziness. He denies blood in the vomit or stool. He denies black tarry stools. Patient is also requesting refills of his regularly prescribed medications. He also reports history of hernia and states that he takes [place] for that. He denies abdominal tenderness at this time he denies headache, neck pain/stiffness or visual changes. He denies productive cough or hemoptysis. He denies dysuria, hematuria or urinary frequency. He denies pain at this time. Ddx considered but are not limited to URI, pneumonia, PE, strep pharyngitis, meningitis, COVID-19 Vital signs: Pt. is afebrile, the remaining VS are WNL H&PE are most consistent with URI- no meningeal signs, oropharynx is not involved, no evidence of bacterial infection at this time. ORDERS: - COVID 19: Pending -CBC: -CMP: - EK NSR w. 1st degree block -CXR: "Patchy bilateral peripheral airspace opacities, may represent atypical infectious process such as a viral pneumonia." -- Per official radiology report. ED INTERVENTIONS: DISCHARGE: At this time pt. is stable for d/c to home. Will provide printed patient care instructions, and any necessary prescriptions. Care plan and follow up instructions have been discussed with the patient prior to discharge. EKG Diagnostic Results Rate: normal - 96 Rhythm: NSR ST Segments: no acute changes Other Impression 1st degree block, similar in comparison to previous ekg. ASA given to the pt in ED: No PA Scribe Text This Interpretation was scribed by CHASTITY Waggoner. Chest X-Ray Diagnostic Results Chest X-Ray Diagnostic Results : Chest X-Ray Ordered: Yes # of Views/Limited/Complete: 1 View Indication: Shortness of Breath EP Interpretation: Yes PA Xray: Interpretation reviewed, by supervising MD, and agrees with findings. Interpretation: no effusion, no pneumothorax, no acute cardiopulmonary disease, other - bilateral lower lobe patchy infiltrates. Impression: Other Electronically Signed by: Daniella Waggoner PA-C Last Vital Signs Date Time Temp Pulse Resp B/P (MAP) Pulse Ox O2 Delivery O2 Flow Rate FiO2 04/09/20 18:36 97.9 84 18 135/97 (110) 100 Room Air Disposition: HOME, SELF-CARE Condition: Stable Signed Out To: Daniella Gould Apr 09, 2020 19:04
--- NOTE | 2020-04-09 19:41 | Diagnostic Imaging Report ---
EXAM: XR Chest, 1 View CLINICAL HISTORY: PAIN TECHNIQUE: Frontal view of the chest. COMPARISON: Chest radiograph dated 03/06/2020 FINDINGS: Lungs: Mild bilateral patchy peripheral airspace. Linear airspace density adjacent to the left heart border, not significant changed. Stevo, likely representing scarring. Pleural space: Unremarkable. No pneumothorax. Heart: Unremarkable. No cardiomegaly. Mediastinum: Unremarkable. Bones/joints: Unremarkable. Vasculature: Atherosclerotic vascular disease with a mildly tortuous aorta. IMPRESSION: Patchy bilateral peripheral airspace opacities, may represent atypical infectious process such as viral pneumonia. Recommend clinical correlation.
--- NOTE | 2020-04-09 20:10 | NUR ---
ED Nurse Note: covid specimen and blood sent to lab
[2020-04-09 20:26] VITALS: BP 135/97
[2020-04-09 20:36] LABS: EOSINOPHILS % (AUTO) 1.3 % (0.0-3.0); HEMATOCRIT 45.4 % (42.0-52.0); HEMOGLOBIN 13.1 G/DL (14.2-18.0); LYMPHOCYTES % (AUTO) 29.6 % (20.0-45.0); MEAN CORPUSCULAR VOLUME 89 FL (80-99); MONOCYTES % (AUTO) 10.8 % (1.0-10.0); NEUTROPHILS % (AUTO) 56.4 % (45.0-75.0); PLATELET COUNT 300 K/UL (150-450); RED BLOOD COUNT 5.11 M/UL (4.70-6.10); RED CELL DISTRIBUTION WIDTH 15.7 % (11.6-14.8); WHITE BLOOD COUNT 4.4 K/UL (4.8-10.8)
[2020-04-09 20:47] LABS: ANION GAP 7 mmol/L (5-15); BLOOD UREA NITROGEN 21 mg/dL (7-18); CARBON DIOXIDE 25 MMOL/L (21-32); CHLORIDE 107 MMOL/L (98-107); CREATININE 1.4 MG/DL (0.55-1.30); SODIUM 139 MMOL/L (136-145)
[2020-04-09] MEDS ORDERED: SPIRONOLACTONE25 MG ORAL (21:50)
[2020-04-09] MEDS ORDERED: COREG6.25 MG ORAL (21:50)
[2020-04-09] MEDS ORDERED: ASPIRIN81 MG ORAL (21:50)
[2020-04-09] MEDS ORDERED: ALBUTEROL SULF8.5 G1 INH (21:50)
[2020-04-09] MEDS ORDERED: PLAVIX75 MG ORAL (21:50)
[2020-04-09] MEDS ORDERED: FUROSEMIDE40 MG ORAL (21:50)
[2020-04-09 21:52] VITALS: BP 148/76
== END 2020-04-09 21:56 | disposition home or self-care (01) ==
LOC: EMR 18:36
DX: J18.9 Pneumonia, unspecified organism (principal); R05 Cough; R11.2 Nausea with vomiting, unspecified; R52 Pain, unspecified; R19.7 Diarrhea, unspecified; R50.9 Fever, unspecified; Z20.822 Contact with and (suspected) exposure to COVID-19; I11.9 Hypertensive heart disease without heart failure; J44.9 Chronic obstructive pulmonary disease, unspecified; F17.200 Nicotine dependence, unspecified, uncomplicated; E78.00 Pure hypercholesterolemia, unspecified; Z95.818 Presence of other cardiac implants and grafts
CPT/HCPCS: 36415; 71045; 80048; 85025; 93005; U0004; Z7502; 99284

== ENCOUNTER 2020-04-14 20:19 | Emergency (ER) | payer MEDICAID ==
[~2020-04-14] VITALS: Ht 190.5 cm; Wt 95.3 kg
--- NOTE | 2020-04-14 20:30 | NUR ---
ED Nurse Note: Pt brought in by [facility] ambulance. Per EMS, [facility] and was co of abdominal pain. Pt has a hx of umbilical hernia. Pt's has also recently tested positive for covid. Pt states that he has pain medial abdomen located mostly around his umbilicus. He states that he has a dry cough. vitals are stable as documented. pt is axox4, walks with a steady gait.
--- NOTE | 2020-04-14 20:30 | Emergency Room Report ---
History of Present Illness General Chief Complaint: Abdominal pain Source: Patient Present Illness HPI Disclaimer: Please note that this report is being documented using [employer] technology. This can lead to erroneous entry secondary to incorrect interpretation by the dictating instrument. HPI: 59-year-old male history umbilical hernia presents for evaluation of abdominal pain. Arrives by EMS from [facility] complaining of periumbilical bulging. He has a history of ventral hernia has not been repaired. Reports pain is 10/10. Denies nausea or vomiting. Denies diarrhea. Reports persistent cough for the past 2 weeks. He was seen at this emergency department diagnosed with atypical pneumonia likely COVID-19. Patient states he has been compliant with his antibiotics. tested positive for COVID-19 yesterday. No other symptoms. Denies fever, chills, chest pain, palpitations, shortness of breath. PMH: Umbilical hernia, CAD status post stent, COPD, current smoker, CHF, substance abuse, diabetes PSH: Reviewed Allergies: Reviewed Social Hx: Tobacco use, substance abuse Allergies: Coded Allergies: No Known Allergies (Unverified , 12/12/17) COVID-19 Screening Contact w/high risk pt: No Recent Travel to affected area: No Experienced COVID-19 symptoms?: Yes COVID-19 symptoms experienced: Shortness of Breath Nursing Documentation-PMH Hx Cardiac Problems: Yes - stent placement x June 2019 Hx Hypertension: Yes Hx COPD: Yes Hx Cancer: No Hx Gastrointestinal Problems: No Hx Neurological Problems: No Review of Systems All Other Systems: negative except mentioned in HPI Physical Exam General: Awake and alert, no acute distress HEENT: NC/AT. EOMI. Cardiovascular: RRR. S1 and S2 normal. No murmur appreciated Resp: Normal work of breathing. Cough during exam Abdomen: Abdomen is soft, nondistended. Protruding bulge from the umbilicus. Soft. No surrounding edema, erythema or overlying skin changes/necrosis. Reduced by me at bedside without complication. Skin: Intact. No abrasions, laceration or rash over the exposed skin MSK: Normal tone and bulk. Moving all extremities. No obvious deformity. Neuro: Awake and alert. Mentating appropriately. Medical Decision Making Homeless Attestation Patient is homeless. Patient has been medically screened and is stable for outpatient follow up Diagnostic Impression: Primary Impression: Suspected COVID-19 virus infection Additional Impression: Umbilical hernia ER Course 59-year-old male presents for evaluation of abdominal pain and abdominal bulge. Consistent with umbilical hernia which was easily reduced by me at bedside without difficulty. No signs of incarceration/strangulation, overlying cellulitis, necrosis, systemic infection. Patient requesting something to eat and drink. He is refusing to give urine. Slight elevation in BUN and creatinine similar to prior labs. Otherwise labs within normal limits. Patient is in no pain. Sitting up in bed comfortably eating sandwiches. Stable for outpatient follow-up. Will write a prescription for an abdominal binder. He needs to follow-up with general surgery for definitive repair of his umbilical hernia. Laboratory Tests Test 04/14/20 20:44 White Blood Count 4.3 K/UL (4.8-10.8) L Red Blood Count 5.52 M/UL (4.70-6.10) Hemoglobin 14.5 G/DL (14.2-18.0) Hematocrit 49.3 % (42.0-52.0) Mean Corpuscular Volume 89 FL (80-99) Mean Corpuscular Hemoglobin 26.3 PG (27.0-31.0) L Mean Corpuscular Hemoglobin Concent 29.4 G/DL (32.0-36.0) L Red Cell Distribution Width 15.7 % (11.6-14.8) H Platelet Count 280 K/UL (150-450) Mean Platelet Volume 7.8 FL (6.5-10.1) Neutrophils (%) (Auto) 61.9 % (45.0-75.0) Lymphocytes (%) (Auto) 25.6 % (20.0-45.0) Monocytes (%) (Auto) 7.4 % (1.0-10.0) Eosinophils (%) (Auto) 2.7 % (0.0-3.0) Basophils (%) (Auto) 2.4 % (0.0-2.0) H Sodium Level 143 MMOL/L (136-145) Potassium Level 4.2 MMOL/L (3.5-5.1) Chloride Level 107 MMOL/L (98-107) Carbon Dioxide Level 29 MMOL/L (21-32) Anion Gap 7 mmol/L (5-15) Blood Urea Nitrogen 24 mg/dL (7-18) H Creatinine 1.7 MG/DL (0.55-1.30) H Estimated Glomerular Filtration Rate 49.9 mL/min (>60) Glucose Level 130 MG/DL (74-106) H Calcium Level 8.9 MG/DL (8.5-10.1) Total Bilirubin Pending Aspartate Amino Transferase (AST) Pending Alanine Aminotransferase (ALT) Pending Alkaline Phosphatase Pending Total Protein Pending Albumin Pending Globulin Pending Lipase Pending Disposition: HOME, SELF-CARE Condition: Stable Scripts [hernia abd binder] No Conflict Check 1 EA Prov: Nikhil Briseno MD 04/14/20 Nikhil Briseno MD Apr 14, 2020 20:30
--- NOTE | 2020-04-14 20:30 | NUR ---
Sanjay wilks in [place] - 04/14/20 at 2049 by RUI ABHISHEK Champion Note:
[2020-04-14 20:54] VITALS: BP 149/101
[2020-04-14] MEDS ORDERED: [UNRECOGNIZED DRUG - SUPPLY] (21:00)
[2020-04-14 21:20] LABS: BASOPHILS % (AUTO) 2.4 % (0.0-2.0); EOSINOPHILS % (AUTO) 2.7 % (0.0-3.0); HEMATOCRIT 49.3 % (42.0-52.0); HEMOGLOBIN 14.5 G/DL (14.2-18.0); LYMPHOCYTES % (AUTO) 25.6 % (20.0-45.0); MEAN CORPUSCULAR VOLUME 89 FL (80-99); MONOCYTES % (AUTO) 7.4 % (1.0-10.0); NEUTROPHILS % (AUTO) 61.9 % (45.0-75.0); PLATELET COUNT 280 K/UL (150-450); RED BLOOD COUNT 5.52 M/UL (4.70-6.10); RED CELL DISTRIBUTION WIDTH 15.7 % (11.6-14.8); WHITE BLOOD COUNT 4.3 K/UL (4.8-10.8)
--- NOTE | 2020-04-14 21:25 | NUR ---
ED Nurse Note: Pt states that he is unable to pee. ER MD aware and said its ok.
[2020-04-14 21:32] LABS: CALCIUM 8.9 MG/DL (8.5-10.1); CREATININE 1.7 MG/DL (0.55-1.30); POTASSIUM 4.2 MMOL/L (3.5-5.1)
[2020-04-14 21:37] LABS: ALBUMIN 3.2 G/DL (3.4-5.0); ALBUMIN/GLOBULIN RATIO 0.6 (1.0-2.7); BILIRUBIN,TOTAL 0.9 MG/DL (0.2-1.0)
[2020-04-14 21:55] VITALS: BP 149/99
--- NOTE | 2020-04-14 22:00 | NUR ---
ER DISCHARGE NOTE: Patient is cleared to be discharged per ERMD, pt is aox4, on room air, with stable vital signs. pt was given dc and prescription instructions, pt was able to verbalize understanding, pt id band and iv site removed without complications. pt is able to ambulate with steady gait. pt took all belongings. PT left with family in a private car Addendum: 04/14/20 at 2203 by RUI PT refused to sign DC paperwork
== END 2020-04-14 21:55 | disposition home or self-care (01) ==
LOC: EDBD 20:19 → EMR 20:47
DX: K42.9 Umbilical hernia without obstruction or gangrene (principal); R05 Cough; Z20.822 Contact with and (suspected) exposure to COVID-19; J44.9 Chronic obstructive pulmonary disease, unspecified; Z95.5 Presence of coronary angioplasty implant and graft; Z72.0 Tobacco use
CPT/HCPCS: 36415; 80053; 82962; 83690; 85025; Z7502; 99283

== ENCOUNTER 2020-04-26 01:42 | Emergency (ER) | payer MEDICAID ==
[~2020-04-26] VITALS: Ht 185.4 cm; Wt 127.0 kg
[~2020-04-26 01:42] MED LIST changes: +[UNRECOGNIZED DRUG - SUPPLY]
--- NOTE | 2020-04-26 01:59 | Emergency Room Report ---
History of Present Illness General Chief Complaint: To Be Triaged Present Illness HPI Patient is a 59-year-old male presents for increased shortness of breath. Cannot state when shortness of breath began. Prior history of CHF as well as COPD. Patient denies any recent substance abuse although he has had previous drug screens were positive for PCP and cocaine. Reports having increased difficulty breathing. Reportedly had contacts at home with coronavirus infection. Reports having worsening shortness of breath. Reports having cough with clear sputum. Reports having increased leg swelling but cannot state once again when this began. Reports having some increased shortness of breath with supine position. Allergies: Coded Allergies: No Known Allergies (Unverified , 12/12/17) COVID-19 Screening Contact w/high risk pt: No Recent Travel to affected area: No Experienced COVID-19 symptoms?: No COVID-19 symptoms experienced: Shortness of Breath Patient History Past Medical History: see triage record Reviewed Nursing Documentation: PMH: Agreed; PSxH: Agreed Nursing Documentation-PMH Hx Cardiac Problems: Yes - stent placement x June 2019 Hx Hypertension: Yes Hx COPD: Yes Hx Diabetes: Yes Hx Cancer: No Hx Gastrointestinal Problems: Yes - hernia Hx Neurological Problems: No Review of Systems All Other Systems: negative except mentioned in HPI Physical Exam General Appearance: alert, GCS 15, Chronically Ill Neck: full range of motion Respiratory: normal breath sounds, wheezing Cardiovascular #1: normal inspection, no edema Gastrointestinal: normal inspection, soft Musculoskeletal: normal inspection, back normal, decreased range of motion Neurologic: alert, motor strength/tone normal, sail repair person III-XII nml as tested, oriented x3 Psychiatric: normal inspection Medical Decision Making ER Course Presents for shortness of breath. Differential diagnosis include was not limited to congestive heart failure, coronavirus infection, cardiomyopathy, among others. Because of complexity of patient's case laboratory tests and imaging studies were ordered. Balbir Ramos MD Apr 26, 2020 01:59
[2020-04-26] MEDS ORDERED: Albuterol/Ipratropium 3ml neb HHN ONE (02:15)
--- NOTE | 2020-04-26 02:28 | NUR ---
ED Nurse Note: Pt c/o SOB and productive cough for unknown amount of time. Pt was brought back to ED via wheelchair, pt is AAO x4.
[2020-04-26 02:34] LABS: BASOPHILS % (AUTO) 5.6 % (0.0-2.0); HEMATOCRIT 44.2 % (42.0-52.0); LYMPHOCYTES % (AUTO) 16.4 % (20.0-45.0); MEAN CORPUSCULAR VOLUME 87 FL (80-99); MONOCYTES % (AUTO) 18.3 % (1.0-10.0); NEUTROPHILS % (AUTO) 53.7 % (45.0-75.0); PLATELET COUNT 235 K/UL (150-450); RED BLOOD COUNT 5.11 M/UL (4.70-6.10); RED CELL DISTRIBUTION WIDTH 16.2 % (11.6-14.8)
[2020-04-26 02:38] LABS: APPEARANCE,URINE CLEAR; BILIRUBIN, URINE NEGATIVE (NEGATIVE); COLOR,URINE PALE YELLOW; GLUCOSE, URINE (UA) NEGATIVE (NEGATIVE); KETONES,URINE NEGATIVE (NEGATIVE); LEUKOCYTE ESTERASE ,URINE NEGATIVE (NEGATIVE); NITRITE,URINE NEGATIVE (NEGATIVE); PH,URINE 6 (4.5-8.0); PROTEIN,URINE NEGATIVE (NEGATIVE); UROBILINOGEN,URINE NORMAL MG/DL (0.0-1.0)
[2020-04-26 02:51] VITALS: BP 141/85
[2020-04-26 03:39] VITALS: BP 135/80
--- NOTE | 2020-04-26 04:40 | NUR ---
[place] and juice provided.
[2020-04-26 04:42] VITALS: BP 113/72
[2020-04-26] MEDS ORDERED: ALBUTEROL SULF8.5 G1 INH (04:46)
[2020-04-26] MEDS ORDERED: VITAMIN D350 MC1 PO (04:47)
[2020-04-26 05:25] VITALS: BP 118/83
--- NOTE | 2020-04-26 05:39 | NUR ---
ER DISCHARGE NOTE: Patient is cleared to be discharged per E RMD, pt is aao x4, on room air, with stable vital signs. pt was given d/c and prescription instructions, pt was able to verbalize understanding, pt's id band and ivs removed without complications. pt is able to ambulate with steady gait. pt took all belongings.
--- NOTE | 2020-04-26 13:49 | Diagnostic Imaging Report ---
Procedure: XRAY Chest 1v Reason for study: Reason For Exam: SOB Comparison films: 04/09/2020. FINDINGS: A single one view chest is obtained. Vascularity is normal. Lungs are clear. There are skin fold mimicking right pneumothoraces. Cardiomegaly stable. CP angles are sharp. The bony thorax appear unremarkable. IMPRESSION: NO ACUTE CARDIOPULMONARY DISEASE.
--- NOTE | 2020-04-29 14:11 | Cardiology Report ---
APPROVED REPORT EKG Measurement Heart [id number] <Conclusion> Suspect arm lead reversal, interpretation assumes no reversal Sinus rhythm with 1st degree AV block Right superior axis deviation Pulmonary disease pattern Nonspecific ST and T wave abnormality Abnormal ECG
== END 2020-04-26 05:25 | disposition home or self-care (01) ==
LOC: EMR 01:55 → EDBEDREQ 03:00 → EMR 05:25
DX: R06.02 Shortness of breath (principal); J44.9 Chronic obstructive pulmonary disease, unspecified; I11.0 Hypertensive heart disease with heart failure; I50.9 Heart failure, unspecified; Z95.5 Presence of coronary angioplasty implant and graft; E11.9 Type 2 diabetes mellitus without complications
CPT/HCPCS: 36415; 71045; 80307; 81001; 82962; 83880; 84443; 84484; 85025; 93005; 94640; 96374; G0480; J1940; U0002; Z7502; 99284; J7620

== ENCOUNTER 2020-04-30 03:49 | Emergency (ER) | payer MEDICAID ==
[~2020-04-30] VITALS: Ht 182.9 cm; Wt 99.8 kg
[~2020-04-30 03:49] MED LIST changes: +VITAMIN D350 MC1 PO
--- NOTE | 2020-04-30 04:14 | NUR ---
pt aox3 c/o sob. pt states he ran out of his lasix. pt grisel on auscultation, respiration non labored. abdomen soft non disteded. skin warm and dry. v/s stable. pt connected to monitor. md at bedside for eval. 18g iv to lac established. labs collected and sent to lab. ekg done. given to .
[2020-04-30 04:17] VITALS: BP 150/88
[2020-04-30 04:36] LABS: HEMATOCRIT 43.2 % (42.0-52.0); HEMOGLOBIN 12.5 G/DL (14.2-18.0); MEAN CORPUSCULAR VOLUME 87 FL (80-99); PLATELET COUNT 243 K/UL (150-450); RED BLOOD COUNT 4.98 M/UL (4.70-6.10); RED CELL DISTRIBUTION WIDTH 17.4 % (11.6-14.8); WHITE BLOOD COUNT 5.2 K/UL (4.8-10.8)
[2020-04-30 04:39] LABS: ANION GAP 8 mmol/L (5-15); BLOOD UREA NITROGEN 31 mg/dL (7-18); CALCIUM 9.1 MG/DL (8.5-10.1); CARBON DIOXIDE 25 MMOL/L (21-32); CHLORIDE 107 MMOL/L (98-107); CREATININE 1.4 MG/DL (0.55-1.30); POTASSIUM 4.5 MMOL/L (3.5-5.1); SODIUM 140 MMOL/L (136-145)
--- NOTE | 2020-04-30 04:45 | Emergency Room Report ---
History of Present Illness General Chief Complaint: Dyspnea/Respdistress Source: Patient Present Illness HPI 59-year-old male presents for shortness of breath and leg swelling. X1 day. History of CHF. States that he does not have his Lasix medication. Denies any chest pain. Denies any fevers or chills. at bedside states that patient throughout his medication. She does not know why. Patient admits to cocaine use. No other aggravating relieving factors. Denies any other associated symptoms Allergies: Coded Allergies: No Known Allergies (Unverified , 12/12/17) COVID-19 Screening Contact w/high risk pt: No Recent Travel to affected area: No Experienced COVID-19 symptoms?: No COVID-19 symptoms experienced: Shortness of Breath COVID-19 Testing performed [employer]: Yes - 04/26/20 COVID-19 Screening: Negative COVID-19 COVID-19 Testing Source: [facility] – [place] Patient History Past Medical History: DM, HTN, CAD, CHF Pertinent Family History: none Social History: Reports: drug use; Denies: smoking, alcohol use Immunizations: UTD Reviewed Nursing Documentation: PMH: Agreed; PSxH: Agreed Nursing Documentation-PMH Past Medical History: No History, Except For Hx Cardiac Problems: Yes - stent placement x June 2019 Hx Hypertension: Yes Hx COPD: Yes Hx Diabetes: Yes Hx Cancer: No Hx Gastrointestinal Problems: Yes - hernia Hx Neurological Problems: No Review of Systems All Other Systems: negative except mentioned in HPI Physical Exam Vital Signs Date Time Temp Pulse Resp B/P (MAP) Pulse Ox O2 Delivery O2 Flow Rate FiO2 04/30/20 03:57 98.2 89 18 150/88 (108) 95 Room Air Sp02 EP Interpretation: reviewed, normal General Appearance: no apparent distress, alert, GCS 15, non-toxic Head: normocephalic, atraumatic Eyes: bilateral eye normal inspection, bilateral eye PERRL ENT: hearing grossly normal, normal pharynx, no angioedema, normal voice Neck: full range of motion, supple/symm/no masses Respiratory: chest non-tender, lungs clear, normal breath sounds, speaking full sentences Cardiovascular #1: regular rate, rhythm, no edema Cardiovascular #2: 2+ carotid (R), 2+ carotid (L), 2+ radial (R), 2+ radial (L), 2+ dorsalis pedis (R), 2+ dorsalis pedis (L) Gastrointestinal: normal bowel sounds, non tender, soft, non-distended, no guarding, no rebound Rectal: deferred Genitourinary: normal inspection, no CVA tenderness Musculoskeletal: back normal, normal range of motion, gait/station normal, non- tender Neurologic: alert, motor strength/tone normal, oriented x3, sensory intact, responsive, speech normal Psychiatric: judgement/insight normal, memory normal, mood/affect normal, no suicidal/homicidal ideation Reflexes: 3+ bicep (R), 3+ bicep (L), 3+ tricep (R), 3+ tricep (L), 3+ knee (R), 3+ knee (L) Lymphatic: no adenopathy Medical Decision Making Diagnostic Impression: Primary Impression: CHF (congestive heart failure) Qualified Codes: I50.9 - Heart failure, unspecified Additional Impression: Cocaine abuse ER Course Hospital Course 59-year-old male presents with shortness of breath, leg swelling. History of CHF. States he "lost his medications" Differential diagnoses include: Rib fracture, LA/unstable angina, contusion, muscle strain Clinical course Patient placed on stretcher. After initial history and physical I ordered labs, EKG, chest x-ray. labs reviewed- all electrolytes normal, troponins negative, no leukocytosis, hemoglobin/hematocrit stable, BNP elevated. UDS + cocaine. EKG - NSR no acute ischemic changes interpreted by me Chest x-ray-no cardiomegaly, no rib fracture, no pneumothorax, no acute process Discussed findings with patient. No acute EKG changes. Troponin negative. No signs of fluid overload onchest x-ray. Vitals stable. Given Lasix in ED. Plan to discharge home. States he has a PMD. states that he throughout his medication but patient denies. I. I feel this is a highly complex case requiring extensive working including EKG/Rhythm strip, Xray/CT/US, Blood/urine lab work, repeat exams while in ED, and administration of strong opiates/narcotics for pain control, admission to hospital or close patient follow up. Diagnosis -CHF, cocaine abuse Stable and discharged to home. Instructed to followup with PMD. Return to ED if symptoms recur or worsen Laboratory Tests Test 04/30/20 04:16 04/30/20 05:02 White Blood Count 5.2 K/UL (4.8-10.8) Red Blood Count 4.98 M/UL (4.70-6.10) Hemoglobin 12.5 G/DL (14.2-18.0) L Hematocrit 43.2 % (42.0-52.0) Mean Corpuscular Volume 87 FL (80-99) Mean Corpuscular Hemoglobin 25.2 PG (27.0-31.0) L Mean Corpuscular Hemoglobin Concent 29.0 G/DL (32.0-36.0) L Red Cell Distribution Width 17.4 % (11.6-14.8) H Platelet Count 243 K/UL (150-450) Mean Platelet Volume 7.0 FL (6.5-10.1) Neutrophils (%) (Auto) % (45.0-75.0) Lymphocytes (%) (Auto) % (20.0-45.0) Monocytes (%) (Auto) % (1.0-10.0) Eosinophils (%) (Auto) % (0.0-3.0) Basophils (%) (Auto) % (0.0-2.0) Differential Total Cells Counted 100 Neutrophils % (Manual) 67 % (45-75) Lymphocytes % (Manual) 25 % (20-45) Monocytes % (Manual) 8 % (1-10) Eosinophils % (Manual) 0 % (0-3) Basophils % (Manual) 0 % (0-2) Band Neutrophils 0 % (0-8) Platelet Estimate Adequate Platelet Morphology Normal Polychromasia 1+ Hypochromasia 2+ Anisocytosis 1+ Sodium Level 140 MMOL/L (136-145) Potassium Level 4.5 MMOL/L (3.5-5.1) Chloride Level 107 MMOL/L (98-107) Carbon Dioxide Level 25 MMOL/L (21-32) Anion Gap 8 mmol/L (5-15) Blood Urea Nitrogen 31 mg/dL (7-18) H Creatinine 1.4 MG/DL (0.55-1.30) H Estimat Glomerular Filtration Rate > 60 mL/min (>60) Glucose Level 83 MG/DL (74-106) Calcium Level 9.1 MG/DL (8.5-10.1) Total Bilirubin 0.9 MG/DL (0.2-1.0) Aspartate Amino Transf (AST/SGOT) 30 U/L (15-37) Alanine Aminotransferase (ALT/SGPT) 21 U/L (12-78) Alkaline Phosphatase 98 U/L (46-116) Troponin I 0.017 ng/mL (0.000-0.056) Pro-B-Type Natriuretic Peptide 2327 pg/mL (0-125) H Total Protein 7.5 G/DL (6.4-8.2) Albumin 2.9 G/DL (3.4-5.0) L Globulin 4.6 g/dL Albumin/Globulin Ratio 0.6 (1.0-2.7) L Urine Opiates Screen Negative (NEGATIVE) Urine Barbiturates Screen Negative (NEGATIVE) Phencyclidine (PCP) Screen Negative (NEGATIVE) Urine Amphetamines Screen Negative (NEGATIVE) Urine Benzodiazepines Screen Negative (NEGATIVE) Urine Cocaine Screen Positive (NEGATIVE) H Urine Marijuana (THC) Screen Negative (NEGATIVE) EKG Diagnostic Results Troponin ordered: Yes Rate: normal Rhythm: NSR ST Segments: no acute changes ASA given to the pt in ED: No Rhythm Strip Diag. Results EP Interpretation: yes Rhythm: NSR, no PVC's, no ectopy Chest X-Ray Diagnostic Results Chest X-Ray Diagnostic Results : Chest X-Ray Ordered: Yes # of Views/Limited/Complete: 1 View Indication: Shortness of Breath EP Interpretation: Yes Interpretation: no consolidation, no effusion, no pneumothorax, no acute cardiopulmonary disease Impression: No acute disease Electronically Signed by: Electronically signed by Scott Guallpa MD Last Vital Signs Date Time Temp Pulse Resp B/P (MAP) Pulse Ox O2 Delivery O2 Flow Rate FiO2 04/30/20 04:17 89 18 Room Air 04/30/20 04:17 98.2 150/88 95 Status: improved Disposition: HOME, SELF-CARE Condition: Stable Scripts Furosemide* (LASIX*) 40 Mg Tablet 40 MG ORAL DAILY, #30 TAB Prov: Scott Guallpa MD 04/30/20 Referrals: [facility],REFERRING (PCP) Scott Guallpa MD Apr 30, 2020 04:45
[2020-04-30 04:50] LABS: ALANINE AMINOTRANSFERASE 21 U/L (12-78); ALBUMIN 2.9 G/DL (3.4-5.0); ALBUMIN/GLOBULIN RATIO 0.6 (1.0-2.7); ALKALINE PHOSPHATASE 98 U/L (46-116); ASPARTATE AMINO TRANSFERASE 30 U/L (15-37); BILIRUBIN,TOTAL 0.9 MG/DL (0.2-1.0)
[2020-04-30] MEDS ORDERED: FUROSEMIDE40 MG ORAL ×2 (05:07)
--- NOTE | 2020-04-30 05:12 | Diagnostic Imaging Report ---
EXAM: XR Chest, 1 View CLINICAL HISTORY: SOB TECHNIQUE: Frontal view of the chest. COMPARISON: 04/26/2020 FINDINGS: Lungs: Linear interstitial prominence could represent atypical infection, or edema, or could be due to low lung volumes. Low lung volumes with bronchovascular crowding. Pleural space: Unremarkable. No pneumothorax. Heart: Cardiomegaly. Mediastinum: Unremarkable. Bones/joints: No acute abnormality IMPRESSION: 1. Linear interstitial prominence could represent atypical infection, or edema, or could be due to low lung volumes. 2. Low lung volumes with bronchovascular crowding. 3. Cardiomegaly. 4. If there is further concern, consider PA and lateral chest radiographs.
--- NOTE | 2020-04-30 05:23 | NUR ---
pt aox4 given and understands discharge instructions. v/s stable. pt in no distress. ambulatory out w steady gait
== END 2020-04-30 05:25 | disposition home or self-care (01) ==
LOC: EMR 04:14
DX: I11.0 Hypertensive heart disease with heart failure (principal); I50.9 Heart failure, unspecified; F14.10 Cocaine abuse, uncomplicated; J44.9 Chronic obstructive pulmonary disease, unspecified; E11.9 Type 2 diabetes mellitus without complications; Z79.899 Other long term (current) drug therapy; Z95.818 Presence of other cardiac implants and grafts
CPT/HCPCS: 36415; 71045; 80053; 80307; 83880; 84484; 85007; 85025; 93005; 96374; J1940; Z7502; 99284